=== PATIENT | female | born 1945 | race Caucasian/White ===

== ENCOUNTER → 2024-06-06 09:10 | Outpatient (REF) | payer MEDICARE, OTHER, SELFPAY | LOC: WDC 09:10 | PROVIDERS: ATTENDING PHYSICIAN Family Medicine | DX: N63.21 Unspecified lump in the left breast, upper outer quadrant (principal) | CPT/HCPCS: 76642; 77062; 77066 ==

== ENCOUNTER → 2024-06-19 09:06 | Outpatient (REF) | payer MEDICARE, OTHER, SELFPAY ==
--- NOTE | 2024-06-19 14:40 | OID.BR.INTR ---
[facility] Breast Navigator - Initial
- -
Date of Contact: 06/19/24
Met with patient. Patient given written information on navigator services available at [facility]. Will follow up as needed per protocol.
== END ==
LOC: WDC 09:06
PROVIDERS: ATTENDING PHYSICIAN Family Medicine
DX: N63.21 Unspecified lump in the left breast, upper outer quadrant (principal)
CPT/HCPCS: 88305; 19083; 77065; 88342; 88360; A4648

== ENCOUNTER 2024-07-11 06:06 | Day surgery (SDC) | payer MEDICARE, OTHER, SELFPAY ==
[2024-07-11] VITALS (9 sets, daily range): BP systolic 112–139; BP diastolic 50–64; BMI 46.7
[2024-07-11] MEDS: LOVENOX 40 MG SC (07:23)
[2024-07-11] MEDS: TYLENOL 1000 MG PO (07:24)
[2024-07-11] MEDS: NORMOSOL-R 1000 IV (07:24)
[2024-07-11 07:27] LABS: Glucose - Point of Care 130 mg/dl (70-99)
[2024-07-11 08:49] LABS: Glucose - Point of Care 131 mg/dl (70-99)
== END 2024-07-11 11:15 | disposition home or self-care (01) ==
LOC: SDS 06:06
PROVIDERS: ATTENDING PHYSICIAN Surgery
DX: D05.12 Intraductal carcinoma in situ of left breast (principal)
CPT/HCPCS: 19301; 88305; 88307; 82962; A4648

== ENCOUNTER 2024-08-29 06:31 | Day surgery (SDC) | payer MEDICARE, OTHER, SELFPAY ==
[2024-08-29] VITALS (8 sets, daily range): BP systolic 113–160; BP diastolic 58–104; BMI 46.8
[2024-08-29] MEDS: TYLENOL 1000 MG PO (10:30)
[2024-08-29 10:43] LABS: Glucose - Point of Care 139 mg/dl (70-99)
[2024-08-29] MEDS: LOVENOX 40 MG SC (10:58)
[2024-08-29] MEDS: ZOFRAN 4 MG IV (13:57)
== END 2024-08-29 15:15 | disposition home or self-care (01) ==
LOC: SDS 06:31
PROVIDERS: ATTENDING PHYSICIAN Surgery
DX: D05.12 Intraductal carcinoma in situ of left breast (principal); D05.82 Other specified type of carcinoma in situ of left breast
CPT/HCPCS: 19301; 14001; 88305; 88307; 82962; A4648; L8000

== ENCOUNTER 2024-10-07 17:31 | Inpatient (IN) | payer MEDICARE, OTHER, SELFPAY ==
[2024-10-07] VITALS (10 sets, daily range): BP systolic 125–206; BP diastolic 60–106; PULSE 72; BMI 45.9; BMI 46.5
[2024-10-07 11:26] LABS: % Basophils 0.4 % (0-2); % Eosinophils 0.1 % (0-6); % Immature Granulocytes 0.8 % (0-0.5); % Lymphocytes 11.3 % (20.5-51.1); % Monocytes 10.4 % (1.7-9.3); Absolute Immature Granulocytes 0.1 10^3/uL (0-0.05); Absolute Lymphocytes 1.2 10^3/uL (1.2-3.4); Absolute Monocytes 1.1 10^3/uL (0.1-0.6); Hematocrit 33.2 % (37.0-47.0); Hemoglobin 11.4 g/dL (12.0-16.0); Mean Corp Hgb Conc. 34.3 g/dL (33.0-37.0); Mean Corpuscular Hgb 29.8 pg (27.0-31.0); Mean Corpuscular Volume 86.9 fL (81.0-99.0); Mean Platelet Volume 10.8 fL (7.4-10.4); Nucleated Red Blood Cells % 0 %; Platelet Count 111 10^3/uL (130-400); Red Blood Cell Count 3.82 10^6/uL (4.20-5.40); Red Cell Dist. Width 13.1 % (11.5-14.5); White Blood Cell Count 10.3 10^3/uL (4.8-10.8)
[2024-10-07 11:50] LABS: ALT (SGPT) 37 U/L (0-35); AST (SGOT) 78 U/L (14-36); Albumin 3.3 g/dl (3.5-5.0); Alkaline Phosphatase 96 U/L (38-126); Blood Urea Nitrogen 38 mg/dl (7-17); Calcium 9.2 mg/dl (8.4-10.2); Carbon Dioxide 26 mmol/L (22-30); Chloride 97 mmol/L (98-107); Estimated Creatinine Clearance 48 ml/min; Glucose 149 mg/dl (70-99); Potassium 3.1 mmol/L (3.5-5.1); Sodium 135 mmol/L (135-145); Total Bilirubin 1.3 mg/dl (0.2-1.3); Total Protein 5.9 g/dl (6.3-8.2); eGFR 42.62
[2024-10-07] MEDS: NSS 500 IV (13:03)
[2024-10-07 13:24] LABS: Urine Albumin 2+ (Neg - Trace); Urine Bilirubin Negative (Negative); Urine Character Slightly Cloudy (Clear); Urine Color Yellow; Urine Glucose Negative (Negative); Urine Ketone Negative (Negative); Urine Leukocyte 2+ (Negative); Urine Nitrite Negative (Negative); Urine Occult Blood 2+ (Negative); Urine Specific Gravity 1.015 (<1.030); Urine Urobilinogen Negative (Neg - 1+)
[2024-10-07 13:26] LABS: COVID-19 Antigen Negative (Negative)
[2024-10-07 13:28] LABS: Magnesium 1.6 mg/dl (1.6-2.3)
[2024-10-07 13:32] LABS: Urine Bacteria Many (Negative); Urine Squamous Cell 0-2 /LPF (Few)
[2024-10-07 13:33] LABS: Urine Red Blood Cell 0-2 /HPF (0-2); Urine White Cell 26-30 /HPF (0-5)
[2024-10-07 13:42] LABS: NT-proBNP 2540 pg/ml; Troponin I 0.085 ng/ml
[2024-10-07] MEDS: ROCEPHIN 1000 MG IV (13:53)
--- NOTE | 2024-10-07 13:54 | ED.GENMED ---
History of Present Illness
General
Chief Complaint: Weakness
Source: patient
Exam Limitations: none
Time Seen by Provider: 10/07/24 12:29
Nursing documentation reviewed up to this point in time: agreed with
History of Present Illness
History of Present Illness:
78 y/o F with h/o NIDDM, sleep apnea, htn, hld, breast ca, kidney stone here
with genearlized weakness
pt apparently tripped and fell sometime last week and hurt her L hip but was able to walk but then the past few days hasn't had the energy to get out of bed
she says she did not hit her head and she is not confused.
she says she hasn't had an appetite, nothing really tasted good. she has not had a known fever, maybe mild cough
denies abdominal pain, vmoiting, diarrhea, urinary symptoms, headache, chest pain, shortness of breath
pt apparently does not usually wear o2 but was hypoxic here to 88% on RA
she is a former smoker and has slep apnea
Past History
Past History
ED Past Medical History: Cancer (breast), GERD, HTN, Hypercholesterolemia, NIDDM, Other (kidney stone) and Other
ED Past Surgical History: Orthopedic
Social History
Tobacco: Former smoker
Personal:
Living: with family
Review of Systems
Review of Systems
Allergies reviewed?: Yes
All Other Systems: Not applicable
Phy Exam
Physical Exam
Physical Exam:
GENERAL: Alert , in no apparent distress
EYE: pupils equal and reactive
NECK: Supple
ENT: erythematous, VERY DRY MOUTH
CARDIAC: Regular rate and rhythm .
LUNGS: diminished, no resp distress, occ cough
ABDOMEN: Soft, obese without focal tenderness, no r/g, no cvat, normal bowel sounds
NEUROLOGICAL: Alert and oriented x 3, no focal neuro deficits
SKIN: Warm and dry, skin intact.
MUSCULOSKELETAL:L hip pain with ROM but able to flex 45 degrees
PSYCH: Normal and appropriate interaction.
Course
Orders/Labs/Results
Orders:
Orders
10/07/24 11:20
Complete Blood Count/With Diff Urgent
Comprehensive Metabolic Panel Urgent
Magnesium Urgent
Comment: ADD ON
Vitamin B12 Urgent
Comment: ADD ON
10/07/24 12:44
COVID-19 Antigen Urgent
Source: Nasal Swab
Influenza A+B Rapid Molecular Urgent
GLORIA Source: Nasal Swab
Specimen Description:
10/07/24 12:54
Add On- LAB Urgent
Tests Added?: magnesium
Electrocardiogram (*1) Urgent
Reason for Study: Shortness of Breath
EKG- Treatment ONCE
0.9% Sodium Chloride 500 ml [Nss] 500 ml IV BOLUS
CR Chest - 2 Views Urgent
Comment:
Reason For Exam: weaknes, hypoxia
Hip, Left 2-3 Views [CR Hip - LT w/wo Pel 2-3 Vw*] Urgent
Comment:
Reason For Exam: fall L hip pain
Include a pelvis x-ray?: Yes
10/07/24 13:00
NT-proBNP Urgent
Troponin I Urgent
10/07/24 13:15
Urinalysis Reflex To Culture Urgent
Date Specimen was Collected: 10/07/24
Time Specimen was Collected: 13:01
Urine Microscopic Reflex Cult Urgent
Urine Culture Urgent
GLORIA Source: U
Specimen Description:
Date Specimen was Collected: 10/07/24
Time Specimen was Collected: 13:01
10/07/24 13:49
CT Chest Pe Study Urgent
Comment:
Reason For Exam: HYPOXIA, WEAKNESS, ELEVATED TROP
10/07/24 13:50
CefTRIAXone [Rocephin] 1,000 mg IV NOW STA
10/07/24 13:55
CT Abd/pel Without Iv Or Oral Urgent
Comment:
Reason For Exam: CHELSI, uti, h/o obstructive uropathy
10/07/24 Dinner
1800 calorie (15 carb) Diabetic
Diabetic Diet: Sodium, 2 Gram
10/07/24 17:09
Magnesium Sulfate 1 grams 0.9% Sodium Chloride 100 ml [Nss] 100 ml IV NOW
Potassium Chloride [KCl] 40 meq PO NOW STA
10/07/24 17:18
Admit/Transfer Patient As Directed
Co-Sign Provider:
Level of Care: Inpatient admission
Assign to:: Medical/Surgical
Physician / Group: Mouna Perez
Diagnosis: CHELSI/UTI, adult failure to thrive
Reason for Hospitalization: CHELSI/UTI, adult failure to thrive
Expected length of stay greater than two midnights?: Yes
ELOS- Estimated Length of Stay in days: 3
I certify the patient meets the requirements for IP care: Yes
PRN Pain Medication Management As Directed
May give lesser potent ordered pain med per pt: Yes
preference::
Protocol:: Medication orders for pain may be administered in a
manner that supports deferring to patient preference
when the pt is:
- Requesting an ordered lesser potent pain medication.
Least to most potent pain medications are defined
as: acetaminophen < NSAID < tramadol < opioids
(morphine, oxycodone, hydromorphone).
- Requesting a lesser dose of the same medication IF
ORDERED.
- Requesting a less intrusive route of administration
if both routes are prescribed by the provider (PO <
IV).
10/07/24 17:20
Code Status As Directed
Resuscitation Status: Full Code
10/07/24 18:29
Acetaminophen [Tylenol] 650 mg PO Q4HPRN PRN
10/07/24 18:29
Activity As Directed
Activity Level: With Assistance
Vital Signs As Directed
Frequency: Per unit guidelines
O2 Therapy [RESP] Routine
Titrate/Wean O2 to maintain O2 sat greater than (%): 92
OT Consult [Ot Eval And Treat] Routine
PT Consult [Pt Eval And Treat] Routine
Activity Level: With Assistance
DX Deep Vein Thrombosis Video Routine
10/07/24 20:00
Gabapentin [Neurontin] 900 mg PO BID
Metoprolol [Lopressor] 50 mg PO BID
10/07/24 22:00
Trazodone [Desyrel] 100 mg PO HS
10/08/24 00:00
Heparin 5,000 units SC Q8
10/08/24 06:00
Basic Metabolic Panel IN AM
Complete Blood Count/No Diff IN AM
10/08/24 08:00
Amlodipine [Norvasc] 5 mg PO DAILY
Atorvastatin [Lipitor] 10 mg PO DAILY
Bupropion(12Hr)Sustain Release [WELLBUTRIN SR (12 hour sustained release)] 150 mg PO DAILY
Cyanocobalamin [Vitamin B-12] 1,000 mcg PO DAILY
METFORMIN HCl [Glucophage] 1,000 mg PO DAILY
Pantoprazole [Protonix] 40 mg PO DAILY
10/08/24 14:00
CefTRIAXone [Rocephin] 1,000 mg IV Q24H
10/09/24 06:00
Basic Metabolic Panel IN AM
Complete Blood Count/No Diff IN AM
10/10/24 06:00
Basic Metabolic Panel IN AM
Complete Blood Count/No Diff IN AM
Abnormal Lab Results
10/07/24 10/07/24 10/07/24
11:20 13:00 13:15
RBC 3.82 L 10^6/uL
(4.20-5.40)
Hgb 11.4 L g/dL
(12.0-16.0)
Hct 33.2 L %
(37.0-47.0)
Plt Count 111 L 10^3/uL
(130-400)
MPV 10.8 H fL
(7.4-10.4)
Abs Immat Gran (auto) 0.1 H 10^3/uL
(0-0.05)
Absolute Neuts (auto) 8.0 H 10^3/uL
(1.4-6.5)
Absolute Monos (auto) 1.1 H 10^3/uL
(0.1-0.6)
Immature Gran % 0.8 H %
(0-0.5)
Neutrophils % 77.0 H %
(42.2-75.2)
Lymphocytes % 11.3 L %
(20.5-51.1)
Monocytes % 10.4 H %
(1.7-9.3)
Potassium 3.1 L mmol/L
(3.5-5.1)
Chloride 97 L mmol/L
(98-107)
BUN 38 H mg/dl
(7-17)
Creatinine 1.3 H mg/dL
(0.6-1.0)
Glucose 149 H mg/dl
(70-99)
AST 78 H U/L
(14-36)
ALT 37 H U/L
(0-35)
Troponin I 0.085 H* ng/ml
Total Protein 5.9 L g/dl
(6.3-8.2)
Albumin 3.3 L g/dl
(3.5-5.0)
Ur Occult Blood Reflex 2+ A
(Negative)
Leukocyte Esterase Rfl 2+ A
(Negative)
Urine WBC (Reflex) 26-30 A /HPF
(0-5)
Urine Bacteria (Reflex) Many A
(Negative)
Urine Albumin (Reflex) 2+ A
(Neg - Trace)
10/07/24 11:20
10/07/24 11:20
Vital Signs
Initial and Last Documented VS:
Initial Vital Signs
Temp Pulse Resp BP Pulse Ox
98.6 F 99 22 141/60 88
10/07/24 11:09 10/07/24 11:09 10/07/24 11:09 10/07/24 11:09 10/07/24 11:09
Last Documented Vital Signs
Temp Pulse Resp BP Pulse Ox
99.6 F 99 22 206/106 99
10/07/24 18:29 10/07/24 18:29 10/07/24 18:29 10/07/24 18:29 10/07/24 18:29
MDM/Problems Addressed
Differential Diagnosis Includes:
pna, covid, flu, uti, nstemi
MDM/Problems Addressed:
78 y/o F from home, htn, hld, niddm, former smoker
a few days gen weakness, not getting out of bed, not eating/drinking
pt's only complaint is L hip pain after fall a few days ago, no head strike, was initially able to get up and walk but then got generalized weakness
dry cough, nausea
bp stable, temp normal but pulse ox 88% RA, doesn' tusually wear o2
looks extremely dry
dry cough
no resp distress, no abd tendneress, able to range L hip
w/u shows subtle st abnormality I, avL, no chest pain
CHELSI, probably prerenal
trop 0.08 no chest pain
bnp 2000
cxr neg
covid/flu neg
did ct PE which was neg, maybe mild interstitial edema, no PE, no pna
ct a/p no stone
Urine +
rocephin
*Critical Care Note
Total Time (30-74mins, 75-104mins- exclusive of procedures): Not Applicable
ED Attending Note
-
Portions of this chart may have been created with voice recognition software.� Occasional wrong word or��sound alike� substitutions may have occurred due to the inherent limitations of voice recognition software.
Discharge Plan
Departure
Patient Disposition: Admit
Date of Disposition: 10/07/24
Time of Disposition: 15:54
Admit to: Telemetry
Presentation/result/management discussed w/ accepting MD/DO: Hospitalist
Condition: Fair
Covid-19: Not Applicable
Discharge Problem:
UTI (urinary tract infection), Non-ST elevation MA (NSTEMI), CHELSI (acute kidney injury)
Interventions
Interventions:
*Risk Screen - Suicide Last Done: 10/07/24 11:18
*General Assessment Last Done: 10/07/24 11:09
*Neglect/Abuse Screening Last Done: 10/07/24 11:09
ED- Fall Risk Assessment Last Done: 10/07/24 11:09
*ED COVID-19 Vaccine History Last Done: 10/07/24 11:09
*Nursing Disposition Last Done: 10/07/24 18:03
ED- Cardiac Assessment Last Done: 10/07/24 11:15
ED- Neurological Assessment Last Done: 10/07/24 11:16
ED- Pulmonary Assessment Last Done: 10/07/24 11:16
Discharge Date and Time
Discharge Date/Time: 10/07/24 18:09
--- NOTE | 2024-10-07 16:13 | HPS.HSE ---
Family Physician
-
Family Physician: Mehul Velazquez
Chief Complaint
-
generalized weakness
History of Present Illness
Patient is a 78-year-old female with past medical history significant for hypertension, hyperlipidemia, type 2 diabetes, GERD, depression, sleep apnea and left breast ductal carcinoma in situ who presented to [facility] for evaluation of
generalized weakness. Patient states that 1-2 weeks ago she 'rolled out of bed,' landing on her left hip, she denies hitting her head at this time. Since then she has had left hip pain and increased weakness causing another fall 2 days ago when she
attempted to get up from sitting position she fell forward onto floor. She normally ambulates with cane for assistance and feels she is having increased difficulty getting around even with the cane. She decided to get evaluated today related to
increased generalized weakness. At ED arrival she was hypoxic on room air at 88%, maintaining mid 90s with 2 Liters O2 via NC. She states that recently she has had chills but unaware of she was febrile. Denies cough, shortness of breath, chest pain,
nausea, vomiting, constipation, diarrhea, or urinary symptoms.
Medical History
Past Medical History
Past Medical History: Reports Other
Additional Past Medical History:
hypertension
hyperlipidemia
type 2 diabetes
GERD
depression
sleep apnea
insomnia
left breast ductal carcinoma in situ
Past Surgical History: Reports Other
Additional Past Surgical History:
left breast lumpectomy (08/29/2024)
Social History
Tobacco: Former Smoker (quit 40 years ago)
Alcohol: Occasional (rare, 3 drinks a year)
Drug: None
Personal:
Living: With Family
Employment: Retired
Family History
Family History: Not pertinent
Allergies / Home Medications
Allergies reflects when Allergies were last updated in [facility].
Home Medications with original date entered in [facility]
Allergy/Medication List:
Allergies
Allergy/AdvReac Type Severity Reaction Status Date / Time
codeine Allergy Nausea,headache, Verified 10/07/24 11:18
dizzy
morphine Allergy stopped Verified 10/07/24 11:18
breathing
Home Medications
gabapentin 600 mg tablet 900 mg PO BID 03/01/14
trazodone 50 mg tablet 100 mg PO HS 03/01/14
amlodipine 5 mg tablet (Norvasc) 5 mg PO DAILY 07/08/24
atorvastatin 10 mg tablet (Lipitor) 10 mg PO DAILY 07/08/24
bupropion HCl 150 mg tablet,12 hr sustained-release (Wellbutrin SR) 150 mg PO DAILY 07/08/24
hydrochlorothiazide 12.5 mg tablet 12.5 mg PO DAILY 07/08/24
lisinopril 40 mg tablet 40 mg PO DAILY 07/08/24
metformin 1,000 mg tablet 1,000 mg PO DAILY 07/08/24
metoprolol tartrate 50 mg tablet (Lopressor) 50 mg PO BID 07/08/24
multivitamin 1 tab PO QPM 07/08/24
pantoprazole 40 mg tablet,delayed release (Protonix) 40 mg PO DAILY 07/08/24
cyanocobalamin (vitamin B-12) 1,000 mcg tablet 1,000 mcg PO DAILY 10/07/24
ibuprofen 200 mg tablet (Advil) 600 mg PO DAILYPRN PRN mild pain 10/07/24
Review of Systems
-
History Source: Patient
Constitutional: Reports Chills and Other (generalized weakness with falls)
EENT: Reports No Symptoms
Respiratory: Reports No Symptoms
Cardiac: Reports No Symptoms
Abdomen/GI: Reports No Symptoms
: Reports No Symptoms
Musculoskeletal: Reports Edema (mild to right lower extremity that is r/t arthritis)
Skin: Reports No Symptoms
Neurological: Reports No Symptoms
Endocrine: Reports No Symptoms
Hematologic/Lymphatic: Reports No Symptoms
Psych: Reports No Symptoms
Physical Exam
Vital Signs
Vital Signs
Temp Pulse Resp BP Pulse Ox
98.6 F 88 17 161/77 94
10/07/24 11:09 10/07/24 15:45 10/07/24 15:37 10/07/24 15:39 10/07/24 15:45
Physical Exam
General: Well Developed, Well Nourished, No Apparent Distress, Comfortable and Conversant
HEENT: NormoCephalic, Moist mucous membranes, Atraumatic, PERRLA, [place] Conjunctivae, Nose Appears Normal and Ears Appear Normal
Respiratory: Clear and Non Labored Respirations; No Wheezes, Rales, Rhonchi or Crackles
Cardiac: S1/S2 and Regular Rhythm; No Murmur, Rub or Gallop
Breast: Deferred by me
GI: Soft, Non Tender and Normal Bowel Sounds; No Organomegaly
Rectal: Deferred by Provider
Genito-urinary: Deferred by me
Musculoskeletal: No Clubbing, No Cyanosis and No Edema
Skin: Warm, Dry and IV/Catheter Site; No Rash
Neuro: Awake, Alert, AO x 3 and Nonfocal/grossly intact
Hematologic/Lymphatic: No Lymphadenopathy
Psych: Calm
Laboratory Results
-
10/07/24 11:20
10/07/24 11:20
Laboratory Results
Total Bilirubin 1.3 mg/dl (0.2-1.3) 10/07/24 11:20
AST 78 U/L (14-36) H 10/07/24 11:20
ALT 37 U/L (0-35) H 10/07/24 11:20
Alkaline Phosphatase 96 U/L (38-126) 10/07/24 11:20
Troponin I 0.085 ng/ml H* 10/07/24 13:00
Data Reviewed
-
Diagnostic Radiology: Report Reviewed by me (CXR: No significant change. No acute pulmonary process identified. Left Hip: No acute fracture or malalignment identified radiographically. )
CT Scan: Report Reviewed by me (Chest an abd/pelvs (see report))
Medical Tests (Nuc Med, Echo, EKG etc): Report Reviewed by me (EKG: NORMAL SINUS RHYTHM LEFT AXIS DEVIATION)
Lab Data: Labs Reviewed by me (BUN 38, Creat 1.3, K+ 3.1, AST 78, ALT 37, trop 0.085, BNP 2540)
Impression/Plan
-
IMPRESSION/PLAN:
#Adult failure to thrive
#CHELSI
#UTI
- increased generalized weakness with recurrent falls
- BUN 38, Creat 1.3
- UA +
- Flu and Covid swabs negative
- IV ceftriaxone
- PT/OT consults
#diastolic heart failure
- BNP 2540
- monitor for now
#hypertension
- continue amlodipine, metoprolol
- hold HCTZ, lisinopril
#hyperlipidemia
- continue atorvastatin
#type 2 diabetes
- continue metformin
#GERD
- continue Protonix
#depression
- continue Wellbutrin
#sleep apnea/insomnia
- continue trazodone
#left breast ductal carcinoma in situ
- recent lumpectomy
- scheduled for 15 rounds radiation
Full Code
DVT Px: Sq Heparin
[2024-10-07] MEDS: KCL 40 MEQ PO (17:28)
[2024-10-07] MEDS: MAGNESIUM SULFATE 102 GRAMS IV (17:36)
--- NOTE | 2024-10-07 17:47 | W.PN.UPDATE ---
Update Note
Progress Note Update
78-year-old female stated that she could not get out of bed for the past few days because she was feeling really weak. She had fallen at home last week and has some pain in the left hip.
I saw and examined the patient.
The DERRICK MAN or PA's note was reviewed and I agree with the note.
Comment:
On examination obese
Awake alert oriented conversant
Cardiovascular system S1-S2 appreciated, short systolic murmur at apex
Chest clear to auscultation
Abdomen soft and nontender
Extremities no edema, good dorsalis pedis pulses noted
Left big toe plantar area with ulcer noted no discharge
Neuroexam mostly nonfocal
CT abdomen and pelvis-small volume of gas in the urinary bladder suspicious for infection. No hydronephrosis bilateral nonobstructive nephrolithiasis. Advanced atrophic changes of the left kidney. Hepatomegaly. Splenomegaly. Incidental small
benign adenoma of the right adrenal gland.
CT of the chest-no PE. Bilateral groundglass and interstitial opacities likely related atelectasis. Mild interstitial edema possible. Low-attenuation nodules in the right and left lobes of thyroid. Left breast postoperative changes-possible
seroma
# Generalized weakness may be due to UTI- Treat and consult PT OT
# UTI-cover with ceftriaxone-history of E. coli UTI in the past
# Left big toe ulcer-podiatry evaluation. Patient does have good pulses
# Acute kidney injury-getting IV fluids in the ER. Will cap After the 1 L. Hold lisinopril hydrochlorothiazide, Advil
# Mild hypoxic respiratory insufficiency-
# Slightly elevated troponin 0.08. Follow. Routine ECHO. No chest pain
# Elevated [id number] right upper quadrant tenderness. follow.
# Atelectasis- Add IS
# Hypokalemia-replace
# Mild thrombocytopenia-follow
# Hyperlipidemia-continue atorvastatin
# Hypertension-continue amlodipine, metoprolol 50 twice daily
# Diabetes-continue metformin and with Accu-Cheks and sliding scale coverage
# Chronic HFpEF
# Depression/anxiety/panic disorder-continue Wellbutrin
# Bilateral thyroid nodules-outpatient follow-up
# Morbid obesity with a BMI of 45
# Sleep apnea
# Diverticulosis/hemorrhoids
# Ambulatory dysfunction/osteoarthritis/spinal stenosis
# Left breast excision lumpectomy with oncoplastic mastoplasty in June 2024-pathology residual ductal carcinoma in situ negative margins
# GERD-continue PPI
# Ex-smoker
Discussed with ER nursing
[2024-10-07] MEDS: TYLENOL 650 MG PO (18:53)
[2024-10-07] MEDS: APRESOLINE 5 MG IV (18:54)
--- NOTE | 2024-10-07 19:40 | PTCARENOTE ---
Received pt from ED. Pt awake, alert and oriented x3. Pt c/o pain in Left hip, medicated with tylenol per orders. Pt bp elevated, MD aware Iv hydralazine given as ordered. Pt other VSS, 99% on 2L. Pt oriented to room,call thorpe within reach, plan of
care continues.
[2024-10-07 19:55] LABS: Vitamin B12 > 1000 pg/ml (239-931)
[2024-10-07] MEDS: NEURONTIN 900 MG PO (20:33)
[2024-10-07] MEDS: LOPRESSOR 50 MG PO (20:34)
[2024-10-07] MEDS: DESYREL 100 MG PO (20:34)
[2024-10-07 20:40] LABS: Troponin I 0.061 ng/ml
[2024-10-07 21:45] LABS: Glucose - Point of Care 123 mg/dl (70-99)
[2024-10-08] MEDS: HEPARIN 5000 UNITS SC ×3 (00:25→17:22)
[2024-10-08] MEDS: TYLENOL 650 MG PO (03:52)
[2024-10-08] MEDS: LIDOCAINE 4% PATCH 1 PATCH TOPICAL (03:53)
[2024-10-08 08:13] LABS: Hematocrit 34.5 % (37.0-47.0); Hemoglobin 11.4 g/dL (12.0-16.0); Mean Corpuscular Hgb 29.7 pg (27.0-31.0); Mean Corpuscular Volume 89.8 fL (81.0-99.0); Mean Platelet Volume 11.3 fL (7.4-10.4); Platelet Count 117 10^3/uL (130-400); Red Blood Cell Count 3.84 10^6/uL (4.20-5.40); Red Cell Dist. Width 13.2 % (11.5-14.5); White Blood Cell Count 10.7 10^3/uL (4.8-10.8)
[2024-10-08 08:17] VITALS: BP 180/75
[2024-10-08 08:24] LABS: ALT (SGPT) 39 U/L (0-35); AST (SGOT) 60 U/L (14-36); Albumin 3.1 g/dl (3.5-5.0); Alkaline Phosphatase 98 U/L (38-126); Blood Urea Nitrogen 29 mg/dl (7-17); Calcium 9.2 mg/dl (8.4-10.2); Carbon Dioxide 23 mmol/L (22-30); Chloride 100 mmol/L (98-107); Direct Bilirubin 0.6 mg/dl (0.0-0.4); Estimated Creatinine Clearance 62 ml/min; Glucose 109 mg/dl (70-99); Potassium 3.5 mmol/L (3.5-5.1); Sodium 136 mmol/L (135-145); Total Bilirubin 1.2 mg/dl (0.2-1.3); Total Protein 5.7 g/dl (6.3-8.2); eGFR 58.39
[2024-10-08 08:35] LABS: Glucose - Point of Care 116 mg/dl (70-99)
[2024-10-08] MEDS: NORVASC 5 MG PO (08:39)
[2024-10-08] MEDS: NEURONTIN 900 MG PO ×2 (08:39→20:46)
[2024-10-08] MEDS: PROTONIX 40 MG PO (08:39)
[2024-10-08] MEDS: GLUCOPHAGE 1000 MG PO (08:39)
[2024-10-08] MEDS: WELLBUTRIN SR (12 hour sustained release) 150 MG PO (08:39)
[2024-10-08] MEDS: LIPITOR 10 MG PO (08:40)
[2024-10-08] MEDS: LOPRESSOR 50 MG PO ×2 (08:40→20:46)
[2024-10-08] MEDS: VITAMIN B-12 1000 MCG PO (08:40)
[2024-10-08 10:11] VITALS: BP 176/82; BP 198/92; PULSE 77; O2SAT 92; O2SAT 93
--- NOTE | 2024-10-08 10:16 | W.PN.HOSP.TC ---
Addendum entered and electronically signed by Anaid Castillo MD 10/08/24 13:40:
Transaminitis
Hepatomegaly
-send hepatitis viral panel; iron studies and TSH
-may need to expand work-up based on above results
Original Note:
Today's Communication/Plan
-
F/U Urine culture
Resume STICKER HAND Lisinopril
Lidocaine Patch, continue Gabapentin
Lumbar Spine X-Ray
appreciate PT/OT
Assessment / Plan
Assessment / Plan
Patient is a 78-year-old female with past medical history significant for hypertension, hyperlipidemia, type 2 diabetes, GERD, depression, sleep apnea and left breast ductal carcinoma in situ who presented to [facility] ED for evaluation of
generalized weakness found to have a UTI and CHELSI.
CT abdomen and pelvis-small volume of gas in the urinary bladder suspicious for infection. No hydronephrosis bilateral nonobstructive nephrolithiasis. Advanced atrophic changes of the left kidney. Hepatomegaly. Splenomegaly. Incidental small
benign adenoma of the right adrenal gland.
CT of the chest-no PE. Bilateral groundglass and interstitial opacities likely related atelectasis. Mild interstitial edema possible. Low-attenuation nodules in the right and left lobes of thyroid. Left breast postoperative changes-possible
seroma
#Adult failure to thrive
#CHELSI
#UTI
- increased generalized weakness with recurrent falls
- BUN 38, Creat 1.3 - s/p 1L IVF with improvement in creatinine this morning
- Flu and Covid swabs negative
- IV ceftriaxone, F/U final culture
- PT/OT consults
Lower back pain/ left hip pain
-x-ray hip without fracture
-obtain lumbar spine x-ray today
-lidocaine patch
-standing tylenol
-consider low dose oxycodone if necessary
#diastolic heart failure
- BNP 2540
- monitor for now
- repeat TTE - F/U results
Non SC Related Troponin elevation
-Troponin peaked at 0.08
-repeat TTE
#hypertension
- continue amlodipine, metoprolol
-resume STICKER HAND Lisinopril with resolution CHELSI
- hold HCTZ
#hyperlipidemia
- continue atorvastatin
#type 2 diabetes
- continue metformin
#GERD
- continue Protonix
#depression
- continue Wellbutrin
#sleep apnea/insomnia
- continue trazodone
#left breast ductal carcinoma in situ
- recent lumpectomy
- scheduled for 15 rounds radiation
Full Code
DVT Px: Sq Heparin
51 minutes spent on patient care
Anticipated Discharge: 24 - 48 hours
Subjective/Interval History
-
Date of Service: October 08, 2024
continues to have back pain and left hip pain; no bowel/bladder changes or saddle anesthesia
just got up with PT; can flex hip
Objective Data
-
Labs:
Laboratory Results
10/08/24
07:13
WBC 10.7
Hgb 11.4 L
Hct 34.5 L
Plt Count 117 L
Sodium 136
Potassium 3.5
Chloride 100
Carbon Dioxide 23
BUN 29 H
Creatinine 1.0
Glucose 109 H
Calcium 9.2
Total Bilirubin 1.2
AST 60 H
ALT 39 H
Alkaline Phosphatase 98
Vital Signs:
Vital Signs
Temp Pulse Resp BP Pulse Ox
98.4 F 84 18 180/75 100
10/08/24 08:17 10/08/24 08:17 10/08/24 08:17 10/08/24 08:17 10/08/24 08:17
Review of Systems
-
History Source: Patient
All other systems: Reviewed and negative
Physical Exam
-
General: No Apparent Distress and Other (appears in mild pain )
HEENT: PERRLA
Respiratory: Clear to Auscultation; Negative Wheezes
Cardiac: Regular Rhythm and S1/S2
GI: Soft and Nontender
Musculoskeletal: No Edema
Skin: Warm and Dry; Negative Rash
Neuro: AO x 3
Psych: Calm
Data Reviewed
-
Diagnostic Radiology: Report Reviewed by me
Labs: Labs Reviewed by me
[2024-10-08] MEDS: ZESTRIL 40 MG PO (11:21)
[2024-10-08 11:51] LABS: Glucose - Point of Care 135 mg/dl (70-99)
--- NOTE | 2024-10-08 12:31 | W.CS.POD ---
Consult Summary - Podiatry
-
Pt seen bedside for left hallux wounds. Unknown origin, history of DM with peripheral neuropathy, recent falls
pedal pulses palpable
ulcer possibly from blister or skin tear is superficial with granular base, no SOI
all hyperkeratosis was debrided and wound edges cleaned
dressing applied
cont gauze dressing and triple antibiotic ointment
can follow up upon D/C with her flight security specialist
consult to be dictated
[2024-10-08 14:25] LABS: Iron 21 ug/dl (37-170)
[2024-10-08 14:35] LABS: Percent Saturation 8 % (20-50); Total Iron Binding Capacity 246 ug/dl (265-497)
[2024-10-08] MEDS: VITAMIN D3 (cholecalciferol) 25 MCG PO (14:48)
[2024-10-08] MEDS: STERILE WATER FOR INJECTION 10 ML IV (14:49)
[2024-10-08] MEDS: ROCEPHIN 1000 MG IV (14:49)
--- NOTE | 2024-10-08 15:00 | CM ---
Addendum entered by Lamar Franklin, RN 10/08/24 15:41:
Spoke with Lianna patel she requested [facility] .SNF placed in care port.
Original Note:
Alert awake forgetful patient who lives with her Simba and nephew Adarsh who lives in a 2 story home with 7 steps to enter and 14 to bed bathroom. She is independent in driving and in all activities of daily living.Will need PT OT for dc
planning.
Walker cane CPAP
Has had VN/ No SNF hx
Pharmacy [facility]
PCP Dr Velazquez
PLAN Will need PT OT for dc planning
[2024-10-08 15:15] VITALS: BP 133/85
[2024-10-08 16:31] LABS: Glucose - Point of Care 157 mg/dl (70-99)
[2024-10-08 16:49] LABS: TSH Reflex To Free T4 2.02 uIU/ml (0.47-4.68)
[2024-10-08] MEDS: TYLENOL 1000 MG PO ×2 (17:22→20:46)
[2024-10-08] MEDS: DESYREL 100 MG PO (20:47)
[2024-10-08 21:08] LABS: Glucose - Point of Care 161 mg/dl (70-99)
[2024-10-08 23:15] VITALS: BP 178/89
[2024-10-09] VITALS (7 sets, daily range): BP systolic 141–191; BP diastolic 55–86; PULSE 75; O2SAT 92
[2024-10-09] MEDS: APRESOLINE 5 MG IV (00:04)
[2024-10-09] MEDS: HEPARIN 5000 UNITS SC ×3 (00:05→16:11)
[2024-10-09] MEDS: NORVASC 5 MG PO (05:08)
[2024-10-09] MEDS: LOPRESSOR 50 MG PO ×2 (05:09→21:00)
[2024-10-09] MEDS: TYLENOL 1000 MG PO ×3 (05:09→20:58)
[2024-10-09] MEDS: ZESTRIL 40 MG PO (05:09)
--- NOTE | 2024-10-09 05:47 | PTCARENOTE ---
Pt.'s BP remains elevated despite 1x dose of hydralazine. MARKETING PROJECT COORDINATOR instrusted this nurse to give AM BP meds early. Meds administered. Pt. resting comfortably at this time. Plan of care continues.
[2024-10-09 07:30] LABS: Hematocrit 35.4 % (37.0-47.0); Hemoglobin 11.8 g/dL (12.0-16.0); Mean Corp Hgb Conc. 33.3 g/dL (33.0-37.0); Mean Corpuscular Hgb 30.2 pg (27.0-31.0); Mean Corpuscular Volume 90.5 fL (81.0-99.0); Mean Platelet Volume 11.5 fL (7.4-10.4); Platelet Count 143 10^3/uL (130-400); Red Blood Cell Count 3.91 10^6/uL (4.20-5.40); Red Cell Dist. Width 13.2 % (11.5-14.5); White Blood Cell Count 11.2 10^3/uL (4.8-10.8)
[2024-10-09 07:30] LABS: Glucose - Point of Care 122 mg/dl (70-99)
[2024-10-09 07:54] LABS: ALT (SGPT) 35 U/L (0-35); AST (SGOT) 44 U/L (14-36); Albumin 3.2 g/dl (3.5-5.0); Alkaline Phosphatase 99 U/L (38-126); Blood Urea Nitrogen 24 mg/dl (7-17); Carbon Dioxide 24 mmol/L (22-30); Chloride 97 mmol/L (98-107); Estimated Creatinine Clearance 62 ml/min; Glucose 120 mg/dl (70-99); Potassium 3.5 mmol/L (3.5-5.1); Sodium 136 mmol/L (135-145); Total Bilirubin 0.9 mg/dl (0.2-1.3); Total Protein 5.8 g/dl (6.3-8.2); eGFR 58.39
[2024-10-09] MEDS: NEURONTIN 900 MG PO ×2 (09:21→20:59)
[2024-10-09] MEDS: VITAMIN B-12 1000 MCG PO (09:22)
[2024-10-09] MEDS: LIPITOR 10 MG PO (09:22)
[2024-10-09] MEDS: PROTONIX 40 MG PO (09:22)
[2024-10-09] MEDS: VITAMIN D3 (cholecalciferol) 25 MCG PO (09:22)
[2024-10-09] MEDS: GLUCOPHAGE 1000 MG PO (09:22)
[2024-10-09] MEDS: WELLBUTRIN SR (12 hour sustained release) 150 MG PO (09:23)
[2024-10-09] MEDS: LIDOCAINE 4% PATCH 1 PATCH TOPICAL (09:24)
--- NOTE | 2024-10-09 10:45 | W.PN.HOSP.TC ---
Addendum entered and electronically signed by Anaid Castillo MD 10/10/24 11:45:
Non-ischemic myocardial injury
TTE without significant change
Original Note:
Today's Communication/Plan
-
F/U final urine culture
pain control with lidocaine patch, tylenol, low dose oxycodoen - patient willing to try
PT/OT - eventual SNF
Assessment / Plan
Assessment / Plan
Patient is a 78-year-old female with past medical history significant for hypertension, hyperlipidemia, type 2 diabetes, GERD, depression, sleep apnea and left breast ductal carcinoma in situ who presented to [place] ED for evaluation of
generalized weakness found to have a UTI and CHELSI.
CT abdomen and pelvis-small volume of gas in the urinary bladder suspicious for infection. No hydronephrosis bilateral nonobstructive nephrolithiasis. Advanced atrophic changes of the left kidney. Hepatomegaly. Splenomegaly. Incidental small
benign adenoma of the right adrenal gland.
CT of the chest-no PE. Bilateral groundglass and interstitial opacities likely related atelectasis. Mild interstitial edema possible. Low-attenuation nodules in the right and left lobes of thyroid. Left breast postoperative changes-possible
seroma
Lumbar Spine X-Ray
IMPRESSION:
anterior compression deformity of the L3 vertebral body with approximately 20% loss of height which is likely subacute or chronic.
There is multilevel degenerative disc disease and facet arthropathy most pronounced at the L4-L5 and L5-S1 levels where it is moderate.
TTE 10/08/24
CONCLUSIONS
Technically difficult study
Normal left ventricular chamber size. Normal left ventricular systolic
function. Left ventricular ejection fraction is 60% by volumetric assessment.
No gross regional wall motion abnormalities seen. Moderate concentric left
ventricular hypertrophy. Normal diastolic function.
Normal right ventricular size and function.
Mild mitral regurgitation.
Aortic sclerosis without stenosis.
Compared to prior study dated 02/11/2018, there is no significant change
#Adult failure to thrive
#CHELSI
#UTI
- increased generalized weakness with recurrent falls
- BUN 38, Creat 1.3 - s/p 1L IVF with improvement in creatinine this morning
- Flu and Covid swabs negative
- IV ceftriaxone, F/U final culture
- PT/OT consults - eventual SNF
Lower back pain/ left hip pain
L3 Compression fracture
-x-ray hip without fracture
-lidocaine patch
-standing tylenol
-patient willing to trial low dose Oxycodone - will order now
-will also order intranasal calcitonin
#diastolic heart failure chronic
-repeat TTE without change
-resume PRODUCTION BROACHING MACHINE OPERATOR HCTZ
Non [place] Related Troponin elevation
-Troponin peaked at 0.08
-repeat TTE
#hypertension
- continue amlodipine, metoprolol
-resume PRODUCTION BROACHING MACHINE OPERATOR Lisinopril with resolution CHELSI
-resume HCTZ tomorrow
#hyperlipidemia
- continue atorvastatin
#type 2 diabetes
- continue metformin
#GERD
- continue Protonix
#depression
- continue Wellbutrin
#sleep apnea/insomnia
- continue trazodone
#left breast ductal carcinoma in situ
- recent lumpectomy
- scheduled for 15 rounds radiation
Full Code
DVT Px: Sq Heparin
51 minutes spent on patient care
Anticipated Discharge: 24 - 48 hours
Subjective/Interval History
-
Date of Service: October 09, 2024
continues to have severe lower back pain
Objective Data
-
Labs:
Laboratory Results
10/09/24
06:36
WBC 11.2 H
Hgb 11.8 L
Hct 35.4 L
Plt Count 143 D
Sodium 136
Potassium 3.5
Chloride 97 L
Carbon Dioxide 24
BUN 24 H
Creatinine 1.0
Glucose 120 H
Calcium 9.0
Total Bilirubin 0.9
AST 44 H
ALT 35
Alkaline Phosphatase 99
Vital Signs:
Vital Signs
Temp Pulse Resp BP Pulse Ox
97.5 F 73 20 176/81 96
10/09/24 07:35 10/09/24 07:35 10/09/24 07:35 10/09/24 07:35 10/09/24 07:35
I&O
10/08/24 10/09/24 10/10/24
06:59 06:59 06:59
Intake Total 1919
Balance 1919
Review of Systems
-
History Source: Patient
All other systems: Reviewed and negative
Physical Exam
-
General: No Apparent Distress and Other (appears in mild pain )
HEENT: PERRLA
Respiratory: Clear to Auscultation; Negative Wheezes
Cardiac: Regular Rhythm and S1/S2
GI: Soft and Nontender
Musculoskeletal: No Edema and Other (mid spine tenderness; 5/5 strength b/l hip flexion )
Skin: Warm and Dry; Negative Rash
Neuro: AO x 3
Psych: Calm
Data Reviewed
-
Diagnostic Radiology: Report Reviewed by me
Labs: Labs Reviewed by me
[2024-10-09] MEDS: MIACALCIN/FORTICAL NASAL SPRAY 1 SPRAY NASAL (11:18)
[2024-10-09] MEDS: ROXICODONE 2.5 MG PO ×2 (11:18→20:56)
[2024-10-09 11:52] LABS: Glucose - Point of Care 213 mg/dl (70-99)
--- NOTE | 2024-10-09 12:48 | W.PN.HOSP.TC ---
Today's Communication/Plan
-
will stop standing Tylenol and observe one more day to ensure no new fever spikes; also monitor WBC. she clinically feels improved today so suspect this is stress reaction
Assessment / Plan
Assessment / Plan
Patient is a 78-year-old female with past medical history significant for hypertension, hyperlipidemia, type 2 diabetes, GERD, depression, sleep apnea and left breast ductal carcinoma in situ who presented to [facility] ED for evaluation of
generalized weakness found to have a UTI and CHELSI.
CT abdomen and pelvis-small volume of gas in the urinary bladder suspicious for infection. No hydronephrosis bilateral nonobstructive nephrolithiasis. Advanced atrophic changes of the left kidney. Hepatomegaly. Splenomegaly. Incidental small
benign adenoma of the right adrenal gland.
CT of the chest-no PE. Bilateral groundglass and interstitial opacities likely related atelectasis. Mild interstitial edema possible. Low-attenuation nodules in the right and left lobes of thyroid. Left breast postoperative changes-possible
seroma
Lumbar Spine X-Ray
IMPRESSION:
anterior compression deformity of the L3 vertebral body with approximately 20% loss of height which is likely subacute or chronic.
There is multilevel degenerative disc disease and facet arthropathy most pronounced at the L4-L5 and L5-S1 levels where it is moderate.
TTE 10/08/24
CONCLUSIONS
Technically difficult study
Normal left ventricular chamber size. Normal left ventricular systolic
function. Left ventricular ejection fraction is 60% by volumetric assessment.
No gross regional wall motion abnormalities seen. Moderate concentric left
ventricular hypertrophy. Normal diastolic function.
Normal right ventricular size and function.
Mild mitral regurgitation.
Aortic sclerosis without stenosis.
Compared to prior study dated 02/11/2018, there is no significant change
#CHELSI
-s/p 1 L IVF
-resolved, creatinine stable at 1
-ORDER ADMINISTRATOR Lisinopril and HCTZ resumed
#UTI
- increased generalized weakness with recurrent falls
- Flu and Covid swabs negative
- IV ceftriaxone, final culture sensitive - today is day 4
- rising WBC - stress reaction? urine culture is sensitive. CT A/P without obstructing nephrolithiasis or hydro. monitor rising WBC for now and consider further work-up tomorrow if continues to increase. there was also report of T 100.2 yest
with confusion - stop standing Tylenol to more fully assess fever curve
Lower back pain/ left hip pain
L3 Compression fracture
-x-ray hip without fracture
-X-ray lumbar spine with 20% compression fraction anterior L3
-lidocaine patch
-patient tolerating oxycodone
-will also order intranasal calcitonin - day 2
- PT/OT consults - eventual SNF
#diastolic heart failure chronic
-repeat TTE without change
-resume ORDER ADMINISTRATOR HCTZ
Non [place] Related Troponin elevation
-Troponin peaked at 0.08
-repeat TTE without change from prior
Hepatosplenomegaly seen on CT
Mild Transaminitis
-follow up Hep serologies
-TSH OK
-no e/o hemochromatosis
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
-patient to follow up with PCP as outpatient with referral to GI
#hypertension
- continue amlodipine, metoprolol
-resume ORDER ADMINISTRATOR Lisinopril with resolution CHELSI
-resume HCTZ
#hyperlipidemia
- continue atorvastatin
#type 2 diabetes
- continue metformin
#GERD
- continue Protonix
#depression
- continue Wellbutrin
#sleep apnea/insomnia
- continue trazodone
#left breast ductal carcinoma in situ
- recent lumpectomy
- scheduled for 15 rounds radiation
Full Code
DVT Px: Sq Heparin
51 minutes spent on patient care
Anticipated Discharge: 24 - 48 hours
Subjective/Interval History
-
Date of Service: October 09, 2024
she is short of breath with exertion 2/2 pain
she states her back pain is mildly improved today and oxycodone is helping
yesterday there was a period of brief confusion in setting of T 100.2
no fevers overnight
no new pain
no burning on urination
Objective Data
-
Labs:
Laboratory Results
10/09/24
06:36
WBC 11.2 H
Hgb 11.8 L
Hct 35.4 L
Plt Count 143 D
Sodium 136
Potassium 3.5
Chloride 97 L
Carbon Dioxide 24
BUN 24 H
Creatinine 1.0
Glucose 120 H
Calcium 9.0
Total Bilirubin 0.9
AST 44 H
ALT 35
Alkaline Phosphatase 99
Vital Signs:
Vital Signs
Temp Pulse Resp BP Pulse Ox
97.5 F 73 20 176/81 96
10/09/24 07:35 10/09/24 07:35 10/09/24 07:35 10/09/24 07:35 10/09/24 07:35
I&O
10/08/24 10/09/24 10/10/24
06:59 06:59 06:59
Intake Total 1919
Balance 1919
Review of Systems
-
History Source: Patient
All other systems: Reviewed and negative
Physical Exam
-
General: No Apparent Distress and Other (appears in mild pain )
HEENT: PERRLA
Respiratory: Clear to Auscultation; Negative Wheezes
Cardiac: Regular Rhythm and S1/S2
GI: Soft and Nontender
Musculoskeletal: No Edema and Other (mid spine tenderness; 5/5 strength b/l hip flexion )
Skin: Warm and Dry; Negative Rash
Neuro: AO x 3
Psych: Calm
Data Reviewed
-
Diagnostic Radiology: Report Reviewed by me
Labs: Labs Reviewed by me
[2024-10-09] MEDS: ROCEPHIN 1000 MG IV (13:36)
[2024-10-09] MEDS: ORETIC 12.5 MG PO (13:37)
[2024-10-09] MEDS: STERILE WATER FOR INJECTION 10 ML IV (13:37)
--- NOTE | 2024-10-09 13:45 | PN.CDI ---
CDI
- -
CDI:
Physician Documentation Request
Admit Date: 10/07/24 17:31
Dear Doctor Jonathan,
Please review the following and provide your response in the progress notes.
Clinical Indicators:
Pt admitted with Adult failure to thrive, CHELSI, and UTI.
10/09 Progress Note: 'Non [place] Related Troponin elevation -Troponin peaked at 0.08 -repeat TTE '
Laboratory Tests
10/07/24 10/07/24 10/08/24
13:00 20:06 01:28
Troponin I 0.085 H* 0.061 H* D 0.070 H*
Based on the above, could you clarify in the progress notes, the appropriate diagnosis, if significant, that supports the above abnormalities and additional evaluation, monitoring and/or treatment rendered:
Non-ischemic myocardial injury
Insignificant abnormal lab values
Other
Use of terms such as suspected, likely, concern for, or probable (associated with a specific diagnosis that is being evaluated, monitored, or treated as if it exists) are acceptable and can be coded in the inpatient setting, when documented at the
time of discharge.
Thank you,
Audra Nash RN, BSN
CDI Specialist
Available via [facility] [employer]
Please use your independent medical judgment in providing your response.
[2024-10-09 16:41] LABS: Glucose - Point of Care 150 mg/dl (70-99)
--- NOTE | 2024-10-09 17:02 | CM ---
Daughter and nephew visited today.
PT OT agree for SNF at mo.
Will review accepting SNF from [facility] with dgt .
Daughter requested additional snf choices to be added to care port. Referral made.
Pain meds given as needed.
Awaiting urine cx rssults
PLAN To Snf at mo for short term SNF
[2024-10-09 18:24] LABS: Hepatitis B Surface Antigen Negative (Negative)
[2024-10-09 18:43] LABS: Hepatitis B Core Ab, Total Negative (Negative); Hepatitis B Surface Antibody Negative; Hepatitis C Antibody Negative (Negative)
[2024-10-09 18:57] LABS: Hepatitis A Antibody, Total Negative (Negative)
[2024-10-09] MEDS: DESYREL 100 MG PO (20:59)
[2024-10-09 21:12] LABS: Glucose - Point of Care 179 mg/dl (70-99)
[2024-10-10] MEDS: HEPARIN 5000 UNITS SC ×4 (00:28→23:48)
[2024-10-10] MEDS: ROXICODONE 2.5 MG PO ×2 (05:09→09:28)
[2024-10-10 06:59] LABS: Hematocrit 34.9 % (37.0-47.0); Hemoglobin 11.8 g/dL (12.0-16.0); Mean Corp Hgb Conc. 33.8 g/dL (33.0-37.0); Mean Corpuscular Hgb 30.5 pg (27.0-31.0); Mean Corpuscular Volume 90.2 fL (81.0-99.0); Mean Platelet Volume 11.2 fL (7.4-10.4); Platelet Count 193 10^3/uL (130-400); Red Blood Cell Count 3.87 10^6/uL (4.20-5.40); Red Cell Dist. Width 13.2 % (11.5-14.5)
[2024-10-10 07:20] VITALS: BP 166/85
[2024-10-10 07:20] LABS: Glucose - Point of Care 126 mg/dl (70-99)
[2024-10-10 07:42] LABS: Blood Urea Nitrogen 24 mg/dl (7-17); Calcium 8.9 mg/dl (8.4-10.2); Carbon Dioxide 26 mmol/L (22-30); Chloride 94 mmol/L (98-107); Estimated Creatinine Clearance 62 ml/min; Glucose 131 mg/dl (70-99); Potassium 3.5 mmol/L (3.5-5.1); Sodium 133 mmol/L (135-145); eGFR 58.39
[2024-10-10] MEDS: LIPITOR 10 MG PO (09:22)
[2024-10-10] MEDS: NORVASC 5 MG PO (09:22)
[2024-10-10] MEDS: PROTONIX 40 MG PO (09:22)
[2024-10-10] MEDS: MIACALCIN/FORTICAL NASAL SPRAY 1 SPRAY NASAL (09:22)
[2024-10-10] MEDS: WELLBUTRIN SR (12 hour sustained release) 150 MG PO (09:23)
[2024-10-10] MEDS: ZESTRIL 40 MG PO (09:23)
[2024-10-10] MEDS: GLUCOPHAGE 1000 MG PO (09:23)
[2024-10-10] MEDS: NEURONTIN 900 MG PO ×2 (09:23→21:09)
[2024-10-10] MEDS: VITAMIN D3 (cholecalciferol) 25 MCG PO (09:23)
[2024-10-10] MEDS: TYLENOL 1000 MG PO (09:23)
[2024-10-10] MEDS: VITAMIN B-12 1000 MCG PO (09:24)
[2024-10-10] MEDS: LIDOCAINE 4% PATCH 1 PATCH TOPICAL (09:24)
[2024-10-10] MEDS: LOPRESSOR 50 MG PO ×2 (09:24→21:09)
[2024-10-10] MEDS: ORETIC 12.5 MG PO (09:24)
[2024-10-10 11:52] LABS: Glucose - Point of Care 198 mg/dl (70-99)
[2024-10-10 13:08] LABS: Vitamin D, 25-OH*** 25.1 ng/mL (30-80)
[2024-10-10] MEDS: ROXICODONE 5 MG PO (13:40)
[2024-10-10] MEDS: STERILE WATER FOR INJECTION 10 ML IV (14:05)
[2024-10-10] MEDS: ROCEPHIN 1000 MG IV (14:05)
[2024-10-10 15:21] VITALS: BP 145/78
[2024-10-10 16:37] LABS: Glucose - Point of Care 106 mg/dl (70-99)
[2024-10-10] MEDS: NOVOLOG FLEXPEN-LOW RESISTANCE SC (16:51)
--- NOTE | 2024-10-10 17:25 | CM ---
PT OT agree for SNF at pr.
Reviewed accepting SNF from [facility] with dgt .
Daughter Lainna [phone] requested [facility].
Spoke with Carla Steele pt is accepted tomorrow to [facility] .
Pt is in agreement with [facility] .
IMM reviewed ,signed on chart.
Pt has her CPAP here at will take to [facility].
[facility]
report [phone]
fax [phone]
PLAN To [facility]
[2024-10-10] MEDS: DESYREL 100 MG PO (21:10)
[2024-10-10 21:37] LABS: Glucose - Point of Care 152 mg/dl (70-99)
[2024-10-10 23:34] VITALS: BP 144/62
[2024-10-11] MEDS: ROXICODONE 2.5 MG PO ×3 (03:12→13:59)
[2024-10-11 05:50] LABS: Hematocrit 35.7 % (37.0-47.0); Hemoglobin 11.7 g/dL (12.0-16.0); Mean Corp Hgb Conc. 32.8 g/dL (33.0-37.0); Mean Corpuscular Hgb 30.5 pg (27.0-31.0); Mean Corpuscular Volume 93.2 fL (81.0-99.0); Mean Platelet Volume 11.1 fL (7.4-10.4); Platelet Count 198 10^3/uL (130-400); Red Blood Cell Count 3.83 10^6/uL (4.20-5.40); Red Cell Dist. Width 13.3 % (11.5-14.5); White Blood Cell Count 17.4 10^3/uL (4.8-10.8)
[2024-10-11 06:53] LABS: Blood Urea Nitrogen 31 mg/dl (7-17); Calcium 9.1 mg/dl (8.4-10.2); Carbon Dioxide 25 mmol/L (22-30); Chloride 96 mmol/L (98-107); Estimated Creatinine Clearance 56 ml/min; Glucose 127 mg/dl (70-99); Potassium 3.8 mmol/L (3.5-5.1); Sodium 132 mmol/L (135-145); eGFR 52.08
[2024-10-11 07:20] VITALS: BP 155/82
[2024-10-11 07:58] LABS: Glucose - Point of Care 116 mg/dl (70-99)
[2024-10-11] MEDS: NOVOLOG FLEXPEN-LOW RESISTANCE SC ×3 (09:41→17:19)
[2024-10-11] MEDS: NEURONTIN 900 MG PO ×2 (09:46→21:05)
[2024-10-11] MEDS: WELLBUTRIN SR (12 hour sustained release) 150 MG PO (09:46)
[2024-10-11] MEDS: ORETIC 12.5 MG PO (09:47)
[2024-10-11] MEDS: VITAMIN D3 (cholecalciferol) 50 MCG PO (09:47)
[2024-10-11] MEDS: PROTONIX 40 MG PO (09:48)
[2024-10-11] MEDS: ZESTRIL 40 MG PO (09:48)
[2024-10-11] MEDS: GLUCOPHAGE 1000 MG PO (09:48)
[2024-10-11] MEDS: LOPRESSOR 50 MG PO ×2 (09:49→21:05)
[2024-10-11] MEDS: VITAMIN B-12 1000 MCG PO (09:49)
[2024-10-11] MEDS: HEPARIN 5000 UNITS SC ×2 (09:49→16:57)
[2024-10-11] MEDS: LIPITOR 10 MG PO (09:49)
[2024-10-11] MEDS: NORVASC 5 MG PO (09:49)
[2024-10-11] MEDS: LIDOCAINE 4% PATCH 1 PATCH TOPICAL (09:50)
[2024-10-11] MEDS: MIACALCIN/FORTICAL NASAL SPRAY 1 SPRAY NASAL (10:49)
[2024-10-11 10:56] LABS: Glycohemoglobin (HgbA1c) 6.2 % (4.0-5.6)
--- NOTE | 2024-10-11 11:47 | W.PN.HOSP.TC ---
Today's Communication/Plan
-
Hip CT
CXR, UA, covid testing
Treat Constipation
pain control
Assessment / Plan
Assessment / Plan
Patient is a 78-year-old female with past medical history significant for hypertension, hyperlipidemia, type 2 diabetes, GERD, depression, sleep apnea and left breast ductal carcinoma in situ who presented to [place] ED for evaluation of
generalized weakness found to have a UTI and CHELSI.
CT abdomen and pelvis-small volume of gas in the urinary bladder suspicious for infection. No hydronephrosis bilateral nonobstructive nephrolithiasis. Advanced atrophic changes of the left kidney. Hepatomegaly. Splenomegaly. Incidental small
benign adenoma of the right adrenal gland.
CT of the chest-no PE. Bilateral groundglass and interstitial opacities likely related atelectasis. Mild interstitial edema possible. Low-attenuation nodules in the right and left lobes of thyroid. Left breast postoperative changes-possible
seroma
Lumbar Spine X-Ray
IMPRESSION:
anterior compression deformity of the L3 vertebral body with approximately 20% loss of height which is likely subacute or chronic.
There is multilevel degenerative disc disease and facet arthropathy most pronounced at the L4-L5 and L5-S1 levels where it is moderate.
TTE 10/08/24
CONCLUSIONS
Technically difficult study
Normal left ventricular chamber size. Normal left ventricular systolic
function. Left ventricular ejection fraction is 60% by volumetric assessment.
No gross regional wall motion abnormalities seen. Moderate concentric left
ventricular hypertrophy. Normal diastolic function.
Normal right ventricular size and function.
Mild mitral regurgitation.
Aortic sclerosis without stenosis.
Compared to prior study dated 02/11/2018, there is no significant change
#CHELSI
-s/p 1 L IVF
-resolved, creatinine stable at 1
-QA AUTOMATION ENGINEER Lisinopril and HCTZ resumed
#UTI
- increased generalized weakness with recurrent falls
- Flu and Covid swabs negative - will repeat covid today
- IV ceftriaxone, final culture sensitive - today is day 5
#Leukocytosis
-WBC continues to rise, no fevers. 2/2 pain stress reaction? also patient constipated which can cause elevated WBC (see below) - will repeat UA, CXR, covid
#constipation
-colace BID, Miralax daily - PRN dulcolax supp and enema
Lower back pain/ left hip pain
L3 Compression fracture
-x-ray hip without fracture
-X-ray lumbar spine with 20% compression fraction anterior L3
-lidocaine patch
-patient tolerating oxycodone
-will also order intranasal calcitonin - day 3
- PT/OT consults - eventual SNF
-hip CT today as she has more point tenderness left hip
#diastolic heart failure chronic
-repeat TTE without change
-resume QA AUTOMATION ENGINEER HCTZ
Non [place] Related Troponin elevation
-Troponin peaked at 0.08
-repeat TTE without change from prior
Hepatosplenomegaly seen on CT
Mild Transaminitis
-follow up Hep serologies
-TSH OK
-no e/o hemochromatosis
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
-patient to follow up with PCP as outpatient with referral to GI
#hypertension
- continue amlodipine, metoprolol
-resume QA AUTOMATION ENGINEER Lisinopril with resolution CHELSI
-resume HCTZ
#hyperlipidemia
- continue atorvastatin
#type 2 diabetes
- continue metformin
#GERD
- continue Protonix
#depression
- continue Wellbutrin
#sleep apnea/insomnia
- continue trazodone
#left breast ductal carcinoma in situ
- recent lumpectomy
- scheduled for 15 rounds radiation
Full Code
DVT Px: Sq Heparin
51 minutes spent on patient care
Anticipated Discharge: 24 - 48 hours
Subjective/Interval History
-
Date of Service: October 11, 2024
continues to have significant left hip pain
more confused per daughter
+ cough
Objective Data
-
Labs:
Laboratory Results
10/11/24 10/11/24
05:08 06:22
WBC 17.4 H
Hgb 11.7 L
Hct 35.7 L
Plt Count 198
Sodium Cancelled 132 L
Potassium Cancelled 3.8
Chloride Cancelled 96 L
Carbon Dioxide Cancelled 25
BUN Cancelled 31 H
Creatinine Cancelled 1.1 H
Glucose Cancelled 127 H
Calcium Cancelled 9.1
Vital Signs:
Vital Signs
Temp Pulse Resp BP Pulse Ox
98.9 F 69 18 155/82 93
10/11/24 07:20 10/11/24 07:20 10/11/24 07:20 10/11/24 07:20 10/11/24 07:20
I&O
10/10/24 10/11/24 10/12/24
06:59 06:59 06:59
Intake Total 840 / 840 720 / 720
Balance 840 / 840 720 / 720
Review of Systems
-
History Source: Patient
All other systems: Reviewed and negative
Physical Exam
-
General: No Apparent Distress and Other (appears in mild pain )
HEENT: PERRLA
Respiratory: Clear to Auscultation; Negative Wheezes
Cardiac: Regular Rhythm and S1/S2
GI: Soft and Nontender
Musculoskeletal: No Edema and Other (mid spine tenderness; point tenderness along left hip )
Skin: Warm and Dry; Negative Rash
Neuro: AO x 3
Psych: Calm
Data Reviewed
-
Diagnostic Radiology: Report Reviewed by me
Labs: Labs Reviewed by me
--- NOTE | 2024-10-11 12:28 | CM ---
CM reviewed chart, reviewed with Hospitalist, not for discharge today, will update [facility]. CM will continue to follow for all discharge planning needs.
Plan; [facility] when medically stable.
[facility]
Report [phone]
[2024-10-11 13:41] LABS: Glucose - Point of Care 112 mg/dl (70-99)
[2024-10-11] MEDS: MIRALAX 17 GRAMS PO (13:47)
[2024-10-11] MEDS: COLACE 100 MG PO ×2 (13:47→21:04)
[2024-10-11] MEDS: ROCEPHIN 1000 MG IV (13:48)
[2024-10-11] MEDS: FLUSH (NSS) 2 FLUSH IV (13:49)
[2024-10-11] MEDS: STERILE WATER FOR INJECTION 10 ML IV (13:49)
[2024-10-11 14:33] LABS: COVID-19 Antigen Negative (Negative)
[2024-10-11 15:10] VITALS: BP 155/63
[2024-10-11] MEDS: DULCOLAX 10 MG RECTAL (16:57)
[2024-10-11 17:00] LABS: Glucose - Point of Care 124 mg/dl (70-99)
[2024-10-11] MEDS: DESYREL 100 MG PO (21:06)
[2024-10-11 21:30] LABS: Glucose - Point of Care 206 mg/dl (70-99)
[2024-10-11 23:25] VITALS: BP 143/79
[2024-10-12] MEDS: HEPARIN 5000 UNITS SC ×4 (00:03→23:13)
[2024-10-12] MEDS: ROXICODONE 2.5 MG PO ×3 (05:56→15:45)
[2024-10-12 06:54] LABS: % Basophils 0.4 % (0-2); % Eosinophils 0.5 % (0-6); % Immature Granulocytes 1.8 % (0-0.5); % Lymphocytes 12.7 % (20.5-51.1); % Monocytes 8.4 % (1.7-9.3); % Neutrophils 76.2 % (42.2-75.2); Absolute Basophils 0.1 10^3/uL (0-0.2); Absolute Eosinophils 0.1 10^3/uL (0-0.7); Absolute Immature Granulocytes 0.3 10^3/uL (0-0.05); Absolute Monocytes 1.3 10^3/uL (0.1-0.6); Hematocrit 33.3 % (37.0-47.0); Hemoglobin 11.1 g/dL (12.0-16.0); Mean Corp Hgb Conc. 33.3 g/dL (33.0-37.0); Mean Corpuscular Hgb 30.3 pg (27.0-31.0); Nucleated Red Blood Cells % 0 %; Platelet Count 213 10^3/uL (130-400); Red Blood Cell Count 3.66 10^6/uL (4.20-5.40); Red Cell Dist. Width 13.2 % (11.5-14.5); White Blood Cell Count 15.7 10^3/uL (4.8-10.8)
[2024-10-12 07:07] LABS: Glucose - Point of Care 108 mg/dl (70-99)
[2024-10-12 07:15] VITALS: BP 174/83
[2024-10-12 07:35] LABS: Blood Urea Nitrogen 29 mg/dl (7-17); Calcium 8.8 mg/dl (8.4-10.2); Carbon Dioxide 24 mmol/L (22-30); Chloride 97 mmol/L (98-107); Estimated Creatinine Clearance 62 ml/min; Glucose 110 mg/dl (70-99); Potassium 3.9 mmol/L (3.5-5.1); Sodium 133 mmol/L (135-145); eGFR 58.39
[2024-10-12] MEDS: WELLBUTRIN SR (12 hour sustained release) 150 MG PO (09:53)
[2024-10-12] MEDS: PROTONIX 40 MG PO (09:53)
[2024-10-12] MEDS: GLUCOPHAGE 1000 MG PO (09:53)
[2024-10-12] MEDS: NEURONTIN 900 MG PO ×2 (09:53→20:54)
[2024-10-12] MEDS: NOVOLOG FLEXPEN-LOW RESISTANCE SC ×3 (09:53→16:47)
[2024-10-12] MEDS: LOPRESSOR 50 MG PO ×2 (09:53→20:55)
[2024-10-12] MEDS: LIDOCAINE 4% PATCH 1 PATCH TOPICAL (09:54)
[2024-10-12] MEDS: VITAMIN D3 (cholecalciferol) 50 MCG PO (09:54)
[2024-10-12] MEDS: ORETIC 12.5 MG PO (09:54)
[2024-10-12] MEDS: MIRALAX 17 GRAMS PO (09:54)
[2024-10-12] MEDS: COLACE 100 MG PO ×2 (09:55→20:54)
[2024-10-12] MEDS: ZESTRIL 40 MG PO (09:55)
[2024-10-12] MEDS: VITAMIN B-12 1000 MCG PO (09:55)
[2024-10-12] MEDS: LIPITOR 10 MG PO (09:55)
[2024-10-12] MEDS: NORVASC 5 MG PO (09:55)
[2024-10-12] MEDS: MIACALCIN/FORTICAL NASAL SPRAY 1 SPRAY NASAL (09:56)
--- NOTE | 2024-10-12 10:13 | W.PN.HOSP.TC ---
Addendum entered and electronically signed by Anaid Castillo MD 10/12/24 11:27:
case discussed with IR regarding possible vertebroplasty - MRI lumbar spine to be ordered first to confirm acuity and evaluate DDD
Addendum entered and electronically signed by Anaid Castillo MD 10/12/24 10:45:
patient without fevers, OK to resume standing Tylenol
Original Note:
Today's Communication/Plan
-
see plan
Assessment / Plan
Assessment / Plan
Patient is a 78-year-old female with past medical history significant for hypertension, hyperlipidemia, type 2 diabetes, GERD, depression, sleep apnea and left breast ductal carcinoma in situ who presented to [place] ED for evaluation of
generalized weakness found to have a UTI and CHELSI.
CT abdomen and pelvis-small volume of gas in the urinary bladder suspicious for infection. No hydronephrosis bilateral nonobstructive nephrolithiasis. Advanced atrophic changes of the left kidney. Hepatomegaly. Splenomegaly. Incidental small
benign adenoma of the right adrenal gland.
CT of the chest-no PE. Bilateral groundglass and interstitial opacities likely related atelectasis. Mild interstitial edema possible. Low-attenuation nodules in the right and left lobes of thyroid. Left breast postoperative changes-possible
seroma
Lumbar Spine X-Ray
IMPRESSION:
anterior compression deformity of the L3 vertebral body with approximately 20% loss of height which is likely subacute or chronic.
There is multilevel degenerative disc disease and facet arthropathy most pronounced at the L4-L5 and L5-S1 levels where it is moderate.
TTE 10/08/24
CONCLUSIONS
Technically difficult study
Normal left ventricular chamber size. Normal left ventricular systolic
function. Left ventricular ejection fraction is 60% by volumetric assessment.
No gross regional wall motion abnormalities seen. Moderate concentric left
ventricular hypertrophy. Normal diastolic function.
Normal right ventricular size and function.
Mild mitral regurgitation.
Aortic sclerosis without stenosis.
Compared to prior study dated 02/11/2018, there is no significant change
CXR 10/11/24
IMPRESSION:
No acute disease of the chest
LEFT HIP CT 10/11/24
IMPRESSION: No acute fracture identified.
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 Stable
Small simple right ovarian cyst. Stable
Mild L4/L5 and L5/S1 degenerative disc disease. Stable
Lower back pain/ left hip pain
L3 Compression fracture
-x-ray hip without fracture and confirmed by CT Hip on 10/11
-X-ray lumbar spine with 20% compression fraction anterior L3
-replete vitamin D
-lidocaine patch
-will also order intranasal calcitonin - day 4 - 2 week course
-patient tolerating oxycodone low dose but does not tolerate the 5 mg with significant confusion
-*I am asking IR to evaluate for possible vertebroplasty; can also ask physiatry to help evaluate tomorrow
- PT/OT consults - eventual SNF
#CHELSI
-s/p 1 L IVF
-resolved, creatinine stable at 1
-RAIL TRANSIT OPERATOR Lisinopril and HCTZ resumed
#UTI
- increased generalized weakness with recurrent falls
- Flu and Covid swabs negative
- IV ceftriaxone, final culture sensitive - today is day 6 --> change to BID Cefdnir x 2 more days to complete 7 day course
#Leukocytosis
-WBC elevated
-flu and covid repeated - negative; confirmed no fracture on CT; CXR without acute disease, patient is on appropriate antibiotics
-may be stress reaction 2/2 pain and constipation? constipation treated on 10/11 and WBC improving today
#constipation
-colace BID, Miralax daily
-dulcolax supp PRN
#diastolic heart failure chronic
-repeat TTE without change
-resume RAIL TRANSIT OPERATOR HCTZ
Non [place] Related Troponin elevation
-Troponin peaked at 0.08
-repeat TTE without change from prior
Hepatosplenomegaly seen on CT
Mild Transaminitis
-follow up Hep serologies
-TSH OK
-no e/o hemochromatosis
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
-patient to follow up with PCP as outpatient with referral to GI
#hypertension
- continue amlodipine, metoprolol
-resume RAIL TRANSIT OPERATOR Lisinopril with resolution CHELSI
-resume HCTZ
#hyperlipidemia
- continue atorvastatin
#type 2 diabetes
- continue metformin
#GERD
- continue Protonix
#depression
- continue Wellbutrin
#sleep apnea/insomnia
- continue trazodone
#left breast ductal carcinoma in situ
- recent lumpectomy
- scheduled for 15 rounds radiation
Full Code
DVT Px: Sq Heparin
51 minutes spent on patient care
Anticipated Discharge: 24 - 48 hours
Subjective/Interval History
-
Date of Service: October 12, 2024
continues to have pain. per daughter, the 2.5mg doesn't make her confused but doesn't help with pain enough and the 5mg makes her very confused. they are trying to stay away from that dose
Objective Data
-
Labs:
Laboratory Results
10/12/24
05:30
WBC 15.7 H
Hgb 11.1 L
Hct 33.3 L
Plt Count 213
Sodium 133 L
Potassium 3.9
Chloride 97 L
Carbon Dioxide 24
BUN 29 H
Creatinine 1.0
Glucose 110 H
Calcium 8.8
Vital Signs:
Vital Signs
Temp Pulse Resp BP Pulse Ox
97.6 F 70 20 174/83 95
10/12/24 07:15 10/12/24 07:15 10/12/24 07:15 10/12/24 07:15 10/12/24 07:15
I&O
10/11/24 10/12/24 10/13/24
06:59 06:59 06:59
Intake Total 720 / 720 1679 / 168
Balance 720 / 720 1679 / 168
Review of Systems
-
History Source: Patient
All other systems: Reviewed and negative
Physical Exam
-
General: No Apparent Distress and Other (appears in mild pain )
HEENT: PERRLA
Respiratory: Clear to Auscultation; Negative Wheezes
Cardiac: Regular Rhythm and S1/S2
GI: Soft and Nontender
Musculoskeletal: No Edema and Other (mid spine tenderness; point tenderness along left hip; 5/5 strength flexion )
Skin: Warm and Dry; Negative Rash
Neuro: AO x 3
Psych: Calm
Data Reviewed
-
Diagnostic Radiology: Report Reviewed by me
Labs: Labs Reviewed by me
[2024-10-12 13:12] LABS: Glucose - Point of Care 133 mg/dl (70-99)
[2024-10-12] MEDS: OMNICEF 300 MG PO ×2 (13:14→20:54)
[2024-10-12] MEDS: DICLOFENAC 1% TOPICAL GEL 1 GRAM TOPICAL ×3 (13:14→23:10)
[2024-10-12 15:32] VITALS: BP 113/67
[2024-10-12] MEDS: TYLENOL 1000 MG PO ×2 (15:44→23:09)
[2024-10-12 16:37] LABS: Glucose - Point of Care 102 mg/dl (70-99)
[2024-10-12 21:09] LABS: Glucose - Point of Care 150 mg/dl (70-99)
[2024-10-12] MEDS: DESYREL 100 MG PO (23:09)
[2024-10-12 23:55] VITALS: BP 138/71
[2024-10-13 07:16] LABS: Glucose - Point of Care 123 mg/dl (70-99)
[2024-10-13] MEDS: NOVOLOG FLEXPEN-LOW RESISTANCE SC ×3 (07:33→16:55)
[2024-10-13 07:35] VITALS: BP 153/67
[2024-10-13 08:17] LABS: % Basophils 0.5 % (0-2); % Eosinophils 1.5 % (0-6); % Immature Granulocytes 1.7 % (0-0.5); % Lymphocytes 10.4 % (20.5-51.1); % Monocytes 7.1 % (1.7-9.3); % Neutrophils 78.8 % (42.2-75.2); Absolute Basophils 0.1 10^3/uL (0-0.2); Absolute Eosinophils 0.2 10^3/uL (0-0.7); Absolute Immature Granulocytes 0.2 10^3/uL (0-0.05); Absolute Lymphocytes 1.4 10^3/uL (1.2-3.4); Absolute Monocytes 0.9 10^3/uL (0.1-0.6); Absolute Neutrophils 10.3 10^3/uL (1.4-6.5); Hematocrit 35.2 % (37.0-47.0); Hemoglobin 11.5 g/dL (12.0-16.0); Mean Corp Hgb Conc. 32.7 g/dL (33.0-37.0); Mean Corpuscular Hgb 30.3 pg (27.0-31.0); Mean Corpuscular Volume 92.6 fL (81.0-99.0); Mean Platelet Volume 10.7 fL (7.4-10.4); Nucleated Red Blood Cells % 0 %; Platelet Count 245 10^3/uL (130-400); Red Cell Dist. Width 13.2 % (11.5-14.5); White Blood Cell Count 13.1 10^3/uL (4.8-10.8)
[2024-10-13] MEDS: TYLENOL 1000 MG PO ×3 (08:51→21:00)
[2024-10-13] MEDS: MIRALAX 17 GRAMS PO (08:51)
[2024-10-13] MEDS: NEURONTIN 900 MG PO ×2 (08:51→20:55)
[2024-10-13] MEDS: HEPARIN 5000 UNITS SC ×3 (08:51→23:01)
[2024-10-13] MEDS: VITAMIN B-12 1000 MCG PO (08:51)
[2024-10-13] MEDS: OMNICEF 300 MG PO (08:51)
[2024-10-13] MEDS: COLACE 100 MG PO ×2 (08:51→20:55)
[2024-10-13] MEDS: WELLBUTRIN SR (12 hour sustained release) 150 MG PO (08:51)
[2024-10-13] MEDS: VITAMIN D3 (cholecalciferol) 50 MCG PO (08:51)
[2024-10-13] MEDS: ORETIC 12.5 MG PO (08:51)
[2024-10-13] MEDS: LIPITOR 10 MG PO (08:51)
[2024-10-13] MEDS: LOPRESSOR 50 MG PO ×2 (08:52→20:54)
[2024-10-13] MEDS: ZESTRIL 40 MG PO (08:52)
[2024-10-13] MEDS: PROTONIX 40 MG PO (08:52)
[2024-10-13] MEDS: NORVASC 5 MG PO (08:52)
[2024-10-13] MEDS: DICLOFENAC 1% TOPICAL GEL 1 GRAM TOPICAL ×3 (08:53→17:50)
[2024-10-13 08:57] LABS: Blood Urea Nitrogen 31 mg/dl (7-17); Carbon Dioxide 28 mmol/L (22-30); Chloride 99 mmol/L (98-107); Estimated Creatinine Clearance 56 ml/min; Glucose 115 mg/dl (70-99); Potassium 4.2 mmol/L (3.5-5.1); Sodium 137 mmol/L (135-145); eGFR 52.08
[2024-10-13] MEDS: GLUCOPHAGE 1000 MG PO (08:58)
[2024-10-13] MEDS: LIDOCAINE 4% PATCH 1 PATCH TOPICAL (08:58)
[2024-10-13] MEDS: MIACALCIN/FORTICAL NASAL SPRAY 1 SPRAY NASAL (08:59)
[2024-10-13] MEDS: ATIVAN 0.25 MG IV (09:14)
[2024-10-13] MEDS: NSS (PRESERVATIVE FREE) 0.125 ML IV (09:14)
[2024-10-13] MEDS: ROXICODONE 2.5 MG PO ×2 (10:40→15:21)
--- NOTE | 2024-10-13 11:52 | WOUNDNOTE ---
L PLANTAR GREAT TOE
--- NOTE | 2024-10-13 11:53 | WOUNDNOTE ---
R PLANTAR GREAT TOE AND FOOT
--- NOTE | 2024-10-13 11:53 | WOUNDNOTE ---
L GREAT TOE MEDIAL
[2024-10-13 11:55] LABS: Glucose - Point of Care 147 mg/dl (70-99)
--- NOTE | 2024-10-13 11:55 | WOUNDNOTE ---
[facility] RN note: Patient admitted with UTI, NSTEMI.
See H&P for complete history.
PMH: NIDDM,HTN,UTI, Spinal stenosis and chronic back pain.
Wound Location and type/assessment: Patient admitted with: L great toe diabetic ulcer that patient got from accidentally banging toe on furniture. Patient states she does not wear socks or shoes in house. Skin very dry on legs and feet. Few
scattered scabs and callus on R foot. Reviewed Dr. Galeas's note who wants abx ointment and dry dressing, debridement done at bedside. Patient to follow up with regular Bulk [employer] Dr. Escamilla as outpatient. Patient turned, Sacrum intact, mild
MASD. Heels intact, very dry.
Appetite: Improved.
Pressure redistribution devices in place:On Air mattress, turns with minimal assist.
Plan: Local wound care per Dr. Galeas. Silicone foam dressing changed.
Will confirm orders with hospitalist and update nurse.
Updated care plan and will follow as needed.
Note to case management of equipment requested for discharge:
--- NOTE | 2024-10-13 11:58 | W.PN.HOSP.TC ---
Today's Communication/Plan
-
Monitor vital signs see plan
MRI with possible septic arthritis with epidural abscess, myositis
Consult neurosurgery and infectious disease
NPO for now until seen by neurosurgery
Check blood culture
Pain control
Discussed with daughter at bedside
Assessment / Plan
Assessment / Plan
Patient is a 78-year-old female with past medical history significant for hypertension, hyperlipidemia, type 2 diabetes, GERD, depression, sleep apnea and left breast ductal carcinoma in situ who presented to [facility] for evaluation of
generalized weakness found to have a UTI and CHELSI.
CT abdomen and pelvis-small volume of gas in the urinary bladder suspicious for infection. No hydronephrosis bilateral nonobstructive nephrolithiasis. Advanced atrophic changes of the left kidney. Hepatomegaly. Splenomegaly. Incidental small
benign adenoma of the right adrenal gland.
CT of the chest-no PE. Bilateral groundglass and interstitial opacities likely related atelectasis. Mild interstitial edema possible. Low-attenuation nodules in the right and left lobes of thyroid. Left breast postoperative changes-possible
seroma
Lumbar Spine X-Ray
IMPRESSION:
anterior compression deformity of the L3 vertebral body with approximately 20% loss of height which is likely subacute or chronic.
There is multilevel degenerative disc disease and facet arthropathy most pronounced at the L4-L5 and L5-S1 levels where it is moderate.
TTE 10/08/24
CONCLUSIONS
Technically difficult study
Normal left ventricular chamber size. Normal left ventricular systolic
function. Left ventricular ejection fraction is 60% by volumetric assessment.
No gross regional wall motion abnormalities seen. Moderate concentric left
ventricular hypertrophy. Normal diastolic function.
Normal right ventricular size and function.
Mild mitral regurgitation.
Aortic sclerosis without stenosis.
Compared to prior study dated 02/11/2018, there is no significant change
CXR 10/11/24
IMPRESSION:
No acute disease of the chest
LEFT HIP CT 10/11/24
IMPRESSION: No acute fracture identified.
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 Stable
Small simple right ovarian cyst. Stable
Mild L4/L5 and L5/S1 degenerative disc disease. Stable
Lower back pain/ left hip pain secondary to septic arthritis, large epidural abscess with moderate spinal cord compression along with myositis
sepsis (leukocytosis,tachycardia) POA 2/2 above
check blood cx
L3 Compression fracture
-x-ray hip without fracture and confirmed by CT Hip on 10/11
-X-ray lumbar spine with 20% compression fraction anterior L3
-replete vitamin D
-lidocaine patch
-will also order intranasal calcitonin - day 4 - 2 week course
-patient tolerating oxycodone low dose but does not tolerate the 5 mg with significant confusion
MRI back consistent with L2-L3 septic arthritis and epidural abscess along with myositis. There is a moderate spinal cord compression. no sensory loss. consulted neurosurgery and ID. patient had been on abx for UTI
- PT/OT
#CHELSI
-s/p 1 L IVF
-resolved, creatinine stable at 1
-TUBE HANDLER Lisinopril and HCTZ resumed
#UTI
- increased generalized weakness with recurrent falls
- Flu and Covid swabs negative
on cefdinir to complete course
#Leukocytosis
-WBC elevated
-flu and covid repeated - negative; confirmed no fracture on CT; CXR without acute disease, patient is on appropriate antibiotics
-may be stress reaction 2/2 pain and constipation? constipation treated on 10/11 and WBC improving today
#constipation
-colace BID, Miralax daily
-dulcolax supp PRN
#diastolic heart failure chronic
-repeat TTE without change
-resume TUBE HANDLER HCTZ
Non [place] Related Troponin elevation
-Troponin peaked at 0.08
-repeat TTE without change from prior
Hepatosplenomegaly seen on CT
Mild Transaminitis
-follow up Hep serologies
-TSH OK
-no e/o hemochromatosis
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
-patient to follow up with PCP as outpatient with referral to GI
#hypertension
- continue amlodipine, metoprolol
-resume TUBE HANDLER Lisinopril with resolution CHELSI
-resume HCTZ
#hyperlipidemia
- continue atorvastatin
#type 2 diabetes
- hold metformin
LDSS
#GERD
- continue Protonix
#depression
- continue Wellbutrin
#sleep apnea/insomnia
- continue trazodone
#left breast ductal carcinoma in situ
- recent lumpectomy
- scheduled for 15 rounds radiation
Full Code
DVT Px: Sq Heparin
I spent a total of 56 minutes with the patient or on the floor. More than 50% of this time involved counseling and coordination of care.
General: No Apparent Distress and Other (appears in mild pain )
HEENT: PERRLA
Respiratory: Clear to Auscultation; Negative Wheezes
Cardiac: Regular Rhythm and S1/S2
GI: Soft and Nontender
Musculoskeletal: No Edema and Other (mid spine tenderness; point tenderness along left hip)
Skin: Warm and Dry
Neuro: AO x 3
Psych: Calm
Anticipated Discharge: > 48 hours
Subjective/Interval History
-
Date of Service: October 13, 2024
has pain
Objective Data
-
Labs:
Laboratory Results
10/13/24
07:09
WBC 13.1 H
Hgb 11.5 L
Hct 35.2 L
Plt Count 245
Sodium 137
Potassium 4.2
Chloride 99
Carbon Dioxide 28
BUN 31 H
Creatinine 1.1 H
Glucose 115 H
Calcium 9.0
Vital Signs:
Vital Signs
Temp Pulse Resp BP Pulse Ox
98.3 F 65 20 153/67 96
10/13/24 07:35 10/13/24 08:52 10/13/24 07:35 10/13/24 08:52 10/13/24 11:14
I&O
10/12/24 10/13/24 10/14/24
06:59 06:59 06:59
Intake Total 1680 / 1680 1320 / 1320
Balance 1680 / 1680 1320 / 1320
--- NOTE | 2024-10-13 13:45 | CON.NS ---
Consultation
-
Date/Time Consultation Performed: 10/13/2024; 13:45
Performing Provider: Isra
Chief Complaint
History of Present Illness
This is a neurosurgical consultation on a 78-year-old female with active medical issues including hypertension, hyperlipidemia, type 2 diabetes, sleep apnea, and breast cancer who presented with generalized weakness. Patient had reported upon
admission, on 10/07/2024, that when she rolled out of bed, she landed on her left hip. Since then she has had ongoing hip pain and weakness with a subsequent fall that occurred when she attempted to get up from a sitting position. She presented
due to increased generalized weakness. She was found to be hypoxic on room air upon arrival at 88%. She also reported that she had chills. She was diagnosed, and treated for acute kidney injury, UTI. She also has a history of having a left big
toe ulcer, and is being followed by podiatry for this. She had lumbar spine x-ray that revealed possible L3 compression fracture with 20% height loss. Prior to proceeding with possible kyphoplasty, it was advised that she may benefit from an MRI
of the lumbar spine. She underwent this, and was found to have possible epidural abscess.
Patient seen and examined. Patient reports that she sustained a significant fall approximately 6 weeks prior, and since then, according to her, and her daughter, who is in the room with her during encounter, she has had progressive difficulty with
ambulation due to significant back pain. She reports that she has always felt that her left leg is stronger than her right. She reports no obvious change in the strength in her lower extremities and that they are not any weaker. But that she does
have pain limited mobility.
According to her daughter, she was ambulatory up until about 5 days prior to admission and was able to perform her ADLs.
She is chronically incontinent of urine. She denies any perineal paresthesias, or numbness.
Review of Systems
-
10 point review of systems including constitutional, ENT, cardiovascular, respiratory, GI, , endocrinologic, hematologic, neurologic, musculoskeletal was performed, it was negative, except for stated in HPI.
Medication and Allergies
Home Medications
Home Medications
�Medication �Instructions �Recorded
gabapentin 600 mg tablet 900 mg PO BID 03/01/14
trazodone 50 mg tablet 100 mg PO HS 03/01/14
amlodipine 5 mg tablet (Norvasc) 5 mg PO DAILY 07/08/24
atorvastatin 10 mg tablet (Lipitor) 10 mg PO DAILY 07/08/24
bupropion HCl 150 mg tablet,12 hr 150 mg PO DAILY 07/08/24
sustained-release (Wellbutrin SR)
hydrochlorothiazide 12.5 mg tablet 12.5 mg PO DAILY 07/08/24
lisinopril 40 mg tablet 40 mg PO DAILY 07/08/24
metformin 1,000 mg tablet 1,000 mg PO DAILY 07/08/24
metoprolol tartrate 50 mg tablet 50 mg PO BID 07/08/24
(Lopressor)
multivitamin 1 tab PO QPM 07/08/24
pantoprazole 40 mg tablet,delayed 40 mg PO DAILY 07/08/24
release (Protonix)
cyanocobalamin (vitamin B-12) 1,000 mcg PO DAILY 10/07/24
1,000 mcg tablet
ibuprofen 200 mg tablet (Advil) 600 mg PO DAILYPRN PRN mild pain 10/07/24
Allergies
Allergies
Allergy/AdvReac Type Severity Reaction Status Date / Time
codeine Allergy Nausea,headache, Verified 10/07/24 11:18
dizzy
morphine Allergy stopped Verified 10/07/24 11:18
breathing
Physical Exam
-
Exam:
Awake, alert, no apparent distress.
Sitting up in chair, finishing lunch.
Cranial nerves II through XII are grossly intact
Motor: 5/5 strength bilaterally in upper extremities.
In lower extremities, patient demonstrates 4+/5 strength in right hip flexion, and right dorsiflexion. ? Baseline.
Sensation to light touch is intact bilaterally in lower extremities in all dermatomes.
Tenderness to palpation at thoracolumbar junction.
Head is normocephalic atraumatic
Neck is supple
breathing nonlabored
Cardiac: Regular rhythm
Abdomen is soft, obese
Extremities are warm
MRI lumbar spine performed without contrast on 10/13/2024 was viewed and independently interpreted by me. It demonstrates multilevel lumbar spondylosis. There is subtle STIR signal hyperintensity noted within the L3, and L2 vertebral bodies.
There is spine evidence of a dorsal epidural collection which starts at L2-L3 which is incompletely visualized on axial imaging. It is seen on STIR and parasagittal images and does appear to extend up to T10-T11.
Problems
-
Problem Status Onset Code
CHELSI (acute kidney injury) N17.9
UTI (urinary tract infection) N39.0
Assessment / Plan
-
This is a 78-year-old female with multiple medical active comorbid conditions including type 2 diabetes, morbid obesity, hyperlipidemia, chronic urinary incontinence, breast cancer, status post 2 surgical resections, most recently in August
2023. This side was also previously infected superficially, according to the daughter when her for surgery was done in February. Patient also has toe ulcer that is being seen by podiatry. She presents now with urinary tract infection, Growing E.
coli, with persistent back pain, and radiating left hip pain. Imaging of the lumbar spine, without contrast, demonstrates dorsal epidural collection which is incompletely visualized as the axial imaging does not scan up to T12-L1. Patient did have
a fall 6 weeks prior, and so epidural hematoma is also within the differential diagnosis, especially in setting of possible L3 compression fracture/traumatic.
At present time, recommend MRI of the lumbar spine with contrast, and MRI of the thoracic spine with and without contrast to see the rostral extent of this dorsal epidural collection.
Recommend obtaining blood cultures and pursuing infectious disease workup for other causes/etiologies for possible epidural abscess.
Patient currently has not had any changes in her urination, or lower extremity strength, nor does she appear to be floridly septic at present time, and therefore, no indication for emergent neurosurgical intervention for evacuation/sampling of this
collection.
Will continue to monitor closely and obtain contrast-enhanced MRI scans to better evaluate the extent of abnormalities seen on MRI of lumbar spine without contrast.
I have discussed potential for possible surgery with the patient, and her daughter. Will await medical workup prior to further discussion regarding this.
--- NOTE | 2024-10-13 14:36 | CON.ID ---
Consultation
-
Date/Time Consultation Requested: 10/13/2024 1226
Date/Time Consultation Performed: 10/13/2024 1347
Requesting Provider: Dr. Thornton
Performing Provider: Dr. Kwok
Reason for Consultation: Epidural abscess
Chief Complaint / Past History
History of Present Illness
Ashli Sen is a 78-year-old female being evaluated at the request of Dr. Thornton regarding an epidural abscess. History is obtained from chart review, along with patient interview.
The patient presents to [facility] on 10/07/2024 with generalized weakness. According to the patient's daughter the patient underwent lumpectomies in late June and early August. At the end of July she developed some 'whole body
pain' and reported that her joints hurt. Approximately 2 weeks ago, she was in bed and reportedly either fell out of bed or slid to the floor. Thereafter she developed some back pain. Over the next several days the pain slowly increased until she
found it difficult to get out of bed. She has remained bedbound for the past several days prior to admission and finally EMS was called to bring her to the hospital for further evaluation.
Workup in the ER revealed bacteriuria, and she was diagnosed with a UTI and placed on antibiotics. She has had ongoing low back pain and an MRI was performed which reveals abnormality in the lumbar region and a possible epidural abscess. She
reports little to no fevers prior to admission, but her daughter reports she always feels 'cold'. No history of rigors. She reports poor appetite. She denies any abdominal pain, nausea, vomiting or diarrhea. No history of dysuria or hematuria.
Past History
Additional Past Medical History:
Left breast carcinoma in situ
GERD
HTN
Dyslipidemia
DM
Nephrolithiasis
Additional Past Surgical History:
Lumpectomy
Bilateral knee replacement
Allergy History:
codeine Allergy (Verified 10/07/24 11:18)
Nausea,headache, dizzy
morphine Allergy (Verified 10/07/24 11:18)
stopped breathing
Medications Reviewed: Yes
Current Antibiotics:
Cefdinir 300 mg p.o. every 12h
Social History
Tobacco: Former Smoker
Alcohol: None
Drug: None
Personal:
Living: With Family
Employment: Not Employed
Family History
Family History: Not Pertinent
Review of Systems
Vital Signs
Temp Pulse Resp BP Pulse Ox
98.3 F 65 20 153/67 96
10/13/24 07:35 10/13/24 08:52 10/13/24 07:35 10/13/24 08:52 10/13/24 11:14
Physical Exam
Physical Exam
Constitutional: No Acute Distress, Comfortable, Chronically Ill, Non-toxic and Obese
Eyes: No Conjunctival Hemorrhage
Oral: No Thrush and No Ulcers
Cardiovascular: Regular Rate and S1/S2; Negative S3/S4
Pulmonary: Clear; Negative Wheezes or Rales
Gastrointestinal: Soft, Non Tender, Non Distended, Normal Bowel Sounds, No Rebound and No Guarding
Extremities: Edema; Negative Cyanosis or Erythema
Musculoskeletal: Spinal Tenderness
Skin: Warm and Dry; Negative Rash or Jaundice
Neurological: Awake and Alert
Psychological: Calm
Lab / Diagnostic Study Results
10/13/24 07:09
10/13/24 07:09
Abs Immat Gran (auto) 0.2 10^3/uL (0-0.05) H 10/13/24 07:09
Absolute Neuts (auto) 10.3 10^3/uL (1.4-6.5) H 10/13/24 07:09
Absolute Lymphs (auto) 1.4 10^3/uL (1.2-3.4) 10/13/24 07:09
Absolute Monos (auto) 0.9 10^3/uL (0.1-0.6) H 10/13/24 07:09
Absolute Basos (auto) 0.1 10^3/uL (0-0.2) 10/13/24 07:09
Immature Gran % 1.7 % (0-0.5) H 10/13/24 07:09
Neutrophils % 78.8 % (42.2-75.2) H 10/13/24 07:09
Lymphocytes % 10.4 % (20.5-51.1) L 10/13/24 07:09
Monocytes % 7.1 % (1.7-9.3) 10/13/24 07:09
Eosinophils % 1.5 % (0-6) 10/13/24 07:09
Basophils % 0.5 % (0-2) 10/13/24 07:09
Ur Squamous Epith Cells 0-2 /LPF (Few) 10/07/24 13:15
Microbiology Results
Micro:
10/13/24 13:18 Blood Culture - Pending
Blood/Venous
10/07/24 13:15 Urine Culture - Final
Urine Escherichia coli
10/07/24 12:44 Influenza Types A & B (KELSI) - Final
Nasal Swab Negative for Influenza A & B, NAAT
Negative results must be combined with clinical observations
and patient history.
Nucleic Acid Amplification test (NAAT)performed on the
[employer] platform.
Imaging:
10/13/2024 MRI lumbar spine without contrast: Report suggest severe septic arthritis of the left L2/L3 facet joint, and possible septic arthritis of the left L1/L2 and L3/L4 facet joints, with a large amount of surrounding acute bone marrow edema
and severe edema and myositis in the adjacent left musculature. A large tubular shaped (7.8 cm in length) epidural abscess in the left posterior lateral epidural space extending from T11-L2. Moderate spinal cord compression and central canal
stenosis at the T12/L1 area caused by the epidural abscess and a small central disc herniation. Film reviewed with Neurosurgery, and findings in the epidural space may be secondary to hematoma as an alternative diagnosis.
Assessment / Plan
Epidural collection
-Abscess versus hematoma
Low back pain
Bacteriuria without symptomatology.
Leukocytosis
Left breast carcinoma in situ
GERD
HTN
Dyslipidemia
DM
Nephrolithiasis
Recommendations:
Case discussed with Neurosurgery
At present, difficult to differentiate epidural abscess versus possible hematoma on the noncontrast imaging.
Would discontinue further antibiotics.
Blood cultures have been ordered, although given prior antibiotics these may be negative.
Repeat MRI with contrast has been ordered; will await results. Ultimately, may require open procedure to delineate infectious etiology.
Check ESR and CRP in a.m.
Follow white count and temperature curve
Further recommendations as additional data is returned.
Care Review
Plan reviewed with: Physician (Neurosurgery)
[2024-10-13 15:42] VITALS: BP 124/54
[2024-10-13 16:44] LABS: Glucose - Point of Care 122 mg/dl (70-99)
[2024-10-13] MEDS: DESYREL 100 MG PO (21:00)
[2024-10-13] MEDS: DICLOFENAC 1% TOPICAL GEL 100 GRAM TOPICAL (21:00)
[2024-10-13 21:27] LABS: Glucose - Point of Care 144 mg/dl (70-99)
[2024-10-13 23:24] VITALS: BP 109/54
[2024-10-14] MEDS: ROXICODONE 2.5 MG PO ×2 (04:35→14:01)
[2024-10-14 07:13] LABS: % Basophils 0.6 % (0-2); % Eosinophils 2.5 % (0-6); % Immature Granulocytes 1.6 % (0-0.5); % Lymphocytes 12.5 % (20.5-51.1); % Monocytes 7.2 % (1.7-9.3); % Neutrophils 75.6 % (42.2-75.2); Absolute Basophils 0.1 10^3/uL (0-0.2); Absolute Eosinophils 0.3 10^3/uL (0-0.7); Absolute Immature Granulocytes 0.2 10^3/uL (0-0.05); Absolute Lymphocytes 1.4 10^3/uL (1.2-3.4); Absolute Monocytes 0.8 10^3/uL (0.1-0.6); Absolute Neutrophils 8.1 10^3/uL (1.4-6.5); Hematocrit 35.5 % (37.0-47.0); Hemoglobin 11.5 g/dL (12.0-16.0); Mean Corp Hgb Conc. 32.4 g/dL (33.0-37.0); Mean Corpuscular Hgb 30.4 pg (27.0-31.0); Mean Corpuscular Volume 93.9 fL (81.0-99.0); Mean Platelet Volume 10.7 fL (7.4-10.4); Nucleated Red Blood Cells % 0 %; Platelet Count 249 10^3/uL (130-400); Red Blood Cell Count 3.78 10^6/uL (4.20-5.40); Red Cell Dist. Width 13.3 % (11.5-14.5); White Blood Cell Count 10.8 10^3/uL (4.8-10.8)
[2024-10-14 07:20] VITALS: BP 145/85
[2024-10-14 07:22] LABS: Glucose - Point of Care 121 mg/dl (70-99)
[2024-10-14 07:29] LABS: Blood Urea Nitrogen 38 mg/dl (7-17); Calcium 9.1 mg/dl (8.4-10.2); Carbon Dioxide 27 mmol/L (22-30); Chloride 101 mmol/L (98-107); Estimated Creatinine Clearance 52 ml/min; Glucose 125 mg/dl (70-99); Potassium 4.4 mmol/L (3.5-5.1); Sodium 137 mmol/L (135-145); eGFR 46.91
[2024-10-14 08:04] LABS: Erythrocyte Sed Rate 71 mm/hour (0-20)
[2024-10-14] MEDS: NOVOLOG FLEXPEN-LOW RESISTANCE SC ×3 (08:25→17:53)
[2024-10-14] MEDS: NEURONTIN 900 MG PO ×2 (08:26→19:45)
[2024-10-14] MEDS: ZESTRIL 40 MG PO (08:26)
[2024-10-14] MEDS: TYLENOL 1000 MG PO ×3 (08:26→22:34)
[2024-10-14] MEDS: LOPRESSOR 50 MG PO ×2 (08:26→19:45)
[2024-10-14] MEDS: HEPARIN 5000 UNITS SC ×3 (08:27→23:03)
[2024-10-14] MEDS: WELLBUTRIN SR (12 hour sustained release) 150 MG PO (08:27)
[2024-10-14] MEDS: LIPITOR 10 MG PO (08:27)
[2024-10-14] MEDS: ORETIC 12.5 MG PO (08:27)
[2024-10-14] MEDS: LIDOCAINE 4% PATCH 1 PATCH TOPICAL (08:27)
[2024-10-14] MEDS: VITAMIN B-12 1000 MCG PO (08:27)
[2024-10-14] MEDS: VITAMIN D3 (cholecalciferol) 50 MCG PO (08:27)
[2024-10-14] MEDS: NORVASC 5 MG PO (08:28)
[2024-10-14] MEDS: MIRALAX 17 GRAMS PO (08:28)
[2024-10-14] MEDS: PROTONIX 40 MG PO (08:29)
[2024-10-14] MEDS: DICLOFENAC 1% TOPICAL GEL 100 GRAM TOPICAL ×2 (08:30→22:34)
[2024-10-14] MEDS: COLACE PO (08:36)
[2024-10-14] MEDS: NSS (PRESERVATIVE FREE) 0.125 ML IV (09:39)
[2024-10-14] MEDS: ATIVAN 0.25 MG IV (09:40)
[2024-10-14 11:57] LABS: Glucose - Point of Care 148 mg/dl (70-99)
--- NOTE | 2024-10-14 12:33 | W.PN.HOSP.TC ---
Today's Communication/Plan
-
Monitor vital signs
see plan
Continue with pain control
MRI
Discussed with daughter at bedside
Follow blood culture
Assessment / Plan
Assessment / Plan
Patient is a 78-year-old female with past medical history significant for hypertension, hyperlipidemia, type 2 diabetes, GERD, depression, sleep apnea and left breast ductal carcinoma in situ who presented to [facility] for evaluation of
generalized weakness found to have a UTI and CHELSI.
CT abdomen and pelvis-small volume of gas in the urinary bladder suspicious for infection. No hydronephrosis bilateral nonobstructive nephrolithiasis. Advanced atrophic changes of the left kidney. Hepatomegaly. Splenomegaly. Incidental small
benign adenoma of the right adrenal gland.
CT of the chest-no PE. Bilateral groundglass and interstitial opacities likely related atelectasis. Mild interstitial edema possible. Low-attenuation nodules in the right and left lobes of thyroid. Left breast postoperative changes-possible
seroma
Lumbar Spine X-Ray
IMPRESSION:
anterior compression deformity of the L3 vertebral body with approximately 20% loss of height which is likely subacute or chronic.
There is multilevel degenerative disc disease and facet arthropathy most pronounced at the L4-L5 and L5-S1 levels where it is moderate.
TTE 10/08/24
CONCLUSIONS
Technically difficult study
Normal left ventricular chamber size. Normal left ventricular systolic
function. Left ventricular ejection fraction is 60% by volumetric assessment.
No gross regional wall motion abnormalities seen. Moderate concentric left
ventricular hypertrophy. Normal diastolic function.
Normal right ventricular size and function.
Mild mitral regurgitation.
Aortic sclerosis without stenosis.
Compared to prior study dated 02/11/2018, there is no significant change
CXR 10/11/24
IMPRESSION:
No acute disease of the chest
LEFT HIP CT 10/11/24
IMPRESSION: No acute fracture identified.
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 Stable
Small simple right ovarian cyst. Stable
Mild L4/L5 and L5/S1 degenerative disc disease. Stable
Lower back pain/ left hip pain secondary to septic arthritis, large epidural abscess with moderate spinal cord compression along with myositis
sepsis (leukocytosis,tachycardia) POA 2/2 above
blood cx 10/13 pending; however was already getting abx for UTI
L3 Compression fracture
-x-ray hip without fracture and confirmed by CT Hip on 10/11
-X-ray lumbar spine with 20% compression fraction anterior L3
-replete vitamin D
-lidocaine patch
-will also order intranasal calcitonin - 2 week course
-patient tolerating oxycodone low dose but does not tolerate the 5 mg with significant confusion
MRI back consistent with L2-L3 septic arthritis and epidural abscess along with myositis. There is a moderate spinal cord compression. no sensory loss. Neurosurgery and ID following. patient had been on abx for UTI which is now stopped. MRI
thoracic and lumbar with and without contrast 10/14
- PT/OT
ESR,Crp elevated
#CHELSI
Monitor
-LAB ANIMAL TECHNOLOGIST Lisinopril and HCTZ resumed
#UTI
- increased generalized weakness with recurrent falls
- Flu and Covid swabs negative
now off abx
#constipation
-colace BID, Miralax daily
-dulcolax supp PRN
#diastolic heart failure chronic
-repeat TTE without change
-resume LAB ANIMAL TECHNOLOGIST HCTZ
Non [place] Related Troponin elevation
-Troponin peaked at 0.08
-repeat TTE without change from prior
Hepatosplenomegaly seen on CT
Mild Transaminitis
-follow up Hep serologies
-TSH OK
-no e/o hemochromatosis
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
-patient to follow up with PCP as outpatient with referral to GI
#hypertension
- continue amlodipine, metoprolol
-resume LAB ANIMAL TECHNOLOGIST Lisinopril with resolution CHELSI
-resume HCTZ
#hyperlipidemia
- continue atorvastatin
#type 2 diabetes
- hold metformin
LDSS
#GERD
- continue Protonix
#depression
- continue Wellbutrin
#sleep apnea/insomnia
- continue trazodone
#left breast ductal carcinoma in situ
- recent lumpectomy
- scheduled for 15 rounds radiation
Full Code
DVT Px: Sq Heparin
I spent a total of 52 minutes with the patient or on the floor. More than 50% of this time involved counseling and coordination of care.
General: No Apparent Distress and Other (appears in mild pain )
HEENT: PERRLA
Respiratory: Clear to Auscultation; Negative Wheezes
Cardiac: Regular Rhythm and S1/S2
GI: Soft and Nontender
Musculoskeletal: No Edema and Other (mid spine tenderness; point tenderness along left hip)
Skin: Warm and Dry
Neuro: AO x 3
Psych: Calm
Anticipated Discharge: > 48 hours
Subjective/Interval History
-
Date of Service: October 14, 2024
has pain
Objective Data
-
Labs:
Laboratory Results
10/14/24
06:59
WBC 10.8
Hgb 11.5 L
Hct 35.5 L
Plt Count 249
Sodium 137
Potassium 4.4
Chloride 101
Carbon Dioxide 27
BUN 38 H
Creatinine 1.2 H
Glucose 125 H
Calcium 9.1
Vital Signs:
Vital Signs
Temp Pulse Resp BP Pulse Ox
98 F 69 20 145/85 98
10/14/24 07:20 10/14/24 08:26 10/14/24 07:20 10/14/24 08:26 10/14/24 07:20
I&O
10/13/24 10/14/24 10/15/24
06:59 06:59 06:59
Intake Total 1320 / 1320 720 / 720
Balance 1320 / 1320 720 / 720
[2024-10-14 13:33] VITALS: BP 133/68; PULSE 67
[2024-10-14 13:34] VITALS: BP 133/68; BP 157/73; PULSE 67
[2024-10-14] MEDS: MIACALCIN/FORTICAL NASAL SPRAY 1 SPRAY NASAL (13:50)
[2024-10-14] MEDS: DICLOFENAC 1% TOPICAL GEL 1 GRAM TOPICAL ×2 (13:52→17:57)
--- NOTE | 2024-10-14 15:07 | W.PN.ID1 ---
Date of Service
Date of Service: October 14, 2024
Today's Communication
Following pending blood cultures. Continue off antibiotics for today.
Assessment / Plan
Epidural collection
-Abscess versus hematoma
Low back pain
Bacteriuria without symptomatology.
Leukocytosis
Left breast carcinoma in situ
GERD
HTN
Dyslipidemia
DM
Nephrolithiasis
Recommendations:
Repeat imaging suggests epidural abscess, although awaiting neurosurgical evaluation of this new study.
ESR and CRP noted to be elevated.
Currently off antibiotics pending further culture data.
Blood cultures have been ordered, although given prior antibiotics these may be negative.
Follow white count and temperature curve
Further recommendations as additional data is returned.
����������������������������������������������������������
Chief Complaint
-: Other (Suspected epidural abscess)
Subjective / Review of Systems
Patient seen and examined. Admits to ongoing low back discomfort.
Vital Signs / Physical Exam
Vital Signs
Vital Signs
Temp Pulse Resp BP Pulse Ox
98 F 69 20 145/85 98
10/14/24 07:20 10/14/24 08:26 10/14/24 07:20 10/14/24 08:26 10/14/24 07:20
Physical Exam
Constitutional: Comfortable and Chronically Ill
Eyes: No Conjunctival Hemorrhage and Sclera Anicteric
Cardiovascular: Regular Rate and S1/S2; Negative S3/S4 or Murmur
Pulmonary: Clear; Negative Wheezes, Rales or Rhonchi
Gastrointestinal: Soft, Non Tender and Non Distended
Neurological: Awake and Alert
Psychological: Calm
Objective Data
Lab Data
Lab Results
10/14/24 06:59
10/14/24 06:59
ESR 71 mm/hour (0-20) H 10/14/24 06:59
Estimated Creat Clear 52 ml/min 10/14/24 06:59
Total Bilirubin 0.9 mg/dl (0.2-1.3) 10/09/24 06:36
AST 44 U/L (14-36) H 10/09/24 06:36
ALT 35 U/L (0-35) 10/09/24 06:36
Alkaline Phosphatase 99 U/L (38-126) 10/09/24 06:36
C-Reactive Protein 123.80 mg/L (0.0-10.00) H 10/14/24 06:59
Most recent labs reviewed.
Micro Results:
10/13/24 14:46 Blood Culture - Preliminary
Blood/Venous No Growth in 24 hours- Final report to follow
10/13/24 13:18 Blood Culture - Preliminary
Blood/Venous No Growth in 24 hours- Final report to follow
10/07/24 13:15 Urine Culture - Final
Urine Escherichia coli
10/07/24 12:44 Influenza Types A & B (KELSI) - Final
Nasal Swab Negative for Influenza A & B, NAAT
Negative results must be combined with clinical observations
and patient history.
Nucleic Acid Amplification test (NAAT)performed on the
[employer] platform.
Imaging:
10/14/2024 MRI lumbar spine with and without contrast: There is enhancement throughout the posterior epidural space extending from the level of the inferior T10 endplate to the L3 level with a T1 hypointense collection measuring 4 x 4 x 16 mm at the
T12-L1 level. Findings are consistent with phlegmonous changes of the posterior epidural space with a discrete abscess in the posterior epidural space at the T12-L1 level. There is a likely developing abscess at the L2-L3 level. Additionally there
is significant enhancement within the left paraspinal soft tissues at the L2-L4 levels which extends to the left L2 facet consistent with known septic arthritis of the left L2-L3 facet.
10/13/2024 MRI lumbar spine without contrast: Report suggest severe septic arthritis of the left L2/L3 facet joint, and possible septic arthritis of the left L1/L2 and L3/L4 facet joints, with a large amount of surrounding acute bone marrow edema
and severe edema and myositis in the adjacent left musculature. A large tubular shaped (7.8 cm in length) epidural abscess in the left posterior lateral epidural space extending from T11-L2. Moderate spinal cord compression and central canal
stenosis at the T12/L1 area caused by the epidural abscess and a small central disc herniation. Film reviewed with Neurosurgery, and findings in the epidural space may be secondary to hematoma as an alternative diagnosis.
[2024-10-14 15:55] VITALS: BP 166/78
[2024-10-14 16:14] VITALS: BP 148/85
[2024-10-14 16:49] LABS: Glucose - Point of Care 94 mg/dl (70-99)
--- NOTE | 2024-10-14 17:30 | CM ---
MD to decide if pt needs surgery.
[facility]
Report [phone]

PLAN To [facility] when medically stable
[2024-10-14] MEDS: DESYREL 100 MG PO (19:46)
[2024-10-14] MEDS: COLACE 100 MG PO (19:48)
[2024-10-14 21:16] LABS: Glucose - Point of Care 201 mg/dl (70-99)
[2024-10-14] MEDS: TUMS CHEWABLE TABLET 200 MG PO (22:34)
[2024-10-14 23:12] VITALS: BP 107/43
[2024-10-15 03:56] VITALS: BP 134/62
[2024-10-15] MEDS: ROXICODONE 2.5 MG PO ×4 (05:22→19:58)
[2024-10-15 07:22] LABS: Glucose - Point of Care 119 mg/dl (70-99)
[2024-10-15 07:27] VITALS: BP 147/70
[2024-10-15 07:47] LABS: Blood Urea Nitrogen 36 mg/dl (7-17); Calcium 9.2 mg/dl (8.4-10.2); Carbon Dioxide 29 mmol/L (22-30); Chloride 101 mmol/L (98-107); Estimated Creatinine Clearance 62 ml/min; Glucose 127 mg/dl (70-99); Potassium 4.9 mmol/L (3.5-5.1); Sodium 139 mmol/L (135-145); eGFR 58.39
[2024-10-15] MEDS: NOVOLOG FLEXPEN-LOW RESISTANCE SC ×3 (07:59→16:48)
[2024-10-15] MEDS: MIRALAX 17 GRAMS PO (08:00)
[2024-10-15] MEDS: MIACALCIN/FORTICAL NASAL SPRAY 1 SPRAY NASAL (08:01)
[2024-10-15] MEDS: LIPITOR 10 MG PO (08:01)
[2024-10-15] MEDS: NORVASC 5 MG PO (08:01)
[2024-10-15] MEDS: TYLENOL 1000 MG PO ×3 (08:01→21:04)
[2024-10-15] MEDS: ZESTRIL 40 MG PO (08:02)
[2024-10-15] MEDS: ORETIC 12.5 MG PO (08:02)
[2024-10-15] MEDS: COLACE 100 MG PO ×2 (08:02→19:57)
[2024-10-15] MEDS: VITAMIN D3 (cholecalciferol) 50 MCG PO (08:02)
[2024-10-15] MEDS: NEURONTIN 900 MG PO ×2 (08:03→19:57)
[2024-10-15] MEDS: LOPRESSOR 50 MG PO ×2 (08:03→20:01)
[2024-10-15] MEDS: VITAMIN B-12 1000 MCG PO (08:03)
[2024-10-15] MEDS: PROTONIX 40 MG PO (08:04)
[2024-10-15] MEDS: LIDOCAINE 4% PATCH 1 PATCH TOPICAL (08:04)
[2024-10-15] MEDS: HEPARIN 5000 UNITS SC ×2 (08:04→15:51)
[2024-10-15] MEDS: WELLBUTRIN SR (12 hour sustained release) 150 MG PO (08:04)
[2024-10-15] MEDS: DICLOFENAC 1% TOPICAL GEL 1 GRAM TOPICAL ×3 (08:04→17:36)
[2024-10-15] MEDS: POLYSPORIN/DOUBLE ANTIBIOTIC 1 APPLIC TOPICAL (08:04)
[2024-10-15 08:28] LABS: % Basophils 0.5 % (0-2); % Eosinophils 2.1 % (0-6); % Immature Granulocytes 1.3 % (0-0.5); % Lymphocytes 13.4 % (20.5-51.1); % Monocytes 7.8 % (1.7-9.3); % Neutrophils 74.9 % (42.2-75.2); Absolute Basophils 0.1 10^3/uL (0-0.2); Absolute Eosinophils 0.2 10^3/uL (0-0.7); Absolute Immature Granulocytes 0.1 10^3/uL (0-0.05); Absolute Lymphocytes 1.2 10^3/uL (1.2-3.4); Absolute Monocytes 0.7 10^3/uL (0.1-0.6); Absolute Neutrophils 6.9 10^3/uL (1.4-6.5); Hematocrit 35.8 % (37.0-47.0); Hemoglobin 11.4 g/dL (12.0-16.0); Mean Corp Hgb Conc. 31.8 g/dL (33.0-37.0); Mean Corpuscular Hgb 30.1 pg (27.0-31.0); Mean Corpuscular Volume 94.5 fL (81.0-99.0); Mean Platelet Volume 10.7 fL (7.4-10.4); Nucleated Red Blood Cells % 0 %; Platelet Count 293 10^3/uL (130-400); Red Blood Cell Count 3.79 10^6/uL (4.20-5.40); Red Cell Dist. Width 13.2 % (11.5-14.5); White Blood Cell Count 9.2 10^3/uL (4.8-10.8)
--- NOTE | 2024-10-15 11:56 | W.PN.HOSP.TC ---
Today's Communication/Plan
-
Monitor vital signs see plan
Discussed with daughter over the phone
Pain control
Neurosurgery to round later today decide next steps
hold off on abx per ID
Assessment / Plan
Assessment / Plan
Patient is a 78-year-old female with past medical history significant for hypertension, hyperlipidemia, type 2 diabetes, GERD, depression, sleep apnea and left breast ductal carcinoma in situ who presented to [facility] for evaluation of
generalized weakness found to have a UTI and CHELSI.
CT abdomen and pelvis-small volume of gas in the urinary bladder suspicious for infection. No hydronephrosis bilateral nonobstructive nephrolithiasis. Advanced atrophic changes of the left kidney. Hepatomegaly. Splenomegaly. Incidental small
benign adenoma of the right adrenal gland.
CT of the chest-no PE. Bilateral groundglass and interstitial opacities likely related atelectasis. Mild interstitial edema possible. Low-attenuation nodules in the right and left lobes of thyroid. Left breast postoperative changes-possible
seroma
Lumbar Spine X-Ray
IMPRESSION:
anterior compression deformity of the L3 vertebral body with approximately 20% loss of height which is likely subacute or chronic.
There is multilevel degenerative disc disease and facet arthropathy most pronounced at the L4-L5 and L5-S1 levels where it is moderate.
TTE 10/08/24
CONCLUSIONS
Technically difficult study
Normal left ventricular chamber size. Normal left ventricular systolic
function. Left ventricular ejection fraction is 60% by volumetric assessment.
No gross regional wall motion abnormalities seen. Moderate concentric left
ventricular hypertrophy. Normal diastolic function.
Normal right ventricular size and function.
Mild mitral regurgitation.
Aortic sclerosis without stenosis.
Compared to prior study dated 02/11/2018, there is no significant change
CXR 10/11/24
IMPRESSION:
No acute disease of the chest
LEFT HIP CT 10/11/24
IMPRESSION: No acute fracture identified.
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 Stable
Small simple right ovarian cyst. Stable
Mild L4/L5 and L5/S1 degenerative disc disease. Stable
Lower back pain/ left hip pain secondary to septic arthritis, large epidural abscess with moderate spinal cord compression along with myositis
sepsis (leukocytosis,tachycardia) POA 2/2 above
blood cx 10/13 NGTD; however was already getting abx for UTI
L3 Compression fracture
-x-ray hip without fracture and confirmed by CT Hip on 10/11
-X-ray lumbar spine with 20% compression fraction anterior L3
-replete vitamin D
-lidocaine patch
-will also order intranasal calcitonin - 2 week course
-patient tolerating oxycodone low dose but does not tolerate the 5 mg with significant confusion
MRI non contrast back consistent with L2-L3 septic arthritis and epidural abscess along with myositis. There is a moderate spinal cord compression. no sensory loss. Neurosurgery and ID following. patient had been on abx for UTI which is now
stopped. MRI thoracic and lumbar with and without contrast 10/14 noted with epidural abscess. Neurosurgery to see today
- PT/OT
ESR,Crp elevated
#CHELSI
Monitor
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
#UTI
- increased generalized weakness with recurrent falls
- Flu and Covid swabs negative
now off abx
#constipation
-colace BID, Miralax daily
-dulcolax supp PRN
#diastolic heart failure chronic
-repeat TTE without change
-resume BULLET LUBRICATING MACHINE OPERATOR HCTZ
Non [place] Related Troponin elevation
-Troponin peaked at 0.08
-repeat TTE without change from prior
Hepatosplenomegaly seen on CT
Mild Transaminitis
-follow up Hep serologies
-TSH OK
-no e/o hemochromatosis
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
-patient to follow up with PCP as outpatient with referral to GI
#hypertension
- continue amlodipine, metoprolol
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
-resume HCTZ
#hyperlipidemia
- continue atorvastatin
#type 2 diabetes
- hold metformin
LDSS
#GERD
- continue Protonix
#depression
- continue Wellbutrin
#sleep apnea/insomnia
- continue trazodone
#left breast ductal carcinoma in situ
- recent lumpectomy
- scheduled for 15 rounds radiation
Full Code
DVT Px: Sq Heparin
I spent a total of 51 minutes with the patient or on the floor. More than 50% of this time involved counseling and coordination of care.
General: No Apparent Distress and Other (appears in mild pain )
HEENT: PERRLA
Respiratory: Clear to Auscultation; Negative Wheezes
Cardiac: Regular Rhythm and S1/S2
GI: Soft and Nontender
Musculoskeletal: No Edema and Other (mid spine tenderness; point tenderness along left hip)
Skin: Warm and Dry
Neuro: AO x 3
Psych: Calm
Anticipated Discharge: > 48 hours
Subjective/Interval History
-
Date of Service: October 15, 2024
has pain
Objective Data
-
Labs:
Laboratory Results
10/15/24
07:03
WBC 9.2
Hgb 11.4 L
Hct 35.8 L
Plt Count 293
Sodium 139
Potassium 4.9
Chloride 101
Carbon Dioxide 29
BUN 36 H
Creatinine 1.0
Glucose 127 H
Calcium 9.2
Vital Signs:
Vital Signs
Temp Pulse Resp BP Pulse Ox
97.7 F 62 16 147/70 98
10/15/24 07:27 10/15/24 07:27 10/15/24 07:27 10/15/24 07:27 10/15/24 08:00
I&O
10/14/24 10/15/24 10/16/24
06:59 06:59 06:59
Intake Total 720 / 720 1320 / 1320
Balance 720 / 720 1320 / 1320
[2024-10-15 12:01] LABS: Glucose - Point of Care 135 mg/dl (70-99)
--- NOTE | 2024-10-15 12:10 | W.PN.ID1 ---
Date of Service
Date of Service: October 15, 2024
Today's Communication
Continue to observe off antibiotics pending further input from Neurosurgery
Assessment / Plan
Epidural collection
-Abscess versus hematoma
Low back pain
Bacteriuria without symptomatology.
Leukocytosis
Left breast carcinoma in situ
GERD
HTN
Dyslipidemia
DM
Nephrolithiasis
Recommendations:
Repeat imaging suggests epidural abscess, although awaiting neurosurgical evaluation of this new study.
ESR and CRP noted to be elevated.
Currently off antibiotics pending further culture data.
Blood cultures have been ordered, although given prior antibiotics these may be negative.
Follow white count and temperature curve
Further recommendations as additional data is returned.
����������������������������������������������������������
Chief Complaint
-: Other (Suspected epidural abscess)
Subjective / Review of Systems
Patient seen and examined. Reports overall feeling 'stable'. Not better, but not any worse either. Notes no lower extremity weakness. Ongoing back pain noted.
Review of Systems: No Fever and No Chills
Vital Signs / Physical Exam
Vital Signs
Vital Signs
Temp Pulse Resp BP Pulse Ox
97.7 F 62 16 147/70 98
10/15/24 07:27 10/15/24 07:27 10/15/24 07:27 10/15/24 07:27 10/15/24 08:00
Physical Exam
Constitutional: No Acute Distress, Comfortable, Chronically Ill and Non-toxic
Eyes: Sclera Anicteric
Cardiovascular: S1/S2; Negative S3/S4
Pulmonary: Clear; Negative Wheezes, Rales or Rhonchi
Gastrointestinal: Soft, Non Tender and Non Distended
Extremities: Edema; Negative Cyanosis or Erythema
Skin: Negative Rash or Jaundice
Neurological: Awake, Alert, Normal Muscle Strength (And lower extremities.) and No Motor Deficits; Negative Meningeal Signs
Psychological: Calm
Objective Data
Lab Data
Lab Results
10/15/24 07:03
10/15/24 07:03
ESR 71 mm/hour (0-20) H 10/14/24 06:59
Estimated Creat Clear 62 ml/min 10/15/24 07:03
Total Bilirubin 0.9 mg/dl (0.2-1.3) 10/09/24 06:36
AST 44 U/L (14-36) H 10/09/24 06:36
ALT 35 U/L (0-35) 10/09/24 06:36
Alkaline Phosphatase 99 U/L (38-126) 10/09/24 06:36
C-Reactive Protein 123.80 mg/L (0.0-10.00) H 10/14/24 06:59
Most recent labs reviewed.
Micro Results:
10/13/24 14:46 Blood Culture - Preliminary
Blood/Venous No Growth in 24 hours- Final report to follow
10/13/24 13:18 Blood Culture - Preliminary
Blood/Venous No Growth in 24 hours- Final report to follow
10/07/24 13:15 Urine Culture - Final
Urine Escherichia coli
10/07/24 12:44 Influenza Types A & B (KELSI) - Final
Nasal Swab Negative for Influenza A & B, NAAT
Negative results must be combined with clinical observations
and patient history.
Nucleic Acid Amplification test (NAAT)performed on the
[employer] platform.
Imaging:
10/14/2024 MRI lumbar spine with and without contrast: There is enhancement throughout the posterior epidural space extending from the level of the inferior T10 endplate to the L3 level with a T1 hypointense collection measuring 4 x 4 x 16 mm at the
T12-L1 level. Findings are consistent with phlegmonous changes of the posterior epidural space with a discrete abscess in the posterior epidural space at the T12-L1 level. There is a likely developing abscess at the L2-L3 level. Additionally there
is significant enhancement within the left paraspinal soft tissues at the L2-L4 levels which extends to the left L2 facet consistent with known septic arthritis of the left L2-L3 facet.
10/13/2024 MRI lumbar spine without contrast: Report suggest severe septic arthritis of the left L2/L3 facet joint, and possible septic arthritis of the left L1/L2 and L3/L4 facet joints, with a large amount of surrounding acute bone marrow edema
and severe edema and myositis in the adjacent left musculature. A large tubular shaped (7.8 cm in length) epidural abscess in the left posterior lateral epidural space extending from T11-L2. Moderate spinal cord compression and central canal
stenosis at the T12/L1 area caused by the epidural abscess and a small central disc herniation. Film reviewed with Neurosurgery, and findings in the epidural space may be secondary to hematoma as an alternative diagnosis.
Care Review
Plan reviewed with: Physician (Hospitalist)
[2024-10-15 15:19] VITALS: BP 137/68
[2024-10-15 16:44] LABS: Glucose - Point of Care 132 mg/dl (70-99)
--- NOTE | 2024-10-15 17:09 | PN.NS ---
Subjective
-
Patient seen and examined. Reports that back pain is minimally improved today. Denies any new numbness, tingling, or weakness in lower extremities. MRI completed. Daughter was conferenced in via telephone for encounter/discussion
Physical Exam
-
Exam:
Exam:
Awake, alert, no apparent distress.
Sitting up in chair, finishing lunch.
Cranial nerves II through XII are grossly intact
Motor: 5/5 strength bilaterally in upper extremities.
In lower extremities, patient demonstrates 5/5 strength in bilateral lower extremity
Sensation to light touch is intact bilaterally in lower extremities in all dermatomes.
Tenderness to palpation at thoracolumbar junction.
Head is normocephalic atraumatic
Neck is supple
breathing nonlabored
Cardiac: Regular rhythm
Abdomen is soft, obese
Extremities are warm
MRI of the lumbar spine demonstrates dorsal epidural collection extending from T10 to the L3 level which appears to be consistent with likely phlegmon/epidural abscess. There is enhancement within the left paraspinal soft tissues at the L2-L4
levels.
Problems
-
Problem Status Onset Code
CHELSI (acute kidney injury) N17.9
UTI (urinary tract infection) N39.0
Assessment / Plan
-
This is a 78-year-old female with multiple medical active comorbid conditions including type 2 diabetes, morbid obesity, hyperlipidemia, chronic urinary incontinence, breast cancer, status post 2 surgical resections, most recently in August
Of 2023. This side was also previously infected superficially, according to the daughter when her for surgery was done in February. Patient also has toe ulcer that is being seen by podiatry. She presents now with urinary tract infection, Growing E.
coli, with persistent back pain, and radiating left hip pain. Imaging of the lumbar spine, with and without contrast, demonstrates dorsal epidural collection which is at its widest diameter at T12-L1.
Continue to follow blood cultures
Patient currently has not had any changes in her urination, or lower extremity strength or sensation, nor does she appear to be floridly septic at present time, and therefore, no indication for emergent neurosurgical intervention for decompression.
Lengthy discussion was held with patient, and daughter, Lianna, at bedside today. I discussed management of this epidural abscess, and reviewed operative options including decompressive laminectomy, versus empiric antibiotic treatment x 6 weeks via
PICC line, broad-spectrum antibiotics.
We discussed risks and benefits of both options, and pros/cons of both options.
At present time, daughter expresses that she would like to avoid operative intervention for her mother, but understands the risks of holding off on surgery/foregoing surgery at present time, and that this may mean that if the infection continues to
progress, that she could incur neurological deficits and may require surgery in the future more urgently.
Patient will require close neurological monitoring while she is on IV antibiotics, with follow-up MRI of the lumbar spine in approximately 4 to 6 weeks, as well as surveillance CRP to ensure she is responding.
If patient develops new neurological deficits, or if she is not clinically responding to IV antibiotics, then ultimately she will require operative intervention.
If patient is discharged, she will need to see me in the office in approximately 4 to 6 weeks with an MRI of the thoracic lumbar spine with and without contrast.
Patient provided my business card and office address.
Today's Communication
-
Discussed with RN, patient, patient's daughter Lianna, infectious disease Dr. Cartagena,, and [facility], Dr. Thornton.
--- NOTE | 2024-10-15 17:10 | CM ---
Spoke with pt in room
Neurosurgeon to decide if pt needs surgery.
[facility].Please call day of dc to check on bed.
[facility]
Report [phone]

PLAN To [facility] when medically stable
[2024-10-15] MEDS: DESYREL 100 MG PO (20:02)
[2024-10-15] MEDS: DICLOFENAC 1% TOPICAL GEL 100 GRAM TOPICAL (21:03)
[2024-10-15 21:42] LABS: Glucose - Point of Care 138 mg/dl (70-99)
[2024-10-15 23:14] VITALS: BP 146/76
[2024-10-16] MEDS: ROXICODONE 2.5 MG PO ×6 (00:20→20:43)
[2024-10-16] MEDS: HEPARIN 5000 UNITS SC ×3 (00:21→16:53)
[2024-10-16 07:20] VITALS: BP 167/79
[2024-10-16 07:54] LABS: Glucose - Point of Care 128 mg/dl (70-99)
[2024-10-16 08:04] LABS: % Basophils 0.7 % (0-2); % Eosinophils 2.6 % (0-6); % Immature Granulocytes 0.7 % (0-0.5); Absolute Basophils 0.1 10^3/uL (0-0.2); Absolute Eosinophils 0.2 10^3/uL (0-0.7); Absolute Immature Granulocytes 0.1 10^3/uL (0-0.05); Absolute Lymphocytes 1.4 10^3/uL (1.2-3.4); Absolute Monocytes 0.6 10^3/uL (0.1-0.6); Absolute Neutrophils 5.1 10^3/uL (1.4-6.5); Hematocrit 35.6 % (37.0-47.0); Mean Corp Hgb Conc. 30.9 g/dL (33.0-37.0); Mean Corpuscular Hgb 29.6 pg (27.0-31.0); Mean Corpuscular Volume 95.7 fL (81.0-99.0); Mean Platelet Volume 10.5 fL (7.4-10.4); Nucleated Red Blood Cells % 0 %; Platelet Count 305 10^3/uL (130-400); Red Blood Cell Count 3.72 10^6/uL (4.20-5.40); Red Cell Dist. Width 13.2 % (11.5-14.5); White Blood Cell Count 7.4 10^3/uL (4.8-10.8)
[2024-10-16] MEDS: NOVOLOG FLEXPEN-LOW RESISTANCE SC ×3 (08:16→17:31)
[2024-10-16] MEDS: MIRALAX 17 GRAMS PO (08:20)
[2024-10-16] MEDS: MIACALCIN/FORTICAL NASAL SPRAY NASAL (08:22)
[2024-10-16] MEDS: ORETIC 12.5 MG PO (08:23)
[2024-10-16] MEDS: WELLBUTRIN SR (12 hour sustained release) 150 MG PO (08:23)
[2024-10-16] MEDS: NEURONTIN 900 MG PO ×2 (08:23→20:44)
[2024-10-16] MEDS: PROTONIX 40 MG PO (08:24)
[2024-10-16] MEDS: ZESTRIL 40 MG PO (08:24)
[2024-10-16] MEDS: VITAMIN B-12 1000 MCG PO (08:24)
[2024-10-16] MEDS: TYLENOL 1000 MG PO ×3 (08:24→21:46)
[2024-10-16] MEDS: LOPRESSOR 50 MG PO ×2 (08:25→20:44)
[2024-10-16] MEDS: COLACE 100 MG PO (08:25)
[2024-10-16] MEDS: LIPITOR 10 MG PO (08:26)
[2024-10-16] MEDS: POLYSPORIN/DOUBLE ANTIBIOTIC 1 APPLIC TOPICAL (08:26)
[2024-10-16] MEDS: DICLOFENAC 1% TOPICAL GEL 1 GRAM TOPICAL ×3 (08:26→16:54)
[2024-10-16] MEDS: LIDOCAINE 4% PATCH 1 PATCH TOPICAL (08:27)
[2024-10-16] MEDS: VITAMIN D3 (cholecalciferol) 50 MCG PO (08:27)
[2024-10-16] MEDS: NORVASC 5 MG PO (08:27)
[2024-10-16 08:29] LABS: Blood Urea Nitrogen 31 mg/dl (7-17); Calcium 9.1 mg/dl (8.4-10.2); Carbon Dioxide 28 mmol/L (22-30); Chloride 101 mmol/L (98-107); Estimated Creatinine Clearance 62 ml/min; Glucose 119 mg/dl (70-99); Potassium 5.1 mmol/L (3.5-5.1); Sodium 140 mmol/L (135-145); eGFR 58.39
[2024-10-16] MEDS: DULCOLAX 10 MG RECTAL (11:29)
[2024-10-16 12:11] LABS: Glucose - Point of Care 109 mg/dl (70-99)
--- NOTE | 2024-10-16 12:18 | W.PN.HOSP.TC ---
Today's Communication/Plan
-
Monitor vital signs
see plan
Neurosurgery had discussion with patient and family yesterday, patient family decided to go with course of antibiotics
Will follow-up with neurosurgery outpatient
ID following
PT/OT recommending SNF
Will need antibiotics on discharge
Assessment / Plan
Assessment / Plan
Patient is a 78-year-old female with past medical history significant for hypertension, hyperlipidemia, type 2 diabetes, GERD, depression, sleep apnea and left breast ductal carcinoma in situ who presented to [facility] ED for evaluation of
generalized weakness found to have a UTI and CHELSI.
CT abdomen and pelvis-small volume of gas in the urinary bladder suspicious for infection. No hydronephrosis bilateral nonobstructive nephrolithiasis. Advanced atrophic changes of the left kidney. Hepatomegaly. Splenomegaly. Incidental small
benign adenoma of the right adrenal gland.
CT of the chest-no PE. Bilateral groundglass and interstitial opacities likely related atelectasis. Mild interstitial edema possible. Low-attenuation nodules in the right and left lobes of thyroid. Left breast postoperative changes-possible
seroma
Lumbar Spine X-Ray
IMPRESSION:
anterior compression deformity of the L3 vertebral body with approximately 20% loss of height which is likely subacute or chronic.
There is multilevel degenerative disc disease and facet arthropathy most pronounced at the L4-L5 and L5-S1 levels where it is moderate.
TTE 10/08/24
CONCLUSIONS
Technically difficult study
Normal left ventricular chamber size. Normal left ventricular systolic
function. Left ventricular ejection fraction is 60% by volumetric assessment.
No gross regional wall motion abnormalities seen. Moderate concentric left
ventricular hypertrophy. Normal diastolic function.
Normal right ventricular size and function.
Mild mitral regurgitation.
Aortic sclerosis without stenosis.
Compared to prior study dated 02/11/2018, there is no significant change
CXR 10/11/24
IMPRESSION:
No acute disease of the chest
LEFT HIP CT 10/11/24
IMPRESSION: No acute fracture identified.
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 Stable
Small simple right ovarian cyst. Stable
Mild L4/L5 and L5/S1 degenerative disc disease. Stable
Lower back pain/ left hip pain secondary to septic arthritis, large epidural abscess with moderate spinal cord compression along with myositis
sepsis (leukocytosis,tachycardia) POA 2/2 above
blood cx 10/13 NGTD; however was already getting abx for UTI
L3 Compression fracture
-x-ray hip without fracture and confirmed by CT Hip on 10/11
-X-ray lumbar spine with 20% compression fraction anterior L3
-replete vitamin D
-lidocaine patch
-will also order intranasal calcitonin - 2 week course
-patient tolerating oxycodone low dose but does not tolerate the 5 mg with significant confusion
MRI non contrast back consistent with L2-L3 septic arthritis and epidural abscess along with myositis. There is a moderate spinal cord compression. no sensory loss. Neurosurgery and ID following. patient had been on abx for UTI which is now
stopped. MRI thoracic and lumbar with and without contrast 10/14 noted with epidural abscess. Neurosurgery 10/15 discussed with patient and daughter including biopsy versus treating with antibiotics, patient and family decided to go with
conservative management with antibiotics at this time. Patient will follow-up closely with neurosurgery outpatient.
- PT/OT
ESR,Crp elevated
#CHELSI
Monitor
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
#UTI
- increased generalized weakness with recurrent falls
- Flu and Covid swabs negative
now off abx
#constipation
-colace BID, Miralax daily
-dulcolax supp PRN
#diastolic heart failure chronic
-repeat TTE without change
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
Non [place] Related Troponin elevation
-Troponin peaked at 0.08
-repeat TTE without change from prior
Hepatosplenomegaly seen on CT
Mild Transaminitis
Hep serologies neg
-TSH OK
-no e/o hemochromatosis
-likely LYLE
-patient to follow up with PCP as outpatient with referral to GI
#hypertension
- continue amlodipine, metoprolol
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
-resume HCTZ
#hyperlipidemia
- continue atorvastatin
#type 2 diabetes
- hold metformin
LDSS
#GERD
- continue Protonix
#depression
- continue Wellbutrin
#sleep apnea/insomnia
- continue trazodone
#left breast ductal carcinoma in situ
- recent lumpectomy
- scheduled for 15 rounds radiation
Full Code
DVT Px: Sq Heparin
I spent a total of 52 minutes with the patient or on the floor. More than 50% of this time involved counseling and coordination of care.
General: No Apparent Distress and Other (appears in mild pain )
HEENT: PERRLA
Respiratory: Clear to Auscultation; Negative Wheezes
Cardiac: Regular Rhythm and S1/S2
GI: Soft and Nontender
Musculoskeletal: No Edema and Other (mid spine tenderness; point tenderness along left hip)
Skin: Warm and Dry
Neuro: AO x 3
Psych: Calm
Anticipated Discharge: 24 - 48 hours
Subjective/Interval History
-
Date of Service: October 16, 2024
has some pain
Objective Data
-
Labs:
Laboratory Results
10/16/24
06:31
WBC 7.4
Hgb 11.0 L
Hct 35.6 L
Plt Count 305
Sodium 140
Potassium 5.1
Chloride 101
Carbon Dioxide 28
BUN 31 H
Creatinine 1.0
Glucose 119 H
Calcium 9.1
Vital Signs:
Vital Signs
Temp Pulse Resp BP Pulse Ox
97.4 F 66 18 167/79 97
10/16/24 07:20 10/16/24 07:20 10/16/24 07:20 10/16/24 07:20 10/16/24 07:20
I&O
10/15/24 10/16/24 10/17/24
06:59 06:59 06:59
Intake Total 1320 / 1320 1260 / 1260
Balance 1320 / 1320 1260 / 1260
--- NOTE | 2024-10-16 13:45 | W.PN.ID1 ---
Date of Service
Date of Service: October 16, 2024
Today's Communication
Begin empiric antibiotic coverage with daptomycin and ceftriaxone.
Assessment / Plan
Epidural abscess
Low back pain
Bacteriuria without symptomatology.
Leukocytosis
Left breast carcinoma in situ
GERD
HTN
Dyslipidemia
DM
Nephrolithiasis
Recommendations:
Repeat imaging suggests epidural abscess. At present, patient without neurological compromise.
ESR and CRP noted to be elevated.
Currently off antibiotics while decisions regarding surgery were being made. At this time, the patient reports that she has opted for conservative management, and will not be undergoing surgery.
Blood cultures remain negative at this time.
Further care was discussed extensively with the patient. At this point in time we will elect to begin empiric antibiotics, with coverage for Staph aureus, along with gram-negative rods. It has been explained extensively to the patient that at this
point antibiotic coverage is empiric, as no cultures currently are positive to direct care. She understands that it is possible that current coverage may not target the offending bacteria, and the infection could grow worse. She is willing to
accept these risks for the benefit of not undergoing surgery at the present time.
Will begin daptomycin 1 gm IV Q24h, along with ceftriaxone 2 gm IV q24h x 6-8 weeks.
Discontinue statin therapy while on daptomycin.
Check CPK in a.m. for baseline.
Infusion Sheet to Be Placed on Paper Chart.
PICC Line
Office follow-up in 2 weeks.
����������������������������������������������������������
Chief Complaint
-: Other (Suspected epidural abscess)
Subjective / Review of Systems
Patient seen and examined. Overall feels well. Still with back pain, but no worse at this time.
Review of Systems: No Fever and No Chills
Vital Signs / Physical Exam
Vital Signs
Vital Signs
Temp Pulse Resp BP Pulse Ox
97.4 F 66 18 167/79 97
10/16/24 07:20 10/16/24 07:20 10/16/24 07:20 10/16/24 07:20 10/16/24 07:20
Physical Exam
Constitutional: No Acute Distress
Eyes: Sclera Anicteric
Cardiovascular: S1/S2; Negative S3/S4
Pulmonary: Clear; Negative Wheezes, Rales or Rhonchi
Gastrointestinal: Soft, Non Tender and Non Distended
Extremities: Edema; Negative Cyanosis or Erythema
Skin: Negative Rash or Jaundice
Neurological: Awake, Alert, Normal Muscle Strength (And lower extremities.) and No Motor Deficits; Negative Meningeal Signs
Psychological: Calm
Objective Data
Lab Data
Lab Results
10/16/24 06:31
10/16/24 06:31
ESR 71 mm/hour (0-20) H 10/14/24 06:59
Estimated Creat Clear 62 ml/min 10/16/24 06:31
Total Bilirubin 0.9 mg/dl (0.2-1.3) 10/09/24 06:36
AST 44 U/L (14-36) H 10/09/24 06:36
ALT 35 U/L (0-35) 10/09/24 06:36
Alkaline Phosphatase 99 U/L (38-126) 10/09/24 06:36
C-Reactive Protein 123.80 mg/L (0.0-10.00) H 10/14/24 06:59
Most recent labs reviewed.
Micro Results:
10/13/24 13:18 Blood Culture - Preliminary
Blood/Venous No Growth in 72 hours- Final report to follow
10/13/24 14:46 Blood Culture - Preliminary
Blood/Venous No Growth in 48 hours- Final report to follow
10/07/24 13:15 Urine Culture - Final
Urine Escherichia coli
10/07/24 12:44 Influenza Types A & B (KELSI) - Final
Nasal Swab Negative for Influenza A & B, NAAT
Negative results must be combined with clinical observations
and patient history.
Nucleic Acid Amplification test (NAAT)performed on the
[employer] platform.
Imaging:
10/14/2024 MRI lumbar spine with and without contrast: There is enhancement throughout the posterior epidural space extending from the level of the inferior T10 endplate to the L3 level with a T1 hypointense collection measuring 4 x 4 x 16 mm at the
T12-L1 level. Findings are consistent with phlegmonous changes of the posterior epidural space with a discrete abscess in the posterior epidural space at the T12-L1 level. There is a likely developing abscess at the L2-L3 level. Additionally there
is significant enhancement within the left paraspinal soft tissues at the L2-L4 levels which extends to the left L2 facet consistent with known septic arthritis of the left L2-L3 facet.
10/13/2024 MRI lumbar spine without contrast: Report suggest severe septic arthritis of the left L2/L3 facet joint, and possible septic arthritis of the left L1/L2 and L3/L4 facet joints, with a large amount of surrounding acute bone marrow edema
and severe edema and myositis in the adjacent left musculature. A large tubular shaped (7.8 cm in length) epidural abscess in the left posterior lateral epidural space extending from T11-L2. Moderate spinal cord compression and central canal
stenosis at the T12/L1 area caused by the epidural abscess and a small central disc herniation. Film reviewed with Neurosurgery, and findings in the epidural space may be secondary to hematoma as an alternative diagnosis.
[2024-10-16] MEDS: ROCEPHIN 2000 MG IV (14:46)
[2024-10-16] MEDS: STERILE WATER FOR INJECTION 20 ML IV (15:13)
[2024-10-16 15:25] VITALS: BP 137/57
[2024-10-16] MEDS: PREPARATION H OINTMENT 1 APPLIC RECTAL (15:25)
[2024-10-16 16:27] VITALS: BP 141/71; PULSE 68
[2024-10-16] MEDS: CUBICIN 20 MG IV (16:52)
--- NOTE | 2024-10-16 16:54 | CM ---
CM met with Ashli today. She/family have decided not to move forward with surgery, and go with course of IV ABX. Pt has been previously accepted for admission to [facility] which will be able to continue IV abx at discharge.
Plan: CM to follow to coordinate transfer to SNF with IV abx.
[2024-10-16 17:03] LABS: Glucose - Point of Care 122 mg/dl (70-99)
[2024-10-16] MEDS: COLACE PO (20:43)
[2024-10-16] MEDS: DESYREL 100 MG PO (20:45)
[2024-10-16 21:23] LABS: Glucose - Point of Care 115 mg/dl (70-99)
[2024-10-16] MEDS: DICLOFENAC 1% TOPICAL GEL 100 GRAM TOPICAL (21:46)
[2024-10-16 23:00] VITALS: BP 159/72
[2024-10-17] MEDS: HEPARIN 5000 UNITS SC ×4 (00:10→23:29)
[2024-10-17] MEDS: ROXICODONE 2.5 MG PO ×6 (00:11→21:54)
[2024-10-17 07:48] LABS: % Eosinophils 2.9 % (0-6); % Immature Granulocytes 0.9 % (0-0.5); % Lymphocytes 20.5 % (20.5-51.1); % Monocytes 7.9 % (1.7-9.3); % Neutrophils 66.8 % (42.2-75.2); Absolute Basophils 0.1 10^3/uL (0-0.2); Absolute Eosinophils 0.2 10^3/uL (0-0.7); Absolute Immature Granulocytes 0.1 10^3/uL (0-0.05); Absolute Lymphocytes 1.7 10^3/uL (1.2-3.4); Absolute Monocytes 0.6 10^3/uL (0.1-0.6); Absolute Neutrophils 5.4 10^3/uL (1.4-6.5); Hematocrit 36.1 % (37.0-47.0); Hemoglobin 11.6 g/dL (12.0-16.0); Mean Corp Hgb Conc. 32.1 g/dL (33.0-37.0); Mean Corpuscular Hgb 30.5 pg (27.0-31.0); Mean Platelet Volume 10.1 fL (7.4-10.4); Nucleated Red Blood Cells % 0 %; Platelet Count 345 10^3/uL (130-400); Red Cell Dist. Width 13.2 % (11.5-14.5); White Blood Cell Count 8.1 10^3/uL (4.8-10.8)
[2024-10-17 07:54] LABS: Glucose - Point of Care 105 mg/dl (70-99)
[2024-10-17 07:58] VITALS: BP 130/98
[2024-10-17 08:31] LABS: Blood Urea Nitrogen 32 mg/dl (7-17); Calcium 9.4 mg/dl (8.4-10.2); Carbon Dioxide 27 mmol/L (22-30); Chloride 102 mmol/L (98-107); Estimated Creatinine Clearance 56 ml/min; Glucose 118 mg/dl (70-99); Sodium 140 mmol/L (135-145); eGFR 52.08
[2024-10-17] MEDS: NOVOLOG FLEXPEN-LOW RESISTANCE SC ×2 (08:39→12:43)
[2024-10-17] MEDS: MIACALCIN/FORTICAL NASAL SPRAY 1 SPRAY NASAL (08:41)
[2024-10-17] MEDS: LIDOCAINE 4% PATCH 1 PATCH TOPICAL (08:42)
[2024-10-17] MEDS: NEURONTIN 900 MG PO ×2 (08:42→21:52)
[2024-10-17] MEDS: PROTONIX 40 MG PO (08:43)
[2024-10-17] MEDS: WELLBUTRIN SR (12 hour sustained release) 150 MG PO (08:43)
[2024-10-17] MEDS: TYLENOL 1000 MG PO ×3 (08:43→21:54)
[2024-10-17] MEDS: VITAMIN B-12 1000 MCG PO (08:43)
[2024-10-17] MEDS: NORVASC 5 MG PO (08:43)
[2024-10-17] MEDS: COLACE PO (08:45)
[2024-10-17] MEDS: DICLOFENAC 1% TOPICAL GEL 1 GRAM TOPICAL ×4 (08:45→21:57)
[2024-10-17] MEDS: LOPRESSOR 50 MG PO ×2 (08:45→21:52)
[2024-10-17] MEDS: ZESTRIL 40 MG PO (08:45)
[2024-10-17] MEDS: MIRALAX PO (08:45)
[2024-10-17] MEDS: POLYSPORIN/DOUBLE ANTIBIOTIC 1 APPLIC TOPICAL (08:47)
[2024-10-17] MEDS: ORETIC 12.5 MG PO (08:47)
[2024-10-17] MEDS: VITAMIN D3 (cholecalciferol) 50 MCG PO (08:48)
[2024-10-17 08:56] LABS: Creatine Phosphokinase 24 U/L (30-135)
--- NOTE | 2024-10-17 09:57 | CM ---
Addendum entered by Lamar Franklin RN 10/17/24 17:37:
Faxed PI[facility] line info CXR and IV abx script to [facility] accept her tomorrow
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
Original Note:
As per MD notes pt and family decided on IV antibiotics as per ID .
PT OT recommend SNF.
Spoke with Carla at [facility] to check if bed and if she can be accepted.
Will need PICC line.
[place] [place]
Report [phone]

PLAN To [facility] when if accepted
[2024-10-17 12:41] LABS: Glucose - Point of Care 103 mg/dl (70-99)
--- NOTE | 2024-10-17 12:43 | W.PN.HOSP.TC ---
Today's Communication/Plan
-
Monitor vital signs see plan
Pain control
Monitor renal function
Monitor potassium
Laxatives
PT/OT
Continue with antibiotics per infectious disease
Patient will need neurosurgery and infectious disease follow-up outpatient
Plan for SNF possibly tomorrow
Assessment / Plan
Assessment / Plan
Patient is a 78-year-old female with past medical history significant for hypertension, hyperlipidemia, type 2 diabetes, GERD, depression, sleep apnea and left breast ductal carcinoma in situ who presented to [place] ED for evaluation of
generalized weakness found to have a UTI and CHELSI.
CT abdomen and pelvis-small volume of gas in the urinary bladder suspicious for infection. No hydronephrosis bilateral nonobstructive nephrolithiasis. Advanced atrophic changes of the left kidney. Hepatomegaly. Splenomegaly. Incidental small
benign adenoma of the right adrenal gland.
CT of the chest-no PE. Bilateral groundglass and interstitial opacities likely related atelectasis. Mild interstitial edema possible. Low-attenuation nodules in the right and left lobes of thyroid. Left breast postoperative changes-possible
seroma
Lumbar Spine X-Ray
IMPRESSION:
anterior compression deformity of the L3 vertebral body with approximately 20% loss of height which is likely subacute or chronic.
There is multilevel degenerative disc disease and facet arthropathy most pronounced at the L4-L5 and L5-S1 levels where it is moderate.
TTE 10/08/24
CONCLUSIONS
Technically difficult study
Normal left ventricular chamber size. Normal left ventricular systolic
function. Left ventricular ejection fraction is 60% by volumetric assessment.
No gross regional wall motion abnormalities seen. Moderate concentric left
ventricular hypertrophy. Normal diastolic function.
Normal right ventricular size and function.
Mild mitral regurgitation.
Aortic sclerosis without stenosis.
Compared to prior study dated 02/11/2018, there is no significant change
CXR 10/11/24
IMPRESSION:
No acute disease of the chest
LEFT HIP CT 10/11/24
IMPRESSION: No acute fracture identified.
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 Stable
Small simple right ovarian cyst. Stable
Mild L4/L5 and L5/S1 degenerative disc disease. Stable
Lower back pain/ left hip pain secondary to septic arthritis, large epidural abscess with moderate spinal cord compression along with myositis
sepsis (leukocytosis,tachycardia) POA 2/2 above
blood cx 10/13 NGTD; however was already getting abx for UTI
L3 Compression fracture
-x-ray hip without fracture and confirmed by CT Hip on 10/11
-X-ray lumbar spine with 20% compression fraction anterior L3
-replete vitamin D
-lidocaine patch
-will also order intranasal calcitonin - 2 week course
-patient tolerating oxycodone low dose but does not tolerate the 5 mg with significant confusion
MRI non contrast back consistent with L2-L3 septic arthritis and epidural abscess along with myositis. There is a moderate spinal cord compression. no sensory loss. Neurosurgery and ID following. patient had been on abx for UTI which is now
stopped. MRI thoracic and lumbar with and without contrast 10/14 noted with epidural abscess. Neurosurgery 10/15 discussed with patient and daughter including biopsy versus treating with antibiotics, patient and family decided to go with
conservative management with antibiotics at this time. Patient will follow-up closely with neurosurgery outpatient.
- PT/OT
ESR,Crp elevated
ID following, started on daptomycin and ceftriaxone. PICC line 10/17. Plan for antibiotics 6 to 8 weeks. Patient will follow-up with ID outpatient. Discontinue statin therapy while on daptomycin.
#CHELSI
Monitor
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
#UTI
- increased generalized weakness with recurrent falls
- Flu and Covid swabs negative
now off abx
#constipation
-colace BID, Miralax daily
-dulcolax supp PRN
#diastolic heart failure chronic
-repeat TTE without change
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
Non MA Related Troponin elevation
-Troponin peaked at 0.08
-repeat TTE without change from prior
Hepatosplenomegaly seen on CT
Mild Transaminitis
Hep serologies neg
-TSH OK
-no e/o hemochromatosis
-likely LYLE
-patient to follow up with PCP as outpatient with referral to GI
#hypertension
- continue amlodipine, metoprolol
-resume FIREARMS ASSEMBLY SUPERVISOR Lisinopril with resolution CHELSI
-resume HCTZ
#hyperlipidemia
- continue atorvastatin
#type 2 diabetes
- hold metformin
LDSS
#GERD
- continue Protonix
#depression
- continue Wellbutrin
#sleep apnea/insomnia
- continue trazodone
#left breast ductal carcinoma in situ
- recent lumpectomy
- scheduled for 15 rounds radiation
Full Code
DVT Px: Sq Heparin
I spent a total of 51 minutes with the patient or on the floor. More than 50% of this time involved counseling and coordination of care.
General: No Apparent Distress and Other (appears in mild pain )
HEENT: PERRLA
Respiratory: Clear to Auscultation; Negative Wheezes
Cardiac: Regular Rhythm and S1/S2
GI: Soft and Nontender
Musculoskeletal: No Edema and Other (mid spine tenderness; point tenderness along left hip)
Skin: Warm and Dry
Neuro: AO x 3
Psych: Calm
Anticipated Discharge: Within 24 hours
Subjective/Interval History
-
Date of Service: October 17, 2024
Denies nausea
Objective Data
-
Labs:
Laboratory Results
10/17/24
07:20
WBC 8.1
Hgb 11.6 L
Hct 36.1 L
Plt Count 345
Sodium 140
Potassium 5.0
Chloride 102
Carbon Dioxide 27
BUN 32 H
Creatinine 1.1 H
Glucose 118 H
Calcium 9.4
Vital Signs:
Vital Signs
Temp Pulse Resp BP Pulse Ox
98 F 69 18 130/98 98
10/17/24 07:58 10/17/24 07:58 10/17/24 07:58 10/17/24 07:58 10/17/24 07:58
I&O
10/16/24 10/17/24 10/18/24
06:59 06:59 06:59
Intake Total 1260 / 1260 480 / 480 240 / 240
Balance 1260 / 1260 480 / 480 240 / 240
[2024-10-17 14:17] VITALS: BP 91/64; PULSE 75; O2SAT 94
[2024-10-17] MEDS: ROCEPHIN 2000 MG IV (14:52)
[2024-10-17] MEDS: STERILE WATER FOR INJECTION 20 ML IV (14:52)
[2024-10-17 15:39] VITALS: BP 126/61
[2024-10-17 16:00] LABS: Glucose - Point of Care 313 mg/dl (70-99)
--- NOTE | 2024-10-17 16:12 | W.PN.ID1 ---
Date of Service
Date of Service: October 17, 2024
Today's Communication
Continue antibiotics.
Assessment / Plan
Epidural abscess
Low back pain
Asymptomatic bacteriuria
Leukocytosis
- improved / resolved
Left breast carcinoma in situ
GERD
HTN
Dyslipidemia
DM
Nephrolithiasis
Recommendations:
Repeat imaging suggests epidural abscess. At present, patient without neurological compromise.
ESR and CRP noted to be elevated.
Blood cultures remain negative at this time.
Continue daptomycin 1 gm IV Q24h / ceftriaxone 2 gm IV q24h x 6-8 weeks.
Remain off statin therapy while on daptomycin.
Baseline CPK okay
PICC line placed.
Patient for transfer to [facility] for rehab
Office follow-up in 2 weeks.
����������������������������������������������������������
Chief Complaint
-: Other (Suspected epidural abscess)
Subjective / Review of Systems
Review of Systems: No Fever and No Chills
Vital Signs / Physical Exam
Vital Signs
Vital Signs
Temp Pulse Resp BP Pulse Ox
98.3 F 74 18 126/61 98
10/17/24 15:39 10/17/24 15:39 10/17/24 15:39 10/17/24 15:39 10/17/24 15:39
Physical Exam
Constitutional: No Acute Distress, Comfortable and Non-toxic
Eyes: Sclera Anicteric
Cardiovascular: S1/S2; Negative S3/S4
Pulmonary: Clear; Negative Wheezes, Rales or Rhonchi
Gastrointestinal: Soft, Non Tender and Non Distended
Extremities: Edema; Negative Cyanosis or Erythema
Skin: Negative Rash or Jaundice
Neurological: Awake, Alert, Normal Muscle Strength (And lower extremities.) and No Motor Deficits; Negative Meningeal Signs
Psychological: Calm
Lines: PICC (RUE)
Objective Data
Lab Data
Lab Results
10/17/24 07:20
10/17/24 07:20
ESR 71 mm/hour (0-20) H 10/14/24 06:59
Estimated Creat Clear 56 ml/min 10/17/24 07:20
Total Bilirubin 0.9 mg/dl (0.2-1.3) 10/09/24 06:36
AST 44 U/L (14-36) H 10/09/24 06:36
ALT 35 U/L (0-35) 10/09/24 06:36
Alkaline Phosphatase 99 U/L (38-126) 10/09/24 06:36
C-Reactive Protein 123.80 mg/L (0.0-10.00) H 10/14/24 06:59
Most recent labs reviewed.
Micro Results:
10/13/24 14:46 Blood Culture - Preliminary
Blood/Venous No Growth in 4 days- Final report to follow
10/13/24 13:18 Blood Culture - Preliminary
Blood/Venous No Growth in 4 days- Final report to follow
10/07/24 13:15 Urine Culture - Final
Urine Escherichia coli
10/07/24 12:44 Influenza Types A & B (KELSI) - Final
Nasal Swab Negative for Influenza A & B, NAAT
Negative results must be combined with clinical observations
and patient history.
Nucleic Acid Amplification test (NAAT)performed on the
[employer] platform.
Imaging:
10/14/2024 MRI lumbar spine with and without contrast: There is enhancement throughout the posterior epidural space extending from the level of the inferior T10 endplate to the L3 level with a T1 hypointense collection measuring 4 x 4 x 16 mm at the
T12-L1 level. Findings are consistent with phlegmonous changes of the posterior epidural space with a discrete abscess in the posterior epidural space at the T12-L1 level. There is a likely developing abscess at the L2-L3 level. Additionally there
is significant enhancement within the left paraspinal soft tissues at the L2-L4 levels which extends to the left L2 facet consistent with known septic arthritis of the left L2-L3 facet.
10/13/2024 MRI lumbar spine without contrast: Report suggest severe septic arthritis of the left L2/L3 facet joint, and possible septic arthritis of the left L1/L2 and L3/L4 facet joints, with a large amount of surrounding acute bone marrow edema
and severe edema and myositis in the adjacent left musculature. A large tubular shaped (7.8 cm in length) epidural abscess in the left posterior lateral epidural space extending from T11-L2. Moderate spinal cord compression and central canal
stenosis at the T12/L1 area caused by the epidural abscess and a small central disc herniation. Film reviewed with Neurosurgery, and findings in the epidural space may be secondary to hematoma as an alternative diagnosis.
[2024-10-17 16:32] LABS: Glucose - Point of Care 190 mg/dl (70-99)
[2024-10-17] MEDS: CUBICIN 20 MG IV (17:16)
[2024-10-17] MEDS: NOVOLOG FLEXPEN-LOW RESISTANCE 1 UNITS SC (17:19)
[2024-10-17 20:39] VITALS: BP 150/69
[2024-10-17 21:08] LABS: Glucose - Point of Care 126 mg/dl (70-99)
[2024-10-17] MEDS: COLACE 100 MG PO (21:52)
[2024-10-17] MEDS: DESYREL 100 MG PO (21:54)
[2024-10-17 23:14] VITALS: BP 110/76
[2024-10-18] MEDS: ROXICODONE PO ×2 (01:14→05:16)
[2024-10-18 06:14] LABS: % Eosinophils 2.9 % (0-6); % Immature Granulocytes 0.7 % (0-0.5); % Monocytes 9.3 % (1.7-9.3); % Neutrophils 61.1 % (42.2-75.2); Absolute Basophils 0.1 10^3/uL (0-0.2); Absolute Eosinophils 0.2 10^3/uL (0-0.7); Absolute Immature Granulocytes 0.1 10^3/uL (0-0.05); Absolute Lymphocytes 1.9 10^3/uL (1.2-3.4); Absolute Monocytes 0.7 10^3/uL (0.1-0.6); Absolute Neutrophils 4.7 10^3/uL (1.4-6.5); Hemoglobin 10.6 g/dL (12.0-16.0); Mean Corp Hgb Conc. 32.1 g/dL (33.0-37.0); Mean Corpuscular Hgb 30.7 pg (27.0-31.0); Mean Corpuscular Volume 95.7 fL (81.0-99.0); Mean Platelet Volume 10.1 fL (7.4-10.4); Nucleated Red Blood Cells % 0 %; Platelet Count 323 10^3/uL (130-400); Red Blood Cell Count 3.45 10^6/uL (4.20-5.40); Red Cell Dist. Width 13.3 % (11.5-14.5); White Blood Cell Count 7.7 10^3/uL (4.8-10.8)
[2024-10-18 06:36] LABS: Blood Urea Nitrogen 36 mg/dl (7-17); Calcium 9.2 mg/dl (8.4-10.2); Carbon Dioxide 27 mmol/L (22-30); Chloride 102 mmol/L (98-107); Estimated Creatinine Clearance 52 ml/min; Glucose 114 mg/dl (70-99); Potassium 4.8 mmol/L (3.5-5.1); Sodium 140 mmol/L (135-145); eGFR 46.91
[2024-10-18 07:20] VITALS: BP 113/75
[2024-10-18 08:43] LABS: Glucose - Point of Care 217 mg/dl (70-99)
[2024-10-18] MEDS: NOVOLOG FLEXPEN-LOW RESISTANCE 2 UNITS SC (09:25)
[2024-10-18] MEDS: DICLOFENAC 1% TOPICAL GEL 1 GRAM TOPICAL ×2 (09:26→13:33)
[2024-10-18] MEDS: COLACE 100 MG PO (09:26)
[2024-10-18] MEDS: HEPARIN 5000 UNITS SC (09:27)
[2024-10-18] MEDS: LIDOCAINE 4% PATCH 1 PATCH TOPICAL (09:28)
[2024-10-18] MEDS: LOPRESSOR 50 MG PO (09:30)
[2024-10-18] MEDS: MIRALAX 17 GRAMS PO (09:31)
[2024-10-18] MEDS: NEURONTIN 900 MG PO (09:31)
[2024-10-18] MEDS: NORVASC 5 MG PO (09:31)
[2024-10-18] MEDS: ORETIC 12.5 MG PO (09:32)
[2024-10-18] MEDS: PROTONIX 40 MG PO (09:32)
[2024-10-18] MEDS: TYLENOL 1000 MG PO ×2 (09:32→15:32)
[2024-10-18] MEDS: ROXICODONE 2.5 MG PO ×2 (09:32→13:33)
[2024-10-18] MEDS: VITAMIN D3 (cholecalciferol) 50 MCG PO (09:33)
[2024-10-18] MEDS: WELLBUTRIN SR (12 hour sustained release) 150 MG PO (09:33)
[2024-10-18] MEDS: VITAMIN B-12 1000 MCG PO (09:33)
[2024-10-18] MEDS: POLYSPORIN/DOUBLE ANTIBIOTIC 1 APPLIC TOPICAL (09:34)
[2024-10-18] MEDS: ZESTRIL 40 MG PO (09:34)
[2024-10-18] MEDS: MIACALCIN/FORTICAL NASAL SPRAY 1 SPRAY NASAL (09:36)
[2024-10-18] MEDS: FLUSH (NSS) 1 FLUSH IV (09:37)
--- NOTE | 2024-10-18 10:25 | W.PN.HOSP.TC ---
Today's Communication/Plan
-
Monitor vital signs see plan
Discharged today to SNF
IV antibiotics
Patient will follow-up with ID and neurosurgery outpatient
called daughter; left voicemail
Time of discharge 38 minutes
Assessment / Plan
Assessment / Plan
Patient is a 78-year-old female with past medical history significant for hypertension, hyperlipidemia, type 2 diabetes, GERD, depression, sleep apnea and left breast ductal carcinoma in situ who presented to [place] ED for evaluation of
generalized weakness found to have a UTI and CHELSI.
CT abdomen and pelvis-small volume of gas in the urinary bladder suspicious for infection. No hydronephrosis bilateral nonobstructive nephrolithiasis. Advanced atrophic changes of the left kidney. Hepatomegaly. Splenomegaly. Incidental small
benign adenoma of the right adrenal gland.
CT of the chest-no PE. Bilateral groundglass and interstitial opacities likely related atelectasis. Mild interstitial edema possible. Low-attenuation nodules in the right and left lobes of thyroid. Left breast postoperative changes-possible
seroma
Lumbar Spine X-Ray
IMPRESSION:
anterior compression deformity of the L3 vertebral body with approximately 20% loss of height which is likely subacute or chronic.
There is multilevel degenerative disc disease and facet arthropathy most pronounced at the L4-L5 and L5-S1 levels where it is moderate.
TTE 10/08/24
CONCLUSIONS
Technically difficult study
Normal left ventricular chamber size. Normal left ventricular systolic
function. Left ventricular ejection fraction is 60% by volumetric assessment.
No gross regional wall motion abnormalities seen. Moderate concentric left
ventricular hypertrophy. Normal diastolic function.
Normal right ventricular size and function.
Mild mitral regurgitation.
Aortic sclerosis without stenosis.
Compared to prior study dated 02/11/2018, there is no significant change
CXR 10/11/24
IMPRESSION:
No acute disease of the chest
LEFT HIP CT 10/11/24
IMPRESSION: No acute fracture identified.
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 Stable
Small simple right ovarian cyst. Stable
Mild L4/L5 and L5/S1 degenerative disc disease. Stable
Lower back pain/ left hip pain secondary to septic arthritis, large epidural abscess with moderate spinal cord compression along with myositis
sepsis (leukocytosis,tachycardia) POA 2/2 above
blood cx 10/13 NGTD; however was already getting abx for UTI
L3 Compression fracture
-x-ray hip without fracture and confirmed by CT Hip on 10/11
-X-ray lumbar spine with 20% compression fraction anterior L3
-replete vitamin D
-lidocaine patch
-will also order intranasal calcitonin - 2 week course
-patient tolerating oxycodone low dose but does not tolerate the 5 mg with significant confusion
MRI non contrast back consistent with L2-L3 septic arthritis and epidural abscess along with myositis. There is a moderate spinal cord compression. no sensory loss. Neurosurgery and ID following. patient had been on abx for UTI which is now
stopped. MRI thoracic and lumbar with and without contrast 10/14 noted with epidural abscess. Neurosurgery 10/15 discussed with patient and daughter including biopsy versus treating with antibiotics, patient and family decided to go with
conservative management with antibiotics at this time. Patient will follow-up closely with neurosurgery outpatient.
- PT/OT
ESR,Crp elevated
ID following, started on daptomycin and ceftriaxone. PICC line 10/17. Plan for antibiotics 6 to 8 weeks. Patient will follow-up with ID outpatient. Discontinue statin therapy while on daptomycin.
#mild renal insufficiency
Denies any dysuria. Continue to monitor
Monitor
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
#UTI
- increased generalized weakness with recurrent falls
- Flu and Covid swabs negative
now off abx
#constipation
-colace BID, Miralax daily
-dulcolax supp PRN
#diastolic heart failure chronic
-repeat TTE without change
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
Non MA Related Troponin elevation
-Troponin peaked at 0.08
-repeat TTE without change from prior
Hepatosplenomegaly seen on CT
Mild Transaminitis
Hep serologies neg
-TSH OK
-no e/o hemochromatosis
-likely LYLE
-patient to follow up with PCP as outpatient with referral to GI
#hypertension
- continue amlodipine, metoprolol
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
-resume HCTZ
#hyperlipidemia
- continue atorvastatin
#type 2 diabetes
- hold metformin
LDSS
#GERD
- continue Protonix
#depression
- continue Wellbutrin
#sleep apnea/insomnia
- continue trazodone
#left breast ductal carcinoma in situ
- recent lumpectomy
- scheduled for 15 rounds radiation
Full Code
DVT Px: Sq Heparin
General: No Apparent Distress and Other (appears in mild pain )
HEENT: PERRLA
Respiratory: Clear to Auscultation; Negative Wheezes
Cardiac: Regular Rhythm and S1/S2
GI: Soft and Nontender
Musculoskeletal: No Edema and Other (mid spine tenderness; point tenderness along left hip)
Skin: Warm and Dry
Neuro: AO x 3
Psych: Calm
Anticipated Discharge: Today
Subjective/Interval History
-
Date of Service: October 18, 2024
Denies pain
Objective Data
-
Labs:
Laboratory Results
10/18/24
05:18
WBC 7.7
Hgb 10.6 L
Hct 33.0 L
Plt Count 323
Sodium 140
Potassium 4.8
Chloride 102
Carbon Dioxide 27
BUN 36 H
Creatinine 1.2 H
Glucose 114 H
Calcium 9.2
Vital Signs:
Vital Signs
Temp Pulse Resp BP Pulse Ox
98 F 75 16 113/75 96
10/18/24 07:20 10/18/24 09:30 10/18/24 07:20 10/18/24 09:30 10/18/24 07:20
I&O
10/17/24 10/18/24 10/19/24
06:59 06:59 06:59
Intake Total 480 / 480 960 / 960
Balance 480 / 480 960 / 960
--- NOTE | 2024-10-18 10:32 | W.DCSUMMARY ---
Discharge Summary
Discharge Data
Date of Admission: 10/07/24
Date of Discharge: 10/18/24
-
Pending Results: No
Hospital Course
78-year-old female with past medical history of hypertension, hyperlipidemia, type 2 diabetes mellitus, GERD, depression, sleep apnea, left breast ductal carcinoma in situ, CHF came to the hospital with lower back pain and left hip pain. X-ray and
CT hip did not show any signs of fracture. X-ray of the lumbar spine did show compression fracture. Initially patient was treated for pain management and possible urinary tract infection with antibiotics. Over time since patient symptoms did not
improve patient got an MRI of the back which was consistent with septic arthritis and large epidural abscess with moderate spinal cord compression along with myositis. Patient was seen by infectious disease and neurosurgery. Neurosurgery repeated
MRI with contrast which was also reflective of epidural abscess with myositis. Patient pain over time continue to improve on opioids. After discussion with neurosurgery, patient and family decided to hold off on any surgical biopsy and to treat
this with antibiotics with possible reimaging in 4 to 6 weeks. Infectious disease then put the patient on ceftriaxone and daptomycin. Patient instructed to hold statin until she is on daptomycin. She also had mild creatinine elevation for which
she was instructed to get repeat BMP done outpatient. She was eval by physical therapy who recommended SNF. Once her symptoms continue to improve and her pain was tolerable, she was then discharged to rehab on IV antibiotics with instructions to
follow-up with all her physicians outpatient. She also had hepatosplenomegaly on imaging for which she was instructed to follow-up with GI outpatient.
Discharge Plan
-
Patient Disposition: Fdc/SNF
Discharge Diagnosis/Procedures: Lower back pain secondary to septic arthritis, large epidural abscess with moderate spinal cord compression along with myositis
Acute kidney injury
Urinary tract infection
Constipation
Suspected LYLE
Diet: As tolerated
Activity: With assistance and As tolerated
Driving Restrictions: Not until seen by your Dr
Bathing Restrictions: None
Blood Work: BMP next week at rehab
Activity Restrictions/Additional Instructions:
Wound Care Instructions
L great toe: clean with soap and water, triple antibiotic ointment, gauze dressing daily.
wear socks and shoes in house
moisturize daily
Follow up with [employer]
Hold statin until done with daptomycin
Referrals:
Mehul Velazquez MD [Family Provider] -
Dirk Fuentes MD [Active] -
Mac Kwok DO [Active] - in two weeks
Tracey Dhaliwal MD [Active] - in two weeks
Prescriptions:
New
lidocaine 4 % Adhesive Patch,Medicated
1 patch topical DAILY Qty: 0 0RF
polyethylene glycol 3350 17 gram Powder In Packet
17 g PO DAILY Qty: 0 0RF
calcitonin (salmon) 200 unit/actuation [place],Non-Aerosol
1 spray intranasal DAILY 7 Days Qty: 0 0RF
docusate sodium 100 mg Capsule
100 mg PO BID Qty: 0 0RF
bacitracin zinc-polymyxin B [Double Antibiotic (b.tracn Zn)] 500-10,000 unit/gram Ointment
1 applic topical DAILY Qty: 0 0RF
diclofenac sodium 1 % Gel
0 g topical QID Qty: 0 0RF
DAPTOmycin [Cubicin] 1000 MG
Syringe [Syringe-Pump] 0 ML
As Directed mls/hr IV Q24H
Ordered By: Oliver Thornton MD
Last Taken: 10/18/24 15:13 20 mls
Hemorrhoidal(PE-min oil-savanna) 0.25-14-74.9 % Ointment
1 applic LA Q6HPRN PRN (Reason: hemorrhoids) Qty: 0 0RF
acetaminophen [Tylenol Extra Strength] 500 mg Tablet
1,000 mg PO TID Qty: 0 0RF
ceftriaxone 2 gram Recon Soln
2,000 mg IV Q24H Qty: 0 0RF
cholecalciferol (vitamin D3) 50 mcg (2,000 unit) Tablet
50 mcg PO DAILY Qty: 0 0RF
oxycodone 5 mg Tablet
2.5 mg PO Q4H Qty: 9 0RF
Continued
gabapentin 600 MG tablet
900 mg PO BID
trazodone 50 MG tablet
100 mg PO HS
multivitamin Tablet
1 tab PO QPM
bupropion HCl [Wellbutrin SR] 150 mg Tablet Sustained-Release 12 Hr
150 mg PO DAILY
amlodipine [Norvasc] 5 mg Tablet
5 mg PO DAILY
pantoprazole [Protonix] 40 mg Tablet,Delayed Release (Dr/Ec)
40 mg PO DAILY
metformin 1,000 mg Tablet
1,000 mg PO DAILY
metoprolol tartrate [Lopressor] 50 mg Tablet
50 mg PO BID
lisinopril 40 mg Tablet
40 mg PO DAILY
hydrochlorothiazide 12.5 mg Tablet
12.5 mg PO DAILY
cyanocobalamin (vitamin B-12) 1,000 mcg Tablet
1,000 mcg PO DAILY
Held
atorvastatin [Lipitor] 10 mg Tablet
10 mg PO DAILY
Hold Instructions: Until done with daptomycin
Discontinued
ibuprofen [Advil] 200 mg Tablet
600 mg PO DAILYPRN PRN (Reason: mild pain)
Discharge Orders:
Discharge Patient (As Directed); Ordered 10/18/24
Ordered By: Oliver Thornton
Discharge Date and Time
Discharge Date/Time: 10/18/24 16:11
Print Language: ICELANDIC
--- NOTE | 2024-10-18 11:36 | CM ---
Faxed PI[facility] line info CXR and IV abx [facility] to [facility] tomorrow
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
Original Note:
As per MD notes pt and family decided on IV antibiotics as per ID .
PT OT recommend SNF.
Spoke with Carla at [facility] to check if bed and if she can be accepted.
Will need PICC line.
[facility]
Report [phone]

PLAN To [facility] when if accepted
--- NOTE | 2024-10-18 11:39 | CM ---
entered order for discharge.
All PIcc line info CXR and IV abx script faxed to [facility] Carla yesterday.
Pt accepted for [facility] bed today.
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 she is aware of admission to [facility] today.
Pt to receive both IV antibiotics here at prior to dc to [facility] .
[facility]
Report [phone]

PLAN To [facility] after daily IV antibiotics given x2
[2024-10-18 12:12] LABS: Glucose - Point of Care 114 mg/dl (70-99)
[2024-10-18] MEDS: NOVOLOG FLEXPEN-LOW RESISTANCE SC (13:11)
[2024-10-18] MEDS: STERILE WATER FOR INJECTION 20 ML IV (13:34)
[2024-10-18] MEDS: ROCEPHIN 2000 MG IV (13:34)
[2024-10-18] MEDS: FLUAD (65 yr+) 2024-2025 FORMULA 0.5 ML IM (13:35)
[2024-10-18] MEDS: CUBICIN 20 MG IV (15:13)
[2024-10-18 15:35] VITALS: BP 125/79
== END 2024-10-18 16:11 | DRG 95 ==
LOC: 4 EAST ACU 17:31
PROVIDERS: Emergency Medicine; Nurse Practitioner Family; Physician Assistant; Radiology Diagnostic Radiology; Student in an Organized Health Care Education/Training Program; ADMITTING PHYSICIAN Hospitalist; ATTENDING PHYSICIAN Internal Medicine; CONSULT PHYSICIAN Internal Medicine Infectious Disease; CONSULT PHYSICIAN Podiatrist; EMERGENCY PHYSICIAN Student in an Organized Health Care Education/Training Program; FAMILY PHYSICIAN Family Medicine; OTHER PHYSICIAN Neurological Surgery
PROC: 5A09357 Assistance with Respiratory Ventilation, Less than 24 Consecutive Hours, Continuous Positive Airway Pressure (ICD-10-PCS; 2024-10-07)
PROC: 0HBNXZZ Excision of Left Foot Skin, External Approach (ICD-10-PCS; 2024-10-08)
PROC: 02HV33Z Insertion of Infusion Device into Superior Vena Cava, Percutaneous Approach (ICD-10-PCS; 2024-10-17)
PROC: 3E02340 Introduction of Influenza Vaccine into Muscle, Percutaneous Approach (ICD-10-PCS; 2024-10-18)
DX: G06.2 Extradural and subdural abscess, unspecified (principal); I50.32 Chronic diastolic (congestive) heart failure; S32.030A Wedge compression fracture of third lumbar vertebra, initial encounter for closed fracture; N17.9 Acute kidney failure, unspecified; N39.0 Urinary tract infection, site not specified; J98.11 Atelectasis; Z68.42 Body mass index [BMI] 45.0-49.9, adult; I5A Non-ischemic myocardial injury (non-traumatic); M51.05 Intervertebral disc disorders with myelopathy, thoracolumbar region; M00.88 Arthritis due to other bacteria, vertebrae; M46.56 Other infective spondylopathies, lumbar region; E11.42 Type 2 diabetes mellitus with diabetic polyneuropathy; G47.30 Sleep apnea, unspecified; E78.00 Pure hypercholesterolemia, unspecified; I11.0 Hypertensive heart disease with heart failure; R09.02 Hypoxemia; K21.9 Gastro-esophageal reflux disease without esophagitis; M25.552 Pain in left hip; N13.9 Obstructive and reflux uropathy, unspecified; R62.7 Adult failure to thrive; R06.89 Other abnormalities of breathing; E87.6 Hypokalemia; D69.6 Thrombocytopenia, unspecified; D35.01 Benign neoplasm of right adrenal gland; F41.0 Panic disorder [episodic paroxysmal anxiety]; F32.A Depression, unspecified; E66.01 Morbid (severe) obesity due to excess calories; D05.12 Intraductal carcinoma in situ of left breast; E04.2 Nontoxic multinodular goiter; K57.30 Diverticulosis of large intestine without perforation or abscess without bleeding; G47.00 Insomnia, unspecified; K64.9 Unspecified hemorrhoids; R29.6 Repeated falls; E11.621 Type 2 diabetes mellitus with foot ulcer; M48.05 Spinal stenosis, thoracolumbar region; L97.521 Non-pressure chronic ulcer of other part of left foot limited to breakdown of skin; M19.90 Unspecified osteoarthritis, unspecified site; R32 Unspecified urinary incontinence; R74.01 Elevation of levels of liver transaminase levels; M16.11 Unilateral primary osteoarthritis, right hip; N83.201 Unspecified ovarian cyst, right side; K59.00 Constipation, unspecified; D72.829 Elevated white blood cell count, unspecified; R16.2 Hepatomegaly with splenomegaly, not elsewhere classified; M51.360 Other intervertebral disc degeneration, lumbar region with discogenic back pain only; M51.372 Other intervertebral disc degeneration, lumbosacral region with discogenic back pain and lower extremity pain; W06.XXXA Fall from bed, initial encounter; Y93.89 Activity, other specified; Y92.003 Bedroom of unspecified non-institutional (private) residence as the place of occurrence of the external cause; Z96.653 Presence of artificial knee joint, bilateral; Z87.442 Personal history of urinary calculi; Z87.891 Personal history of nicotine dependence; Z23 Encounter for immunization; Z11.52 Encounter for screening for COVID-19; Z88.5 Allergy status to narcotic agent; Z79.84 Long term (current) use of oral hypoglycemic drugs; Z74.01 Bed confinement status
CPT/HCPCS: 71045; 71046; 71275; 72100; 72148; 72157; 72158; 73502; 73700; 74176; 80048; 80053; 81003; 81015; 82248; 82306; 82550; 82607; 82728; 82962; 83036; 83540; 83550; 83735; 83880; 84443; 84484; 85025; 85027; 85652; 86140; 86704; 86706; 86708; 86803; 87040; 87086; 87088; 87186; 87340; 87502; 87811; 93005; 93306; 94660; 96361; 96374; 97116; 97163; 97167; 97530; 97535; 99285; A9575; J0878; Q9967

== ENCOUNTER → 2024-10-20 11:15 | Outpatient (REF) | payer OTHER, MEDICARE, SELFPAY ==
[2024-10-20 12:06] LABS: % Eosinophils 3.3 % (0-6); % Immature Granulocytes 0.5 % (0-0.5); % Lymphocytes 20.9 % (20.5-51.1); % Monocytes 7.2 % (1.7-9.3); % Neutrophils 67.1 % (42.2-75.2); Absolute Basophils 0.1 10^3/uL (0-0.2); Absolute Eosinophils 0.3 10^3/uL (0-0.7); Absolute Lymphocytes 1.6 10^3/uL (1.2-3.4); Absolute Monocytes 0.6 10^3/uL (0.1-0.6); Absolute Neutrophils 5.2 10^3/uL (1.4-6.5); Hematocrit 33.3 % (37.0-47.0); Hemoglobin 10.3 g/dL (12.0-16.0); Mean Corp Hgb Conc. 30.9 g/dL (33.0-37.0); Mean Corpuscular Hgb 29.9 pg (27.0-31.0); Mean Corpuscular Volume 96.8 fL (81.0-99.0); Mean Platelet Volume 10.4 fL (7.4-10.4); Nucleated Red Blood Cells % 0 %; Platelet Count 341 10^3/uL (130-400); Red Blood Cell Count 3.44 10^6/uL (4.20-5.40); Red Cell Dist. Width 13.6 % (11.5-14.5); White Blood Cell Count 7.7 10^3/uL (4.8-10.8)
[2024-10-20 12:16] LABS: ALT (SGPT) 31 U/L (0-35); AST (SGOT) 32 U/L (14-36); Albumin 3.1 g/dl (3.5-5.0); Alkaline Phosphatase 91 U/L (38-126); Blood Urea Nitrogen 35 mg/dl (7-17); Calcium 9.2 mg/dl (8.4-10.2); Carbon Dioxide 28 mmol/L (22-30); Chloride 104 mmol/L (98-107); Direct Bilirubin 0.3 mg/dl (0.0-0.4); Glucose 107 mg/dl (70-99); Potassium 5.2 mmol/L (3.5-5.1); Sodium 140 mmol/L (135-145); Total Bilirubin 0.3 mg/dl (0.2-1.3); Total Protein 5.8 g/dl (6.3-8.2); eGFR 52.08
[2024-10-20 12:47] LABS: Erythrocyte Sed Rate 86 mm/hour (0-20)
== END ==
LOC: OLABP 11:15
PROVIDERS: ATTENDING PHYSICIAN Family Medicine
DX: G06.1 Intraspinal abscess and granuloma (principal); R78.81 Bacteremia; D72.829 Elevated white blood cell count, unspecified; N17.9 Acute kidney failure, unspecified; I50.30 Unspecified diastolic (congestive) heart failure; I11.0 Hypertensive heart disease with heart failure; E11.40 Type 2 diabetes mellitus with diabetic neuropathy, unspecified; N39.0 Urinary tract infection, site not specified; B96.20 Unspecified Escherichia coli [E. coli] as the cause of diseases classified elsewhere; R62.7 Adult failure to thrive; M00.9 Pyogenic arthritis, unspecified
CPT/HCPCS: 36415; 80053; 82248; 85025; 85652; 86140

== ENCOUNTER → 2024-10-21 10:27 | Outpatient (REF) | payer MEDICARE, OTHER, SELFPAY ==
[2024-10-21 12:53] LABS: Blood Urea Nitrogen 36 mg/dl (7-17); Calcium 9.5 mg/dl (8.4-10.2); Carbon Dioxide 26 mmol/L (22-30); Chloride 104 mmol/L (98-107); Glucose 112 mg/dl (70-99); Potassium 5.4 mmol/L (3.5-5.1); Sodium 140 mmol/L (135-145); eGFR 58.39
== END ==
LOC: OLABP 10:27
PROVIDERS: ATTENDING PHYSICIAN Family Medicine
DX: G06.1 Intraspinal abscess and granuloma (principal); R78.81 Bacteremia; D72.829 Elevated white blood cell count, unspecified; N17.9 Acute kidney failure, unspecified; I50.30 Unspecified diastolic (congestive) heart failure; I11.0 Hypertensive heart disease with heart failure; E11.40 Type 2 diabetes mellitus with diabetic neuropathy, unspecified; N39.0 Urinary tract infection, site not specified; B96.20 Unspecified Escherichia coli [E. coli] as the cause of diseases classified elsewhere; R62.7 Adult failure to thrive; M00.9 Pyogenic arthritis, unspecified
CPT/HCPCS: 36415; 80048

== ENCOUNTER → 2024-10-22 10:09 | Outpatient (REF) | payer OTHER, MEDICARE, SELFPAY ==
[2024-10-22 11:42] LABS: Blood Urea Nitrogen 32 mg/dl (7-17); Calcium 9.6 mg/dl (8.4-10.2); Carbon Dioxide 26 mmol/L (22-30); Chloride 104 mmol/L (98-107); Glucose 113 mg/dl (70-99); Potassium 5.3 mmol/L (3.5-5.1); Sodium 139 mmol/L (135-145); eGFR > 60.00
== END ==
LOC: OLABP 10:09
PROVIDERS: ATTENDING PHYSICIAN Family Medicine
DX: G06.1 Intraspinal abscess and granuloma (principal); R78.81 Bacteremia; D72.829 Elevated white blood cell count, unspecified; N17.9 Acute kidney failure, unspecified; I50.30 Unspecified diastolic (congestive) heart failure; I11.0 Hypertensive heart disease with heart failure; E11.40 Type 2 diabetes mellitus with diabetic neuropathy, unspecified; N39.0 Urinary tract infection, site not specified; B96.20 Unspecified Escherichia coli [E. coli] as the cause of diseases classified elsewhere; R62.7 Adult failure to thrive; M00.9 Pyogenic arthritis, unspecified
CPT/HCPCS: 36415; 80048

== ENCOUNTER → 2024-10-27 09:44 | Outpatient (REF) | payer OTHER, MEDICARE, SELFPAY ==
[2024-10-27 10:50] LABS: % Basophils 1.6 % (0-2); % Eosinophils 5.2 % (0-6); % Immature Granulocytes 0.2 % (0-0.5); % Lymphocytes 23.6 % (20.5-51.1); % Monocytes 6.3 % (1.7-9.3); % Neutrophils 63.1 % (42.2-75.2); Absolute Basophils 0.1 10^3/uL (0-0.2); Absolute Eosinophils 0.3 10^3/uL (0-0.7); Absolute Lymphocytes 1.5 10^3/uL (1.2-3.4); Absolute Monocytes 0.4 10^3/uL (0.1-0.6); Hematocrit 32.1 % (37.0-47.0); Hemoglobin 10.2 g/dL (12.0-16.0); Mean Corp Hgb Conc. 31.8 g/dL (33.0-37.0); Mean Corpuscular Volume 94.4 fL (81.0-99.0); Nucleated Red Blood Cells % 0 %; Red Cell Dist. Width 13.6 % (11.5-14.5); White Blood Cell Count 6.4 10^3/uL (4.8-10.8)
[2024-10-27 11:22] LABS: ALT (SGPT) 19 U/L (0-35); AST (SGOT) 28 U/L (14-36); Albumin 3.4 g/dl (3.5-5.0); Alkaline Phosphatase 83 U/L (38-126); Blood Urea Nitrogen 20 mg/dl (7-17); Calcium 9.4 mg/dl (8.4-10.2); Carbon Dioxide 28 mmol/L (22-30); Chloride 103 mmol/L (98-107); Direct Bilirubin 0.2 mg/dl (0.0-0.4); Glucose 109 mg/dl (70-99); Potassium 4.3 mmol/L (3.5-5.1); Sodium 141 mmol/L (135-145); Total Bilirubin 0.3 mg/dl (0.2-1.3); Total Protein 6.2 g/dl (6.3-8.2); eGFR > 60.00
[2024-10-27 11:47] LABS: Creatine Phosphokinase 132 U/L (30-135)
[2024-10-27 11:57] LABS: Erythrocyte Sed Rate 89 mm/hour (0-20)
== END ==
LOC: OLABP 09:44
PROVIDERS: ATTENDING PHYSICIAN Family Medicine
DX: G06.1 Intraspinal abscess and granuloma (principal); R78.81 Bacteremia; D72.829 Elevated white blood cell count, unspecified; N17.9 Acute kidney failure, unspecified; I50.30 Unspecified diastolic (congestive) heart failure; I11.0 Hypertensive heart disease with heart failure; E11.40 Type 2 diabetes mellitus with diabetic neuropathy, unspecified; N39.0 Urinary tract infection, site not specified; B96.20 Unspecified Escherichia coli [E. coli] as the cause of diseases classified elsewhere; R62.7 Adult failure to thrive; M00.9 Pyogenic arthritis, unspecified
CPT/HCPCS: 36415; 80053; 82248; 82550; 85025; 85652; 86140

== ENCOUNTER → 2024-11-03 09:16 | Outpatient (REF) | payer OTHER, MEDICARE, SELFPAY ==
[2024-11-03 10:47] LABS: ALT (SGPT) 14 U/L (0-35); AST (SGOT) 21 U/L (14-36); Albumin 3.4 g/dl (3.5-5.0); Alkaline Phosphatase 70 U/L (38-126); Blood Urea Nitrogen 24 mg/dl (7-17); Calcium 9.3 mg/dl (8.4-10.2); Carbon Dioxide 26 mmol/L (22-30); Chloride 103 mmol/L (98-107); Direct Bilirubin 0.3 mg/dl (0.0-0.4); Glucose 107 mg/dl (70-99); Potassium 4.2 mmol/L (3.5-5.1); Sodium 139 mmol/L (135-145); Total Bilirubin 0.3 mg/dl (0.2-1.3); eGFR 58.02
[2024-11-03 11:00] LABS: % Eosinophils 6.8 % (0-6); % Immature Granulocytes 0.3 % (0-0.5); % Lymphocytes 20.2 % (20.5-51.1); % Monocytes 7.9 % (1.7-9.3); % Neutrophils 63.8 % (42.2-75.2); Absolute Basophils 0.1 10^3/uL (0-0.2); Absolute Eosinophils 0.4 10^3/uL (0-0.7); Absolute Lymphocytes 1.3 10^3/uL (1.2-3.4); Absolute Monocytes 0.5 10^3/uL (0.1-0.6); Hematocrit 30.5 % (37.0-47.0); Hemoglobin 9.7 g/dL (12.0-16.0); Mean Corp Hgb Conc. 31.8 g/dL (33.0-37.0); Mean Corpuscular Hgb 30.7 pg (27.0-31.0); Mean Corpuscular Volume 96.5 fL (81.0-99.0); Mean Platelet Volume 10.8 fL (7.4-10.4); Nucleated Red Blood Cells % 0 %; Platelet Count 175 10^3/uL (130-400); Red Blood Cell Count 3.16 10^6/uL (4.20-5.40); Red Cell Dist. Width 13.9 % (11.5-14.5); White Blood Cell Count 6.3 10^3/uL (4.8-10.8)
[2024-11-03 11:55] LABS: Erythrocyte Sed Rate 68 mm/hour (0-20)
== END ==
LOC: OLABP 09:16
PROVIDERS: ATTENDING PHYSICIAN Family Medicine
DX: G06.1 Intraspinal abscess and granuloma (principal); R78.81 Bacteremia; D72.829 Elevated white blood cell count, unspecified; N17.9 Acute kidney failure, unspecified; I50.30 Unspecified diastolic (congestive) heart failure; M00.9 Pyogenic arthritis, unspecified; I11.0 Hypertensive heart disease with heart failure; E11.40 Type 2 diabetes mellitus with diabetic neuropathy, unspecified; N39.0 Urinary tract infection, site not specified; B96.20 Unspecified Escherichia coli [E. coli] as the cause of diseases classified elsewhere; R62.7 Adult failure to thrive
CPT/HCPCS: 36415; 80053; 82248; 85025; 85652; 86140

== ENCOUNTER → 2024-11-10 09:19 | Outpatient (REF) | payer OTHER, MEDICARE, SELFPAY ==
[2024-11-10 10:11] LABS: % Eosinophils 6.6 % (0-6); % Immature Granulocytes 0.3 % (0-0.5); % Lymphocytes 26.9 % (20.5-51.1); % Monocytes 11.2 % (1.7-9.3); Absolute Eosinophils 0.2 10^3/uL (0-0.7); Absolute Lymphocytes 0.8 10^3/uL (1.2-3.4); Absolute Monocytes 0.3 10^3/uL (0.1-0.6); Absolute Neutrophils 1.5 10^3/uL (1.4-6.5); Hematocrit 32.4 % (37.0-47.0); Hemoglobin 10.2 g/dL (12.0-16.0); Mean Corp Hgb Conc. 31.5 g/dL (33.0-37.0); Mean Corpuscular Hgb 30.2 pg (27.0-31.0); Mean Corpuscular Volume 95.9 fL (81.0-99.0); Mean Platelet Volume 10.9 fL (7.4-10.4); Nucleated Red Blood Cells % 0 %; Platelet Count 164 10^3/uL (130-400); Red Blood Cell Count 3.38 10^6/uL (4.20-5.40); Red Cell Dist. Width 14.3 % (11.5-14.5); White Blood Cell Count 2.9 10^3/uL (4.8-10.8)
[2024-11-10 10:23] LABS: ALT (SGPT) 15 U/L (0-35); AST (SGOT) 25 U/L (14-36); Albumin 3.4 g/dl (3.5-5.0); Alkaline Phosphatase 60 U/L (38-126); Blood Urea Nitrogen 35 mg/dl (7-17); Calcium 8.7 mg/dl (8.4-10.2); Carbon Dioxide 24 mmol/L (22-30); Chloride 104 mmol/L (98-107); Direct Bilirubin 0.4 mg/dl (0.0-0.4); Glucose 100 mg/dl (70-99); Potassium 4.2 mmol/L (3.5-5.1); Sodium 138 mmol/L (135-145); Total Bilirubin 0.4 mg/dl (0.2-1.3); Total Protein 5.9 g/dl (6.3-8.2); eGFR > 60.00
[2024-11-10 10:41] LABS: Erythrocyte Sed Rate 57 mm/hour (0-20)
== END ==
LOC: OLABP 09:19
PROVIDERS: ATTENDING PHYSICIAN Family Medicine
DX: G06.1 Intraspinal abscess and granuloma (principal); R78.81 Bacteremia; D72.829 Elevated white blood cell count, unspecified; N17.9 Acute kidney failure, unspecified; I50.30 Unspecified diastolic (congestive) heart failure; I11.0 Hypertensive heart disease with heart failure; E11.40 Type 2 diabetes mellitus with diabetic neuropathy, unspecified; N39.0 Urinary tract infection, site not specified; B96.20 Unspecified Escherichia coli [E. coli] as the cause of diseases classified elsewhere; R62.7 Adult failure to thrive; M00.9 Pyogenic arthritis, unspecified
CPT/HCPCS: 36415; 80053; 82248; 85025; 85652; 86140

== ENCOUNTER → 2024-11-13 09:05 | Outpatient (REF) | payer OTHER, MEDICARE, SELFPAY ==
[2024-11-13 09:38] LABS: % Basophils 0.7 % (0-2); % Immature Granulocytes 0.2 % (0-0.5); % Lymphocytes 21.8 % (20.5-51.1); % Monocytes 10.1 % (1.7-9.3); % Neutrophils 60.2 % (42.2-75.2); Absolute Eosinophils 0.3 10^3/uL (0-0.7); Absolute Monocytes 0.5 10^3/uL (0.1-0.6); Absolute Neutrophils 2.7 10^3/uL (1.4-6.5); Hematocrit 30.7 % (37.0-47.0); Hemoglobin 9.6 g/dL (12.0-16.0); Mean Corp Hgb Conc. 31.3 g/dL (33.0-37.0); Mean Corpuscular Hgb 29.7 pg (27.0-31.0); Mean Platelet Volume 11.4 fL (7.4-10.4); Nucleated Red Blood Cells % 0 %; Platelet Count 146 10^3/uL (130-400); Red Blood Cell Count 3.23 10^6/uL (4.20-5.40); Red Cell Dist. Width 13.9 % (11.5-14.5); White Blood Cell Count 4.6 10^3/uL (4.8-10.8)
== END ==
LOC: OLABP 09:05
PROVIDERS: ATTENDING PHYSICIAN Family Medicine
DX: G06.1 Intraspinal abscess and granuloma (principal); R78.81 Bacteremia; D72.829 Elevated white blood cell count, unspecified; N17.9 Acute kidney failure, unspecified; I50.30 Unspecified diastolic (congestive) heart failure; I11.0 Hypertensive heart disease with heart failure; E11.40 Type 2 diabetes mellitus with diabetic neuropathy, unspecified; N39.0 Urinary tract infection, site not specified; B96.20 Unspecified Escherichia coli [E. coli] as the cause of diseases classified elsewhere; R62.7 Adult failure to thrive; M00.9 Pyogenic arthritis, unspecified
CPT/HCPCS: 36415; 85025

== ENCOUNTER → 2024-11-17 10:07 | Outpatient (REF) | payer OTHER, MEDICARE, SELFPAY ==
[2024-11-17 11:23] LABS: Hematocrit 32.8 % (37.0-47.0); Hemoglobin 10.1 g/dL (12.0-16.0); Mean Corp Hgb Conc. 30.8 g/dL (33.0-37.0); Mean Corpuscular Hgb 29.5 pg (27.0-31.0); Mean Corpuscular Volume 95.9 fL (81.0-99.0); Red Blood Cell Count 3.42 10^6/uL (4.20-5.40); Red Cell Dist. Width 14.3 % (11.5-14.5); White Blood Cell Count 6.7 10^3/uL (4.8-10.8)
[2024-11-17 11:29] LABS: ALT (SGPT) 16 U/L (0-35); AST (SGOT) 21 U/L (14-36); Albumin 3.4 g/dl (3.5-5.0); Alkaline Phosphatase 68 U/L (38-126); Blood Urea Nitrogen 20 mg/dl (7-17); Calcium 9.2 mg/dl (8.4-10.2); Carbon Dioxide 27 mmol/L (22-30); Chloride 104 mmol/L (98-107); Creatine Phosphokinase 24 U/L (30-135); Direct Bilirubin 0.2 mg/dl (0.0-0.4); Glucose 111 mg/dl (70-99); Potassium 4.4 mmol/L (3.5-5.1); Sodium 138 mmol/L (135-145); Total Bilirubin 0.2 mg/dl (0.2-1.3); Total Protein 5.9 g/dl (6.3-8.2); eGFR > 60.00
[2024-11-17 11:36] LABS: Erythrocyte Sed Rate 37 mm/hour (0-20)
[2024-11-17 11:46] LABS: % Basophils 1.1 % (0-2); % Eosinophils 7.7 % (0-6); % Immature Granulocytes 0.5 % (0-0.5); % Lymphocytes 19.7 % (20.5-51.1); Absolute Basophils 0.1 10^3/uL (0-0.2); Absolute Eosinophils 0.5 10^3/uL (0-0.7); Absolute Lymphocytes 1.3 10^3/uL (1.2-3.4); Absolute Monocytes 0.6 10^3/uL (0.1-0.6); Absolute Neutrophils 4.1 10^3/uL (1.4-6.5); Mean Platelet Volume 11.2 fL (7.4-10.4); Nucleated Red Blood Cells % 0 %; Platelet Count 182 10^3/uL (130-400)
== END ==
LOC: OLABP 10:07
PROVIDERS: ATTENDING PHYSICIAN Family Medicine
DX: G06.1 Intraspinal abscess and granuloma (principal); R78.81 Bacteremia; D72.829 Elevated white blood cell count, unspecified; N17.9 Acute kidney failure, unspecified; I50.30 Unspecified diastolic (congestive) heart failure; I11.0 Hypertensive heart disease with heart failure; E11.40 Type 2 diabetes mellitus with diabetic neuropathy, unspecified; N39.0 Urinary tract infection, site not specified; B96.20 Unspecified Escherichia coli [E. coli] as the cause of diseases classified elsewhere; R62.7 Adult failure to thrive; M00.9 Pyogenic arthritis, unspecified
CPT/HCPCS: 36415; 80053; 82248; 82550; 85025; 85652; 86140

== ENCOUNTER 2024-11-22 20:26 | Inpatient (IN) | payer MEDICARE, OTHER, SELFPAY ==
[2024-11-22] VITALS (10 sets, daily range): BP systolic 112–156; BP diastolic 57–79; PULSE 67; BMI 47.7; BMI 44.9
[2024-11-22 17:31] LABS: % Basophils 0.8 % (0-2); % Eosinophils 2.6 % (0-6); % Immature Granulocytes 0.4 % (0-0.5); % Lymphocytes 16.4 % (20.5-51.1); % Monocytes 9.2 % (1.7-9.3); % Neutrophils 70.6 % (42.2-75.2); Absolute Basophils 0.1 10^3/uL (0-0.2); Absolute Eosinophils 0.2 10^3/uL (0-0.7); Absolute Lymphocytes 1.4 10^3/uL (1.2-3.4); Absolute Monocytes 0.8 10^3/uL (0.1-0.6); Absolute Neutrophils 5.9 10^3/uL (1.4-6.5); Hematocrit 29.6 % (37.0-47.0); Hemoglobin 9.6 g/dL (12.0-16.0); Mean Corp Hgb Conc. 32.4 g/dL (33.0-37.0); Mean Corpuscular Hgb 30.3 pg (27.0-31.0); Mean Corpuscular Volume 93.4 fL (81.0-99.0); Mean Platelet Volume 10.4 fL (7.4-10.4); Nucleated Red Blood Cells % 0 %; Platelet Count 179 10^3/uL (130-400); Red Blood Cell Count 3.17 10^6/uL (4.20-5.40); Red Cell Dist. Width 14.1 % (11.5-14.5); White Blood Cell Count 8.3 10^3/uL (4.8-10.8)
--- NOTE | 2024-11-22 17:44 | ED.GENMED ---
History of Present Illness
<Vale Naidu PA-C - Last Filed: 11/22/24 20:09>
General
Chief Complaint: Musculo-Skeletal Complaint
Source: patient
Exam Limitations: none
Time Seen by Provider: 11/22/24 16:58
Nursing documentation reviewed up to this point in time: agreed with
History of Present Illness
History of Present Illness:
Patient is a 79-year-old female with history hypertension, hyperlipidemia, diabetes, currently receiving IV antibiotics via PICC line for epidural abscess presenting to the emergency department after outpatient x-ray showed left supracondylar
fracture. Patient currently residing at [facility] as she receives PICC line antibiotics for epidural abscess. She states that as she was performing physical therapy yesterday when she had a very brief episode of dizziness and fell onto her
left side. She has significant pain in her left knee since. X-rays were performed which resulted today showing a supracondylar fracture of her left femur. Patient denies any numbness/tingling in the left lower extremity. Patient denies any head
strike or loss of consciousness. No other injury sustained during the fall. She specifically denies any headache, neck pain, chest pain, shortness of breath, or other extremity pain.
Patient denies any lingering dizziness or lightheadedness.
Of note�patient is status post 2 knee replacements > [address] Walls in [place] who has since retired. She denies any prior complications following knee replacements.
Past History
<Vale Naidu PA-C - Last Filed: 11/22/24 20:09>
Past History
ED Past Medical History: Cancer (breast), GERD, HTN, Hypercholesterolemia, NIDDM, Other (kidney stone) and Other
ED Past Surgical History: Orthopedic
Social History
Tobacco: Former smoker
Personal:
Living: with family
Review of Systems
<Vale Naidu PA-C - Last Filed: 11/22/24 20:09>
Review of Systems
Allergies reviewed?: Yes
All Other Systems: ROS reviewed and negative except as documented in HPI and ROS
Phy Exam
<Vale Naidu PA-C - Last Filed: 11/22/24 20:09>
Physical Exam
Physical Exam:
Vitals: Patient's vital signs are stable. Afebrile
General: Patient is well appearing, no acute distress. Nontoxic appearing
Skin: Warm and dry, no rashes or lesions
Head: Normocephalic, atraumatic
Eyes: Sclera nonicteric. EOMs intact. No nystagmus.
Throat: Protecting airway
Neck: Normal ROM, no cervical spine tenderness, no meningismus
Cardiac: Regular rate and rhythm, no murmurs.
Pulm: Normal respiratory effort, no wheezes, rales, rhonchi heard on exam.
Abdomen: Abdomen soft. No abdominal tenderness.
Extremities: Tenderness and edema to left distal femur just superior to knee with very limited range of motion. Palpable pulses in left lower extremity with excellent sensation, capillary refill within normal limits. Right lower extremity and
bilateral upper extremities atraumatic and nontender with full range of motion.
Neuro: AAOx3. Grossly intact.
Psychiatric: Normal affect.
Course
<Vale Naidu PA-C - Last Filed: 11/22/24 20:09>
Orders/Labs/Results
Orders:
Orders
11/22/24 17:23
Complete Blood Count/With Diff Urgent
Comprehensive Metabolic Panel Urgent
11/22/24 17:48
CR Knee - Left 1 Or 2 Views Urgent
Comment: left supracondylar fx seen on outpatient xray
Reason For Exam: fall, left knee pain
11/22/24 18:24
Electrocardiogram (*1) Urgent
Reason for Study: PreOp
EKG- Treatment ONCE
11/22/24 18:43
Lower Ext Left wo Contrast CT [CT Lower Ext W/o Iv Cont Lt] Urgent
Comment:
Reason For Exam: fall, left supracondylar fx of femur on xray
11/22/24 18:54
CR Chest Portable - 1 View Urgent
Comment:
Reason For Exam: preop
Reason Study Needs to be Portable: Patient Unstable
11/22/24 19:00
HYDROmorphone [Dilaudid] 0.5 mg IV NOW STA
HYDROmorphone [Dilaudid] 0.5 mg IV Q4HPRN PRN
HYDROmorphone [Dilaudid] 1 mg IV Q4HPRN PRN
11/22/24 19:09
Admit/Transfer Patient As Directed
Co-Sign Provider:
Level of Care: Inpatient admission
Assign to:: Medical/Surgical
Physician / Group: darek sweet
Diagnosis: dizziness fall left femur fx
Reason for Hospitalization: dizziness fall left femur fx
Expected length of stay greater than two midnights?: Yes
ELOS- Estimated Length of Stay in days: 4
I certify the patient meets the requirements for IP care: Yes
Code Status As Directed
Resuscitation Status: Full Code
11/22/24 19:18
PRN Pain Medication Management As Directed
May give lesser potent ordered pain med per pt: Yes
preference::
Protocol:: Medication orders for pain may be administered in a
manner that supports deferring to patient preference
when the pt is:
- Requesting an ordered lesser potent pain medication.
Least to most potent pain medications are defined
as: acetaminophen < NSAID < tramadol < opioids
(morphine, oxycodone, hydromorphone).
- Requesting a lesser dose of the same medication IF
ORDERED.
- Requesting a less intrusive route of administration
if both routes are prescribed by the provider (PO <
IV).
11/22/24 19:19
ORTHOPEDIC CONSULT Routine
Consulting Provider: Pete Mares
Was physician already notified: Yes
Reason for consult: left femur
11/22/24 19:26
BNP [NT-proBNP] Urgent
COVID-19 Antigen Urgent
Source: Nasal Swab
PTT Urgent
Prothrombin Time Urgent
Abnormal Lab Results
11/22/24
17:23
RBC 3.17 L 10^6/uL
(4.20-5.40)
Hgb 9.6 L g/dL
(12.0-16.0)
Hct 29.6 L %
(37.0-47.0)
MCHC 32.4 L g/dL
(33.0-37.0)
Absolute Monos (auto) 0.8 H 10^3/uL
(0.1-0.6)
Lymphocytes % 16.4 L %
(20.5-51.1)
Sodium 134 L mmol/L
(135-145)
BUN 27 H mg/dl
(7-17)
Glucose 122 H mg/dl
(70-99)
Total Protein 5.8 L g/dl
(6.3-8.2)
Albumin 3.3 L g/dl
(3.5-5.0)
11/22/24 17:23
11/22/24 17:23
Vital Signs
Initial and Last Documented VS:
Initial Vital Signs
Temp Pulse Resp BP Pulse Ox
98.6 F 68 18 121/65 90
11/22/24 16:43 11/22/24 16:43 11/22/24 16:43 11/22/24 16:43 11/22/24 16:43
Last Documented Vital Signs
Temp Pulse Resp BP Pulse Ox
99.3 F 68 18 123/58 93
11/22/24 18:30 11/22/24 16:43 11/22/24 16:43 11/22/24 19:30 11/22/24 19:45
<Laura Tinajero MD - Last Filed: 11/22/24 19:32>
Orders/Labs/Results
Orders:
Orders
11/22/24 17:23
Complete Blood Count/With Diff Urgent
Comprehensive Metabolic Panel Urgent
11/22/24 17:48
CR Knee - Left 1 Or 2 Views Urgent
Comment: left supracondylar fx seen on outpatient xray
Reason For Exam: fall, left knee pain
11/22/24 18:24
Electrocardiogram (*1) Urgent
Reason for Study: PreOp
EKG- Treatment ONCE
11/22/24 18:43
Lower Ext Left wo Contrast CT [CT Lower Ext W/o Iv Cont Lt] Urgent
Comment:
Reason For Exam: fall, left supracondylar fx of femur on xray
11/22/24 18:54
CR Chest Portable - 1 View Urgent
Comment:
Reason For Exam: preop
Reason Study Needs to be Portable: Patient Unstable
11/22/24 19:00
HYDROmorphone [Dilaudid] 0.5 mg IV NOW STA
HYDROmorphone [Dilaudid] 0.5 mg IV Q4HPRN PRN
HYDROmorphone [Dilaudid] 1 mg IV Q4HPRN PRN
11/22/24 19:09
Admit/Transfer Patient As Directed
Co-Sign Provider:
Level of Care: Inpatient admission
Assign to:: Medical/Surgical
Physician / Group: darek sweet
Diagnosis: dizziness fall left femur fx
Reason for Hospitalization: dizziness fall left femur fx
Expected length of stay greater than two midnights?: Yes
ELOS- Estimated Length of Stay in days: 4
I certify the patient meets the requirements for IP care: Yes
Code Status As Directed
Resuscitation Status: Full Code
11/22/24 19:18
PRN Pain Medication Management As Directed
May give lesser potent ordered pain med per pt: Yes
preference::
Protocol:: Medication orders for pain may be administered in a
manner that supports deferring to patient preference
when the pt is:
- Requesting an ordered lesser potent pain medication.
Least to most potent pain medications are defined
as: acetaminophen < NSAID < tramadol < opioids
(morphine, oxycodone, hydromorphone).
- Requesting a lesser dose of the same medication IF
ORDERED.
- Requesting a less intrusive route of administration
if both routes are prescribed by the provider (PO <
IV).
11/22/24 19:19
ORTHOPEDIC CONSULT Routine
Consulting Provider: Pete Mares
Was physician already notified: Yes
Reason for consult: left femur
11/22/24 19:26
BNP [NT-proBNP] Urgent
COVID-19 Antigen Urgent
Source: Nasal Swab
PTT Urgent
Prothrombin Time Urgent
Abnormal Lab Results
11/22/24
17:23
RBC 3.17 L 10^6/uL
(4.20-5.40)
Hgb 9.6 L g/dL
(12.0-16.0)
Hct 29.6 L %
(37.0-47.0)
MCHC 32.4 L g/dL
(33.0-37.0)
Absolute Monos (auto) 0.8 H 10^3/uL
(0.1-0.6)
Lymphocytes % 16.4 L %
(20.5-51.1)
Sodium 134 L mmol/L
(135-145)
BUN 27 H mg/dl
(7-17)
Glucose 122 H mg/dl
(70-99)
Total Protein 5.8 L g/dl
(6.3-8.2)
Albumin 3.3 L g/dl
(3.5-5.0)
11/22/24 17:23
11/22/24 17:23
Vital Signs
Initial and Last Documented VS:
Initial Vital Signs
Temp Pulse Resp BP Pulse Ox
98.6 F 68 18 121/65 90
11/22/24 16:43 11/22/24 16:43 11/22/24 16:43 11/22/24 16:43 11/22/24 16:43
Last Documented Vital Signs
Temp Pulse Resp BP Pulse Ox
99.3 F 68 18 123/58 93
11/22/24 18:30 11/22/24 16:43 11/22/24 16:43 11/22/24 19:30 11/22/24 19:45
<Vale Naidu PA-C - Last Filed: 11/22/24 20:09>
MDM/Problems Addressed
Differential Diagnosis Includes:
Not limited to: Supracondylar fracture, patellar fracture, etc.
MDM/Problems Addressed:
79-year-old female presents from rehab with left supracondylar fracture of femur seen on outpatient x-ray following fall yesterday. There is no head strike or loss of consciousness. No other associated injuries. Patient arrives with stable vital
signs. On exam�patient has tenderness and swelling of left distal femur with very limited range of motion due to pain. Left lower extremity is neurovascularly intact. No evidence of other traumatic injuries from fall. Head and neck atraumatic.
Cardio/pulmonary assessment unremarkable. Benign abdominal exam. An x-ray was obtained in the emergency department which confirms a left supracondylar fracture of femur. This was discussed with orthopedics, Dr. Mares. Per orthopedics�no
indication for further imaging at this time. Patient will be admitted to hospitalist service with plan for OR tomorrow with orthopedics. Basic labs, coags, EKG ordered for preoperative purposes. Patient accepted to hospital service in stable
condition.
Chronic conditions affecting care:
Epidural abscess currently on IV antibiotics via PICC line, diabetes
Acute Exacerbation and/or Progression of Chronic Illness:
N/A
<Vale Naidu PA-C - Last Filed: 11/22/24 20:09>
*Radiology
Radiology exam reviewed: preliminary read by ED provider (Supracondylar fracture of left femur) and radiology read reviewed (Comminuted periprosthetic fracture of left distal femur)
*Pulse Oximetry
Patient hypoxic: yes (On 2 L nasal cannula)
*Operating Room Assistant Interpretation
Rate: Operating Room Assistant- N/A
*Critical Care Note
Total Time (30-74mins, 75-104mins- exclusive of procedures): Not Applicable
<Vale Naidu PA-C - Last Filed: 11/22/24 20:09>
Patient Management
Discussion with other providers: Hospitalist and Fuel Storage Technician (Orthopedics-Dr. Mares)
Escalation/DeEscalation of care consider admission/obs:
Admitted to hospital service�plan for OR tomorrow with orthopedic
<Vale Naidu PA-C - Last Filed: 11/22/24 20:09>
Update Note
Update Note:
Update: Just following admission�I was by orthopedic who now request CT scan of lower extremity for further evaluation. Imaging study ordered
ED Attending Note
<Vale Naidu PA-C - Last Filed: 11/22/24 20:09>
-
Portions of this chart may have been created with voice recognition software.� Occasional wrong word or��sound alike� substitutions may have occurred due to the inherent limitations of voice recognition software.
<Laura Tinajero MD - Last Filed: 11/22/24 19:32>
ED Attending Note
Patient seen and examined by attending physician: Yes
I performed the substantive portion of visit, reviewed & personally made and approve the management plan that is documented in note by myself or RUMA.: Yes
ED Attending Note:
79 yr old female who fell on platform in PT while walknig up and down stairs due to transient dizziness, suffering L distal femur fx. No f/c/cp/sob/palpitations/abd pain/numbness. Xray reviewed with ortho, plan is for OR in AM. No further testing
(ex. CT) recommended. Pt aware of plan and questions answered. on exam, ttp noted distal femur/knee with limited rom due to pain, nl senstaion, cap refill wnl.
Discharge Plan
Departure
Patient Disposition: Admit
Date of Disposition: 11/22/24
Time of Disposition: 18:24
Presentation/result/management discussed w/ accepting MD/DO: Hospitalist
Discharge Problem:
Supracondylar fracture of left femur
Prescriptions:
No Action
gabapentin 600 MG tablet
900 mg PO BID
trazodone 50 MG tablet
100 mg PO HS
bupropion HCl [Wellbutrin SR] 150 mg Tablet Sustained-Release 12 Hr
150 mg PO DAILY
amlodipine [Norvasc] 5 mg Tablet
5 mg PO DAILY
pantoprazole [Protonix] 40 mg Tablet,Delayed Release (Dr/Ec)
40 mg PO DAILY
metformin 1,000 mg Tablet
1,000 mg PO DAILY
metoprolol tartrate [Lopressor] 50 mg Tablet
50 mg PO BID
lisinopril 40 mg Tablet
40 mg PO DAILY
cyanocobalamin (vitamin B-12) 1,000 mcg Tablet
1,000 mcg PO DAILY
lidocaine 4 % Adhesive Patch,Medicated
1 patch topical DAILY Qty: 0 0RF
Rx Instructions:
lateral L hip
polyethylene glycol 3350 17 gram Powder In Packet
17 g PO DAILY Qty: 0 0RF
docusate sodium 100 mg Capsule
100 mg PO BID Qty: 0 0RF
Hemorrhoidal(PE-min oil-savanna) 0.25-14-74.9 % Ointment
1 applic OK Q6HPRN PRN (Reason: hemorrhoids) Qty: 0 0RF
acetaminophen [Tylenol Extra Strength] 500 mg Tablet
1,000 mg PO TID Qty: 0 0RF
ceftriaxone 2 gram Recon Soln
2,000 mg IV Q24H Qty: 0 0RF
cholecalciferol (vitamin D3) 50 mcg (2,000 unit) Tablet
50 mcg PO DAILY Qty: 0 0RF
Theragen Tablet
1 tab PO DAILY
magnesium hydroxide [Milk of Magnesia] 400 mg/5 mL Suspension
2,400 mg PO DAILYPRN PRN (Reason: if no bm on day 4)
bisacodyl 10 mg Suppository
10 mg OK DAILYPRN PRN (Reason: if MOM ineffective, give on day 5 of no BM)
Fleet Enema 19-7 gram/118 mL Enema
118 ml OK DAILYPRN PRN (Reason: if dulcolax ineffective, give on day 6 of no BM)
hydrochlorothiazide 25 mg Tablet
25 mg PO DAILY
daptomycin 500 mg Recon Soln
1,000 mg IV DAILY
oxycodone 5 mg tablet
2.5 mg PO Q6HPRN PRN (Reason: severe pain)
diclofenac sodium 1 % gel
4 g topical QID
Rx Instructions:
to mid back
Referrals:
Steven Reardon MD [Family Provider] -
Interventions
Interventions:
*Risk Screen - Suicide Last Done: 11/22/24 16:43
*General Assessment Last Done: 11/22/24 16:43
*Neglect/Abuse Screening Last Done: 11/22/24 16:43
*ED COVID-19 Vaccine History Last Done: 11/22/24 16:56
ED-Musculoskeletal Assessment Last Done: 11/22/24 16:56
Discharge Date and Time
Print Language: [place] IR[place]
[2024-11-22 17:47] LABS: ALT (SGPT) 15 U/L (0-35); AST (SGOT) 26 U/L (14-36); Albumin 3.3 g/dl (3.5-5.0); Alkaline Phosphatase 47 U/L (38-126); Blood Urea Nitrogen 27 mg/dl (7-17); Calcium 9.2 mg/dl (8.4-10.2); Carbon Dioxide 26 mmol/L (22-30); Chloride 100 mmol/L (98-107); Estimated Creatinine Clearance 63 ml/min; Glucose 122 mg/dl (70-99); Potassium 4.5 mmol/L (3.5-5.1); Sodium 134 mmol/L (135-145); Total Bilirubin 0.2 mg/dl (0.2-1.3); Total Protein 5.8 g/dl (6.3-8.2); eGFR 58.02
--- NOTE | 2024-11-22 19:02 | HPS.HSE ---
Family Physician
-
Family Physician: Steven Reardon MD
Chief Complaint
-
Fall yesterday left hip dizziness fell down left side
History of Present Illness
79-year-old female from [facility] where she has been since beginning of September secondary to a large lumbar spinal abscess. She is here receiving antibiotics through a PICC line in her right upper arm daptomycin and Rocephin she reports they
are due to stop on 11/27/2024 she was due to be discharged on 11/30/2024. She still has some mild back pain with therapy and has been taking 2.5 mg of oxycodone. She states she was using a platform cane to go up stairs she went up several stairs turn
around started to feel dizzy and fell down the steps landing on her left side yesterday 11/21/2024. She states she had to wait for an x-ray company to take an x-ray today. Her x-ray revealed a left femur fracture and she was sent over to the ER
for evaluation. She complains of pain in her distal femur on the lateral aspect just above the knee. There is no appreciated swelling she reports pain is 7 out of 10 at rest and 10 out of 10 with movement. She states she has been having some
dizziness on and off at the rehab during therapy secondary to pain she has not had any hypotension. She denies head injury, headache, neck pain, chest pain, palpitations, shortness breath, cough, abdominal pain, nausea, vomiting, diarrhea, urinary
symptoms. She was also noted to be hypoxic in the emergency room with O2 sat of 88% improving to 93% on 2 L nasal cannula of unclear etiology possibly heart failure or viral syndrome. She has past medical history of former smoker quit 40 years
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
insomnia, left breast ductal carcinoma in situ, hepatomegaly seen on CT-likely [place], vitamin D deficiency, constipation, obesity class III
Medical History
Past Medical History
Past Medical History: Reports Other
Additional Past Medical History:
hypertension
hyperlipidemia
type 2 diabetes
GERD
depression
sleep apnea
insomnia
left breast ductal carcinoma in situ
Past Surgical History: Reports Other
Additional Past Surgical History:
left breast lumpectomy (08/29/2024)
Social History
Tobacco: Former Smoker (quit 40 years ago)
Alcohol: Occasional (rare, 3 drinks a year)
Drug: None
Personal:
Living: With Family
Employment: Retired
Family History
Family History: Not pertinent
Allergies / Home Medications
Allergies reflects when Allergies were last updated in [employer].
Home Medications with original date entered in [employer]
Allergy/Medication List:
Allergies
Allergy/AdvReac Type Severity Reaction Status Date / Time
codeine Allergy Nausea,headache, Verified 11/22/24 16:42
dizzy
morphine Allergy stopped Verified 11/22/24 16:42
breathing
Home Medications
gabapentin 600 mg tablet 900 mg PO BID 03/01/14
trazodone 50 mg tablet 100 mg PO HS 03/01/14
amlodipine 5 mg tablet (Norvasc) 5 mg PO DAILY 07/08/24
bupropion HCl 150 mg tablet,12 hr sustained-release (Wellbutrin SR) 150 mg PO DAILY 07/08/24
lisinopril 40 mg tablet 40 mg PO DAILY 07/08/24
metformin 1,000 mg tablet 1,000 mg PO DAILY 07/08/24
metoprolol tartrate 50 mg tablet (Lopressor) 50 mg PO BID 07/08/24
pantoprazole 40 mg tablet,delayed release (Protonix) 40 mg PO DAILY 07/08/24
cyanocobalamin (vitamin B-12) 1,000 mcg tablet 1,000 mcg PO DAILY 10/07/24
acetaminophen 500 mg tablet (Tylenol Extra Strength) 1,000 mg (2 x 500 mg) PO TID #0 tabs 10/17/24
ceftriaxone 2 gram solution for injection 2,000 mg IV Q24H #0 ea 10/17/24
cholecalciferol (vitamin D3) 50 mcg (2,000 unit) tablet 50 mcg PO DAILY #0 tabs 10/17/24
docusate sodium 100 mg capsule 100 mg PO BID #0 caps 10/17/24
lidocaine 4 % topical patch 1 patch topical DAILY #0 ea 10/17/24
phenylephrine 0.25 %-mineral oil 14 %-petrolatm 74.9 % rectal ointment (Hemorrhoidal(phenyleph-min oil-petrolat)) 1 applic UT Q6HPRN PRN hemorrhoids #0 grams 10/17/24
polyethylene glycol 3350 17 gram oral powder packet 17 g PO DAILY #0 ea 10/17/24
bisacodyl 10 mg rectal suppository 10 mg UT DAILYPRN PRN if MOM ineffective, give on day 5 of no BM 11/22/24
daptomycin 500 mg intravenous solution 1,000 mg IV DAILY 11/22/24
diclofenac sodium 1 % topical gel 4 g topical QID 11/22/24
hydrochlorothiazide 25 mg tablet 25 mg PO DAILY 11/22/24
magnesium hydroxide 400 mg/5 mL oral suspension (Milk of Magnesia) 2,400 mg PO DAILYPRN PRN if no bm on day 4 11/22/24
oxycodone 5 mg tablet 2.5 mg PO Q6HPRN PRN severe pain 11/22/24
sodium phosphates 19 gram-7 gram/118 mL enema (Fleet Enema) 118 ml UT DAILYPRN PRN if dulcolax ineffective, give on day 6 of no BM 11/22/24
therapeutic multivitamin 1 tab PO DAILY 11/22/24
Review of Systems
-
History Source: Patient
A 12 point ROS was completed and negative except as noted: Yes
Constitutional: Denies Fever or Fatigue
EENT: Denies Sore Throat or Runny Nose
Respiratory: Denies Cough or Trouble Breathing
Cardiac: Denies Chest Pain, Diaphoresis, Palpitations or Syncope
Abdomen/GI: Denies Abdominal Pain, Nausea, Vomiting, Diarrhea, Constipated or Bloody Stools
: Reports Incontinence (Chronic urinary); Denies Dysuria, Frequency, Flank Pain or Difficulty Voiding
Musculoskeletal: Reports Joint Pain (Right distal femur lateral aspect just above knee) and Other (Lower lumbar chronic pain); Denies Joint Swelling or Edema
Skin: Denies Itching or Rash
Neurological: Reports Dizzy (Episode while coming downstairs earlier); Denies Headache or Weakness
Endocrine: Reports No Symptoms
Hematologic/Lymphatic: Reports No Symptoms
Psych: Reports Calm
Physical Exam
Vital Signs
Vital Signs
Temp Pulse Resp BP Pulse Ox
99.3 F 68 18 121/65 93
11/22/24 18:30 11/22/24 16:43 11/22/24 16:43 11/22/24 16:43 11/22/24 18:35
Physical Exam
General: Comfortable, Conversant, Pain and Morbidly Obese; No Fever or Chills
HEENT: NormoCephalic, Anicteric, Moist mucous membranes, Atraumatic, Tracheostomy Collar, PERRLA, Neck Mass and Oxygen (2 L nasal cannula)
Respiratory: Clear; No Wheezes, Rales or Rhonchi
Cardiac: S1/S2 and Regular Rhythm; No Murmur, Rub, Gallop or Peripheral Edema
Breast: Deferred by me
GI: Soft, Non Tender, Non Distended, Normal Bowel Sounds and No Hepatosplenomegaly
Rectal: Deferred by Provider
Genito-urinary: Deferred by me
Musculoskeletal: No Clubbing, No Cyanosis and Other (Right distal femur lateral aspect just above knee); No Edema, Left Upper Extremity, Edema, Right Upper Extremity, Edema, Left Lower Extremity or Edema, Right Lower Extremity
Skin: Warm and Dry; No Rash or Jaundice
Neuro: AO x 3, Nonfocal/grossly intact, Cranial Nerves Intact, No Sensory Deficits and Other (Limited range of motion left leg secondary to femur fracture); No Slurred Speech, Facial Droop or Tremors
Psych: Calm
Laboratory Results
-
11/22/24 17:23
11/22/24 17:23
Laboratory Results
Total Bilirubin 0.2 mg/dl (0.2-1.3) 11/22/24 17:23
AST 26 U/L (14-36) 11/22/24 17:23
ALT 15 U/L (0-35) 11/22/24 17:23
Alkaline Phosphatase 47 U/L (38-126) 11/22/24 17:23
Impression/Plan
-
Impression/plan:
Admit to MedSurg
#Dizziness with fall and left femur fracture
-CT left lower extremity
-Pain control
-IV Zofran
-Bowel regimen
-Consult Ortho Dr. Mares aware
-N.p.o. after midnight 4 OR in a.m.
PT/OT/case management consult
#Acute hypoxic resp insufficiency
#Former smoker quit 40 years ago
88% RA 93% on 2 L nasal cannula
-Check CXR rule out heart failure
-Check COVID
#Acute on chronic anemia
Hgb 9.6 <10.1 on 11/17/2024 baseline appears to be 10-11.8 since September
Check iron panel, B12, folate
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
#L3 compression fracture
Patient to finish IV daptomycin and IV Rocephin on 11/27/2023 via PICC line right upper arm per infectious disease
Still has some mild back pain
Was walking with platform came at physical therapy
#L3 compression deformity
Lumbar spine x-ray November anterior compression deformity of the L3 vertebral body with approximately 20% loss of height which is likely subacute or chronic.
There is multilevel degenerative disc disease and facet arthropathy most pronounced at the L4-L5 and L5-S1 levels where it is moderate.
#DM2
-Accu-Cheks with SSI, check HgbA1c
-Hold metformin at 1000 mg daily
#HTN�benign
Continue lisinopril, amlodipine, metoprolol
#Chronic diastolic heart failure
I/O, daily weights
Hold HCTZ for surgery tomorrow
#Recent nonischemic myocardial injury during September admission
Peak troponin 0.08 at that time
#Recent UTI-no current symptoms
-Treated with Rocephin
#GERD
-Continue Protonix
#Depression
-Continue Wellbutrin
#Sleep apnea on CPAP
CPAP nasal setting 16
#Insomnia
-Continue trazodone
#Left breast ductal carcinoma in situ
#Lumpectomy is due for 15 rounds of radiation
#Hepatomegaly seen on CT
No history of hematemesis
Likely [place]
Patient was to follow-up with PCP as outpatient with referral to GI
#Hx constipation
-Continue Colace twice daily, MiraLAX daily
-Dulcolax suppository as needed
#Vitamin D deficiency
-Continue vitamin D replacement
#Class III obesity�BMI 47.7 kg
-Weight loss recommended
-Low-fat 1800 ADA diet
VTE prophylaxis
Venous foot pumps
Full code
--- NOTE | 2024-11-22 19:28 | W.PN.UPDATE ---
Addendum entered and electronically signed by Erick Hyatt MD 11/22/24 21:21:
CXR no evidence of CHF and BNP less than last time. Ortho recommending 1 unit of blood to keep Hb above 10 which has been ordered.
Original Note:
Update Note
Progress Note Update
This is an addendum to the H&P written by Nina Licona on 11/22/2024.� Patient seen and examined independently with MANAGED CARE COORDINATOR.
79-year-old female past medical history of hypertension, hyperlipidemia, diabetes, epidural abscess currently receiving IV daptomycin, ceftriaxone through PICC line, breast cancer, depression, obstructive sleep apnea, diastolic heart failure,
presenting with fall at physical therapy yesterday onto her left side.� Significant left knee pain.
X-ray shows supracondylar fracture of left knee.
Orthopedics consulted.� N.p.o. past midnight for surgery tomorrow.� Check CT scan of left lower extremity.� Pain control.
Patient without any chest pain or shortness of breath.� She is normally functional and can walk up stairs without any difficulty.��
Patient currently on 2 L oxygen.� No pulmonary complaints.� Check chest x-ray, BNP, COVID to rule out pulmonary edema secondary to heart failure prior to surgery.� Patient is at elevated risk for cardiac complications after surgery given her history
of diastolic heart failure but can pursue surgery if not in acute CHF exacerbation.
Hemoglobin has declined from 13 in June of this year.� Has been relatively stable recently at 9.6.
[2024-11-22] MEDS: DILAUDID 0.5 MG IV (19:38)
[2024-11-22 19:46] LABS: INR 0.93; PT 12.9 Sec (11.4-14.6)
[2024-11-22 19:51] LABS: COVID-19 Antigen Negative (Negative)
[2024-11-22 19:56] LABS: NT-proBNP 1560 pg/ml
--- NOTE | 2024-11-22 20:57 | CON.ORTHO ---
Consultation
-
Date/Time Consultation Requested: Nov 18
Date/Time Consultation Performed: Nov 18
Requesting Provider: DIO Gill
Performing Provider: Mony for Ritting
Reason for Consultation: Left periprosthetic distal femur fracture
Consultation - Orthopedics
History
HPI
Requested in consultation to this pleasant 79 y/o female from [facility] since early September 2024 who unfortunately became dizzy going up the stairs using a platform came and sustained a mechanical fall onto her left side on Nov 18. Denies LOC or
headstrike. 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 Per ED report
and patient she has been at [email or web address] secondary to a large lumbar spinal abscess. She is receiving ABX through a PICC in her right upper arm (daptomycin and Rocephin) which she reports are due to stop on Dec 20. she was due to be discharged on
Dec 20. Again, fall occurred on Nov 18 and she states she had to wait for an x-ray company to take an x-ray, which was done yesterday. Her x-ray revealed a left distal femur fracture and she was sent over to the ER for evaluation. She is s/p
left TKA about 20 years ago in [place] [address] Dr. Walls, who has since retired. She recovered well from that surgery
Past Medical History
hypertension
hyperlipidemia
type 2 diabetes
GERD
depression
sleep apnea
insomnia
left breast ductal carcinoma in situ
chronic anemia
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
L3 compression fracture
chronic diastolic heart failure
nonischemic myocardial injury
Past Surgical History
Left TKA 20 years ago in [place] ( Dr. Walls retired)
left breast lumpectomy (08/29/2024)
Social History
Tobacco: Former Smoker (quit 40 years ago)
Alcohol: Occasional (rare, 3 drinks a year)
Drug: None
Personal:
Living: With Family
Employment: Retired
Family History
Family History: Not pertinent
Allergies
Allergy/AdvReac Type Severity Reaction Status Date / Time
codeine Allergy Nausea,headache, Verified 11/22/24 16:42
dizzy
morphine Allergy stopped Verified 11/22/24 16:42
breathing
Review of Systems
A 12 point ROS was completed and negative except as noted: Yes
Constitutional: Denies Fever or Fatigue
EENT: Denies Sore Throat or Runny Nose
Respiratory: Denies Cough or Trouble Breathing
Cardiac: Denies Chest Pain, Diaphoresis, Palpitations or Syncope
Abdomen/GI: Denies Abdominal Pain, Nausea, Vomiting, Diarrhea, Constipated or Bloody Stools
: Reports Incontinence (Chronic urinary); Denies Dysuria, Frequency, Flank Pain or Difficulty Voiding
Musculoskeletal: Reports Joint Pain (Right distal femur lateral aspect just above knee) and Other (Lower lumbar chronic pain); Denies Joint Swelling or Edema
Skin: Denies Itching or Rash
Neurological: Reports Dizzy (Episode while coming downstairs earlier); Denies Headache or Weakness
Endocrine: Reports No Symptoms
Hematologic/Lymphatic: Reports No Symptoms
Psych: Reports Calm
Allergies / Home Medications
Allergy/AdvReac Type Severity Reaction Status Date / Time
codeine Allergy Nausea,headache, Verified 11/22/24 16:42
dizzy
morphine Allergy stopped Verified 11/22/24 16:42
breathing
�Medication �Instructions �Recorded
gabapentin 600 mg tablet 900 mg PO BID 03/01/14
trazodone 50 mg tablet 100 mg PO HS 03/01/14
amlodipine 5 mg tablet (Norvasc) 5 mg PO DAILY 07/08/24
bupropion HCl 150 mg tablet,12 hr 150 mg PO DAILY 07/08/24
sustained-release (Wellbutrin SR)
lisinopril 40 mg tablet 40 mg PO DAILY 07/08/24
metformin 1,000 mg tablet 1,000 mg PO DAILY 07/08/24
metoprolol tartrate 50 mg tablet 50 mg PO BID 07/08/24
(Lopressor)
pantoprazole 40 mg tablet,delayed 40 mg PO DAILY 07/08/24
release (Protonix)
cyanocobalamin (vitamin B-12) 1,000 mcg PO DAILY 10/07/24
1,000 mcg tablet
acetaminophen 500 mg tablet 1,000 mg (2 x 500 mg) PO TID #0 10/17/24
(Tylenol Extra Strength) tabs
ceftriaxone 2 gram solution for 2,000 mg IV Q24H #0 ea 10/17/24
injection
cholecalciferol (vitamin D3) 50 50 mcg PO DAILY #0 tabs 10/17/24
mcg (2,000 unit) tablet
docusate sodium 100 mg capsule 100 mg PO BID #0 caps 10/17/24
lidocaine 4 % topical patch 1 patch topical DAILY #0 ea 10/17/24
phenylephrine 0.25 %-mineral oil 1 applic SD Q6HPRN PRN hemorrhoids 10/17/24
14 %-petrolatm 74.9 % rectal #0 grams
ointment
(Hemorrhoidal(phenyleph-min
oil-petrolat))
polyethylene glycol 3350 17 gram 17 g PO DAILY #0 ea 10/17/24
oral powder packet
bisacodyl 10 mg rectal suppository 10 mg SD DAILYPRN PRN if MOM 11/22/24
ineffective, give on day 5 of no BM
daptomycin 500 mg intravenous 1,000 mg IV DAILY 11/22/24
solution
diclofenac sodium 1 % topical gel 4 g topical QID 11/22/24
hydrochlorothiazide 25 mg tablet 25 mg PO DAILY 11/22/24
magnesium hydroxide 400 mg/5 mL 2,400 mg PO DAILYPRN PRN if no bm 11/22/24
oral suspension (Milk of Magnesia) on day 4
oxycodone 5 mg tablet 2.5 mg PO Q6HPRN PRN severe pain 11/22/24
sodium phosphates 19 gram-7 118 ml SD DAILYPRN PRN if dulcolax 11/22/24
gram/118 mL enema (Fleet Enema) ineffective, give on day 6 of no BM
therapeutic multivitamin 1 tab PO DAILY 11/22/24
Vital Signs / Lab Results
Temp Pulse Resp BP Pulse Ox
99.3 F 68 18 112/57 91
11/22/24 18:30 11/22/24 16:43 11/22/24 16:43 11/22/24 20:00 11/22/24 20:15
11/22/24 17:23
11/22/24 17:23
Assessment / Plan
PE: Afeb. Bedrest. Left knee with anterior scar from previous TKA. Skin intact. Generalized pain about the left knee. Deferred ROM due to known fx. Hip nontender. Calf soft, nontender. DNVI LLE
Xrays: Left periprosthetic distal femur fracture with posterior displacement and shortening
Impression: SHARLA
Plan: Lengthy bedside discussion with the patient yields her understanding to the nature of her left femur fracture. Nonoperative and operative management discussed, including all the RBAs of each approach. After discussing all the risks of each
management option she has accepted all the proposed risks of surgical correction and wishes to proceed. Post-op and rehab course discussed as well, for which we will appreciate CM input. Hgb last PM was 9.6. Spoke with attending Hospitalist,
Olena, about transfusing last night for better OR optimization. She is sitting at 9.4 this AM. Will order 2 additional units on hold for the OR. Fortunately she is at the tail end of her IV ABX regime for epidural abscess, which obviously carries
some risk, but I believe the benefit of surgical fixation of this fracture outweighs the risk. Surgical and blood consents have been signed and placed to the patient's chart. Operative site marked as the left thigh. Plan for the OR is based on the
OR and Dr. Mares's availability, but tentative plan is for open treatment (plate vs. IMN) Sunday AM. T&S completed. ABX/irrigation products continuity clerk. Patient is and will remain NPO. Assuming she is optimized medically, again, the plan for surgery
is Sunday AM. OR aware. Will follow.
--- NOTE | 2024-11-22 22:00 | PTCARENOTE ---
Pt. received to 2S from ED and pulled over to room bed without incident. Pt. A&Ox3, in NAD but c/o pain to L knee area, even and unlabored breathing on 2L NC, and VSS. Pt. oriented to room and unit policies, bed locked and in lowest position, side
rails in place, and call thorpe within reach.
[2024-11-22] MEDS: COLACE PO ×2 (22:40→22:43)
[2024-11-22] MEDS: ROCEPHIN 2000 MG IV (22:44)
[2024-11-22] MEDS: LOPRESSOR 50 MG PO (22:44)
[2024-11-22] MEDS: DESYREL 100 MG PO (22:44)
[2024-11-22] MEDS: STERILE WATER FOR INJECTION 20 ML IV (22:44)
[2024-11-22] MEDS: TYLENOL 1000 MG PO (22:44)
[2024-11-22 23:15] LABS: Glucose - Point of Care 104 mg/dl (70-99)
[2024-11-22] MEDS: DILAUDID 1 MG IV (23:18)
[2024-11-22] MEDS: NEURONTIN 900 MG PO (23:50)
[2024-11-23] VITALS (15 sets, daily range): BP systolic 106–138; BP diastolic 42–92; BMI 45.6
[2024-11-23 05:00] LABS: % Basophils 0.9 % (0-2); % Eosinophils 2.4 % (0-6); % Immature Granulocytes 0.3 % (0-0.5); % Lymphocytes 10.4 % (20.5-51.1); % Monocytes 7.5 % (1.7-9.3); % Neutrophils 78.5 % (42.2-75.2); Absolute Basophils 0.1 10^3/uL (0-0.2); Absolute Eosinophils 0.2 10^3/uL (0-0.7); Absolute Monocytes 0.7 10^3/uL (0.1-0.6); Absolute Neutrophils 7.3 10^3/uL (1.4-6.5); Hematocrit 28.8 % (37.0-47.0); Hemoglobin 9.4 g/dL (12.0-16.0); Mean Corp Hgb Conc. 32.6 g/dL (33.0-37.0); Mean Corpuscular Hgb 30.3 pg (27.0-31.0); Mean Corpuscular Volume 92.9 fL (81.0-99.0); Mean Platelet Volume 10.3 fL (7.4-10.4); Nucleated Red Blood Cells % 0 %; Platelet Count 157 10^3/uL (130-400); Red Cell Dist. Width 14.3 % (11.5-14.5); White Blood Cell Count 9.3 10^3/uL (4.8-10.8)
--- NOTE | 2024-11-23 05:05 | PTCARENOTE ---
Checked in with blood bank at 0412 to confirm they were aware of pt's pending unit of PRBCs. At time of writing blood is not ready to be released from blood bank.
[2024-11-23 05:26] LABS: Blood Urea Nitrogen 26 mg/dl (7-17); Calcium 8.9 mg/dl (8.4-10.2); Carbon Dioxide 25 mmol/L (22-30); Chloride 101 mmol/L (98-107); Estimated Creatinine Clearance 61 ml/min; Glucose 134 mg/dl (70-99); Potassium 4.1 mmol/L (3.5-5.1); Sodium 136 mmol/L (135-145); eGFR 58.02
[2024-11-23] MEDS: VITAMIN B-12 PO (08:00)
[2024-11-23] MEDS: TYLENOL PO (08:00)
[2024-11-23] MEDS: THERAGRAN PO (08:00)
[2024-11-23] MEDS: COLACE PO ×2 (08:00→20:18)
[2024-11-23] MEDS: NEURONTIN PO (08:00)
[2024-11-23] MEDS: VITAMIN D3 (cholecalciferol) PO (08:00)
[2024-11-23] MEDS: PROTONIX 40 MG PO (09:06)
[2024-11-23] MEDS: NORVASC 5 MG PO (09:06)
[2024-11-23] MEDS: LOPRESSOR 50 MG PO ×2 (09:06→19:45)
[2024-11-23] MEDS: WELLBUTRIN SR (12 hour sustained release) 150 MG PO (09:06)
[2024-11-23] MEDS: ZESTRIL PO (09:07)
[2024-11-23] MEDS: CUBICIN 20 MG IV (09:09)
--- NOTE | 2024-11-23 10:00 | PTCARENOTE ---
RN transported patient to OR. PRBC infusing into right SL PICC, hand off report given to ELVIS Walker.
--- NOTE | 2024-11-23 10:11 | CM ---
Reviewed the chart notes and spoke with the patient at the bedside. [facility] through a PICC line in her right upper arm daptomycin and Rocephin which
she reports was due to stop on 11/27/2024. Patient anticipates going to the OR today for femur fracture repair. Patient resides with her spouse in a two story home with six step to enter. The patient has a CPAP, rolling walker, cane, shower
rails, and a shower stool. The patient has had VN services in the past, but could not recall name of agency. The patient confirmed her pharmacy of choice is [facility] [address] [facility]. PCP is Dr. Velazquez.
CM continues to be available to patient/family and is monitoring medical plan for needs at discharge.
Plan: Discharge plans will depend on the patient's progress.
--- NOTE | 2024-11-23 12:30 | PTCARENOTE ---
Blood transfusion finished in OR @ 1228. [facility] sheet in patient's chart.
[2024-11-23] MEDS: SUBLIMAZE 50 MCG IV (12:58)
[2024-11-23] MEDS: SUBLIMAZE 25 MCG IV (13:29)
--- NOTE | 2024-11-23 14:00 | PTCARENOTE ---
Received patient from PACU at 1400. Patient AAOx3, asking for food. Patient has minimal c/o pain 02/02. Ice to left leg, call thorpe in reach.
[2024-11-23] MEDS: DESENEX/MITRAZOL/ZEASORB 1 APPLIC TOPICAL ×2 (14:06→19:45)
[2024-11-23] MEDS: NSS 1000 IV (14:06)
[2024-11-23] MEDS: MIRALAX 17 GRAMS PO (14:06)
[2024-11-23 14:12] LABS: Glucose - Point of Care 134 mg/dl (70-99)
--- NOTE | 2024-11-23 14:54 | W.PN.HOSP.TC ---
Today's Communication/Plan
-
Postoperative care
Check orthostatic vital signs
PT/OT/VT, weightbearing per Ortho
Plan for aspirin 325 as DVT prophylaxis
Assessment / Plan
Assessment / Plan
#Dizziness with fall
#left femur fracture, markedly comminuted
-Possible BPPV,, was transient and associated with rotational movement during PT
-States she does have intermittent episodes of dizziness that are short in duration, not frequent
-Status post OR today for surgical correction
-Continue with analgesia, Zofran, bowel regimen
-PT/OT/case management for likely SNF
-Check orthostatic vital signs
#Acute hypoxic resp insufficiency
#Former smoker quit 40 years ago
-Chest x-ray showed compressive atelectasis, no acute findings of infection or PTX
-Currently requiring 2 to 3 L of supplemental oxygen
-Incentive spirometry ordered
-Wean oxygen for SpO2 goal >90%
#Acute on chronic anemia
-Unclear etiology, baseline hemoglobin in the range of 10-12 since September
-Presented with hemoglobin of 9.6; ordered 2 units of PRBC prior to OR
-Order iron panel, B12, folate level
-Trend CBC
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
#L3 compression fracture
-Patient to finish IV daptomycin and IV Rocephin on 11/27/2023 via PICC line right upper arm per infectious disease
-anterior compression deformity of the L3 vertebral body with approximately 20% loss of height which is likely subacute or chronic.
-There is multilevel degenerative disc disease and facet arthropathy most pronounced at the L4-L5 and L5-S1 levels where it is moderate.
-Able to ambulate with cane
#T2DM
-Accu-Cheks with SSI
-Hold metformin at 1000 mg daily
-BG goal 140-180
#HTN�benign
-Home medications include lisinopril, amlodipine, metoprolol, HCTZ
-No known history of hypertensive systemic disease
-Blood pressure well-controlled prior to OR, may increase with pain
-HCTZ currently held, consider resuming after the OR
#Chronic diastolic heart failure
-Unclear if this is accurate diagnosis; not on GDMT or loop diuretic
-Does have a history of SA which increases risk for HFpEF
-Will continue with I's/O's and daily weights
-Appears euvolemic
#GERD
-Home medications include PPI
-No known history of erosive disease or Wasserman's esophagus
-Stable
#Depression
-Continue Wellbutrin
#Sleep apnea on CPAP
-CPAP nasal setting 16 mmHg
#Insomnia
-Continue trazodone
#Left breast ductal carcinoma in situ
#S/p lumpectomy
-due for 15 rounds of radiation
#Hepatomegaly seen on CT
-Likely LYLE
-Patient was to follow-up with PCP as outpatient with referral to GI
#H/O constipation
-Continue Colace twice daily, MiraLAX daily
-Dulcolax suppository as needed
#Vitamin D deficiency
-Continue vitamin D replacement
#Class III obesity�BMI 47.7 kg
-Weight loss recommended
-Low-fat 1800 ADA diet
VTE prophylaxis: SCDs
Diet: Regular after OR
CODE STATUS: Full code
Anticipated Discharge: 24 - 48 hours
Subjective/Interval History
-
Date of Service: November 23, 2024
Seen and examined at the bedside. No acute events reported overnight. AFVSS at time of my eval
Status post OR for intervention on markedly comminuted hip fracture. States she was working with PT when she turned her body, became dizzy and then fell
Denies any acute complaints.
Objective Data
-
Labs:
Laboratory Results
11/23/24 11/23/24 11/23/24
04:39 13:17 13:39
WBC 9.3
Hgb 9.4 L Cancelled Cancelled
Hct 28.8 L Cancelled Cancelled
Plt Count 157
Sodium 136
Potassium 4.1
Chloride 101
Carbon Dioxide 25
BUN 26 H
Creatinine 1.0
Glucose 134 H
Calcium 8.9
Vital Signs:
Vital Signs
Temp Pulse Resp BP Pulse Ox
98.7 F 77 18 108/65 95
11/23/24 14:00 11/23/24 14:00 11/23/24 14:00 11/23/24 14:00 11/23/24 14:00
I&O
11/22/24 11/23/24 11/24/24
06:59 06:59 06:59
Intake Total 260 / 260 100 / 100
Output Total 400 / 400 500 / 500
Balance -140 / -140 -400 / -400
Review of Systems
-
History Source: Patient
All other systems: Reviewed and negative
Physical Exam
-
General: Well Developed, Well Nourished, No Apparent Distress and Comfortable
HEENT: Normocephalic, Atraumatic, Moist Mucous Membranes and Anicteric
Respiratory: Clear to Auscultation and Non Labored Respirations
Cardiac: Regular Rhythm and S1/S2; Negative Murmur, Rub or Gallop
GI: Soft, Nontender, Nondistended and Normal Bowel Sounds
Musculoskeletal: No Clubbing, No Cyanosis and No Edema
Skin: Warm and Dry; Negative Rash
Neuro: AO x 3 and Nonfocal/Grossly Intact
Psych: Calm
Data Reviewed
-
Labs: Labs Reviewed by me and Discussed with Patient
[2024-11-23] MEDS: TYLENOL 1000 MG PO ×2 (15:59→21:57)
[2024-11-23] MEDS: ASPIRIN 325 MG PO (16:06)
[2024-11-23] MEDS: NEURONTIN 900 MG PO (19:44)
[2024-11-23] MEDS: DILAUDID 0.5 MG IV (20:16)
[2024-11-23] MEDS: SENOKOT PO (20:17)
[2024-11-23 21:46] LABS: Glucose - Point of Care 239 mg/dl (70-99)
[2024-11-23] MEDS: DESYREL 100 MG PO (21:57)
[2024-11-23] MEDS: ROCEPHIN 2000 MG IV (21:59)
[2024-11-23] MEDS: STERILE WATER FOR INJECTION 20 ML IV (21:59)
[2024-11-24] MEDS: NSS 1000 IV (02:03)
[2024-11-24 02:48] VITALS: BP 117/51
[2024-11-24 06:00] VITALS: BMI 45.5
[2024-11-24 06:48] LABS: % Basophils 0.4 % (0-2); % Eosinophils 0.8 % (0-6); % Immature Granulocytes 0.3 % (0-0.5); % Lymphocytes 12.8 % (20.5-51.1); % Monocytes 8.5 % (1.7-9.3); % Neutrophils 77.2 % (42.2-75.2); Absolute Eosinophils 0.1 10^3/uL (0-0.7); Absolute Lymphocytes 1.2 10^3/uL (1.2-3.4); Absolute Monocytes 0.8 10^3/uL (0.1-0.6); Hematocrit 28.1 % (37.0-47.0); Hemoglobin 9.3 g/dL (12.0-16.0); Mean Corp Hgb Conc. 33.1 g/dL (33.0-37.0); Mean Corpuscular Hgb 30.4 pg (27.0-31.0); Mean Corpuscular Volume 91.8 fL (81.0-99.0); Mean Platelet Volume 10.6 fL (7.4-10.4); Nucleated Red Blood Cells % 0 %; Platelet Count 165 10^3/uL (130-400); Red Blood Cell Count 3.06 10^6/uL (4.20-5.40); Red Cell Dist. Width 14.2 % (11.5-14.5)
[2024-11-24 06:55] LABS: Blood Urea Nitrogen 25 mg/dl (7-17); Calcium 8.4 mg/dl (8.4-10.2); Carbon Dioxide 26 mmol/L (22-30); Chloride 102 mmol/L (98-107); Estimated Creatinine Clearance 77 ml/min; Glucose 114 mg/dl (70-99); Potassium 3.9 mmol/L (3.5-5.1); Sodium 136 mmol/L (135-145); eGFR > 60.00
[2024-11-24 07:15] VITALS: BP 145/102
[2024-11-24 08:07] LABS: Glucose - Point of Care 111 mg/dl (70-99)
[2024-11-24] MEDS: TYLENOL 1000 MG PO ×3 (09:39→22:27)
[2024-11-24] MEDS: NEURONTIN 900 MG PO ×2 (09:39→20:49)
[2024-11-24] MEDS: COLACE 100 MG PO ×2 (09:39→20:49)
[2024-11-24] MEDS: SENOKOT 17.2 MG PO ×2 (09:40→20:49)
[2024-11-24] MEDS: MIRALAX 17 GRAMS PO (09:40)
[2024-11-24] MEDS: ASPIRIN 325 MG PO (09:40)
[2024-11-24] MEDS: NORVASC 5 MG PO (09:40)
[2024-11-24] MEDS: VITAMIN B-12 1000 MCG PO (09:40)
[2024-11-24] MEDS: LOPRESSOR 50 MG PO ×2 (09:40→20:49)
[2024-11-24] MEDS: THERAGRAN 1 TABLET PO (09:40)
[2024-11-24] MEDS: PROTONIX 40 MG PO (09:40)
[2024-11-24] MEDS: ZESTRIL 40 MG PO (09:41)
[2024-11-24] MEDS: WELLBUTRIN SR (12 hour sustained release) 150 MG PO (09:41)
[2024-11-24] MEDS: VITAMIN D3 (cholecalciferol) 50 MCG PO (09:41)
[2024-11-24] MEDS: DESENEX/MITRAZOL/ZEASORB 1 APPLIC TOPICAL ×2 (09:42→20:50)
[2024-11-24] MEDS: ROXICODONE 10 MG PO ×2 (09:59→20:55)
[2024-11-24 11:00] VITALS: BP 133/74
[2024-11-24] MEDS: CUBICIN 20 MG IV (11:01)
--- NOTE | 2024-11-24 11:38 | W.PN.ORTHO ---
Today's Communication / Plan
-
Appreciate the primary team, continue treatment
Dispo likely SNF, appreciate CM
Continue TTWB LLE
PT/OT
ASA 325mg daily x 4 weeks for DVT ppx
Continue IV ceftriaxone/daptomycin (epidural abscess Tx due to end 2 Dec 20)
Dressings to remain if strikethrough contained, change prn
ice/elevation/pain control
Jolon out at 2 weeks (SNF or office)
If christine out at outpatient Ortho follow-up in 4 weeks
Assessment
.
Distal Motor Intact: Yes
Dressing:
Clean, dry and intact. Dressings in place, mild strikethrough, contained
Assessment:
POD#1 retrograde femoral nail
Overall doing/feeling well
Calf soft, nontender
Plan
.
Surgery / Date: Left retrograde femoral nail Nov 18 ([place])
DVT Prophylaxis: Aspirin
Activity:
Out of bed. TTWB LLE
PT/OT
Discharge Plan: SNF
Discharge Information:
per CM
Subjective
.
.:
Patient resting comfortably. Not much pain about the left knee
Vital Signs and Labs
.
Vital Signs and Labs:
Lab Results
11/24/24 06:17
11/24/24 06:17
Temp Pulse Resp BP Pulse Ox
98.3 F 81 16 133/74 92
11/24/24 11:00 11/24/24 11:00 11/24/24 11:00 11/24/24 11:00 11/24/24 11:00
PT 12.9 Sec (11.4-14.6) 11/22/24 19:26
INR 0.93 11/22/24 19:26
--- NOTE | 2024-11-24 11:49 | CM ---
Chart reviewed
POD 1 retrograde femoral nail
Ultrasound - r/o DVT
PT/OT recs pending
CM will follow for d/c needs
Plan - anticipate SNF vs home with VN when medically ready
[2024-11-24 12:37] LABS: Glucose - Point of Care 119 mg/dl (70-99)
--- NOTE | 2024-11-24 12:37 | PTCARENOTE ---
Blood transfusion completed in OR. Date, time and Vital Signs at time of completion of blood transfusion entered into the TAR based on documentation on the pink transfusion form located in the patient chart.
[2024-11-24 13:00] VITALS: BP 113/52; BP 134/63; PULSE 77; PULSE 79; PULSE 82; O2SAT 89; O2SAT 90
--- NOTE | 2024-11-24 13:51 | W.PN.HOSP.TC ---
Today's Communication/Plan
-
monitor hgb
pt/ot
Assessment / Plan
Assessment / Plan
#left femur fracture, markedly comminuted
-POD#1 retrograde femoral nail
-Continue TTWB LLE
-PT/OT
-ASA 325mg daily x 4 weeks for DVT ppx
-Dressings to remain if strikethrough contained, change prn
-ice/elevation/pain control
-Christine out at 2 weeks (SNF or office)
-If christine out at SNF outpatient Ortho follow-up in 4 weeks
#Dizziness with fall
-Possible BPPV,, was transient and associated with rotational movement during PT
-States she does have intermittent episodes of dizziness that are short in duration, not frequent
-PT/OT/case management for likely SNF
-ENT outpatient
-vestibular therapy if needed
#Chronic hypoxic respiratory failure
#Former smoker quit 40 years ago
-Chest x-ray showed compressive atelectasis, no acute findings of infection or PTX
-Currently requiring 2 to 3 L of supplemental oxygen, on and off at home
-Incentive spirometry ordered
-Wean oxygen for SpO2 goal >90%
#Cronic anemia
-Unclear etiology, baseline hemoglobin in the range of 10-12 since September
-Order iron panel, B12, folate level
-Trend CBC
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
#L3 compression fracture
-Patient to finish IV daptomycin and IV Rocephin on 11/27/2023 via PICC line right upper arm per infectious disease
-anterior compression deformity of the L3 vertebral body with approximately 20% loss of height which is likely subacute or chronic.
-There is multilevel degenerative disc disease and facet arthropathy most pronounced at the L4-L5 and L5-S1 levels where it is moderate.
-Able to ambulate with cane
#T2DM
-Accu-Cheks with SSI
-Hold metformin at 1000 mg daily
-BG goal 140-180
#HTN�benign
-Home medications include lisinopril, amlodipine, metoprolol, HCTZ
-No known history of hypertensive systemic disease
-Blood pressure well-controlled prior to OR, may increase with pain
-HCTZ currently held, consider resuming after the OR
#Chronic diastolic heart failure
-Appears euvolemic
#GERD
-Home medications include PPI
-No known history of erosive disease or Wasserman's esophagus
-Stable
#Depression
-Continue Wellbutrin
#Sleep apnea on CPAP
-CPAP nasal setting 16 mmHg
#Insomnia
-Continue trazodone
#Left breast ductal carcinoma in situ
#S/p lumpectomy
-due for 15 rounds of radiation
#Hepatomegaly seen on CT
-Likely LYLE
-Patient was to follow-up with PCP as outpatient with referral to GI
#H/O constipation
-Continue Colace twice daily, MiraLAX daily
-Dulcolax suppository as needed
#Vitamin D deficiency
-Continue vitamin D replacement
#Class III obesity�BMI 47.7 kg
-Weight loss recommended
-Low-fat 1800 ADA diet
VTE prophylaxis: ASA 325mg daily
CODE STATUS: Full code
Anticipated Discharge: 24 - 48 hours
Subjective/Interval History
-
Date of Service: November 24, 2024
No acute events
Objective Data
-
Labs:
Laboratory Results
11/24/24
06:17
WBC 9.0
Hgb 9.3 L
Hct 28.1 L
Plt Count 165
Sodium 136
Potassium 3.9
Chloride 102
Carbon Dioxide 26
BUN 25 H
Creatinine 0.8
Glucose 114 H
Calcium 8.4
Vital Signs:
Vital Signs
Temp Pulse Resp BP Pulse Ox
98.3 F 81 16 133/74 92
11/24/24 11:00 11/24/24 11:00 11/24/24 11:00 11/24/24 11:00 11/24/24 11:00
I&O
11/23/24 11/24/24 11/25/24
06:59 06:59 06:59
Intake Total 260 / 260 1900 / 1900
Output Total 400 / 400 1000 / 1000
Balance -140 / -140 900 / 900
Review of Systems
-
History Source: Patient
All other systems: Not reviewed unless documented
Physical Exam
-
General: Well Developed, Well Nourished, No Apparent Distress and Comfortable
HEENT: Normocephalic, Atraumatic, Moist Mucous Membranes and Anicteric
Respiratory: Clear to Auscultation and Non Labored Respirations
Cardiac: Regular Rhythm and S1/S2; Negative Murmur, Rub or Gallop
GI: Soft, Nontender, Nondistended and Normal Bowel Sounds
Musculoskeletal: No Clubbing, No Cyanosis and No Edema
Skin: Warm and Dry; Negative Rash
Neuro: AO x 3 and Nonfocal/Grossly Intact
Psych: Calm
Data Reviewed
-
Diagnostic Radiology: Report Reviewed by me
Ultrasound: Report Reviewed by me
Labs: Labs Reviewed by me and Discussed with Patient
[2024-11-24 14:53] LABS: Iron 44 ug/dl (37-170)
[2024-11-24 15:03] LABS: Percent Saturation 17 % (20-50); Total Iron Binding Capacity 253 ug/dl (265-497)
[2024-11-24 15:10] VITALS: BP 126/62
[2024-11-24] MEDS: NSS IV (15:32)
[2024-11-24] MEDS: DESYREL 100 MG PO (22:26)
[2024-11-24] MEDS: ROCEPHIN 2000 MG IV (22:27)
[2024-11-24] MEDS: STERILE WATER FOR INJECTION 20 ML IV (22:27)
[2024-11-24 23:35] VITALS: BP 101/58
[2024-11-25 04:57] LABS: % Basophils 0.7 % (0-2); % Eosinophils 3.5 % (0-6); % Immature Granulocytes 0.4 % (0-0.5); % Neutrophils 75.4 % (42.2-75.2); Absolute Basophils 0.1 10^3/uL (0-0.2); Absolute Eosinophils 0.4 10^3/uL (0-0.7); Absolute Lymphocytes 1.3 10^3/uL (1.2-3.4); Absolute Monocytes 0.7 10^3/uL (0.1-0.6); Absolute Neutrophils 7.6 10^3/uL (1.4-6.5); Hemoglobin 8.7 g/dL (12.0-16.0); Mean Corp Hgb Conc. 31.1 g/dL (33.0-37.0); Mean Corpuscular Hgb 29.3 pg (27.0-31.0); Mean Corpuscular Volume 94.3 fL (81.0-99.0); Mean Platelet Volume 10.5 fL (7.4-10.4); Nucleated Red Blood Cells % 0 %; Platelet Count 165 10^3/uL (130-400); Red Blood Cell Count 2.97 10^6/uL (4.20-5.40); Red Cell Dist. Width 14.3 % (11.5-14.5); White Blood Cell Count 10.1 10^3/uL (4.8-10.8)
[2024-11-25 05:20] LABS: Blood Urea Nitrogen 31 mg/dl (7-17); Calcium 8.5 mg/dl (8.4-10.2); Carbon Dioxide 24 mmol/L (22-30); Chloride 100 mmol/L (98-107); Estimated Creatinine Clearance 56 ml/min; Glucose 115 mg/dl (70-99); Potassium 4.5 mmol/L (3.5-5.1); Sodium 133 mmol/L (135-145); eGFR 51.75
--- NOTE | 2024-11-25 05:44 | W.PN.ORTHO ---
Today's Communication / Plan
-
79-year-old female POD #2 Left Retrograde Femoral Nail 11/23/[address] Mares.
- Continue TTWB LLE.
- PT/OT.
- ASA 325mg daily x 4 weeks for DVT ppx.
- Hemoglobin this AM 8.7. Continue to monitor and trend.
- Continue IV ceftriaxone/daptomycin (epidural abscess Tx due to end Dec 20).
- Appreciate the primary team, continue treatment.
- Per CM, anticipate SNF vs. home with VN when medically ready.
- Dressings to remain if strikethrough contained, change PRN.
- Ice/elevation/pain control.
- [place] out at 2 weeks (SNF or office). If christine out at SNF outpatient Ortho follow-up in 4 weeks. Orthopedic surgery will sign off at this time. Please reengage with any further questions or concerns.
Assessment
.
Distal Motor Intact: Yes
Dressing:
Aquacel dressings in place, mild strikethrough, contained.
Calf is soft and nontender.
NVI distally.
Assessment:
POD#2 Retrograde Femoral Nail.
Plan
.
Surgery / Date: Left retrograde femoral nail Nov 18 ([facility])
DVT Prophylaxis: Aspirin
Activity:
Out of bed.
PT/OT
Discharge Information:
Appreciate CM.
Subjective
.
.:
Patient resting comfortably in bed. Denies any new complaints or concerns. Reports left knee pain controlled at this time.
Vital Signs and Labs
.
Vital Signs and Labs:
Lab Results
11/25/24 04:33
11/25/24 04:33
Temp Pulse Resp BP Pulse Ox
99.0 F 82 16 101/58 91
11/24/24 23:35 11/24/24 23:35 11/24/24 23:35 11/24/24 23:35 11/24/24 23:35
PT 12.9 Sec (11.4-14.6) 11/22/24 19:26
INR 0.93 11/22/24 19:26
[2024-11-25 06:00] VITALS: BMI 46.2
[2024-11-25 07:30] VITALS: BP 125/73
[2024-11-25] MEDS: NORVASC 5 MG PO (08:07)
[2024-11-25] MEDS: PROTONIX 40 MG PO (08:08)
[2024-11-25] MEDS: ZESTRIL 40 MG PO (08:08)
[2024-11-25] MEDS: TYLENOL 1000 MG PO ×3 (08:08→22:43)
[2024-11-25] MEDS: WELLBUTRIN SR (12 hour sustained release) 150 MG PO (08:08)
[2024-11-25] MEDS: NEURONTIN 900 MG PO ×2 (08:08→20:52)
[2024-11-25] MEDS: ASPIRIN 325 MG PO (08:09)
[2024-11-25] MEDS: VITAMIN D3 (cholecalciferol) 50 MCG PO (08:09)
[2024-11-25] MEDS: SENOKOT 17.2 MG PO ×2 (08:09→20:52)
[2024-11-25] MEDS: ROXICODONE 10 MG PO (08:09)
[2024-11-25] MEDS: COLACE 100 MG PO ×2 (08:09→20:51)
[2024-11-25] MEDS: THERAGRAN 1 TABLET PO (08:09)
[2024-11-25] MEDS: MIRALAX 17 GRAMS PO (08:09)
[2024-11-25] MEDS: LOPRESSOR 50 MG PO ×2 (08:09→22:43)
[2024-11-25] MEDS: VITAMIN B-12 1000 MCG PO (08:09)
[2024-11-25] MEDS: DESENEX/MITRAZOL/ZEASORB 1 APPLIC TOPICAL ×2 (08:19→20:51)
--- NOTE | 2024-11-25 09:42 | PN.CDI ---
CDI
- -
CDI:
Physician Documentation Request
Admit Date: 11/22/24 20:26
Dear Doctor Dede,
Please review the following and provide your response in the progress notes.
Clinical Indicators:
- 11/23 PN 'Acute hypoxic resp insufficiency'
- 11/24 PN 'Chronic hypoxic respiratory failure...2 to 3 L of supplemental oxygen, on and off at home'
- Documented VS 2-3L O2, SpO2 > 90%
- 87% on admission on room air
Please clarify a diagnosis associated with use of home O2
Chronic hypoxic respiratory failure requiring continuous use home O2
Hypoxia requiring intermittent home O2 use
Other (please specify)
Use of terms such as suspected, likely, concern for, or probable (associated with a specific diagnosis that is being evaluated, monitored, or treated as if it exists) are acceptable and can be coded in the inpatient setting, when documented at the
time of discharge.
Thank you,
Lena Barrera RN
CDI Specialist
Please use your independent medical judgment in providing your response.
[2024-11-25] MEDS: CUBICIN 20 MG IV (09:46)
[2024-11-25] MEDS: FEOSOL 325 MG PO (09:46)
--- NOTE | 2024-11-25 11:24 | CM ---
Patient seen bedside.
Nervous about returning to facility for rehab due to fall.
Discussed with daughter Kelsy, she would like additional referrals sent along with [facility].
Daughter discussing with mother and will call this CM back with options.
Plan: skilled rehab once bed available and medically stable.
--- NOTE | 2024-11-25 13:21 | W.PN.HOSP.TC ---
Today's Communication/Plan
-
monitor hgb
start ferrous sulfate
Assessment / Plan
Assessment / Plan
#left femur fracture, markedly comminuted
-POD#2 retrograde femoral nail
-Continue TTWB LLE
-PT/OT
-ASA 325mg daily x 4 weeks for DVT ppx
-Dressings to remain if strikethrough contained, change prn
-ice/elevation/pain control
-Christine out at 2 weeks (SNF or office)
-If christine out at SNF outpatient Ortho follow-up in 4 weeks
#Dizziness with fall
-Possible BPPV,, was transient and associated with rotational movement during PT
-States she does have intermittent episodes of dizziness that are short in duration, not frequent
-PT/OT/case management for likely SNF
-ENT outpatient
-vestibular therapy if needed
#Hyponatremia
-mild
-ctm
#Chronic hypoxic respiratory failure
#Former smoker quit 40 years ago
-Chest x-ray showed compressive atelectasis, no acute findings of infection or PTX
-Currently requiring 2 to 3 L of supplemental oxygen, on and off at home
-Incentive spirometry ordered
-Wean oxygen for SpO2 goal >90%
#Chronic anemia
#Iron Deficiency Anemia
-start ferrous sulfate
-Unclear etiology, baseline hemoglobin in the range of 10-12 since September
-Trend CBC s/p nail
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
#L3 compression fracture
-Patient to finish IV daptomycin and IV Rocephin on 11/27/2023 via PICC line right upper arm per infectious disease
-anterior compression deformity of the L3 vertebral body with approximately 20% loss of height which is likely subacute or chronic.
-There is multilevel degenerative disc disease and facet arthropathy most pronounced at the L4-L5 and L5-S1 levels where it is moderate.
-Able to ambulate with cane
#T2DM
-Accu-Cheks with SSI
-Hold metformin at 1000 mg daily
-BG goal 140-180
#HTN�benign
-Home medications include lisinopril, amlodipine, metoprolol, HCTZ
-No known history of hypertensive systemic disease
-Blood pressure well-controlled prior to OR, may increase with pain
-HCTZ currently held, consider resuming on dc
#Chronic diastolic heart failure
-Appears euvolemic
#GERD
-Home medications include PPI
-No known history of erosive disease or Wasserman's esophagus
-Stable
#Depression
-Continue Wellbutrin
#Sleep apnea on CPAP
-CPAP nasal setting 16 mmHg
#Insomnia
-Continue trazodone
#Left breast ductal carcinoma in situ
#S/p lumpectomy
-due for 15 rounds of radiation
#Hepatomegaly seen on CT
-Likely LYLE
-Patient was to follow-up with PCP as outpatient with referral to GI
#H/O constipation
-Continue Colace twice daily, MiraLAX daily
-Dulcolax suppository as needed
#Vitamin D deficiency
-Continue vitamin D replacement
#Class III obesity�BMI 47.7 kg
-Weight loss recommended
-Low-fat 1800 ADA diet
VTE prophylaxis: ASA 325mg daily
CODE STATUS: Full code
Anticipated Discharge: 24 - 48 hours
Subjective/Interval History
-
Date of Service: November 25, 2024
no acute events
Objective Data
-
Labs:
Laboratory Results
11/25/24
04:33
WBC 10.1
Hgb 8.7 L
Hct 28.0 L
Plt Count 165
Sodium 133 L
Potassium 4.5
Chloride 100
Carbon Dioxide 24
BUN 31 H
Creatinine 1.1 H
Glucose 115 H
Calcium 8.5
Vital Signs:
Vital Signs
Temp Pulse Resp BP Pulse Ox
98.8 F 82 17 125/73 91
11/25/24 07:30 11/25/24 07:30 11/25/24 07:30 11/25/24 07:30 11/25/24 07:30
I&O
11/24/24 11/25/24 11/26/24
06:59 06:59 06:59
Intake Total 1900 / 1900 1580 / 1580
Output Total 1000 / 1000 1250 / 1250
Balance 900 / 900 330 / 330
Review of Systems
-
History Source: Patient
All other systems: Not reviewed unless documented
Physical Exam
-
General: Well Developed, Well Nourished, No Apparent Distress and Comfortable
HEENT: Normocephalic, Atraumatic, Moist Mucous Membranes and Anicteric
Respiratory: Clear to Auscultation and Non Labored Respirations
Cardiac: Regular Rhythm and S1/S2; Negative Murmur, Rub or Gallop
GI: Soft, Nontender, Nondistended and Normal Bowel Sounds
Musculoskeletal: No Clubbing, No Cyanosis and No Edema
Skin: Warm and Dry; Negative Rash
Neuro: AO x 3 and Nonfocal/Grossly Intact
Psych: Calm
Data Reviewed
-
Diagnostic Radiology: Report Reviewed by me
Ultrasound: Report Reviewed by me
Labs: Labs Reviewed by me and Discussed with Patient
[2024-11-25 20:30] VITALS: BP 112/43
[2024-11-25] MEDS: LOPRESSOR PO ×2 (20:55→20:59)
[2024-11-25 21:27] LABS: Glucose - Point of Care 139 mg/dl (70-99)
[2024-11-25] MEDS: DESYREL PO (21:51)
[2024-11-25] MEDS: STERILE WATER FOR INJECTION 20 ML IV (22:43)
[2024-11-25] MEDS: ROCEPHIN 2000 MG IV (22:44)
[2024-11-25 23:01] VITALS: BP 117/57
--- NOTE | 2024-11-26 00:58 | PTCARENOTE ---
Rn of previous shift reported that pt was drowsy during her shift, on assessment pt was noted to be drowsy but arousable with verbal ques. Pt's O2 on RA was 85, placed on 2L but was unable to maintain adequate saturation. Pt placed on 4L n/c to
achieve 94% O2. Pt remained drowsy with shallow breathing but still arousable and able to answer questions appropriately. Pt placed on her own CPAP and checked after 30 min, O2 saturation 68, replaced on nasal canula 5L for O2 of 94%
[2024-11-26 06:45] VITALS: BMI 46.3
[2024-11-26 06:59] LABS: % Basophils 0.9 % (0-2); % Eosinophils 4.8 % (0-6); % Immature Granulocytes 0.4 % (0-0.5); % Lymphocytes 9.6 % (20.5-51.1); % Monocytes 7.5 % (1.7-9.3); % Neutrophils 76.8 % (42.2-75.2); Absolute Basophils 0.1 10^3/uL (0-0.2); Absolute Eosinophils 0.4 10^3/uL (0-0.7); Absolute Lymphocytes 0.8 10^3/uL (1.2-3.4); Absolute Monocytes 0.6 10^3/uL (0.1-0.6); Absolute Neutrophils 6.5 10^3/uL (1.4-6.5); Hematocrit 26.3 % (37.0-47.0); Hemoglobin 8.4 g/dL (12.0-16.0); Mean Corp Hgb Conc. 31.9 g/dL (33.0-37.0); Mean Corpuscular Hgb 29.6 pg (27.0-31.0); Mean Corpuscular Volume 92.6 fL (81.0-99.0); Mean Platelet Volume 10.5 fL (7.4-10.4); Nucleated Red Blood Cells % 0 %; Platelet Count 156 10^3/uL (130-400); Red Blood Cell Count 2.84 10^6/uL (4.20-5.40); Red Cell Dist. Width 14.1 % (11.5-14.5); White Blood Cell Count 8.5 10^3/uL (4.8-10.8)
[2024-11-26 07:25] LABS: Blood Urea Nitrogen 33 mg/dl (7-17); Calcium 8.6 mg/dl (8.4-10.2); Carbon Dioxide 23 mmol/L (22-30); Chloride 101 mmol/L (98-107); Estimated Creatinine Clearance 56 ml/min; Glucose 117 mg/dl (70-99); Sodium 133 mmol/L (135-145); eGFR 51.75
[2024-11-26 07:56] VITALS: BP 141/61
[2024-11-26] MEDS: CUBICIN 20 MG IV (07:58)
[2024-11-26] MEDS: COLACE PO ×2 (08:00→21:22)
[2024-11-26] MEDS: VITAMIN B-12 1000 MCG PO (08:01)
[2024-11-26] MEDS: TYLENOL 1000 MG PO ×3 (08:01→21:46)
[2024-11-26] MEDS: MIRALAX PO (08:01)
[2024-11-26] MEDS: LOPRESSOR 50 MG PO ×2 (08:01→21:28)
[2024-11-26] MEDS: ZESTRIL 40 MG PO (08:01)
[2024-11-26] MEDS: WELLBUTRIN SR (12 hour sustained release) 150 MG PO (08:02)
[2024-11-26] MEDS: NORVASC 5 MG PO (08:02)
[2024-11-26] MEDS: THERAGRAN 1 TABLET PO (08:02)
[2024-11-26] MEDS: ASPIRIN 325 MG PO (08:02)
[2024-11-26] MEDS: PROTONIX 40 MG PO (08:02)
[2024-11-26] MEDS: VITAMIN D3 (cholecalciferol) 50 MCG PO (08:02)
[2024-11-26] MEDS: NEURONTIN 900 MG PO ×2 (08:02→21:27)
[2024-11-26] MEDS: DESENEX/MITRAZOL/ZEASORB 1 APPLIC TOPICAL ×2 (08:02→21:28)
--- NOTE | 2024-11-26 09:27 | CM ---
Patient daughter, she spoke with mother and she would like to return to [facility] when medically appropriate. CM will update physician and nursing. CM will continue to follow for discharge planning needs.
Plan;return to [facility] when appropriate.
[2024-11-26] MEDS: SENOKOT PO ×2 (09:34→21:22)
--- NOTE | 2024-11-26 13:50 | W.PN.HOSP.TC ---
Addendum entered and electronically signed by Trav Aguayo MD 11/26/24 16:56:
Chronic hypoxic respiratory failure requiring continuous use home O2
Original Note:
Today's Communication/Plan
-
medically clear
monitor hgb
Assessment / Plan
Assessment / Plan
#left femur fracture, markedly comminuted
-POD#3 retrograde femoral nail
-Continue TTWB LLE
-PT/OT
-ASA 325mg daily x 4 weeks for DVT ppx
-Dressings to remain if strikethrough contained, change prn
-ice/elevation/pain control
-Christine out at 2 weeks (SNF or office)
-If christine out at SNF outpatient Ortho follow-up in 4 weeks
#Dizziness with fall
-Possible BPPV,, was transient and associated with rotational movement during PT
-States she does have intermittent episodes of dizziness that are short in duration, not frequent
-PT/OT/case management for likely SNF
-ENT outpatient
#Hyponatremia
-mild
-ctm
#Chronic hypoxic respiratory failure
#Former smoker quit 40 years ago
-Chest x-ray showed compressive atelectasis, no acute findings of infection or PTX
-Currently requiring 2 to 3 L of supplemental oxygen, on and off at home
-Incentive spirometry ordered
-Wean oxygen for SpO2 goal >90%
#Chronic anemia
#Iron Deficiency Anemia
-start ferrous sulfate
-Unclear etiology, baseline hemoglobin in the range of 10-12 since September
-Trend CBC s/p nail
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
#L3 compression fracture
-Patient to finish IV daptomycin and IV Rocephin on 11/27/2023 via PICC line right upper arm per infectious disease
-anterior compression deformity of the L3 vertebral body with approximately 20% loss of height which is likely subacute or chronic.
-There is multilevel degenerative disc disease and facet arthropathy most pronounced at the L4-L5 and L5-S1 levels where it is moderate.
-Able to ambulate with cane
#T2DM
-Accu-Cheks with SSI
-Hold metformin at 1000 mg daily
-BG goal 140-180
#HTN�benign
-Home medications include lisinopril, amlodipine, metoprolol, HCTZ
-No known history of hypertensive systemic disease
-Blood pressure well-controlled prior to OR, may increase with pain
-HCTZ currently held, consider resuming on dc
#Chronic diastolic heart failure
-Appears euvolemic
#GERD
-Home medications include PPI
-No known history of erosive disease or Wasserman's esophagus
-Stable
#Depression
-Continue Wellbutrin
#Sleep apnea on CPAP
-CPAP nasal setting 16 mmHg
#Insomnia
-Continue trazodone
#Left breast ductal carcinoma in situ
#S/p lumpectomy
-due for 15 rounds of radiation
#Hepatomegaly seen on CT
-Likely LYLE
-Patient was to follow-up with PCP as outpatient with referral to GI
#H/O constipation
-Continue Colace twice daily, MiraLAX daily
-Dulcolax suppository as needed
#Vitamin D deficiency
-Continue vitamin D replacement
#Class III obesity�BMI 47.7 kg
-Weight loss recommended
-Low-fat 1800 ADA diet
VTE prophylaxis: ASA 325mg daily
CODE STATUS: Full code
Anticipated Discharge: Within 24 hours
Subjective/Interval History
-
Date of Service: November 26, 2024
no acute events
Objective Data
-
Labs:
Laboratory Results
11/26/24
06:39
WBC 8.5
Hgb 8.4 L
Hct 26.3 L
Plt Count 156
Sodium 133 L
Potassium 4.0
Chloride 101
Carbon Dioxide 23
BUN 33 H
Creatinine 1.1 H
Glucose 117 H
Calcium 8.6
Vital Signs:
Vital Signs
Temp Pulse Resp BP Pulse Ox
98.9 F 79 24 141/61 93
11/26/24 07:56 11/26/24 07:56 11/26/24 07:56 11/26/24 07:56 11/26/24 07:56
I&O
11/25/24 11/26/24 11/27/24
06:59 06:59 06:59
Intake Total 1580 / 1580 480 / 480
Output Total 1250 / 1250 580 / 580
Balance 330 / 330 -100 / -100
Review of Systems
-
History Source: Patient
All other systems: Not reviewed unless documented
Physical Exam
-
General: Well Developed, Well Nourished, No Apparent Distress and Comfortable
HEENT: Normocephalic, Atraumatic, Moist Mucous Membranes and Anicteric
Respiratory: Clear to Auscultation and Non Labored Respirations
Cardiac: Regular Rhythm and S1/S2; Negative Murmur, Rub or Gallop
GI: Soft, Nontender, Nondistended and Normal Bowel Sounds
Musculoskeletal: No Clubbing, No Cyanosis and No Edema
Skin: Warm and Dry; Negative Rash
Neuro: AO x 3 and Nonfocal/Grossly Intact
Psych: Calm
Data Reviewed
-
Diagnostic Radiology: Report Reviewed by me
Ultrasound: Report Reviewed by me
Labs: Labs Reviewed by me and Discussed with Patient
[2024-11-26 15:55] VITALS: BP 148/59
[2024-11-26] MEDS: DESYREL 100 MG PO (21:46)
[2024-11-26] MEDS: ROCEPHIN 2000 MG IV (21:47)
[2024-11-26] MEDS: STERILE WATER FOR INJECTION 20 ML IV (21:47)
[2024-11-26 21:51] LABS: Glucose - Point of Care 125 mg/dl (70-99)
[2024-11-26 23:20] VITALS: BP 117/58
[2024-11-27 06:00] VITALS: BMI 46.5
[2024-11-27 06:08] LABS: % Basophils 0.9 % (0-2); % Eosinophils 5.4 % (0-6); % Immature Granulocytes 0.4 % (0-0.5); % Lymphocytes 10.8 % (20.5-51.1); % Monocytes 6.6 % (1.7-9.3); % Neutrophils 75.9 % (42.2-75.2); Absolute Basophils 0.1 10^3/uL (0-0.2); Absolute Eosinophils 0.4 10^3/uL (0-0.7); Absolute Lymphocytes 0.8 10^3/uL (1.2-3.4); Absolute Monocytes 0.5 10^3/uL (0.1-0.6); Absolute Neutrophils 5.3 10^3/uL (1.4-6.5); Hematocrit 27.6 % (37.0-47.0); Hemoglobin 8.8 g/dL (12.0-16.0); Mean Corp Hgb Conc. 31.9 g/dL (33.0-37.0); Mean Corpuscular Hgb 29.5 pg (27.0-31.0); Mean Corpuscular Volume 92.6 fL (81.0-99.0); Mean Platelet Volume 10.5 fL (7.4-10.4); Nucleated Red Blood Cells % 0 %; Platelet Count 168 10^3/uL (130-400); Red Blood Cell Count 2.98 10^6/uL (4.20-5.40); Red Cell Dist. Width 13.7 % (11.5-14.5)
[2024-11-27 06:34] LABS: Blood Urea Nitrogen 28 mg/dl (7-17); Carbon Dioxide 24 mmol/L (22-30); Chloride 102 mmol/L (98-107); Estimated Creatinine Clearance 69 ml/min; Glucose 129 mg/dl (70-99); Sodium 135 mmol/L (135-145); eGFR > 60.00
[2024-11-27 06:49] LABS: Glucose - Point of Care 129 mg/dl (70-99)
[2024-11-27 06:50] VITALS: BP 159/65
[2024-11-27] MEDS: CUBICIN 20 MG IV (08:57)
[2024-11-27] MEDS: TYLENOL 1000 MG PO ×2 (08:58→16:56)
[2024-11-27] MEDS: NEURONTIN 900 MG PO (08:58)
[2024-11-27] MEDS: VITAMIN B-12 1000 MCG PO (08:58)
[2024-11-27] MEDS: SENOKOT PO ×2 (08:58→10:39)
[2024-11-27] MEDS: PROTONIX 40 MG PO (08:58)
[2024-11-27] MEDS: MIRALAX 17 GRAMS PO (08:59)
[2024-11-27] MEDS: ZESTRIL 40 MG PO (08:59)
[2024-11-27] MEDS: ASPIRIN 325 MG PO (09:00)
[2024-11-27] MEDS: THERAGRAN 1 TABLET PO (09:00)
[2024-11-27] MEDS: COLACE PO ×2 (09:00→10:39)
[2024-11-27] MEDS: VITAMIN D3 (cholecalciferol) 50 MCG PO (09:00)
[2024-11-27] MEDS: LOPRESSOR 50 MG PO (09:02)
[2024-11-27] MEDS: NORVASC 5 MG PO (09:03)
[2024-11-27] MEDS: WELLBUTRIN SR (12 hour sustained release) 150 MG PO (09:03)
[2024-11-27] MEDS: DESENEX/MITRAZOL/ZEASORB 1 APPLIC TOPICAL (09:08)
--- NOTE | 2024-11-27 10:46 | CM ---
Reviewed the chart notes and spoke with the patient at the bedside. IMM reviewed. The patient has been accept at [facility] for today. No precert required. CM updated patient's daughter via telephone. Per daughter, patient's spinal Dr. Bronwyn Dhaliwal
wants PICC line to continue until they evaluate as an outpatient due to spinal abscess. TT to attending regarding PICC line. CM continues to be available to patient/family and is monitoring medical plan for needs at discharge.
Plan: Discharge to [facility] today.
Call report to: [phone]
Fax report to: [phone]
Medical necessity and transport forms on chart.
[2024-11-27] MEDS: FEOSOL 325 MG PO (12:07)
[2024-11-27 12:11] LABS: Glucose - Point of Care 165 mg/dl (70-99)
--- NOTE | 2024-11-27 14:23 | W.PN.HOSP.TC ---
Addendum entered and electronically signed by Trav Aguayo MD 11/30/24 16:10:
[id number]
More than 30 minutes spent in discharge including
Final examination of the patient
Summarizing hospital stay
Instructions for continuing care to all relevant caregivers
Preparation of discharge records, prescriptions, and referral forms
Total time spent (37 in minutes):
f/u with pcp, gi, ortho, ent outpt
Original Note:
Today's Communication/Plan
-
Awaiting DC, CM aware
Completing antibiotic course
Assessment / Plan
Assessment / Plan
#left femur fracture, markedly comminuted
-POD#4 retrograde femoral nail
-Continue TTWB LLE
-PT/OT
-ASA 325mg daily x 4 weeks for DVT ppx
-Dressings to remain if strikethrough contained, change prn
-ice/elevation/pain control
-[place] out at 2 weeks (SNF or office)
-If christine out at SNF outpatient Ortho follow-up in 4 weeks
#Dizziness with fall
-Possible BPPV,, was transient and associated with rotational movement during PT
-States she does have intermittent episodes of dizziness that are short in duration, not frequent
-PT/OT/case management for likely SNF
-ENT outpatient
#Hyponatremia
-mild
-ctm
#Chronic hypoxic respiratory failure
#Former smoker quit 40 years ago
-Chest x-ray showed compressive atelectasis, no acute findings of infection or PTX
-Currently requiring 2 to 3 L of supplemental oxygen, on and off at home
-Incentive spirometry ordered
-Wean oxygen for SpO2 goal >90%
#Chronic anemia
#Iron Deficiency Anemia
-start ferrous sulfate
-Unclear etiology, baseline hemoglobin in the range of 10-12 since September
-Trend CBC s/p nail
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
#L3 compression fracture
-Patient to finish IV daptomycin and IV Rocephin on 11/27/2023 via PICC line right upper arm per infectious disease
-anterior compression deformity of the L3 vertebral body with approximately 20% loss of height which is likely subacute or chronic.
-There is multilevel degenerative disc disease and facet arthropathy most pronounced at the L4-L5 and L5-S1 levels where it is moderate.
-Able to ambulate with cane
#T2DM
-Accu-Cheks with SSI
-Hold metformin at 1000 mg daily
-BG goal 140-180
#HTN�benign
-Home medications include lisinopril, amlodipine, metoprolol, HCTZ
-No known history of hypertensive systemic disease
-Blood pressure well-controlled prior to OR, may increase with pain
-HCTZ currently held, consider resuming on dc
#Chronic diastolic heart failure
-Appears euvolemic
#GERD
-Home medications include PPI
-No known history of erosive disease or Wasserman's esophagus
-Stable
#Depression
-Continue Wellbutrin
#Sleep apnea on CPAP
-CPAP nasal setting 16 mmHg
#Insomnia
-Continue trazodone
#Left breast ductal carcinoma in situ
#S/p lumpectomy
-due for 15 rounds of radiation
#Hepatomegaly seen on CT
-Likely LYLE
-Patient was to follow-up with PCP as outpatient with referral to GI
#H/O constipation
-Continue Colace twice daily, MiraLAX daily
-Dulcolax suppository as needed
#Vitamin D deficiency
-Continue vitamin D replacement
#Class III obesity�BMI 47.7 kg
-Weight loss recommended
-Low-fat 1800 ADA diet
VTE prophylaxis: ASA 325mg daily
CODE STATUS: Full code
Anticipated Discharge: Within 24 hours
Subjective/Interval History
-
Date of Service: November 27, 2024
No acute events
Objective Data
-
Labs:
Laboratory Results
11/27/24
05:44
WBC 7.0
Hgb 8.8 L
Hct 27.6 L
Plt Count 168
Sodium 135
Potassium 4.0
Chloride 102
Carbon Dioxide 24
BUN 28 H
Creatinine 0.9
Glucose 129 H
Calcium 9.0
Vital Signs:
Vital Signs
Temp Pulse Resp BP Pulse Ox
99.0 F 80 18 159/65 94
11/27/24 06:50 11/27/24 09:03 11/27/24 06:50 11/27/24 09:03 11/27/24 06:50
I&O
11/26/24 11/27/24 11/28/24
06:59 06:59 06:59
Intake Total 480 / 480 480 / 480
Output Total 580 / 580
Balance -100 / -100 480 / 480
Review of Systems
-
History Source: Patient
All other systems: Not reviewed unless documented
Physical Exam
-
General: Well Developed, Well Nourished, No Apparent Distress and Comfortable
HEENT: Normocephalic, Atraumatic, Moist Mucous Membranes and Anicteric
Respiratory: Clear to Auscultation and Non Labored Respirations
Cardiac: Regular Rhythm and S1/S2; Negative Murmur, Rub or Gallop
GI: Soft, Nontender, Nondistended and Normal Bowel Sounds
Musculoskeletal: No Clubbing, No Cyanosis and No Edema
Skin: Warm and Dry; Negative Rash
Neuro: AO x 3 and Nonfocal/Grossly Intact
Psych: Calm
Data Reviewed
-
Diagnostic Radiology: Report Reviewed by me
Ultrasound: Report Reviewed by me
Labs: Labs Reviewed by me and Discussed with Patient
[2024-11-27 15:40] VITALS: BP 121/70
--- NOTE | 2024-11-27 16:05 | W.DS.TRANS ---
DC Summary - [employer]
-
Discharge Instructions:
Discharge Diagnosis/Procedures #left femur fracture, markedly comminuted
Diet Diabetic, Carb Controlled,Low Cholesterol,Low
Fat
Activity As tolerated
Blood Work cbc, cmp in 3-5 days
Instructions:
Stand-Alone Forms:
Changes to Home Medications: Yes
Discharge Medications:
DC Medications w/original date entered in [facility]
gabapentin 600 mg tablet 900 mg PO BID Pain 03/01/14
trazodone 50 mg tablet 100 mg PO HS Mental Health/Anxiety 03/01/14
amlodipine 5 mg tablet (Norvasc) 5 mg PO DAILY Blood Pressure 07/08/24
bupropion HCl 150 mg tablet,12 hr sustained-release (Wellbutrin SR) 150 mg PO DAILY Mental Health/Anxiety 07/08/24
lisinopril 40 mg tablet 40 mg PO DAILY Blood Pressure 07/08/24
metformin 1,000 mg tablet 1,000 mg PO DAILY Diabetes 07/08/24
metoprolol tartrate 50 mg tablet (Lopressor) 50 mg PO BID Blood Pressure 07/08/24
pantoprazole 40 mg tablet,delayed release (Protonix) 40 mg PO DAILY GERD 07/08/24
cyanocobalamin (vitamin B-12) 1,000 mcg tablet 1,000 mcg PO DAILY Supplement 10/07/24
acetaminophen 500 mg tablet (Tylenol Extra Strength) 1,000 mg (2 x 500 mg) PO TID #0 tabs 10/17/24
cholecalciferol (vitamin D3) 50 mcg (2,000 unit) tablet 50 mcg PO DAILY #0 tabs 10/17/24
docusate sodium 100 mg capsule 100 mg PO BID #0 caps 10/17/24
phenylephrine 0.25 %-mineral oil 14 %-petrolatm 74.9 % rectal ointment (Hemorrhoidal(phenyleph-min oil-petrolat)) 1 applic [place] Q6HPRN PRN hemorrhoids #0 grams 10/17/24
polyethylene glycol 3350 17 gram oral powder packet 17 g PO DAILY #0 ea 10/17/24
bisacodyl 10 mg rectal suppository 10 mg AZ DAILYPRN PRN if MOM ineffective, give on day 5 of no BM 11/22/24
diclofenac sodium 1 % topical gel 4 g topical QID 11/22/24
hydrochlorothiazide 25 mg tablet 25 mg PO DAILY Fluid Retention/Swelling 11/22/24
magnesium hydroxide 400 mg/5 mL oral suspension (Milk of Magnesia) 2,400 mg PO DAILYPRN PRN if no bm on day 4 11/22/24
sodium phosphates 19 gram-7 gram/118 mL enema (Fleet Enema) 118 ml AZ DAILYPRN PRN if dulcolax ineffective, give on day 6 of no BM 11/22/24
therapeutic multivitamin 1 tab PO DAILY Supplement 11/22/24
ceftriaxone 2 gram solution for injection 2,000 mg IV Q24H Infection 11/23/24
lidocaine 4 % topical patch 1 patch topical DAILY Pain 11/23/24
aspirin 325 mg tablet 325 mg PO DAILY #0 tabs 11/27/24
ferrous sulfate 325 mg (65 mg iron) tablet (FeroSul) 325 mg PO Q48H #0 tabs 11/27/24
miconazole nitrate 2 % topical powder (Miconazorb AF) 1 applic topical BID #85 grams 11/27/24
Home Medication Changes
aspirin 325 mg tablet 325 mg PO DAILY #0 tabs 11/27/24
ferrous sulfate 325 mg (65 mg iron) tablet (FeroSul) 325 mg PO Q48H #0 tabs 11/27/24
miconazole nitrate 2 % topical powder (Miconazorb AF) 1 applic topical BID #85 grams 11/27/24
Pending Results: No
[2024-11-27 17:47] LABS: Glucose - Point of Care 114 mg/dl (70-99)
== END 2024-11-27 18:20 | DRG 480 ==
LOC: 2 SOUTH 20:26
PROVIDERS: Clinical Nurse Specialist Family Health; Physician Assistant; ADMITTING PHYSICIAN Hospitalist; ATTENDING PHYSICIAN Internal Medicine; CONSULT PHYSICIAN Orthopaedic Surgery Hand Surgery; EMERGENCY PHYSICIAN Emergency Medicine; FAMILY PHYSICIAN Family Medicine
PROC: 5A09357 Assistance with Respiratory Ventilation, Less than 24 Consecutive Hours, Continuous Positive Airway Pressure (ICD-10-PCS; 2024-11-22)
PROC: 30233N1 Transfusion of Nonautologous Red Blood Cells into Peripheral Vein, Percutaneous Approach (ICD-10-PCS; 2024-11-23)
PROC: 0QSC06Z Reposition Left Lower Femur with Intramedullary Internal Fixation Device, Open Approach (ICD-10-PCS; 2024-11-23)
DX: S72.452A Displaced supracondylar fracture without intracondylar extension of lower end of left femur, initial encounter for closed fracture (principal); G06.1 Intraspinal abscess and granuloma; Z68.42 Body mass index [BMI] 45.0-49.9, adult; G95.29 Other cord compression; M48.56XA Collapsed vertebra, not elsewhere classified, lumbar region, initial encounter for fracture; M97.12XA Periprosthetic fracture around internal prosthetic left knee joint, initial encounter; J96.11 Chronic respiratory failure with hypoxia; J98.11 Atelectasis; M47.16 Other spondylosis with myelopathy, lumbar region; E87.1 Hypo-osmolality and hyponatremia; I50.32 Chronic diastolic (congestive) heart failure; E78.00 Pure hypercholesterolemia, unspecified; E11.9 Type 2 diabetes mellitus without complications; F32.A Depression, unspecified; I11.0 Hypertensive heart disease with heart failure; G47.30 Sleep apnea, unspecified; D50.9 Iron deficiency anemia, unspecified; G47.00 Insomnia, unspecified; R16.0 Hepatomegaly, not elsewhere classified; E55.9 Vitamin D deficiency, unspecified; D05.12 Intraductal carcinoma in situ of left breast; K59.00 Constipation, unspecified; M60.9 Myositis, unspecified; M51.369 Other intervertebral disc degeneration, lumbar region without mention of lumbar back pain or lower extremity pain; M51.379 Other intervertebral disc degeneration, lumbosacral region without mention of lumbar back pain or lower extremity pain; E66.813 Obesity, class 3; R42 Dizziness and giddiness; K21.9 Gastro-esophageal reflux disease without esophagitis; W10.9XXA Fall (on) (from) unspecified stairs and steps, initial encounter; Y93.B9 Activity, other involving muscle strengthening exercises; Y92.531 Health care provider office as the place of occurrence of the external cause; Z87.891 Personal history of nicotine dependence; Z87.442 Personal history of urinary calculi; Z79.84 Long term (current) use of oral hypoglycemic drugs; Z79.891 Long term (current) use of opiate analgesic; Z87.440 Personal history of urinary (tract) infections; Z11.52 Encounter for screening for COVID-19; Z88.5 Allergy status to narcotic agent
CPT/HCPCS: 70450; 71045; 73552; 73560; 73700; 76000; 80048; 80053; 82728; 82962; 83540; 83550; 83880; 85025; 85610; 85730; 86850; 86900; 86901; 86920; 87070; 87811; 93005; 93970; 94660; 97110; 97163; 97167; 97530; 97535; 99285; J0878; P9016

== ENCOUNTER → 2024-12-15 08:38 | Outpatient (REF) | payer MEDICARE, OTHER, SELFPAY | LOC: MRI 3T 08:38 | PROVIDERS: ATTENDING PHYSICIAN Physician Assistant Medical; FAMILY PHYSICIAN Family Medicine | DX: M46.20 Osteomyelitis of vertebra, site unspecified (principal); C06.2 Malignant neoplasm of retromolar area | CPT/HCPCS: 72157; A9575 ==

== ENCOUNTER → 2024-12-16 11:32 | Outpatient (REF) | payer MEDICARE, OTHER, SELFPAY | LOC: MRI 3T 11:32 | PROVIDERS: ATTENDING PHYSICIAN Physician Assistant Medical; FAMILY PHYSICIAN Family Medicine | DX: M46.20 Osteomyelitis of vertebra, site unspecified (principal); C06.2 Malignant neoplasm of retromolar area | CPT/HCPCS: 72158; A9575 ==

== ENCOUNTER → 2024-12-22 13:38 | Outpatient (REF) | payer MEDICARE, OTHER, SELFPAY ==
[2024-12-22 15:04] LABS: % Basophils 0.9 % (0-2); % Eosinophils 6.2 % (0-6); % Immature Granulocytes 0.2 % (0-0.5); % Lymphocytes 29.8 % (20.5-51.1); % Monocytes 10.4 % (1.7-9.3); % Neutrophils 52.5 % (42.2-75.2); Absolute Eosinophils 0.3 10^3/uL (0-0.7); Absolute Lymphocytes 1.3 10^3/uL (1.2-3.4); Absolute Monocytes 0.5 10^3/uL (0.1-0.6); Absolute Neutrophils 2.3 10^3/uL (1.4-6.5); Hematocrit 33.7 % (37.0-47.0); Hemoglobin 10.6 g/dL (12.0-16.0); Mean Corp Hgb Conc. 31.5 g/dL (33.0-37.0); Mean Corpuscular Hgb 29.2 pg (27.0-31.0); Mean Corpuscular Volume 92.8 fL (81.0-99.0); Mean Platelet Volume 12.1 fL (7.4-10.4); Nucleated Red Blood Cells % 0 %; Platelet Count 162 10^3/uL (130-400); Red Blood Cell Count 3.63 10^6/uL (4.20-5.40); Red Cell Dist. Width 14.5 % (11.5-14.5); White Blood Cell Count 4.3 10^3/uL (4.8-10.8)
[2024-12-22 15:13] LABS: ALT (SGPT) 11 U/L (0-35); AST (SGOT) 19 U/L (14-36); Albumin 3.5 g/dl (3.5-5.0); Alkaline Phosphatase 107 U/L (38-126); Blood Urea Nitrogen 35 mg/dl (7-17); Calcium 9.7 mg/dl (8.4-10.2); Carbon Dioxide 29 mmol/L (22-30); Chloride 100 mmol/L (98-107); Glucose 112 mg/dl (70-99); Potassium 4.4 mmol/L (3.5-5.1); Sodium 138 mmol/L (135-145); Total Bilirubin 0.2 mg/dl (0.2-1.3); Total Protein 5.8 g/dl (6.3-8.2); eGFR 51.75
== END ==
LOC: OLABP 13:38
PROVIDERS: ATTENDING PHYSICIAN Family Medicine
DX: E11.40 Type 2 diabetes mellitus with diabetic neuropathy, unspecified (principal); I11.0 Hypertensive heart disease with heart failure; I50.30 Unspecified diastolic (congestive) heart failure
CPT/HCPCS: 36415; 80053; 85025

== ENCOUNTER → 2025-01-27 08:15 | Outpatient (REF) | payer OTHER, MEDICARE, SELFPAY ==
[2025-01-27 10:27] LABS: % Basophils 1.2 % (0-2); % Eosinophils 5.9 % (0-6); % Lymphocytes 33.8 % (20.5-51.1); % Monocytes 10.3 % (1.7-9.3); % Neutrophils 48.8 % (42.2-75.2); Absolute Basophils 0.1 10^3/uL (0-0.2); Absolute Eosinophils 0.3 10^3/uL (0-0.7); Absolute Lymphocytes 1.7 10^3/uL (1.2-3.4); Absolute Monocytes 0.5 10^3/uL (0.1-0.6); Absolute Neutrophils 2.5 10^3/uL (1.4-6.5); Hematocrit 33.1 % (37.0-47.0); Hemoglobin 10.8 g/dL (12.0-16.0); Mean Corp Hgb Conc. 32.6 g/dL (33.0-37.0); Mean Corpuscular Hgb 29.8 pg (27.0-31.0); Mean Corpuscular Volume 91.2 fL (81.0-99.0); Mean Platelet Volume 11.3 fL (7.4-10.4); Nucleated Red Blood Cells % 0 %; Platelet Count 184 10^3/uL (130-400); Red Blood Cell Count 3.63 10^6/uL (4.20-5.40); Red Cell Dist. Width 13.9 % (11.5-14.5); White Blood Cell Count 5.1 10^3/uL (4.8-10.8)
[2025-01-27 10:50] LABS: Blood Urea Nitrogen 39 mg/dl (7-17); Calcium 9.8 mg/dl (8.4-10.2); Carbon Dioxide 26 mmol/L (22-30); Chloride 101 mmol/L (98-107); Glucose 115 mg/dl (70-99); Potassium 4.3 mmol/L (3.5-5.1); Sodium 137 mmol/L (135-145); eGFR 51.75
== END ==
LOC: OLABP 08:15
PROVIDERS: ATTENDING PHYSICIAN Family Medicine
DX: E11.40 Type 2 diabetes mellitus with diabetic neuropathy, unspecified (principal); I11.0 Hypertensive heart disease with heart failure; I50.30 Unspecified diastolic (congestive) heart failure; N17.9 Acute kidney failure, unspecified; I42.8 Other cardiomyopathies; K75.81 Nonalcoholic steatohepatitis (NASH)
CPT/HCPCS: 36415; 80048; 85025

== ENCOUNTER 2025-04-03 23:57 | Inpatient (IN) | payer MEDICARE, OTHER, SELFPAY ==
[2025-04-03 20:16] VITALS: BP 142/56
[2025-04-03 20:29] VITALS: BP 142/56; BMI 43.3
[2025-04-03 20:40] LABS: % Basophils 0.2 % (0-2); % Eosinophils 0.1 % (0-6); % Immature Granulocytes 1.2 % (0-0.5); % Lymphocytes 2.3 % (20.5-51.1); % Monocytes 5.1 % (1.7-9.3); % Neutrophils 91.1 % (42.2-75.2); Absolute Immature Granulocytes 0.2 10^3/uL (0-0.05); Absolute Lymphocytes 0.4 10^3/uL (1.2-3.4); Absolute Monocytes 0.9 10^3/uL (0.1-0.6); Absolute Neutrophils 15.3 10^3/uL (1.4-6.5); Hematocrit 34.2 % (37.0-47.0); Hemoglobin 10.9 g/dL (12.0-16.0); Mean Corp Hgb Conc. 31.9 g/dL (33.0-37.0); Mean Corpuscular Hgb 29.4 pg (27.0-31.0); Mean Corpuscular Volume 92.2 fL (81.0-99.0); Mean Platelet Volume 11.7 fL (7.4-10.4); Nucleated Red Blood Cells % 0 %; Platelet Count 156 10^3/uL (130-400); Red Blood Cell Count 3.71 10^6/uL (4.20-5.40); Red Cell Dist. Width 13.3 % (11.5-14.5); Urine Albumin 3+ (Neg - Trace); Urine Bilirubin Negative (Negative); Urine Character Clear (Clear); Urine Color Yellow; Urine Glucose Negative (Negative); Urine Ketone Negative (Negative); Urine Leukocyte 2+ (Negative); Urine Nitrite Negative (Negative); Urine Occult Blood Negative (Negative); Urine Specific Gravity 1.005 (<1.030); Urine Urobilinogen Negative (Neg - 1+); White Blood Cell Count 16.7 10^3/uL (4.8-10.8)
[2025-04-03 20:53] LABS: COVID-19 Antigen Negative (Negative); Urine Red Blood Cell 0-2 /HPF (0-2); Urine Squamous Cell 0-2 /LPF (Few)
[2025-04-03 20:54] LABS: ALT (SGPT) 11 U/L (0-35); AST (SGOT) 22 U/L (14-36); Albumin 4.3 g/dl (3.5-5.0); Alkaline Phosphatase 79 U/L (38-126); Blood Urea Nitrogen 33 mg/dl (7-17); Calcium 9.7 mg/dl (8.4-10.2); Carbon Dioxide 25 mmol/L (22-30); Chloride 100 mmol/L (98-107); Estimated Creatinine Clearance 40 ml/min; Glucose 132 mg/dl (70-99); Lactic Acid 1.3 mmol/L (0.7-2.0); Potassium 4.1 mmol/L (3.5-5.1); Sodium 136 mmol/L (135-145); Total Bilirubin 0.8 mg/dl (0.2-1.3); Total Protein 6.6 g/dl (6.3-8.2); Urine Bacteria Many (Negative); Urine White Cell 30-40 /HPF (0-5); eGFR 35.67
[2025-04-03 21:00] VITALS: BP 129/55
[2025-04-03] MEDS: NSS 1000 IV (21:15)
[2025-04-03] MEDS: TYLENOL 1000 MG PO (21:17)
[2025-04-03 21:22] VITALS: BP 153/79
--- NOTE | 2025-04-03 21:32 | ED.GENMED ---
History of Present Illness
General
Chief Complaint: Fever
Source: patient and spouse
Time Seen by Provider: 04/03/25 20:17
History of Present Illness
History of Present Illness:
This is a 79-year-old female who presents with bodyaches and feeling restless. She also feels weak. She states she was slower to respond today. Denies cough. Just feels not quite herself. Did have a Tylenol arthritis this morning.
states that she was very weak. No abdominal pain. No cough. No back pain. No flank pain. No rash. No neck pain. No headache
Past History
Past History
ED Past Medical History: Cancer (breast), GERD, HTN, Hypercholesterolemia, NIDDM, Other (kidney stone) and Other
ED Past Surgical History: Orthopedic
Social History
Tobacco: Former smoker
Personal:
Living: with family
Phy Exam
Physical Exam
Physical Exam:
CONSTITUTIONAL Patient alert and oriented to person, place and time. Vital signs reviewed. Febrile
HEAD atraumatic, normocephalic.
EYES eyelids normal to inspection, Extraocular muscles intact, Conjunctiva normal, Sclera normal.
NECK normal range of motion, Trachea midline, no jugular venous distention.
RESPIRATORY CHEST No respiratory distress noted, Chest expansion equal, Bilateral breath sounds clear.
CARDIOVASCULAR regular rate and rhythm, Heart sounds normal.
ABDOMEN abdomen nontender, Bowel sounds normal. No distention.
BACK normal inspection, no obvious deformities
UPPER EXTREMITY range of motion normal, Motor strength normal, no cyanosis, no edema.
LOWER EXTREMITY range of motion normal, Motor strength normal, no cyanosis, no edema.
NEURO Speech normal, No focal motor deficits, Gisele coma scale 15, Memory normal, Cranial Nerves intact to screening exam.
SKIN skin warm, dry, and normal in color.
Sepsis
Sepsis Screening
Sepsis Assessment: Sepsis
Sepsis Screen
Sepsis Screen: Sepsis
Date: 04/04/25
Time: 02:32
Course
Orders/Labs/Results
Orders:
Orders
04/03/25 20:17
Electrocardiogram (*1) Urgent
Reason for Study: Other
Other Reason for Exam: Possible Sepsis
Cardiac Monitoring- Treatment ONCE
EKG- Treatment ONCE
IV Insert/Care/Rem.- Treatment PRN
Straight cath- Treatment ONCE
CR Chest - 2 Views Urgent
Comment:
Reason For Exam: suspected infection
O2 Therapy [RESP] Urgent
Titrate/Wean O2 to maintain O2 sat greater than (%): 93
Special Instructions: TO MAINTAIN CONTINUOUS O2 SATS > OR = 93%
Pulse Ox/cont/shift [RESP] Urgent
Quantity: 1
Special Instructions: CONTINUOUS
04/03/25 20:30
COVID-19 Antigen Urgent
Source: Nasal Swab
Complete Blood Count/With Diff Urgent
Comprehensive Metabolic Panel Urgent
Lactic Acid Q4H
Comment: ON ICE, CANCEL 2ND ORDER IF FIRST LACTIC ACID LEVEL <2
Urinalysis Reflex To Culture Urgent
Date Specimen was Collected: 04/03/25
Time Specimen was Collected: 20:17
Urine Microscopic Reflex Cult Urgent
Blood Culture Q20M
[place] Source: Blood/Venous
Specimen Description:
Comment: Urgent from separate sites. If patient screens positive for possible sepsis
Urine Culture Urgent
[place] Source: U
Specimen Description:
Date Specimen was Collected: 04/03/25
Time Specimen was Collected: 20:17
04/03/25 20:43
Blood Culture Q20M
[place] Source: Blood/Venous
Specimen Description:
Comment: Urgent from separate sites. If patient screens positive for possible sepsis
Influenza A+B Rapid Molecular Urgent
[place] Source: Nasal Swab
Specimen Description:
04/03/25 21:01
0.9% Sodium Chloride 1000 ml [Nss] 1,000 ml IV BOLUS
Acetaminophen [Tylenol] 1,000 mg PO NOW STA
04/03/25 21:18
Acetaminophen [Tylenol] 1,000 mg .ROUTE .STK-MED ONE
04/03/25 21:31
Piperacillin/Tazo 4.5 Gram [Zosyn] 4.5 gram in 100 ml IV NOW
04/03/25 22:36
Vancomycin [Vancocin] 2,000 mg 0.9% Sodium Chloride 500 ml [Nss] 500 ml IV NOW
04/03/25 23:00
Flush (0.9% Sodium Chloride) [Flush (Nss)] See Dose Instructions IV PER PROTOCOL
04/03/25 23:39
Admit/Transfer Patient As Directed
Co-Sign Provider:
Level of Care: Inpatient admission
Assign to:: Medical/Surgical
Physician / Group: Judith
Diagnosis: sepsis
Reason for Hospitalization: UTI/sepsis
Expected length of stay greater than two midnights?: Yes
ELOS- Estimated Length of Stay in days: 2
I certify the patient meets the requirements for IP care: Yes
PRN Pain Medication Management As Directed
May give lesser potent ordered pain med per pt: Yes
preference::
Protocol:: Medication orders for pain may be administered in a
manner that supports deferring to patient preference
when the pt is:
- Requesting an ordered lesser potent pain medication.
Least to most potent pain medications are defined
as: acetaminophen < NSAID < tramadol < opioids
(morphine, oxycodone, hydromorphone).
- Requesting a lesser dose of the same medication IF
ORDERED.
- Requesting a less intrusive route of administration
if both routes are prescribed by the provider (PO <
IV).
04/03/25 23:41
Code Status As Directed
Resuscitation Status: Full Code
04/04/25 01:18
Acetaminophen [Tylenol] 650 mg PO Q4HPRN PRN
Lactated Ringers [Lr] 1,000 ml IV 75 mls/hr
Phenyleph/Mineral Oil/Petrolat [Preparation H Ointment] 1 applic RECTAL Q6HPRN PRN
04/04/25 01:18
MRSA Screen Routine
[place] Source: Throat/Pharynx
Specimen Description:
Activity As Directed
Activity Level: With Assistance
Vital Signs As Directed
Frequency: Per unit guidelines
Rx Incentive Spirometry [RESP] Routine
Frequency: q1h while awake
DX Deep Vein Thrombosis Video Routine
04/04/25 06:00
Basic Metabolic Panel IN AM
Complete Blood Count/No Diff IN AM
Magnesium IN AM
CefTRIAXone [Rocephin] 2,000 mg IV Q24H
04/04/25 08:00
Amlodipine [Norvasc] 5 mg PO DAILY
Aspirin 325 mg PO DAILY
Gabapentin [Neurontin] 900 mg PO BID
Heparin 5,000 units SC Q8
Lidocaine [Lidocaine 4% Patch] 1 patch TOPICAL DAILY
Apply Lidocaine patch(s) to:: lateral left hip
Metoprolol [Lopressor] 50 mg PO BID
Pantoprazole [Protonix] 40 mg PO DAILY
Polyethylene Glycol Powder [Miralax] 17 grams PO DAILY
04/04/25 Dinner
Regular
At Your Request: Full Participation
Abnormal Lab Results
04/03/25
20:30
WBC 16.7 H 10^3/uL
(4.8-10.8)
RBC 3.71 L 10^6/uL
(4.20-5.40)
Hgb 10.9 L g/dL
(12.0-16.0)
Hct 34.2 L %
(37.0-47.0)
MCHC 31.9 L g/dL
(33.0-37.0)
MPV 11.7 H fL
(7.4-10.4)
Abs Immat Gran (auto) 0.2 H 10^3/uL
(0-0.05)
Absolute Neuts (auto) 15.3 H 10^3/uL
(1.4-6.5)
Absolute Lymphs (auto) 0.4 L 10^3/uL
(1.2-3.4)
Absolute Monos (auto) 0.9 H 10^3/uL
(0.1-0.6)
Immature Gran % 1.2 H %
(0-0.5)
Neutrophils % 91.1 H %
(42.2-75.2)
Lymphocytes % 2.3 L %
(20.5-51.1)
BUN 33 H mg/dl
(7-17)
Creatinine 1.5 H mg/dL
(0.6-1.0)
Glucose 132 H mg/dl
(70-99)
Leukocyte Esterase Rfl 2+ A
(Negative)
Urine WBC (Reflex) 30-40 A /HPF
(0-5)
Urine Bacteria (Reflex) Many A
(Negative)
Urine Albumin (Reflex) 3+ A
(Neg - Trace)
04/03/25 20:30
04/03/25 20:30
Vital Signs
Initial and Last Documented VS:
Initial Vital Signs
Resp BP
26 142/56
04/03/25 20:16 04/03/25 20:16
Last Documented Vital Signs
Temp Pulse Resp BP Pulse Ox
99 F 90 19 132/53 96
04/04/25 00:00 04/04/25 01:00 04/04/25 00:00 04/04/25 01:00 04/04/25 00:00
MDM/Problems Addressed
Differential Diagnosis Includes:
Pneumonia, viral syndrome, sepsis, bacteremia, UTI, infected kidney stone
MDM/Problems Addressed:
Urinary tract infection
*Radiology
Radiology exam reviewed: all reviewed NAD by ED Provider
*Pulse Oximetry
Patient hypoxic: no
*EKG
Interpreted by ED Provider?: Yes
Interpretation: abnormal
Rate: normal
Rhythm: sinus
[place]: normal axis
Ischemia: non-specific ST changes
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
Rate: normal
Interpretation: normal
Rhythm: sinus
*Critical Care Note
Total Time (30-74mins, 75-104mins- exclusive of procedures): Not Applicable
Data Reviewed
Review of Other/Old Records Reveals: Labs (Per microbiology reveals E. coli history in her urine)
Source: patient
Further Testing Considered But Not Given:
Consider CT abdomen pelvis but no flank pain or abdominal pain
Patient Management
Discussion with other providers: Hospitalist
Escalation/DeEscalation of care consider admission/obs:
Presents with fever. Found to have suspected UTI. Await culture. Blood culture sent. IV fluids and broad-spectrum antibiotics. Admit
ED Attending Note
-
Portions of this chart may have been created with voice recognition software.� Occasional wrong word or��sound alike� substitutions may have occurred due to the inherent limitations of voice recognition software.
Discharge Plan
Departure
Patient Disposition: Admit
Date of Disposition: 04/03/25
Time of Disposition: 21:33
Admit to: Telemetry
Presentation/result/management discussed w/ accepting MD/DO: Hospitalist
Discharge Problem:
Sepsis, Acute UTI, CHELSI (acute kidney injury)
Interventions
Interventions:
*Risk Screen - Suicide Last Done: 04/03/25 20:29
*General Assessment Last Done: 04/03/25 20:29
*Neglect/Abuse Screening Last Done: 04/03/25 20:29
*ED COVID-19 Vaccine History Last Done: 04/03/25 20:29
ED- Neurological Assessment Last Done: 04/03/25 21:00
ED-Skin Assessment Last Done: 04/03/25 21:00
[2025-04-03 22:00] VITALS: BP 130/62
[2025-04-03] MEDS: ZOSYN 100 IV (22:22)
[2025-04-03 23:00] VITALS: BP 118/53
--- NOTE | 2025-04-03 23:33 | HPS.HSE ---
Family Physician
-
Family Physician: Steven Reardon MD
Chief Complaint
-
Fever
History of Present Illness
Is a 79-year-old with past medical history significant for hypertension, hyperlipidemia, pew-iygmijk-eytnwpqor diabetes, who presents to the emergency department from home after being found to be slower to respond than usual.
Patient reports having severe chills at home all of a sudden. She denies any cough. She denies feeling short of breath at home. She denies abdominal pain nausea vomiting or diarrhea. She denies any urinary symptoms. She denies any rash. She
denies any joint swelling. She denies any recent hospitalization or use of antibiotics. Family reports that she was slower to respond than usual. They called EMS and on arrival in the emergency department she was febrile to 102.
Rest of her vitals were stable with a blood pressure of 118/83 pulse of 94 and she was satting 94% on 2L. Currently temp is 100 after treatment. ECG was nonischemic.
She has a white count of 16.7, hemoglobin and platelets are normal. Electrolytes were normal. BUN/creatinine was slightly elevated with creatinine of 1.5 up from baseline of 1.1. Glucose was normal.
Chest x-ray was clear. COVID was negative, flu was negative. UA was markedly positive.
Medical History
Past Medical History
Past Medical History: Reports Other
Additional Past Medical History:
hypertension
hyperlipidemia
type 2 diabetes
GERD
depression
sleep apnea
insomnia
left breast ductal carcinoma in situ
Past Surgical History: Reports Other
Additional Past Surgical History:
left breast lumpectomy (08/29/2024)
Social History
Tobacco: Former Smoker (quit 40 years ago)
Alcohol: Occasional (rare, 3 drinks a year)
Drug: None
Personal:
Living: With Family
Employment: Retired
Family History
Family History: Not pertinent
Allergies / Home Medications
Allergies reflects when Allergies were last updated in [facility].
Home Medications with original date entered in [facility]
Allergy/Medication List:
Allergies
Allergy/AdvReac Type Severity Reaction Status Date / Time
codeine Allergy Nausea,headache, Verified 11/22/24 16:42
dizzy
morphine Allergy stopped Verified 11/22/24 16:42
breathing
Home Medications
gabapentin 600 mg tablet 900 mg PO BID Pain 03/01/14
trazodone 50 mg tablet 100 mg PO HS Mental Health/Anxiety 03/01/14
amlodipine 5 mg tablet (Norvasc) 5 mg PO DAILY Blood Pressure 07/08/24
lisinopril 40 mg tablet 40 mg PO DAILY Blood Pressure 07/08/24
metformin 1,000 mg tablet 1,000 mg PO DAILY Diabetes 07/08/24
metoprolol tartrate 50 mg tablet (Lopressor) 50 mg PO BID Blood Pressure 07/08/24
pantoprazole 40 mg tablet,delayed release (Protonix) 40 mg PO DAILY GERD 07/08/24
cyanocobalamin (vitamin B-12) 1,000 mcg tablet 1,000 mcg PO DAILY Supplement 10/07/24
acetaminophen 500 mg tablet (Tylenol Extra Strength) 1,000 mg (2 x 500 mg) PO TID #0 tabs 10/17/24
cholecalciferol (vitamin D3) 50 mcg (2,000 unit) tablet 50 mcg PO DAILY #0 tabs 10/17/24
phenylephrine 0.25 %-mineral oil 14 %-petrolatm 74.9 % rectal ointment (Hemorrhoidal(phenyleph-min oil-petrolat)) 1 applic [place] Q6HPRN PRN hemorrhoids #0 grams 10/17/24
polyethylene glycol 3350 17 gram oral powder packet 17 g PO DAILY #0 ea 10/17/24
diclofenac sodium 1 % topical gel 4 g topical QID 11/22/24
hydrochlorothiazide 25 mg tablet 25 mg PO DAILY Fluid Retention/Swelling 11/22/24
therapeutic multivitamin 1 tab PO DAILY Supplement 11/22/24
lidocaine 4 % topical patch 1 patch topical DAILY Pain 11/23/24
aspirin 325 mg tablet 325 mg PO DAILY #0 tabs 11/27/24
ferrous sulfate 325 mg (65 mg iron) tablet (FeroSul) 325 mg PO Q48H #0 tabs 11/27/24
miconazole nitrate 2 % topical powder (Miconazorb AF) 1 applic topical BID #85 grams 11/27/24
Review of Systems
-
History Source: Patient
Constitutional: Reports Chills
EENT: Reports No Symptoms
Respiratory: Reports No Symptoms
Cardiac: Reports No Symptoms
Abdomen/GI: Reports No Symptoms
: Reports No Symptoms
Musculoskeletal: Reports No Symptoms
Skin: Reports No Symptoms
Neurological: Reports No Symptoms
Endocrine: Reports No Symptoms
Hematologic/Lymphatic: Reports No Symptoms
Psych: Reports No Symptoms
Physical Exam
Vital Signs
Vital Signs
Temp Pulse Resp BP Pulse Ox
100.0 F 94 27 118/53 94
04/03/25 22:37 04/03/25 23:00 04/03/25 23:00 04/03/25 23:00 04/03/25 23:00
Physical Exam
General: Well Developed, Well Nourished and No Apparent Distress
HEENT: NormoCephalic, Anicteric, Moist mucous membranes, Atraumatic, PERRLA and Oxygen
Respiratory: Crackles (left basal)
Cardiac: S1/S2
Breast: Deferred by me
GI: Soft, Non Tender, Non Distended and Normal Bowel Sounds
Rectal: Deferred by Provider
Genito-urinary: Deferred by me
Musculoskeletal: No Clubbing, No Cyanosis and No Edema
Skin: Warm
Neuro: AO x 3 and Nonfocal/grossly intact
Hematologic/Lymphatic: No Lymphadenopathy
Psych: Calm
Laboratory Results
-
04/03/25 20:30
04/03/25 20:30
Laboratory Results
Lactic Acid 1.3 mmol/L (0.7-2.0) 04/03/25 20:30
Total Bilirubin 0.8 mg/dl (0.2-1.3) 04/03/25 20:30
AST 22 U/L (14-36) 04/03/25 20:30
ALT 11 U/L (0-35) 04/03/25 20:30
Alkaline Phosphatase 79 U/L (38-126) 04/03/25 20:30
Data Reviewed
-
Diagnostic Radiology: Image Personally Visualized and interpreted and Report Reviewed by me
Medical Tests (Nuc Med, Echo, EKG etc): Image Personally Visualized and interpreted
Lab Data: Labs Reviewed by me
Old Records: Reviewed
Impression/Plan
-
IMPRESSION:
79 y.o female with multiple commorbidities here with UTI/sepsis, CHELSI and confusion. Now A&Ox3 after treatment of fever. Admitting for UTI.
PLAN:
1. Sepsis - Sepsis from UTI. H/O pyelo with bacteremia in the past. Cannot rule out pna entirely.
- admit to med/surg
- blood and urine cultures sent
- mrsa swab
- IV ceftriaxone continued for broad coverage, monitor for now
- IV fluids
- incentive spirometry
2. DM II
- hold metfomrin
- sliding scale insulin
3. CHELSI - Mild CHELSI
- IV fluids as above
- hold lisinoril for now, hold hctz
4. HTN
- holding acei and diuretic
- continue amlodipine with hold parameters
- continue metoprolol
DVT PPx - heparin sq
Code status - full code
[2025-04-04] VITALS: BP 133/97
[2025-04-04] MEDS: VANCOCIN 540 MG IV (00:17)
[2025-04-04] MEDS: FLUSH (NSS) 1 FLUSH IV (00:17)
[2025-04-04 01:00] VITALS: BP 132/53
[2025-04-04] MEDS: LR 1000 IV (02:15)
[2025-04-04] MEDS: DESYREL 50 MG PO (02:15)
[2025-04-04] MEDS: STERILE WATER FOR INJECTION 20 ML IV (06:14)
[2025-04-04] MEDS: TYLENOL 650 MG PO ×2 (06:14→20:36)
[2025-04-04] MEDS: ROCEPHIN 2000 MG IV (06:14)
[2025-04-04 06:29] LABS: Hematocrit 31.1 % (37.0-47.0); Hemoglobin 10.2 g/dL (12.0-16.0); Mean Corp Hgb Conc. 32.8 g/dL (33.0-37.0); Mean Corpuscular Hgb 29.4 pg (27.0-31.0); Mean Corpuscular Volume 89.6 fL (81.0-99.0); Mean Platelet Volume 10.9 fL (7.4-10.4); Platelet Count 123 10^3/uL (130-400); Red Blood Cell Count 3.47 10^6/uL (4.20-5.40); Red Cell Dist. Width 13.2 % (11.5-14.5); White Blood Cell Count 18.2 10^3/uL (4.8-10.8)
[2025-04-04 06:50] LABS: Blood Urea Nitrogen 31 mg/dl (7-17); Carbon Dioxide 23 mmol/L (22-30); Chloride 104 mmol/L (98-107); Estimated Creatinine Clearance 47 ml/min; Glucose 114 mg/dl (70-99); Magnesium 1.5 mg/dl (1.6-2.3); Potassium 4.3 mmol/L (3.5-5.1); Sodium 137 mmol/L (135-145); eGFR 42.35
[2025-04-04 07:09] VITALS: BP 115/96
--- NOTE | 2025-04-04 09:35 | W.PN.HOSP.TC ---
Today's Communication/Plan
-
Antibiotics.
Assessment / Plan
Assessment / Plan
Physical exam:
General: Well Developed, Well Nourished and No Apparent Distress
HEENT: Normocephalic, Atraumatic and Moist Mucous Membranes
Respiratory: Clear to Auscultation; Negative Wheezes, Rales or Rhonchi
Cardiac: Regular Rhythm and S1/S2
GI: Soft, Nontender and Nondistended
Musculoskeletal: No Clubbing, No Cyanosis and No Edema
Neuro: Awake, Alert and Oriented
Psych: Calm
A/P:
Sepsis due to presumed UTI:
Continue IV ceftriaxone
Stop IV fluids and reeval
Follow-up urine culture
Follow-up blood cultures
PT eval
Hypoxia:
Repeat blood gas, chest x-ray
Obtain BNP, LE Doppler
Does not appear in respiratory distress
On review of her records she probably has chronic hypoxic oxygen dependent-will request more information about it
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
Likely related to current infection but rule out other etiologies
Monitor mental status closely
Obtain CT of the head
CHELSI:
On IV fluids-discontinue for now and reevaluate
Repeat renal function in a.m.
Hypomagnesemia:
Replete and trend
Chronic diastolic congestive heart failure:
Check BNP
Repeat chest x-ray
Obstructive sleep apnea:
Continue CPAP at nighttime
Hypertension:
Holding some antihypertensives
Diabetes mellitus type 2:
Insulin sliding scale
History of breast cancer in the past:
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
History of epidural abscess in the past
DVT prophylaxis:
Heparin SQ
CODE STATUS:
Full code
Total time spent on today's encounter was 52 minutes which included time spent in counseling the patient/family regarding diagnosis and treatment plan as listed above, goals of care, and symptom management. Case was discussed with nursing staff,
specialists, and care coordinators/case management. All labs and imaging personally reviewed by me. Remainder the time spent in detailed review of previous records, lab data, imaging, and other medical provider documentation.
Anticipated Discharge: > 48 hours
Subjective/Interval History
-
Date of Service: April 04, 2025
Patient is more alert today. She is still with supplemental oxygen. Denies shortness of breath or cough. Denies chest pain. Afebrile
Objective Data
-
Labs:
Laboratory Results
04/04/25
06:05
WBC 18.2 H
Hgb 10.2 L
Hct 31.1 L
Plt Count 123 L D
Sodium 137
Potassium 4.3
Chloride 104
Carbon Dioxide 23
BUN 31 H
Creatinine 1.3 H
Glucose 114 H
Calcium 9.0
Vital Signs:
Vital Signs
Temp Pulse Resp BP Pulse Ox
100.1 F 86 24 115/96 91
04/04/25 07:09 04/04/25 07:09 04/04/25 07:09 04/04/25 07:09 04/04/25 07:12
[2025-04-04] MEDS: MIRALAX PO (10:03)
[2025-04-04] MEDS: MAGNESIUM SULFATE 50 IV (10:06)
[2025-04-04] MEDS: PROTONIX 40 MG PO (10:07)
[2025-04-04] MEDS: NORVASC 5 MG PO (10:07)
[2025-04-04] MEDS: LOPRESSOR 50 MG PO ×2 (10:07→20:32)
[2025-04-04] MEDS: NEURONTIN 900 MG PO ×2 (10:07→20:32)
[2025-04-04] MEDS: HEPARIN 5000 UNITS SC (10:08)
[2025-04-04] MEDS: ASPIRIN 325 MG PO (10:08)
[2025-04-04 11:19] VITALS: BP 127/60
[2025-04-04 13:18] LABS: B.E. -1.3 mmol/L; O2 Saturation % 93.8 % (94-98); PCO2 31 mmHg (32-35); PO2 61 mmHg (83-108); pH 7.46 (7.35-7.45)
[2025-04-04 13:32] LABS: NT-proBNP 15200 pg/ml
[2025-04-04] MEDS: LASIX 40 MG IV (14:11)
[2025-04-04] MEDS: DESENEX/MITRAZOL/ZEASORB 1 APPLIC TOPICAL ×2 (14:13→20:33)
[2025-04-04 15:50] VITALS: BP 108/53
[2025-04-04 16:44] VITALS: BP 131/50
[2025-04-04 16:47] VITALS: BMI 42.7
--- NOTE | 2025-04-04 17:42 | PTCARENOTE ---
Metal Drawer advised me to call [facility]. I called hotline [phone]. Louisa Jay is who i spoke to . I provided her with all the information and she will send infomration to [facility]
[2025-04-04 18:44] LABS: Glucose - Point of Care 125 mg/dl (70-99)
--- NOTE | 2025-04-04 19:00 | W.PN.UPDATE ---
Update Note
Progress Note Update
ACCOUNT SUPPORT ANALYST called for respiratory distress.
Pt appears dyspneic, using accessory muscle to breath.
On exam, breath sound decreased, crackles noted. Pt is AOX3, and confirmed for intubation in case resp function worsens.
CXR from 1 pm today noted Mild interstitial prominence suggestive of mild pulmonary vascular congestion.
Will order stat IV lasix 60 mg x1 dose (given at 3 west).
Check repeat CXR.
Pt placed on BIPAP.
Check ABG
Upgrade to ICU.
NPO for current BIPAP and in case need for intubation.
Daughter updated on the phone.
CC time 30 min
--- NOTE | 2025-04-04 19:16 | RR ---
A Rapid Response was called on this patient, please see Rapid Response form.
Arrived bedside, tachypneic, poor 02 saturation, on home bipap unit, very restless, Hypertensive, visual distress noted. Not responding to home nasal bipap unit. Transitioned to house bipap unit 12/6 15L saturation improved, mentating appropriately.
60 IVP lasix given, tfx to ICU for NIV.
[2025-04-04] MEDS: LASIX 60 MG IV (19:49)
--- NOTE | 2025-04-04 20:02 | PTCARENOTE ---
PCT came out of room asking me to come in to see patient. patient was complaining of chest pain midsternal that radiated to jaw 10. At same time BP RUE 212/110 automatic and LUE manual 222/110, pt with labored breathing, abdominal muscle use,
conversational SOB, HALEY, Dyspnic at rest, RR 38-42, pulse ox on 2 liters was 78% -82%, pt with audible coarse rales that could be heard at doorway, . Rapid response called melvina, Oxygen increased to 10 Liters nc, respiratory called and placed
patient on Bipap, BS check 111, HOb elevated to 90 degrees, EKG obtained sinus tachy, Critical care team came, came ordered 60 mg iv lasix which was given STAT, and transfered to ICU melvina , report called.
[2025-04-04 20:04] LABS: Lactic Acid 3.9 mmol/L (0.7-2.0)
[2025-04-04 20:09] LABS: PT 14.5 Sec (11.4-14.6)
[2025-04-04 20:10] LABS: APTT 33.5 Sec (23.4-35.0)
[2025-04-04 20:13] LABS: Urine Sodium 131 mmol/L (30-90)
[2025-04-04 20:14] LABS: B.E. -1.5 mmol/L; HCO3 22.8 mmol/L (21-28); Ionized Calcium 1.21 mMOL/L (1.15-1.33); PCO2 36 mmHg (32-35); PO2 128 mmHg (83-108); Potassium 3.4 mMOL/L (3.5-5.1); Sodium 130 mMOL/L (136-145); pH 7.41 (7.35-7.45)
[2025-04-04 20:15] LABS: Blood Urea Nitrogen 34 mg/dl (7-17); Calcium 8.8 mg/dl (8.4-10.2); Carbon Dioxide 25 mmol/L (22-30); Chloride 99 mmol/L (98-107); Estimated Creatinine Clearance 40 ml/min; Glucose 181 mg/dl (70-99); Magnesium 1.7 mg/dl (1.6-2.3); Potassium 3.6 mmol/L (3.5-5.1); Sodium 135 mmol/L (135-145); eGFR 35.67
[2025-04-04] MEDS: HEPARIN SC (20:29)
--- NOTE | 2025-04-04 23:02 | W.PN.UPDATE ---
Update Note
Progress Note Update
Gabapentin dose reduced to 400 mg BID, due to CHELSI.
--- NOTE | 2025-04-04 23:04 | PTCARENOTE ---
patient arrived as a rapid response from 3W, patient arrived short of breath, elevated HR and SBP, confused and restless. patient placed on NIV with bipap settings 18/6 with 75% - labs drawn, cannon placed with initial drop of 800 ml of clear yellow
urine (s/p 60 of lasix on 3w)
lung sound coarse and with exp wheezing. abdomen obese/soft and non tender, no c/o pain or discomfort.
--- NOTE | 2025-04-04 23:06 | PTCARENOTE ---
patient resting comfortably, more awake and alert, patient much less confused can answer questions appropriately, patient states she feels much better. no new orders from recent labs, patient remain pain free, tolerating NIV, cannon continues to be
patent for clear yellow urine.
[2025-04-04 23:39] LABS: Glucose - Point of Care 143 mg/dl (70-99)
[2025-04-05] VITALS (49 sets, daily range): BP systolic 84–160; BP diastolic 41–97; PULSE 76; BMI 41.8
[2025-04-05] MEDS: HEPARIN 5000 UNITS SC ×3 (00:14→17:10)
[2025-04-05] MEDS: LEVOPHED 250 IV (00:23)
--- NOTE | 2025-04-05 01:20 | PTCARENOTE ---
pt map <60, 55-57, spoke with peyton wasserman, patient started on Levo @ 2, titrated to 4 now currently MAP is 65-67
[2025-04-05 04:59] LABS: % Basophils 0.4 % (0-2); % Eosinophils 0.3 % (0-6); % Immature Granulocytes 0.5 % (0-0.5); % Lymphocytes 7.3 % (20.5-51.1); % Monocytes 2.9 % (1.7-9.3); % Neutrophils 88.6 % (42.2-75.2); Absolute Basophils 0.1 10^3/uL (0-0.2); Absolute Eosinophils 0.1 10^3/uL (0-0.7); Absolute Immature Granulocytes 0.1 10^3/uL (0-0.05); Absolute Lymphocytes 1.2 10^3/uL (1.2-3.4); Absolute Monocytes 0.5 10^3/uL (0.1-0.6); Absolute Neutrophils 14.3 10^3/uL (1.4-6.5); Hematocrit 30.4 % (37.0-47.0); Hemoglobin 10.1 g/dL (12.0-16.0); Mean Corp Hgb Conc. 33.2 g/dL (33.0-37.0); Mean Corpuscular Hgb 29.7 pg (27.0-31.0); Mean Corpuscular Volume 89.4 fL (81.0-99.0); Mean Platelet Volume 11.6 fL (7.4-10.4); Nucleated Red Blood Cells % 0 %; Platelet Count 138 10^3/uL (130-400); Red Cell Dist. Width 13.4 % (11.5-14.5); White Blood Cell Count 16.1 10^3/uL (4.8-10.8)
[2025-04-05 05:09] LABS: Lactic Acid 1.1 mmol/L (0.7-2.0)
[2025-04-05 05:11] LABS: Blood Urea Nitrogen 37 mg/dl (7-17); Calcium 9.2 mg/dl (8.4-10.2); Carbon Dioxide 27 mmol/L (22-30); Chloride 101 mmol/L (98-107); Estimated Creatinine Clearance 38 ml/min; Glucose 146 mg/dl (70-99); Magnesium 1.8 mg/dl (1.6-2.3); Potassium 3.4 mmol/L (3.5-5.1); Sodium 137 mmol/L (135-145); eGFR 33.01
[2025-04-05] MEDS: KCL 40 MEQ PO (05:32)
[2025-04-05] MEDS: ROCEPHIN 2000 MG IV (05:32)
[2025-04-05] MEDS: STERILE WATER FOR INJECTION 20 ML IV (05:33)
[2025-04-05 05:34] LABS: Glucose - Point of Care 124 mg/dl (70-99)
--- NOTE | 2025-04-05 07:09 | CON.INTV ---
Consultation
Consultation Request
Date/Time Consultation Requested: 04/04/2025
Date/Time Consultation Performed: 04/05/2025
Requesting Provider: Antonietta Siu
Performing Provider: Marcos Salinas
Reason for Consultation: Hypoxia
Medical History
-
Chief Complaint: Weakness
History of Present Illness:
Patient is a 79-year-old female who initially presented to emergency department on 04/03 with chief complaint of generalized weakness and feeling slower than usual. Workup in the emergency room showed load great temperature elevated white count,
mild CHELSI as well as a positive urinalysis. Initial chest x-ray on admission was unremarkable. She was admitted to the hospital with primary diagnosis of sepsis with underlying urinary tract infection and mild CHELSI. She was started on antibiotic,
ceftriaxone along with IV fluids and admitted to the hospitalist service.
04/04, she was noted to be mildly hypoxic and had a chest x-ray performed in the morning which showed mild pulmonary congestion. Later in the day patient developed some respiratory distress, shortness of breath with accessory muscle use and was
placed on BiPAP and transferred to ICU. Repeat imaging showed dense right upper lobe infiltrate concerning for right upper lobe pneumonia along with increased pulmonary vascular congestion. She was also given Lasix and in the ICU she required
brief pressor support as well as BiPAP support. Technology Coordinator consult was requested for further input.
Patient improved significantly overnight with diuresis and brief BiPAP support, now on 6 L oxygen.
Past Medical History: Reports Other
Additional Past Medical History:
hypertension
hyperlipidemia
type 2 diabetes
GERD
depression
sleep apnea
insomnia
left breast ductal carcinoma in situ
Past Surgical History: Reports Other
Additional Past Surgical History:
left breast lumpectomy (08/29/2024)
Social History
Tobacco: Former Smoker (quit 40 years ago)
Alcohol: Occasional (rare, 3 drinks a year)
Drug: None
Personal:
Living: With Family
Employment: Retired
Family History
Family History: Not pertinent
Allergies / Home Medications
Allergies / Home Medications
Allergies
Allergy/AdvReac Type Severity Reaction Status Date / Time
codeine Allergy Nausea,headache, Verified 11/22/24 16:42
dizzy
morphine Allergy stopped Verified 11/22/24 16:42
breathing
Home Medications
�Medication �Instructions �Recorded �Confirmed �Last Taken �Type
gabapentin 600 mg tablet 900 mg PO BID Pain 03/01/14 04/03/25 10/06/24 History
trazodone 50 mg tablet 100 mg PO HS Mental Health/Anxiety 03/01/14 04/03/25 10/06/24 History
amlodipine 5 mg tablet (Norvasc) 5 mg PO DAILY Blood Pressure 07/08/24 04/03/25 10/06/24 History
lisinopril 40 mg tablet 40 mg PO DAILY Blood Pressure 07/08/24 04/03/25 10/06/24 History
metformin 1,000 mg tablet 1,000 mg PO DAILY Diabetes 07/08/24 04/03/25 10/06/24 History
metoprolol tartrate 50 mg tablet 50 mg PO BID Blood Pressure 07/08/24 04/03/25 10/06/24 History
(Lopressor)
pantoprazole 40 mg tablet,delayed 40 mg PO DAILY GERD 07/08/24 04/03/25 10/06/24 History
release (Protonix)
cyanocobalamin (vitamin B-12) 1,000 mcg PO DAILY Supplement 10/07/24 04/03/25 Unknown History
1,000 mcg tablet
acetaminophen 500 mg tablet 1,000 mg (2 x 500 mg) PO TID #0 10/17/24 04/03/25 Unknown Rx
(Tylenol Extra Strength) tabs
cholecalciferol (vitamin D3) 50 50 mcg PO DAILY #0 tabs 10/17/24 04/03/25 Unknown Rx
mcg (2,000 unit) tablet
phenylephrine 0.25 %-mineral oil 1 applic CO Q6HPRN PRN hemorrhoids 10/17/24 04/03/25 Unknown Rx
14 %-petrolatm 74.9 % rectal #0 grams
ointment
(Hemorrhoidal(phenyleph-min
oil-petrolat))
polyethylene glycol 3350 17 gram 17 g PO DAILY #0 ea 10/17/24 04/03/25 Unknown Rx
oral powder packet
diclofenac sodium 1 % topical gel 4 g topical QID 11/22/24 04/03/25 Unknown History
hydrochlorothiazide 25 mg tablet 25 mg PO DAILY Fluid 11/22/24 04/03/25 Unknown History
Retention/Swelling
therapeutic multivitamin 1 tab PO DAILY Supplement 11/22/24 04/03/25 Unknown History
lidocaine 4 % topical patch 1 patch topical DAILY Pain 11/23/24 04/03/25 Unknown History
aspirin 325 mg tablet 325 mg PO DAILY #0 tabs 11/27/24 04/03/25 Unknown Rx
ferrous sulfate 325 mg (65 mg 325 mg PO Q48H #0 tabs 11/27/24 04/03/25 Unknown Rx
iron) tablet (FeroSul)
miconazole nitrate 2 % topical 1 applic topical BID #85 grams 11/27/24 04/03/25 Unknown Rx
powder (Miconazorb AF)
Review of Systems
-
Hematologic/Lymphatic: Other (All 14 systems reviewed and negative except as stated above in the history of present illness.)
Vitals / Labs / Diagnostic Testing
Vital Signs
Temp Pulse Resp BP Pulse Ox
98.8 F 64 25 114/74 99
04/04/25 16:44 04/05/25 07:00 04/05/25 07:00 04/05/25 07:00 04/05/25 02:30
Lab Data
04/05/25 04:32
04/05/25 04:32
Laboratory Results
04/04/25 04/04/25 04/04/25
10:36 13:04 19:39
PT 14.5
INR 1.10
APTT 33.5
pH Cancelled 7.46 H
pCO2 Cancelled 31 L
pO2 Cancelled 61 L
HCO3 Cancelled 22.0
O2 Delivery Level Cancelled
04/04/25 04/04/25
19:39 20:06
PT
INR
APTT Cancelled
pH 7.41
pCO2 36 H
pO2 128 H
HCO3 22.8
O2 Delivery Level
Microbiology
04/03/25 20:30 Blood/Venous Blood Culture - Preliminary
No Growth in 24 hours- Final report to follow
04/03/25 20:43 Blood/Venous Blood Culture - Preliminary
No Growth in 24 hours- Final report to follow
04/03/25 20:43 Nasal Swab Influenza Types A & B (KELSI) - Final
Negative for Influenza A & B, NAAT
Negative results must be combined with clinical observations
and patient history.
Nucleic Acid Amplification test (NAAT)performed on the
[employer] platform.
Diagnostic Testing:
Physical Exam
-
HEENT: Normocephalic
Cardiovascular: S1/S2
Respiratory: Other (Rhonchi RUL, few basilar crackles )
GI: Soft and Non Distended
Neurology: Awake and Alert
Skin: Warm
General: Comfortable
Assessment
-
#1. Acute hypoxic respiratory failure with acute on chronic diastolic congestive heart failure. Suspect this is primarily related to pulmonary edema with concomitant right upper lobe pneumonia.
- Patient's chest x-ray changed significantly over 24 hours with worsened opacities. She was started on BiPAP and received 100 mg total of IV Lasix with good urine output, with improved respiratory status. Follow-up chest x-ray 04/05 shows
improving opacities consistent with pulmonary edema.
- Continue diuresis, start Lasix 40 mg IV daily, replace potassium
- Repeat echocardiogram
- Check EKG and serial troponin
BNP on admission 15,200
#2. Hypotension, required pressors briefly. Currently off pressors
- Hypotension noted in the setting of hypoxic respiratory failure.
- Hold blood pressure medications, pressors as needed to keep MAP above 65
- Continue ceftriaxone and azithromycin, follow-up on cultures lactate was 1.3 on admission which increased to 3.9 in the setting of respiratory failure, now improved back to 1.1
#3. Right upper lobe pneumonia.
- Patient has been on ceftriaxone daily
- Add azithromycin 500 daily
- Influenza A, B screen negative, COVID-19 screen negative. Blood cultures pending, nasal MRSA screen pending. No DVT noted on lower extremity duplex exam
- Considering improving infiltrates on imaging, chest x-ray abnormality primarily appears to be volume overload with a component of right upper lobe pneumonia
#4. History of sleep apnea.
- Patient uses CPAP at a pressure of 16 nightly, follows up with a sleep specialist in [place]
- Resume CPAP nightly and when napping
#4. Sepsis with UTI on admission.
- Hold off additional IV fluids, continue diuresis
- Continue ceftriaxone, follow-up on urine cultures
#5. Acute kidney injury, baseline creatinine was around 1.1 in January 2025
- Hold lisinopril and hydrochlorothiazide
- Diurese and monitor renal function closely
- Avoid hypotension, hold blood pressure medications, pressors as needed to keep MAP above 65
- Hold gabapentin in the setting of acute kidney injury
#6. Diabetes mellitus
- Sliding scale insulin
- Avoid metformin in the setting of CHELSI
DVT prophylaxis with subcu heparin.
Patient already on Protonix 40 daily.
Critical Care time 65 mins -- The patient is admitted for acute critical illness for the treatment of vital organ failure and/or prevention of further life-threatening conditions. Total care includes time spent in review of history, physical exam,
medications, hemodynamic/ventilator parameters, laboratory data, imaging and discussion with house staff, pharmacy, respiratory therapy, cpo, and nursing.
Data:
CXR 03/2025: Severe right upper lobe pneumonia, progressed. Probable background mild pulmonary edema. Cannot rule out component of underlying chronic interstitial lung disease.
ECHO 09/2024: Normal left ventricular chamber size. Normal left ventricular systolic
function. Left ventricular ejection fraction is 60% by volumetric assessment.
No gross regional wall motion abnormalities seen. Moderate concentric left
ventricular hypertrophy. Normal diastolic function.
Normal right ventricular size and function.
Mild mitral regurgitation.
Aortic sclerosis without stenosis.
[2025-04-05] MEDS: DESENEX/MITRAZOL/ZEASORB 1 APPLIC TOPICAL ×2 (08:20→20:59)
[2025-04-05] MEDS: PROTONIX 40 MG PO (08:31)
[2025-04-05] MEDS: MIRALAX PO (08:31)
[2025-04-05] MEDS: ASPIRIN 325 MG PO (08:31)
[2025-04-05] MEDS: ZITHROMAX 500 MG PO (08:31)
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
--- NOTE | 2025-04-05 09:00 | PTCARENOTE ---
Rec'd pt at 0800 awake alert and oriented resting in bed- overall states she feels much better. Speech is clear. Denies dizziness or headache. Admits to chronic joint pain. RJ. Relayed how she had fallen when she was at rehab and broke her L femur
in October. Skin is pale pink wm and dry. Pt does have MASD under breast and at her groin. Will apply antifungal powder. Lower legs are sl reddened. Respirs are shallow and sl tachypnic but non-labored on 6L nc with sats of 95%- decreased
currently to 5L with sats of 92-94%-will monitor. BS are sl coarse throughout with faint exp wheeze. Decreased at the bases with fine base crackles. States her breathing feels much better. Monitor SR. + pulses. +2LE edema. Denies chest pain. VS as
documented. Pt remains off of IV Levophed-ECG completed and Troponin sent as ordered and resulted to Dr. Salinas. Abd is obese soft. Denies nausea. Tinajero intact draining yellow urine. Capped ints intact LAC and R hand. Sites wnl. Chest Xray completed
as ordered. Repositioned. Updated on plan of care. Call thorpe in reach. Awaiting breakfast.
[2025-04-05 09:23] LABS: Glucose - Point of Care 72 mg/dl (70-99)
--- NOTE | 2025-04-05 09:54 | W.PN.HOSP.TC ---
Today's Communication/Plan
-
IV antibiotics. IV Lasix. Plan for echocardiogram
Assessment / Plan
Assessment / Plan
Physical exam:
General: Acutely ill
HEENT: Normocephalic, Atraumatic and Moist Mucous Membranes
Respiratory: Coarse crackles bilateral; Negative Wheezes
Cardiac: Regular Rhythm and S1/S2
GI: Soft, Nontender and Nondistended
Musculoskeletal: No Clubbing, No Cyanosis and bilateral lower extremity edema present.
Neuro: Awake, Alert and Oriented, generalized weakness, no gross neurological deficit
Psych: Calm
A/P:
Sepsis due to UTI and pneumonia:
Continue IV ceftriaxone and added azithromycin
Off pressors
Urine culture with gram-negative rods
Blood cultures no growth till date
Updated daughter over the phone today
Acute hypoxic respiratory failure:
Likely primarily volume overload with heart failure and pneumonia
Requiring BiPAP and now on supplemental oxygen
Continue IV diuresis
Continue IV antibiotics
Seen repeated chest x-ray
Doppler lower extremities negative
Plan for echocardiogram tomorrow
Acute on chronic diastolic congestive heart failure:
Continue IV Lasix 40 mg daily
BNP 15,200
Beta-blockers when blood pressure permits
Plan for echocardiogram in a.m.
Elevated troponin:
Likely related to heart failure
Continue to monitor trend
Plan for echocardiogram
Cardiac monitoring
Chest pain-free
Hypotension:
Briefly required pressors
Holding antihypertensives
Currently off pressors
Monitor hemodynamics closely
Acute metabolic encephalopathy:
Improved
Likely related to infection and hypoxia
CT of the head unremarkable
CHELSI:
Avoid nephrotoxic
Monitor renal function
Hypomagnesemia:
Replete and trend
Obstructive sleep apnea:
Continue CPAP at nighttime
Hypertension:
Holding some antihypertensives due to hypotension
Diabetes mellitus type 2:
Insulin sliding scale
Monitor blood sugar
History of breast cancer in the past:
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
History of epidural abscess s/p finished course of antibiotics as outpatient.
History of recent left femur fracture status post surgical repair finished rehabilitation.
DVT prophylaxis:
Heparin SQ
CODE STATUS:
Full code
Total Critical Care Time__45___ minutes. I was immediately available to the patient and staff. I personally examined, reviewed labs, diagnostic images/reports, interpretations, treatment plans, discussed patient care with other providers and
family or caregivers (if patient is unable to make decisions), entered orders as appropriate and documented the medical record.
Anticipated Discharge: > 48 hours
Subjective/Interval History
-
Date of Service: April 05, 2025
Events overnight noticed. Patient feels better today. Less shortness of breath. No chest pain. Remains on supplemental oxygen. Afebrile
Objective Data
-
Labs:
Laboratory Results
04/05/25
04:32
WBC 16.1 H
Hgb 10.1 L
Hct 30.4 L
Plt Count 138
Sodium 137
Potassium 3.4 L
Chloride 101
Carbon Dioxide 27
BUN 37 H
Creatinine 1.6 H
Glucose 146 H
Calcium 9.2
Vital Signs:
Vital Signs
Temp Pulse Resp BP Pulse Ox
97.8 F 64 25 114/74 99
04/05/25 08:00 04/05/25 07:00 04/05/25 07:00 04/05/25 07:00 04/05/25 02:30
I&O
04/04/25 04/05/25 04/06/25
06:59 06:59 06:59
Intake Total 60.0 / 60.0
Output Total 1270 / 1270
Balance -1210.0 / -1210.0
[2025-04-05] MEDS: LASIX 40 MG IV (11:25)
[2025-04-05] MEDS: FLUSH (NSS) 1 FLUSH IV (11:38)
--- NOTE | 2025-04-05 12:00 | PTCARENOTE ---
Excellent appetite for breakfast. Pt resting this am but states overall is feeling better. Tolerating the 5L NC. Lasix 40 mg IV daily dose given. Pt did own oral care then complete CHG bath given. Pt then assisted with assist of 2 oob to the chair.
Gait is weak -(states she uses a walker at home), but is able to bear wt. Currently resting oob in the chair. Call thorpe in reach.
[2025-04-05] MEDS: NOVOLOG FLEXPEN-MODERATE RESISTANCE SC ×2 (13:10→17:26)
[2025-04-05 13:20] LABS: Glucose - Point of Care 104 mg/dl (70-99)
--- NOTE | 2025-04-05 14:25 | PTCARENOTE ---
Excellent appetite for lunch- remains resting oob in the chair. No changes in assessment. Diurising from Lasix
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
--- NOTE | 2025-04-05 16:00 | PTCARENOTE ---
Sat up until about 1530 - did well in the chair just stated she was tired. Bp post Lasix and sitting up has dipped a few times into the 84-97/40/50 range-pt asymptomatic. Will monitor for now and if continues will update MD as to whether Levophed
needs to be restarted. No c/o chest pain or shortness of breath. Troponin sent as ordered. Diurising from Lasix. Gait weak getting back to bed but able to bear wt and no c/o dizziness with standing up. O2 currently at 4L with sats of 93-94%. Update
given to daughter Kelsy earlier today.
[2025-04-05 16:32] LABS: Troponin I 0.684 ng/ml
[2025-04-05 17:27] LABS: Glucose - Point of Care 114 mg/dl (70-99)
--- NOTE | 2025-04-05 18:21 | PTCARENOTE ---
Excellent appetite for dinner. No changes in assessment
--- NOTE | 2025-04-05 20:40 | PTCARENOTE ---
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 SR HR 80s. LAC IV unable to flush- d/c'd. R FA IV flushed, patent. Sat 92% on 4LNC. Tinajero draining adequate amt yellow urine, carmencita care done. mouth care done. assisted with repositioning. POC discussed, bed
alarm on, call thorpe w/pt.
[2025-04-05 21:23] LABS: Glucose - Point of Care 116 mg/dl (70-99)
[2025-04-06] VITALS (24 sets, daily range): BP systolic 94–154; BP diastolic 48–111; PULSE 77–84; O2SAT 94; BMI 41.2
--- NOTE | 2025-04-06 | PTCARENOTE ---
no changes in pt assessment.
[2025-04-06] MEDS: HEPARIN 5000 UNITS SC ×4 (00:08→23:18)
--- NOTE | 2025-04-06 04:30 | PTCARENOTE ---
pt removed cpap on own, sat to 88% briefly, back on cpap mask to attempt to sleep more, oriented x 3. no changes in assessment.
[2025-04-06 05:16] LABS: Hematocrit 29.6 % (37.0-47.0); Hemoglobin 9.8 g/dL (12.0-16.0); Mean Corp Hgb Conc. 33.1 g/dL (33.0-37.0); Mean Corpuscular Hgb 29.6 pg (27.0-31.0); Mean Corpuscular Volume 89.4 fL (81.0-99.0); Mean Platelet Volume 11.7 fL (7.4-10.4); Platelet Count 122 10^3/uL (130-400); Red Blood Cell Count 3.31 10^6/uL (4.20-5.40); Red Cell Dist. Width 13.3 % (11.5-14.5); White Blood Cell Count 7.3 10^3/uL (4.8-10.8)
[2025-04-06 05:20] LABS: ALT (SGPT) 12 U/L (0-35); AST (SGOT) 20 U/L (14-36); Albumin 3.1 g/dl (3.5-5.0); Alkaline Phosphatase 69 U/L (38-126); Blood Urea Nitrogen 35 mg/dl (7-17); Carbon Dioxide 26 mmol/L (22-30); Chloride 104 mmol/L (98-107); Estimated Creatinine Clearance 45 ml/min; Glucose 119 mg/dl (70-99); Magnesium 1.6 mg/dl (1.6-2.3); Potassium 3.4 mmol/L (3.5-5.1); Sodium 139 mmol/L (135-145); Total Bilirubin 0.7 mg/dl (0.2-1.3); Total Protein 5.5 g/dl (6.3-8.2); eGFR 42.35
[2025-04-06 05:28] LABS: NT-proBNP 7020 pg/ml
[2025-04-06] MEDS: KCL 40 MEQ PO (06:23)
[2025-04-06] MEDS: ROCEPHIN 2000 MG IV (06:23)
[2025-04-06] MEDS: STERILE WATER FOR INJECTION 20 ML IV (06:23)
[2025-04-06] MEDS: MIRALAX 17 GRAMS PO (07:40)
[2025-04-06] MEDS: ASPIR LOW (ENTERIC COATED) 81 MG PO (07:41)
[2025-04-06] MEDS: PROTONIX 40 MG PO (07:41)
[2025-04-06] MEDS: ZITHROMAX 500 MG PO (07:41)
[2025-04-06] MEDS: DESENEX/MITRAZOL/ZEASORB 1 APPLIC TOPICAL ×2 (07:42→20:56)
[2025-04-06] MEDS: LASIX 40 MG IV (07:42)
[2025-04-06] MEDS: NOVOLOG FLEXPEN-MODERATE RESISTANCE SC ×2 (07:42→12:29)
[2025-04-06 07:51] LABS: Glucose - Point of Care 104 mg/dl (70-99)
--- NOTE | 2025-04-06 08:18 | W.PN.INTV ---
Today's Communication / Plan
Recommendations
Antibiotics --> can narrow ABx in next 1-2 days and finish 7 days beta lactam and 5 days zithromax
Diuresis, transitioning from IV to PO starting tomorrow
Renally dose all meds and trend sCr; I/O
Slowly resume BP meds
CPAP with sleep and if unable to get to room air then would consult case management to get her an O2 concentrator for home use for O2 to be bled through her CPAP device
Repeat imaging in 4 to 6 weeks to follow-up her pneumonia resolution
Outpatient pulmonary office follow-up will be arranged (last saw Mariola Damon on 06/11/2024)
Patient is stable for downgrade to telemetry. No additional recommendations at this time. Ream Cutter/Pulmonary service will now sign off. Please reconsult if there are any additional questions/concerns, or if patient's respiratory status
deteriorates.
Assessment
-
#1. Acute hypoxic respiratory failure with acute on chronic diastolic congestive heart failure. Suspect this is primarily related to pulmonary edema with concomitant right upper lobe pneumonia.
- Patient's chest x-ray changed significantly over 24 hours with worsened opacities. She was started on BiPAP and received 100 mg total of IV Lasix with good urine output, with improved respiratory status. Follow-up chest x-ray 04/05 shows
improving opacities consistent with pulmonary edema.
- Continue diuresis, start Lasix 40 mg IV daily, replace potassium
- Lasix started 04/04 --> she now sounds clear on exam --> will continue with PO lasix starting tomorrow for another 2-3 days and then stop
- Repeat echocardiogram performed today showing mild concentric LVH with normal regional wall motion and LVEF 67% with estimated PASP 29 mmHg.
- Troponin peaked at 0.8 on 04/05 � no longer need to continue trending at this time
BNP on admission 15,200 and is down to 7020 on 04/06
#2. Hypotension, required pressors briefly. Been off pressors since 04/05 in AM
- Hypotension noted in the setting of hypoxic respiratory failure.
- Slowly resume BP meds with goal MAP>65
- Continue ceftriaxone and azithromycin; blood cultures show NGTD; check sputum cultures if patient can produce a decent sample; will complete 7 days of beta-lactam +5-day Zithromax
#3. Right upper lobe pneumonia.
-Continue with antibiotics with ceftriaxone + Zithromax
- Influenza A, B screen negative, COVID-19 screen negative. Blood cultures show NGTD, nasal MRSA screen negative. No DVT noted on lower extremity duplex exam
- Considering improving infiltrates on imaging on AM of 04/05, chest x-ray abnormality from evening of 04/04 was primarily due to acute pulmonary edema with a component of right upper lobe pneumonia
#4. History of sleep apnea.
- Patient uses CPAP at a pressure of 16 cmH2O nightly, follows up with a sleep specialist in [place]
- Resume CPAP nightly and when napping
- Maintain SpO2 >90% while on CPAP
#4. Sepsis with UTI on admission.
- Hold off additional IV fluids, continue diuresis as stated above
- Continue ceftriaxone; urine culture is pansensitive
#5. Acute kidney injury, baseline creatinine was around 1.1 in January 2025, and 0.9 in November 2024
- Hold lisinopril and hydrochlorothiazide
- Diurese and monitor renal function closely
- Avoid hypotension, slowly resume BP meds to keep MAP above 65
- Ok to resume gabapentin given CHELSI is improving
#6. Diabetes mellitus
- Sliding scale insulin with goal BG 140-180mg/dL
- Avoid metformin in the setting of CHELSI
DVT prophylaxis: HSQ
Patient already on Protonix 40 daily (home med)
Patient is stable for downgrade to telemetry. No additional recommendations at this time. Ream Cutter/Pulmonary service will now sign off. Thank you for allowing us to be involved in the care of this patient. Please reconsult if there are any
additional questions/concerns, or if patient's respiratory status deteriorates.
Data:
CXR 03/2025: Severe right upper lobe pneumonia, progressed. Probable background mild pulmonary edema. Cannot rule out component of underlying chronic interstitial lung disease.
ECHO 09/2024: Normal left ventricular chamber size. Normal left ventricular systolic
function. Left ventricular ejection fraction is 60% by volumetric assessment.
No gross regional wall motion abnormalities seen. Moderate concentric left
ventricular hypertrophy. Normal diastolic function.
Normal right ventricular size and function.
Mild mitral regurgitation.
Aortic sclerosis without stenosis.
Total time spent today was 58 minutes for this encounter. Time includes reviewing laboratory test/imaging results, reviewing pertinent medical records, obtaining and reviewing medical history, performing an appropriate exam, ordering medications,
tests and procedures. Time also includes documentation of this encounter, coordinating patient care and communicating with other healthcare professionals. Total time does not include separately billed tests performed on this date of service.
Subjective Dataa
Subjective Data
Date of Service:
Date of Service: April 06, 2025
Chief Complaint: Ream Cutter Follow Up
Subjective:
Pt seen and evaluated this AM. On 2L/min NC and saturating 95%. Wore CPAP overnight bled with 3L/min. Minimal cough. Denies SOB. Sitting in chair this AM - worked with PT. Been off Levophed now for around 24 hours. BP this morning 130/93 with
heart rate 78. Denies shortness of breath.
Review of Systems
General: Other (Negative unless mentioned above)
Objective Data
Data Reviewed
Vital Signs / I&O / Oxygen:
Vital Signs
Temp Pulse Resp BP Pulse Ox
98.4 F 79 20 105/84 93
04/06/25 08:00 04/06/25 08:00 04/06/25 08:00 04/06/25 08:00 04/06/25 08:00
Intake and Output
04/05/25 04/06/25 04/07/25
06:59 06:59 06:59
Intake Total 60.0 / 60.0 1150 / 1150 360 / 360
Output Total 1270 / 1270 3275 / 3275 525 / 525
Balance -1210.0 / -1210.0 -2125 / -2125 -165 / -165
SaO2 [NIV (Non Invasive 100
Ventilation)]
SaO2 93
Nasal Cannula flow liters per 2
minute
Physical Exam
General: Respiratory Distress (negative), Comfortable, Chills (negative) and Sweats (negative)
HEENT: Normocephalic and Anicteric
Cardiovascular: S1-S2, Rub (negative) and Peripheral Edema (Trace RLE, no edema on LLE)
Respiratory: Clear, Wheeze (negative), Crackles (negative), Rhonchi (negative), Accessory Resp Muscle Use (negative) and Stridor (negative)
GI: Soft, Non Distended, Non Tender and Normal Bowel Sounds
Neurology: Awake, Alert and Tremors (negative)
Skin: Warm, Dry, Cyanosis (negative) and Jaundice (negative)
Labs/Micro/Reports
Lab Data
04/06/25 04:26
04/06/25 04:26
Microbiology
04/03/25 20:30 Urine Urine Culture - Final
Escherichia coli
04/03/25 20:30 Blood/Venous Blood Culture - Preliminary
No Growth in 48 hours- Final report to follow
04/03/25 20:43 Blood/Venous Blood Culture - Preliminary
No Growth in 48 hours- Final report to follow
04/04/25 06:05 Throat/Pharynx MRSA Screen - Final
No Methicillin Resistant Staphylococcus aureus isolated.
04/03/25 20:43 Nasal Swab Influenza Types A & B (KELSI) - Final
Negative for Influenza A & B, NAAT
Negative results must be combined with clinical observations
and patient history.
Nucleic Acid Amplification test (NAAT)performed on the
[employer] platform.
--- NOTE | 2025-04-06 08:19 | PTCARENOTE ---
Received pt awake and alert.Speech is appropriate.+DE [place] ROSA.Assists with repositioning.c/o tolerable chronic whole body arthritis pain.SR noted.O2 decreased to 2l NC.POX 94-96%+DOEBL crackles noted ~ [address] lung gupta.Eating breakfast now.No
BM.Tinajero draining yellow urine.Plan of care discussed with pt.
--- NOTE | 2025-04-06 08:36 | W.PN.HOSP.TC ---
Today's Communication/Plan
-
Downgrade from the ICU
Assessment / Plan
Assessment / Plan
Impression:
Patient is a 79-year-old female with past medical history significant for hypertension, hyperlipidemia, vds-gbnitth-xhnkrehbt diabetes,who came to the ER on 04/03 with generalized weakness and feeling slower than usual. Workup in the emergency room
showed concern of sepsis with positive urinalysis. Admitted for sepsis with underlying urinary tract infection and mild CHELSI. She was started on antibiotic, ceftriaxone along with IV fluids
On 04/04 patient noted to be hypoxic with chest x-ray shows pulmonary congestion.
Patient developed respiratory distress and use of accessory muscle, placed on BiPAP and upgraded to ICU.
In the ICU repeat imaging shows right upper lobe infiltrate and concerning of pneumonia.
Patient received Lasix in the ICU, weaned off BiPAP to 6 L, then 3 L and now 1 L.
Patient will be downgraded from the ICU.
Assessment/plan
Severe sepsis with acute organ dysfunction
sepsis due to UTI and pneumonia.
Acute organ dysfunction in form of acute hypoxic respiratory failure
Continue IV ceftriaxone /azithromycin
Was on pressors in the ICU, current off pressors
Urine culture with pansensitive E. coli
Blood cultures no growth till date
Acute hypoxic respiratory failure:
Likely primarily volume overload with heart failure and pneumonia
Requiring BiPAP and now on supplemental oxygen
Continue IV diuresis
Continue IV antibiotics
Doppler lower extremities negative
Assess home oxygen before discharge.
Echocardiogram
Acute on chronic diastolic congestive heart failure:
Continue IV Lasix 40 mg daily
BNP 15,200
Beta-blockers when blood pressure permits
Echocardiogram pending.
Elevated troponin:
Likely related to heart failure
Continue to monitor trend
Plan for echocardiogram
Cardiac monitoring
Chest pain-free
Hypotension:
Briefly required pressors
Holding antihypertensives
Currently off pressors
Monitor hemodynamics closely
Acute metabolic encephalopathy:
Improved
Likely related to infection and hypoxia
CT of the head unremarkable
Acute renal failure
Avoid nephrotoxic
Monitor renal function
Hypomagnesemia:
Replete and trend
Obstructive sleep apnea:
Continue CPAP at nighttime
Hypertension:
Holding some antihypertensives due to hypotension
Diabetes mellitus type 2:
Insulin sliding scale
Monitor blood sugar
History of breast cancer in the past:
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
History of epidural abscess s/p finished course of antibiotics as outpatient.
History of recent left femur fracture status post surgical repair finished rehabilitation.
CODE STATUS: Full code
DVT prophylaxis: Heparin
Diet: Cardiab diet
Total time spent on today's encounter was 75 minutes which included time spent in counseling the patient/family regarding diagnosis and treatment plan as listed above, goals of care, and symptom management. Case was discussed with nursing staff,
specialists, and care coordinators/case management. All labs and imaging personally reviewed by me. Remainder the time spent in detailed review of previous records, lab data, imaging, and other medical provider documentation.
Anticipated Discharge: > 48 hours
Subjective/Interval History
-
Date of Service: April 06, 2025
Patient seen and examined at bedside, denies any chest pain , shortness of breath Improved, currently on 3 L oxygen, weaned to 1 L .
Patient abdominal pain, no nausea, no vomiting, no diarrhea or constipation.
Plan to downgrade to tele.
Objective Data
-
Labs:
Laboratory Results
04/06/25
04:26
WBC 7.3
Hgb 9.8 L
Hct 29.6 L
Plt Count 122 L
Sodium 139
Potassium 3.4 L
Chloride 104
Carbon Dioxide 26
BUN 35 H
Creatinine 1.3 H
Glucose 119 H
Calcium 9.0
Total Bilirubin 0.7
AST 20
ALT 12
Alkaline Phosphatase 69
Vital Signs:
Vital Signs
Temp Pulse Resp BP Pulse Ox
98.4 F 79 20 105/84 93
04/06/25 08:00 04/06/25 08:00 04/06/25 08:00 04/06/25 08:00 04/06/25 08:00
I&O
04/05/25 04/06/25 04/07/25
06:59 06:59 06:59
Intake Total 60.0 / 60.0 1150 / 1150 360 / 360
Output Total 1270 / 1270 3275 / 3275 200 / 200
Balance -1210.0 / -1210.0 -2125 / -2125 160 / 160
Physical Exam
-
General: Well Developed, Well Nourished, No Apparent Distress and Comfortable
HEENT: Normocephalic, Atraumatic, Moist Mucous Membranes, No Ptosis, PERRLA and Nose Appears Normal
Respiratory: Rales, Rhonchi and Non Labored Respirations
Cardiac: Regular Rhythm and S1/S2
Breast: Deferred by me
GI: Soft, Nontender, Nondistended and Normal Bowel Sounds
Genito-urinary: No Costovertebral Tender
Musculoskeletal: No Clubbing, No Cyanosis, Edema, Right Lower Extrem and Edema, Left Lower Extrem
Skin: Warm
Neuro: Awake, Alert, Oriented, AO x 3 and No Motor Deficits
Psych: Calm
Data Reviewed
-
Diagnostic Radiology: Image personally visualized and interpreted and Report Reviewed by me
CT Scan: Image personally visualized and interpreted and Report Reviewed by me
Ultrasound: Image personally visualized and interpreted and Report Reviewed by me
MRI: Image personally visualized and interpreted and Report Reviewed by me
Medical Tests (Nuc Med, Echo etc): Image personally visualized and interpreted and Report Reviewed by me
Labs: Labs Reviewed by me
Old Records: Reviewed
[2025-04-06] MEDS: MAG-TAB SR 84 MG PO ×2 (12:25→16:35)
--- NOTE | 2025-04-06 12:33 | PTCARENOTE ---
Pt assessed.No change in assessment noted.Pt assisted with AM care.Assisted OOB to chair with minimal assistance by OT/PT.
[2025-04-06 12:39] LABS: Glucose - Point of Care 103 mg/dl (70-99)
--- NOTE | 2025-04-06 13:43 | PN.CDI ---
CDI
- -
CDI:
Physician Documentation Request
Admit Date: 04/03/25 23:57
Dear Doctor Louisa,
Please review the following and provide your response in the progress notes.
Clinical Indicators:
Height: 5'5
Weight: 247 lbx
BMI: 41.2
If possible, please provide an associated diagnosis related to the abnormal BMI, such as:
BMI > or = to 40
Overweight
Obesity:
Due to excess calories
Drug induced
Due to other cause
Severe or morbid obesity:
With alveolar hypoventilation (Obesity hypoventilation syndrome)
Without alveolar hypoventilation
Other (please specify)
Use of terms such as suspected, likely, concern for, or probable (associated with a specific diagnosis that is being evaluated, monitored, or treated as if it exists) are acceptable and can be coded in the inpatient setting, when documented at the
time of discharge.
Thank you,
Lena Barrera RN
CDI Specialist
Please use your independent medical judgment in providing your response.
--- NOTE | 2025-04-06 13:51 | PN.CDI ---
CDI
- -
CDI:
Physician Documentation Request
Admit Date: 04/03/25 23:57
Dear Doctor Louisa,
Please review the following and provide your response in the progress notes.
Current documentation includes a diagnosis of hypotension.
Clinical Indicators:
- 04/06 PN 'Severe sepsis with acute organ dysfunction'
- 'Holding some antihypertensives due to hypotension'
- 04/04 rapid response called
- RN note 'patient started on Levo @ 2, titrated to 4 now currently MAP is 65-67'
Please clarify which of the following is the most likely etiology of the above symptoms and treatment rendered including the use of norepinephrine:
Septic shock
Cardiogenic shock
Shock, unknown type
Hypotension - indicate type/etiology, such as idiopathic, neurogenic or orthostatic, post-procedural, postoperative, due to hemodialysis, chronic, drug induced (indicate drug), etc.
Hypotension - unknown type/etiology
Other
Use of terms such as suspected, likely, concern for, or probable (associated with a specific diagnosis that is being evaluated, monitored, or treated as if it exists) are acceptable and can be coded in the inpatient setting, when documented at the
time of discharge.
Thank you,
Lena Barrera RN
CDI Specialist
Please use your independent medical judgment in providing your response.
--- NOTE | 2025-04-06 15:34 | PTCARENOTE ---
Pt assessed.No change in assessment noted.Pt assisted back to bed with minimal assist.Pt OOB x 5 hours.Pt continent large BM.Tinajero discontinued.PureWick applied as requested.Pt states she is grossly incontinent at home.
[2025-04-06 16:31] LABS: Glucose - Point of Care 153 mg/dl (70-99)
[2025-04-06] MEDS: NOVOLOG FLEXPEN-MODERATE RESISTANCE 1 UNITS SC (16:32)
[2025-04-06] MEDS: LOPRESSOR 50 MG PO (20:56)
[2025-04-06] MEDS: NEURONTIN 400 MG PO (20:56)
[2025-04-06] MEDS: MELATONIN 5 MG PO (21:46)
--- NOTE | 2025-04-06 22:19 | PTCARENOTE ---
pt placed on own CPAP by RT
[2025-04-07] MEDS: STERILE WATER FOR INJECTION 20 ML IV (04:19)
[2025-04-07] MEDS: ROCEPHIN 2000 MG IV (04:19)
[2025-04-07 04:27] VITALS: BP 133/98
[2025-04-07 04:38] LABS: Hematocrit 29.9 % (37.0-47.0); Hemoglobin 10.1 g/dL (12.0-16.0); Mean Corp Hgb Conc. 34.1 g/dL (33.0-37.0); Mean Corpuscular Hgb 30.1 pg (27.0-31.0); Mean Corpuscular Volume 88.4 fL (81.0-99.0); Mean Platelet Volume 11.1 fL (7.4-10.4); Platelet Count 137 10^3/uL (130-400); Red Blood Cell Count 3.35 10^6/uL (4.20-5.40); Red Cell Dist. Width 13.2 % (11.5-14.5); White Blood Cell Count 5.6 10^3/uL (4.8-10.8)
[2025-04-07 04:59] LABS: Blood Urea Nitrogen 29 mg/dl (7-17); Calcium 9.3 mg/dl (8.4-10.2); Carbon Dioxide 29 mmol/L (22-30); Chloride 107 mmol/L (98-107); Estimated Creatinine Clearance 53 ml/min; Glucose 125 mg/dl (70-99); Potassium 3.6 mmol/L (3.5-5.1); Sodium 141 mmol/L (135-145); eGFR 51.75
[2025-04-07 05:09] LABS: NT-proBNP 4250 pg/ml
[2025-04-07 05:59] VITALS: BMI 41.1
[2025-04-07 08:19] VITALS: BP 158/94
[2025-04-07] MEDS: ASPIR LOW (ENTERIC COATED) 81 MG PO (08:20)
[2025-04-07] MEDS: DESENEX/MITRAZOL/ZEASORB 1 APPLIC TOPICAL ×2 (08:20→20:15)
[2025-04-07] MEDS: LASIX 40 MG PO (08:21)
[2025-04-07] MEDS: HEPARIN 5000 UNITS SC ×3 (08:21→23:39)
[2025-04-07] MEDS: LOPRESSOR 50 MG PO ×2 (08:21→20:14)
[2025-04-07] MEDS: PROTONIX 40 MG PO (08:22)
[2025-04-07] MEDS: ZITHROMAX 500 MG PO (08:22)
[2025-04-07] MEDS: NEURONTIN 400 MG PO ×2 (08:22→20:14)
[2025-04-07] MEDS: MIRALAX PO (08:22)
--- NOTE | 2025-04-07 08:52 | PTCARENOTE ---
Received pt this am incontinent of urine, otherwise without complaint. Room air sats 89%, pt reports no sob. Once oob to chair, sats improved to 95% on room air. Pt with mild increased work of breathing, but denies sob. Otherwise please see
assessment.
[2025-04-07] MEDS: NOVOLOG FLEXPEN-MODERATE RESISTANCE SC ×2 (08:59→16:34)
[2025-04-07 09:10] LABS: Glucose - Point of Care 112 mg/dl (70-99)
[2025-04-07] MEDS: OCEAN, SALINE MIST 2 SPRAYS NASAL (10:11)
[2025-04-07 11:37] VITALS: BP 136/121
[2025-04-07 11:50] LABS: Glucose - Point of Care 224 mg/dl (70-99)
[2025-04-07] MEDS: NOVOLOG FLEXPEN-MODERATE RESISTANCE 3 UNITS SC (13:11)
--- NOTE | 2025-04-07 13:29 | W.PN.HOSP.TC ---
Today's Communication/Plan
-
Patient is medically cleared for discharge
Assessment / Plan
Assessment / Plan
Impression:
Patient is a 79-year-old female with past medical history significant for hypertension, hyperlipidemia, koe-qjxurbx-auocqllsa diabetes,who came to the ER on 04/03 with generalized weakness and feeling slower than usual. Workup in the emergency room
showed concern of sepsis with positive urinalysis. Admitted for sepsis with underlying urinary tract infection and mild CHELSI. She was started on antibiotic, ceftriaxone along with IV fluids
On 04/04 patient noted to be hypoxic with chest x-ray shows pulmonary congestion.
Patient developed respiratory distress and use of accessory muscle, placed on BiPAP and upgraded to ICU.
In the ICU repeat imaging shows right upper lobe infiltrate and concerning of pneumonia.
Patient received Lasix in the ICU, weaned off BiPAP to 6 L, then 3 L and then 1 L.
Patient will be downgraded from the ICU.
Weaned to room air.
Assessment/plan
Severe sepsis with acute organ dysfunction
Septic shock (required pressors-currently off pressors)
sepsis due to UTI and pneumonia.
Acute organ dysfunction in form of acute hypoxic respiratory failure
Continue IV ceftriaxone /azithromycin
Was on pressors in the ICU, current off pressors
Urine culture with pansensitive E. coli
Blood cultures no growth till date
Acute hypoxic respiratory failure:
Likely primarily volume overload with heart failure and pneumonia
Requiring BiPAP and now on supplemental oxygen
Continue IV diuresis
Continue IV antibiotics
Doppler lower extremities negative
Assess home oxygen before discharge.
Weaned to room air.
2. Pulse ox on exertion ordered
Acute on chronic diastolic congestive heart failure:
Continue IV Lasix 40 mg daily
BNP 15,200
Beta-blockers when blood pressure permits
Echocardiogram shows:
Normal left ventricular chamber size. Mild concentric left ventricular
hypertrophy. Normal regional wall motion. Normal left ventricular systolic
function. Left ventricular ejection fraction is 67%.
Mild mitral regurgitation.
Mild tricuspid regurgitation. Estimated pulmonary artery pressure of 29 mmHg.
Compared to the previous echo from Sep 2024, there is no significant change.
Elevated troponin:
Likely related to heart failure
Continue to monitor trend
Cardiac monitoring
Chest pain-free
Appreciate cardiology input.
Hypotension:
Briefly required pressors
Holding antihypertensives
Currently off pressors
Monitor hemodynamics closely
Blood pressure improved, will resume blood pressure medications slowly
Acute metabolic encephalopathy:
Improved
Likely related to infection and hypoxia
CT of the head unremarkable
Acute renal failure
Avoid nephrotoxic
Monitor renal function
Hypomagnesemia:
Replete and trend
Obstructive sleep apnea:
Continue CPAP at nighttime
Hypertension:
Holding some antihypertensives due to hypotension
Diabetes mellitus type 2:
Insulin sliding scale
Monitor blood sugar
Class 3 (high-risk) obesity,
BMI: 41.2
Diet and lifestyle modification
History of breast cancer in the past:
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
History of epidural abscess s/p finished course of antibiotics as outpatient.
History of recent left femur fracture status post surgical repair finished rehabilitation.
CODE STATUS: Full code
DVT prophylaxis: Heparin
Diet: Cardiab diet
Total time spent on today's encounter was 65 minutes which included time spent in counseling the patient/family regarding diagnosis and treatment plan as listed above, goals of care, and symptom management. Case was discussed with nursing staff,
specialists, and care coordinators/case management. All labs and imaging personally reviewed by me. Remainder the time spent in detailed review of previous records, lab data, imaging, and other medical provider documentation.
Anticipated Discharge: Today
Subjective/Interval History
-
Date of Service: April 07, 2025
Patient seen and examined at bedside, sitting in a chair, currently room air, denies any chest pain or shortness of breath, no abdominal pain, no nausea, no vomiting, no diarrhea or constipation.
Objective Data
-
Labs:
Laboratory Results
04/07/25
04:26
WBC 5.6
Hgb 10.1 L
Hct 29.9 L
Plt Count 137
Sodium 141
Potassium 3.6
Chloride 107
Carbon Dioxide 29
BUN 29 H
Creatinine 1.1 H
Glucose 125 H
Calcium 9.3
Vital Signs:
Vital Signs
Temp Pulse Resp BP Pulse Ox
97.9 F 77 18 158/94 95
04/07/25 12:00 04/07/25 08:21 04/07/25 12:00 04/07/25 08:21 04/07/25 12:00
I&O
04/06/25 04/07/25 04/08/25
06:59 06:59 06:59
Intake Total 1150 / 1150 1300 / 1300
Output Total 3275 / 3275 2495 / 2495
Balance -2125 / -2125 -1195 / -1195
Physical Exam
-
General: Well Developed, Well Nourished, No Apparent Distress and Comfortable
HEENT: Normocephalic, Atraumatic, Moist Mucous Membranes, No Ptosis, PERRLA and Nose Appears Normal
Respiratory: Rales, Rhonchi and Non Labored Respirations
Cardiac: Regular Rhythm and S1/S2
Breast: Deferred by me
GI: Soft, Nontender, Nondistended and Normal Bowel Sounds
Genito-urinary: No Costovertebral Tender
Musculoskeletal: No Clubbing, No Cyanosis, Edema, Right Lower Extrem and Edema, Left Lower Extrem
Skin: Warm
Neuro: Awake, Alert, Oriented, AO x 3 and No Motor Deficits
Psych: Calm
Data Reviewed
-
Diagnostic Radiology: Image personally visualized and interpreted and Report Reviewed by me
CT Scan: Image personally visualized and interpreted and Report Reviewed by me
Ultrasound: Image personally visualized and interpreted and Report Reviewed by me
MRI: Image personally visualized and interpreted and Report Reviewed by me
Medical Tests (Nuc Med, Echo etc): Image personally visualized and interpreted and Report Reviewed by me
Labs: Labs Reviewed by me
Old Records: Reviewed
--- NOTE | 2025-04-07 14:40 | PN.CDI ---
CDI
- -
CDI:
Physician Documentation Request
Admit Date: 04/03/25 23:57
Dear Doctor Louisa,
Please review the following and provide your response in the progress notes.
Clinical Indicators:
- 04/07 PN indicates elevated troponins 'Likely related to heart failure'
- 'acute on chronic diastolic congestive heart failure'
- Troponin labs:
Laboratory Tests
04/05/25 04/05/25
08:42 15:50
Troponin I 0.800 H* 0.684 H*
Please clarify the following regarding the documented elevated troponins:
Non-ischemic myocardial injury
Type II NC due to demand ischemia from acute CHF
Other (please specify)
Use of terms such as suspected, likely, concern for, or probable (associated with a specific diagnosis that is being evaluated, monitored, or treated as if it exists) are acceptable and can be coded in the inpatient setting, when documented at the
time of discharge.
Thank you,
Lena Barrera RN
CDI Specialist
Please use your independent medical judgment in providing your response.
--- NOTE | 2025-04-07 15:06 | CM ---
PT recommending home PT vs SNF. Discussed with patient. She reports she was at [facility] for 3 months and will not go to another SNF. Initially did not want home skilled services but was then amenable if [facility] care is able to provide
services. Referral forwarded to [facility]
[2025-04-07 15:26] VITALS: BP 133/62
--- NOTE | 2025-04-07 15:51 | PTCARENOTE ---
Pt ambulated in zhong with rt on room air. tolerated well. vitals stable after ambulation. pt without complaint. she does not want to go to snf, agreeable to home with rehab. otherwise no changes.
[2025-04-07 16:33] LABS: Glucose - Point of Care 104 mg/dl (70-99)
[2025-04-07 20:12] VITALS: BP 134/96
[2025-04-07 21:21] LABS: Glucose - Point of Care 141 mg/dl (70-99)
[2025-04-08 00:09] VITALS: BP 162/74
[2025-04-08 04:00] VITALS: BP 141/74
[2025-04-08 04:27] LABS: Hemoglobin 10.1 g/dL (12.0-16.0); Mean Corp Hgb Conc. 32.6 g/dL (33.0-37.0); Mean Corpuscular Hgb 29.5 pg (27.0-31.0); Mean Corpuscular Volume 90.6 fL (81.0-99.0); Mean Platelet Volume 10.6 fL (7.4-10.4); Platelet Count 175 10^3/uL (130-400); Red Blood Cell Count 3.42 10^6/uL (4.20-5.40); Red Cell Dist. Width 13.2 % (11.5-14.5)
[2025-04-08 04:50] LABS: Blood Urea Nitrogen 32 mg/dl (7-17); Calcium 9.5 mg/dl (8.4-10.2); Carbon Dioxide 26 mmol/L (22-30); Chloride 107 mmol/L (98-107); Estimated Creatinine Clearance 53 ml/min; Glucose 119 mg/dl (70-99); Potassium 3.6 mmol/L (3.5-5.1); Sodium 142 mmol/L (135-145); eGFR 51.75
[2025-04-08] MEDS: ROCEPHIN 2000 MG IV (05:51)
[2025-04-08] MEDS: STERILE WATER FOR INJECTION 20 ML IV (05:52)
[2025-04-08 06:00] VITALS: BMI 40.4
[2025-04-08 08:00] VITALS: BP 135/54
[2025-04-08] MEDS: ASPIR LOW (ENTERIC COATED) 81 MG PO (08:43)
[2025-04-08] MEDS: PROTONIX 40 MG PO (08:43)
[2025-04-08] MEDS: LASIX 40 MG PO (08:43)
[2025-04-08] MEDS: ZITHROMAX 500 MG PO (08:43)
[2025-04-08] MEDS: LOPRESSOR 50 MG PO (08:43)
[2025-04-08] MEDS: HEPARIN 5000 UNITS SC (08:45)
[2025-04-08] MEDS: NEURONTIN 400 MG PO (08:45)
[2025-04-08] MEDS: DESENEX/MITRAZOL/ZEASORB 1 APPLIC TOPICAL (08:45)
[2025-04-08] MEDS: MIRALAX PO (08:46)
[2025-04-08] MEDS: NOVOLOG FLEXPEN-MODERATE RESISTANCE SC ×2 (08:55→11:48)
[2025-04-08 09:05] LABS: Glucose - Point of Care 119 mg/dl (70-99)
--- NOTE | 2025-04-08 10:52 | PTCARENOTE ---
Patient OOB with min assist and walker. Patient ambulated to bathroom and performed partial bath/mouth care. Patient RA sat 93%, no c/o pain or SOB. Patient is for discharge today and is calling her and grandson to pick her up.
[2025-04-08 11:41] LABS: Glucose - Point of Care 135 mg/dl (70-99)
--- NOTE | 2025-04-08 11:46 | CM ---
Patient has been medically cleared for discharge to home with Home Health services for RN, PT/OT. [facility] will provide services. Patient's will transport home.
[2025-04-08 11:52] VITALS: BP 129/84
--- NOTE | 2025-04-08 12:09 | W.PN.HOSP.TC ---
Addendum entered and electronically signed by Masha Jasso MD 04/08/25 13:18:
o��� Type II OK due to demand ischemia from acute CHF
Original Note:
Today's Communication/Plan
-
Discharge home today
Assessment / Plan
Assessment / Plan
Impression:
Patient is a 79-year-old female with past medical history significant for hypertension, hyperlipidemia, [id number] diabetes,who came to the ER on 04/03 with generalized weakness and feeling slower than usual. Workup in the emergency room
showed concern of sepsis with positive urinalysis. Admitted for sepsis with underlying urinary tract infection and mild CHELSI. She was started on antibiotic, ceftriaxone along with IV fluids
On 04/04 patient noted to be hypoxic with chest x-ray shows pulmonary congestion.
Patient developed respiratory distress and use of accessory muscle, placed on BiPAP and upgraded to ICU.
In the ICU repeat imaging shows right upper lobe infiltrate and concerning of pneumonia.
Patient received Lasix in the ICU, weaned off BiPAP to 6 L, then 3 L and then 1 L.
Patient will be downgraded from the ICU.
Weaned to room air.
Physical therapy recommending home physical therapy.
Patient cleared for discharge and will be discharged home today.
Assessment/plan
Severe sepsis with acute organ dysfunction
Septic shock (required pressors-currently off pressors)
sepsis due to UTI and pneumonia.
Acute organ dysfunction in form of acute hypoxic respiratory failure
Continue IV ceftriaxone /azithromycin
Was on pressors in the ICU, current off pressors
Urine culture with pansensitive E. coli
Blood cultures no growth till date
Will be discharged on oral Ceftin and Zithromax.
Acute hypoxic respiratory failure:
Likely primarily volume overload with heart failure and pneumonia
Requiring BiPAP and now on supplemental oxygen
Continue IV diuresis
Continue IV antibiotics
Doppler lower extremities negative
Assess home oxygen before discharge.
Weaned to room air.
2. Pulse ox on exertion ordered
04/08
Patient passed pulse ox on exertion.
Currently room air
Acute on chronic diastolic congestive heart failure:
Continue IV Lasix 40 mg daily
BNP 15,200
Beta-blockers when blood pressure permits
Echocardiogram shows:
Normal left ventricular chamber size. Mild concentric left ventricular
hypertrophy. Normal regional wall motion. Normal left ventricular systolic
function. Left ventricular ejection fraction is 67%.
Mild mitral regurgitation.
Mild tricuspid regurgitation. Estimated pulmonary artery pressure of 29 mmHg.
Compared to the previous echo from Sep 2024, there is no significant change.
04/08
Discontinue Lasix on discharge, continue with home hydrochlorothiazide.
Elevated troponin:
Likely related to heart failure
Continue to monitor trend
Cardiac monitoring
Chest pain-free
Appreciate cardiology input.
Hypotension:
Briefly required pressors
Holding antihypertensives
Currently off pressors
Monitor hemodynamics closely
Blood pressure improved, will resume blood pressure medications slowly
04/08
Resume home meds on discharge
Acute metabolic encephalopathy:
Improved
Likely related to infection and hypoxia
CT of the head unremarkable
Acute renal failure
Avoid nephrotoxic
Monitor renal function
04/08
Resolved
Hypomagnesemia:
Replete and trend
Obstructive sleep apnea:
Continue CPAP at nighttime
Hypertension:
Holding some antihypertensives due to hypotension
Diabetes mellitus type 2:
Insulin sliding scale
Monitor blood sugar
Class 3 (high-risk) obesity,
BMI: 41.2
Diet and lifestyle modification
History of breast cancer in the past:
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
History of epidural abscess s/p finished course of antibiotics as outpatient.
History of recent left femur fracture status post surgical repair finished rehabilitation.
CODE STATUS: Full code
DVT prophylaxis: Heparin
Diet: Cardiac diet
Total time spent on today's encounter was 65 minutes which included time spent in counseling the patient/family regarding diagnosis and treatment plan as listed above, goals of care, and symptom management. Case was discussed with nursing staff,
specialists, and care coordinators/case management. All labs and imaging personally reviewed by me. Remainder the time spent in detailed review of previous records, lab data, imaging, and other medical provider documentation.
Anticipated Discharge: Today
Subjective/Interval History
-
Date of Service: April 08, 2025
Patient seen and examined at bedside, denies any chest pain or shortness of breath, no abdominal pain, no nausea, no vomiting, no diarrhea or constipation.
Currently room air.
Objective Data
-
Labs:
Laboratory Results
04/08/25
04:14
WBC 7.0
Hgb 10.1 L
Hct 31.0 L
Plt Count 175 D
Sodium 142
Potassium 3.6
Chloride 107
Carbon Dioxide 26
BUN 32 H
Creatinine 1.1 H
Glucose 119 H
Calcium 9.5
Vital Signs:
Vital Signs
Temp Pulse Resp BP Pulse Ox
98.3 F 68 16 129/84 95
04/08/25 11:11 04/08/25 11:52 04/07/25 15:25 04/08/25 11:52 04/08/25 11:56
I&O
04/07/25 04/08/25 04/09/25
06:59 06:59 06:59
Intake Total 1300 / 1300 1160 / 1160 480 / 480
Output Total 2495 / 2495
Balance -1195 / -1195 1160 / 1160 480 / 480
Physical Exam
-
General: Well Developed, Well Nourished, No Apparent Distress and Comfortable
HEENT: Normocephalic, Atraumatic, Moist Mucous Membranes, No Ptosis, PERRLA and Nose Appears Normal
Respiratory: Rales, Rhonchi and Non Labored Respirations
Cardiac: Regular Rhythm and S1/S2
Breast: Deferred by me
GI: Soft, Nontender, Nondistended and Normal Bowel Sounds
Genito-urinary: No Costovertebral Tender
Musculoskeletal: No Clubbing, No Cyanosis, Edema, Right Lower Extrem and Edema, Left Lower Extrem
Skin: Warm
Neuro: Awake, Alert, Oriented, AO x 3 and No Motor Deficits
Psych: Calm
Data Reviewed
-
Diagnostic Radiology: Image personally visualized and interpreted and Report Reviewed by me
CT Scan: Image personally visualized and interpreted and Report Reviewed by me
Ultrasound: Image personally visualized and interpreted and Report Reviewed by me
MRI: Image personally visualized and interpreted and Report Reviewed by me
Medical Tests (Nuc Med, Echo etc): Image personally visualized and interpreted and Report Reviewed by me
Labs: Labs Reviewed by me
Old Records: Reviewed
--- NOTE | 2025-04-08 12:12 | W.DCSUMMARY ---
Discharge Summary
Discharge Data
Date of Admission: 04/03/25
Date of Discharge: 04/08/25
-
Pending Results: No
Hospital Course
Hospital course
Patient is a 79-year-old female with past medical history significant for hypertension, hyperlipidemia, wgv-bylzqye-picqvdvtm diabetes,who came to the ER on 04/03 with generalized weakness and feeling slower than usual. Workup in the emergency room
showed concern of sepsis with positive urinalysis. Admitted for sepsis with underlying urinary tract infection and mild CHELSI. She was started on antibiotic, ceftriaxone along with IV fluids
On 04/04 patient noted to be hypoxic with chest x-ray shows pulmonary congestion.
Patient developed respiratory distress and use of accessory muscle, placed on BiPAP and upgraded to ICU.
In the ICU repeat imaging shows right upper lobe infiltrate and concerning of pneumonia.
Patient received Lasix in the ICU, weaned off BiPAP to 6 L, then 3 L and then 1 L.
Patient will be downgraded from the ICU.
Weaned to room air.
Physical therapy recommending home physical therapy.
Patient cleared for discharge and will be discharged home today.
During hospitalization patient was treated from the following
Severe sepsis with acute organ dysfunction
Septic shock (required pressors-currently off pressors)
sepsis due to UTI and pneumonia.
Acute organ dysfunction in form of acute hypoxic respiratory failure
Continue IV ceftriaxone /azithromycin
Was on pressors in the ICU, current off pressors
Urine culture with pansensitive E. coli
Blood cultures no growth till date
Will be discharged on oral Ceftin and Zithromax.
Acute hypoxic respiratory failure:
Likely primarily volume overload with heart failure and pneumonia
Requiring BiPAP and now on supplemental oxygen
Continue IV diuresis
Continue IV antibiotics
Doppler lower extremities negative
Assess home oxygen before discharge.
Weaned to room air.
2. Pulse ox on exertion ordered
04/08
Patient passed pulse ox on exertion.
Currently room air
Acute on chronic diastolic congestive heart failure:
Continue IV Lasix 40 mg daily
BNP 15,200
Beta-blockers when blood pressure permits
Echocardiogram shows:
Normal left ventricular chamber size. Mild concentric left ventricular
hypertrophy. Normal regional wall motion. Normal left ventricular systolic
function. Left ventricular ejection fraction is 67%.
Mild mitral regurgitation.
Mild tricuspid regurgitation. Estimated pulmonary artery pressure of 29 mmHg.
Compared to the previous echo from Sep 2024, there is no significant change.
04/08
Discontinue Lasix on discharge, continue with home hydrochlorothiazide.
Elevated troponin:
Likely related to heart failure
Continue to monitor trend
Cardiac monitoring
Chest pain-free
Appreciate cardiology input.
Hypotension:
Briefly required pressors
Holding antihypertensives
Currently off pressors
Monitor hemodynamics closely
Blood pressure improved, will resume blood pressure medications slowly
04/08
Resume home meds on discharge
Acute metabolic encephalopathy:
Improved
Likely related to infection and hypoxia
CT of the head unremarkable
Acute renal failure
Avoid nephrotoxic
Monitor renal function
04/08
Resolved
Hypomagnesemia:
Replete and trend
Obstructive sleep apnea:
Continue CPAP at nighttime
Hypertension:
Holding some antihypertensives due to hypotension
Diabetes mellitus type 2:
Insulin sliding scale
Monitor blood sugar
Class 3 (high-risk) obesity,
BMI: 41.2
Diet and lifestyle modification
History of breast cancer in the past:
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
History of epidural abscess s/p finished course of antibiotics as outpatient.
History of recent left femur fracture status post surgical repair finished rehabilitation.
CODE STATUS: Full code
DVT prophylaxis: Heparin
Diet: Cardiac diet
Total time spent on today's encounter was 40 minutes which included time spent in counseling the patient/family regarding diagnosis and treatment plan as listed above, goals of care, and symptom management. Case was discussed with nursing staff,
specialists, and care coordinators/case management. All labs and imaging personally reviewed by me. Remainder the time spent in detailed review of previous records, lab data, imaging, and other medical provider documentation.
Anticipated Discharge: Today
Discharge Plan
-
Patient Disposition: Home with Home Care
Discharge Diagnosis/Procedures: Severe sepsis with acute organ dysfunction
Septic shock (resolved)
sepsis due to UTI and pneumonia.
Acute organ dysfunction in form of acute hypoxic respiratory failure.
Acute renal failure
Diabetes mellitus type 2
Diet: Low Cholesterol and Diabetic, Carb Controlled
Activity: With assistance and As tolerated
Other Services: VN, PT and OT
Referrals:
Marcos Salinas MD [Active] - in one month
Mariola Damon NP [Specified Professional Personl] - in two to three weeks
Steven Reardon MD [Family Provider] -
Prescriptions:
New
azithromycin 250 mg Tablet
500 mg PO DAILY Qty: 3 0RF
cefuroxime axetil 500 mg tablet
500 mg PO BID 3 Days Qty: 6 0RF
Continued
gabapentin 600 MG tablet
900 mg PO BID
trazodone 50 MG tablet
100 mg PO HS
amlodipine [Norvasc] 5 mg Tablet
5 mg PO DAILY
pantoprazole [Protonix] 40 mg Tablet,Delayed Release (Dr/Ec)
40 mg PO DAILY
metformin 1,000 mg Tablet
1,000 mg PO DAILY
metoprolol tartrate [Lopressor] 50 mg Tablet
50 mg PO BID
lisinopril 40 mg Tablet
40 mg PO DAILY
cyanocobalamin (vitamin B-12) 1,000 mcg Tablet
1,000 mcg PO DAILY
polyethylene glycol 3350 17 gram Powder In Packet
17 g PO DAILY Qty: 0 0RF
Hemorrhoidal(PE-min oil-savanna) 0.25-14-74.9 % Ointment
1 applic [place] Q6HPRN PRN (Reason: hemorrhoids) Qty: 0 0RF
acetaminophen [Tylenol Extra Strength] 500 mg Tablet
1,000 mg PO TID Qty: 0 0RF
cholecalciferol (vitamin D3) 50 mcg (2,000 unit) Tablet
50 mcg PO DAILY Qty: 0 0RF
therapeutic multivitamin Tablet
1 tab PO DAILY
hydrochlorothiazide 25 mg Tablet
25 mg PO DAILY
diclofenac sodium 1 % gel
4 g topical QID
Rx Instructions:
to mid back
lidocaine 4 % adhesive patch,medicated
1 patch topical DAILY
Rx Instructions:
lateral L hip
aspirin 325 mg Tablet
325 mg PO DAILY Qty: 0 0RF
miconazole nitrate [Miconazorb AF] 2 % Powder
1 applic topical BID Qty: 85 0RF
ferrous sulfate [FeroSul] 325 mg (65 mg iron) Tablet
325 mg PO Q48H Qty: 0 0RF
Discharge Orders:
Discharge Patient (As Directed); Ordered 04/08/25
Ordered By: Masha Jasso
Discharge Date and Time
Print Language: GREEK
--- NOTE | 2025-04-08 14:37 | PTCARENOTE ---
Patient discharged. here to transport patient home. CPAP and ipad with patient at time of discharge.
== END 2025-04-08 14:43 | disposition home health service (06) | DRG 871 ==
LOC: ICU 23:57
PROVIDERS: Hospitalist; Internal Medicine Critical Care Medicine; Nurse Practitioner Primary Care; Student in an Organized Health Care Education/Training Program; ADMITTING PHYSICIAN Internal Medicine; ATTENDING PHYSICIAN General Practice; CONSULT PHYSICIAN Internal Medicine; EMERGENCY PHYSICIAN Emergency Medicine; FAMILY PHYSICIAN Family Medicine
DX: A41.9 Sepsis, unspecified organism (principal); G93.41 Metabolic encephalopathy; I50.33 Acute on chronic diastolic (congestive) heart failure; J18.9 Pneumonia, unspecified organism; R65.21 Severe sepsis with septic shock; J96.01 Acute respiratory failure with hypoxia; I21.A1 Myocardial infarction type 2; N39.0 Urinary tract infection, site not specified; Z68.41 Body mass index [BMI] 40.0-44.9, adult; N17.9 Acute kidney failure, unspecified; B96.20 Unspecified Escherichia coli [E. coli] as the cause of diseases classified elsewhere; E66.9 Obesity, unspecified; E66.813 Obesity, class 3; E11.9 Type 2 diabetes mellitus without complications; E78.00 Pure hypercholesterolemia, unspecified; I11.0 Hypertensive heart disease with heart failure; E83.42 Hypomagnesemia; G47.33 Obstructive sleep apnea (adult) (pediatric); Z86.000 Personal history of in-situ neoplasm of breast; Z79.84 Long term (current) use of oral hypoglycemic drugs
CPT/HCPCS: 36600; 51701; 70450; 71045; 71046; 80048; 80053; 81003; 81015; 82330; 82570; 82805; 82962; 83605; 83735; 83880; 84132; 84300; 84302; 84484; 85025; 85027; 85610; 85730; 87040; 87070; 87077; 87086; 87186; 87502; 87811; 93005; 93306; 93970; 94660; 94760; 96361; 96365; 96375; 97163; 99285

== ENCOUNTER → 2025-04-15 13:22 | Outpatient (REF) | payer MEDICARE, OTHER, SELFPAY | LOC: RAD 13:22 | PROVIDERS: ATTENDING PHYSICIAN Family Medicine | DX: R22.41 Localized swelling, mass and lump, right lower limb (principal); L53.9 Erythematous condition, unspecified; J96.01 Acute respiratory failure with hypoxia | CPT/HCPCS: 93971 ==